=== PATIENT | female | born 1990 | race Caucasian/White ===

== ENCOUNTER 2019-11-27 06:44 | Emergency (ER) | payer SELFPAY ==
[2019-11-27 06:52] VITALS: BP 149/92; PULSE 129; RESP 18; TEMP 37.4; O2SAT 130; BMI 23.0
--- NOTE | 2019-11-27 06:59 | W.ED.GENADLT ---
HPI - General Adult General: Chief complaint: Abdominal Pain Stated complaint: RIGHT FLANK PAIN, N/V, FEVER Time Seen by Provider: 11/27/19 06:52 History of Present Illness: HPI narrative: Patient says she worked last night and felt pretty bad for little bit better this morning but believes she had a UTI couple weeks ago did not take any treatment for it. Patient now had a fever has been nauseated have urinary frequency complains about right flank pain that is radiating to her right abdomen area presently. Said it hurts about a 5 out of 10. Denies any blood in her urine. Onset (ago): day(s) Location: abdomen and right Radiation: flank Severity: moderate Severity scale (1-10): 5 Quality: aching Pain Consistency: constant Relieving factors: none Exacerbating factors: none Associated symptoms: Reports nausea; Deny chest pain, dyspnea, headache(s) or rash Treatments prior to arrival: none Review of Systems Const: Reports: fever(s) and chills; Denies: body aches Eyes: Denies: change in vision or blurry vision ENMT: Denies: throat pain or nasal congestion Card: Denies: chest pain or dyspnea on exertion Resp: Denies: dyspnea, productive cough or non-productive cough GI: Reports: abdominal pain (Right flank pain) and nausea Musc: Denies: extremity pain Skin/Breast: Denies: rash Neuro: Denies: headache(s) Psych: Denies: anxiety or depression Ted/Lymph: Denies: easy bruising Physical Exam Const: COMMON NORMALS: no acute distress, average body habitus and patient oriented x3 HENMT: COMMON NORMALS: normocephalic HEAD & SCALP: normal to inspection and normocephalic FACE & SINUS: normal facial exam Eye: COMMON NORMALS: conjunctivae normal GENERAL EYE: appearance normal, both eyes and all related structures CONJUNCTIVA: Yes conjunctivae normal Neck/C-Spine: COMMON NORMALS: no JVD Chest: COMMONS NORMALS: normal inspection of the chest Resp: COMMON NORMALS: normal respiratory effort and clear to auscultation bilaterally AUSCULTATION: clear to auscultation bilaterally Cardio: COMMON NORMALS: no JVD, regular rate and regular rhythm RATE: regular rate RHYTHM: regular rhythm GI: COMMON NORMALS: Normal to inspection, nondistended, normoactive bowel sounds present Extremity: COMMON NORMALS: normal to inspection and full ROM Neuro: COMMON NORMALS: patient oriented x3 Course Vital Signs: Vital signs: Vital Signs Temperature 99.3 F 11/27/19 06:52 Pulse Rate 129 H 11/27/19 06:52 Respiratory Rate 18 11/27/19 06:52 Blood Pressure 149/92 11/27/19 06:52 Pulse Oximetry 130 H 11/27/19 06:52 MDM - General Adult MDM Narrative: Medical decision making narrative: Patient presented with right flank pain nausea fever and chills and urinary frequency. Diagnosis of pyelonephritis was arrived at because of hematuria and increased white blood cell count. Also seen on CT was a nonenhancing lesion on the liver which patient was informed that she needed an MRI CT and establish with a primary care provider to get this looked at. Patient tolerated antibiotics and IV fluids well feels much better. Lab Data: Labs: Lab Results 11/27/19 11/27/19 11/27/19 Range/Units 07:11 07:11 07:11 WBC 15.7 H (4.0-10.0) 10^3/ uL RBC 4.17 (4.1-5.3) 10^6/u L Hgb 12.1 (11.5-15.3) g/dL Hct 38.2 (37.0-47.0) % MCV 91.6 (81-99) fL MCH 29.0 (28.0-34.0) pg MCHC 31.7 (30.0-36.0) g/dL RDW 13.3 (12.1-15.1) % Plt Count 477 H (130-400) 10^3/c mm MPV 8.6 (7.4-10.4) fL Neut % (Auto) 85.9 % Lymph % (Auto) 7.3 % [place] % (Auto) 5.7 % Eos % (Auto) 0.2 % Baso % (Auto) 0.5 % Neut # (Auto) 13.46 H (1.8-7.7) 10^3/u L Lymph # (Auto) 1.2 (0.8-4.8) 10^3/u L [place] # (Auto) 0.9 (0.2-0.9) 10^3/u L Eos # (Auto) 0.0 (0.0-0.8) 10^3/u L Baso # (Auto) 0.1 (0.0-0.1) 10^3/u L Nucleated RBC % (a uto) 0 % Nucleated RBCs # 0.0 /100WBC Sodium 136 (136-145) mmol/L Potassium 3.4 L (3.5-5.1) mmol/L Chloride 99 (98-107) mmol/L Carbon Dioxide 22 (22-29) mmol/L Anion Gap 18.4 (5-19) BUN 7 (6-20) mg/dL Creatinine 0.7 (0.5-0.9) mg/dL GFR Calculation 100.4 (90-130) mL/min Glucose 120 H (65-115) mg/dL Calculated Osmolal ity 279 L (285-295) mOsm/k g Calcium 9.6 (8.5-10.5) mg/dL Total Bilirubin 0.3 (0.15-1.2) mg/dL AST 26 (0-32) U/L ALT 17 (0-33) U/L Alkaline Phosphata se 87 (35-105) IU/L Total Protein 8.0 (6.6-8.7) g/dL Albumin 4.3 (3.5-5.2) g/dL Globulin 3.7 (1.3-4.6) g/dL Lipase 53 (13-60) U/L HCG, Qual Negative (Negative) Urine Color (Yellow) Urine Appearance (CLEAR) Urine pH (5-7) Ur Specific Gravit y (1.005-1.030) Urine Protein (Negative) Urine Glucose (UA) (Normal) Urine Ketones (Negative) Urine Blood (Negative) Urine Nitrate (Negative) Urine Bilirubin (NEGATIVE) Urine Urobilinogen (Negative) mg/dL Ur Leukocyte Jennifer ase (Negative) Urine RBC (0-2) /hpf Urine WBC (0-5) /hpf Ur Squamous Epith Cells (0-5) Amorphous Sediment Urine Bacteria (NONE) Urine Mucus 11/27/19 Range/Units 07:11 WBC (4.0-10.0) 10^3/ uL RBC (4.1-5.3) 10^6/u L Hgb (11.5-15.3) g/dL Hct (37.0-47.0) % MCV (81-99) fL MCH (28.0-34.0) pg MCHC (30.0-36.0) g/dL RDW (12.1-15.1) % Plt Count (130-400) 10^3/c mm MPV (7.4-10.4) fL Neut % (Auto) % Lymph % (Auto) % [place] % (Auto) % Eos % (Auto) % Baso % (Auto) % Neut # (Auto) (1.8-7.7) 10^3/u L Lymph # (Auto) (0.8-4.8) 10^3/u L [place] # (Auto) (0.2-0.9) 10^3/u L Eos # (Auto) (0.0-0.8) 10^3/u L Baso # (Auto) (0.0-0.1) 10^3/u L Nucleated RBC % (a uto) % Nucleated RBCs # /100WBC Sodium (136-145) mmol/L Potassium (3.5-5.1) mmol/L Chloride (98-107) mmol/L Carbon Dioxide (22-29) mmol/L Anion Gap (5-19) BUN (6-20) mg/dL Creatinine (0.5-0.9) mg/dL GFR Calculation (90-130) mL/min Glucose (65-115) mg/dL Calculated Osmolal ity (285-295) mOsm/k g Calcium (8.5-10.5) mg/dL Total Bilirubin (0.15-1.2) mg/dL AST (0-32) U/L ALT (0-33) U/L Alkaline Phosphata se (35-105) IU/L Total Protein (6.6-8.7) g/dL Albumin (3.5-5.2) g/dL Globulin (1.3-4.6) g/dL Lipase (13-60) U/L HCG, Qual (Negative) Urine Color Yellow (Yellow) Urine Appearance Cloudy (CLEAR) Urine pH 5.0 (5-7) Ur Specific Gravit y 1.020 (1.005-1.030) Urine Protein 1+ H (Negative) Urine Glucose (UA) Norm (Normal) Urine Ketones 1+ H (Negative) Urine Blood 3+ H (Negative) Urine Nitrate Negative (Negative) Urine Bilirubin 1+ H (NEGATIVE) Urine Urobilinogen 1 H (Negative) mg/dL Ur Leukocyte Jennifer ase Trace H (Negative) Urine RBC 50-80 H (0-2) /hpf Urine WBC 25-40 H (0-5) /hpf Ur Squamous Epith Cells 15-25 H (0-5) Amorphous Sediment Not Reportable Urine Bacteria 2+ H (NONE) Urine Mucus 2+ Discharge Plan Discharge Patient Disposition: Home Clinical Impression: Pyelonephritis Condition: Stable Prescriptions: New Keflex 500 mg capsule 500 mg PO TID 7 Days Qty: 21 RF: 0 Discharge Orders: Discharge Order (Routine); Ordered 11/27/19 Ordered By: Félix Braden Discharge Diet: Usual diet Discharge Activity: Increase activity as tolerated Patient Instructions: Acute Pyelonephritis (ED) Activity Restrictions/Additional Instructions: Follow-up with medical provider as directed. Take medications as prescribed. Return to the ER or your medical provider if condition worsens. Please read and understand discharge instructions. If any questions ask please. Make sure you establish with a primary care provider here in the next week repeat urine sample make sure infection is gone and also get scheduled for CT your MRI of your liver to look at that nonenhancing lesion that was seen on CT here in the ER. Coding Level of Care Code ED [employer] for [facility] Exam Comprehensive
--- NOTE | 2019-11-27 07:01 | CTR_ITS ---
PROCEDURE INFORMATION: Exam: CT Abdomen And Pelvis Without Contrast Exam date and time: 11/27/2019 7:24 AM Age: 29 years old Clinical indication: Nausea and vomiting; Abdominal pain; Patient HX: Right flank pain with n/v x 3days TECHNIQUE: Imaging protocol: Computed tomography of the abdomen and pelvis without contrast. Radiation optimization: All CT scans at this facility use at least one of these dose optimization techniques: automated exposure control; mA and/or kV adjustment per patient size (includes targeted exams where dose is matched to clinical indication); or iterative reconstruction. COMPARISON: [facility] OB < 14 weeks 07/27/2017 1:27 PM RADIATION DOSE METRICS: Total DLP (mGy-cm): 492.46 FINDINGS: Liver: Normal. No mass. Gallbladder and bile ducts: Normal. No calcified stones. No ductal dilation. Pancreas: Normal. No ductal dilation. Spleen: Normal. No splenomegaly. Adrenals: Normal. No mass. Kidneys and ureters: Mild right renal central sinus and upper periureteral adipose stranding. Stomach and bowel: There is mildly increased stool noted in the ascending colon. Appendix: The vermiform appendix is normal. Intraperitoneal space: Nonspecific clustered hypodensities in the superior left lobe medial segment, in aggregate measuring 3.6 x 3.5 x 2.7 cm, possibly cystic and/or tubular/ductal. Vasculature: Unremarkable. No abdominal aortic aneurysm. Lymph nodes: No enlarged lymph nodes. Bladder: The urinary bladder is decompressed and difficult to assess. Reproductive: Small benign-appearing right uterine myometrial calcification. Bones/joints: Unremarkable. No acute fracture. Soft tissues: Unremarkable. CT/CT kidney stone [id number] IMPRESSION: 1. Mild right renal central sinus and upper periureteral adipose stranding. No hydronephrosis or obstructing calculus identified. The finding could represent upper urinary tract infection or recently passed ureteral calculus. Clinical correlation is recommended. 2. Nonspecific hepatic lesion. Comparison with prior studies recommended, if available. Otherwise contrast-enhanced imaging or MRI recommended. 3. Mild right abdominal colonic constipation. Radiation Dose CTDIVOL = (mGy): DLP = 492.46 (mGy-cm)
[2019-11-27 07:19] LABS: Basophils # 0.1 10^3/uL (0.0-0.1); Basophils % 0.5 %; Eosinophils % 0.2 %; Hematocrit 38.2 % (37.0-47.0); Hemoglobin 12.1 g/dL (11.5-15.3); Lymphocytes # 1.2 10^3/uL (0.8-4.8); Lymphocytes % 7.3 %; Mean Corpuscular HGB Conc 31.7 g/dL (30.0-36.0); Mean Corpuscular Volume 91.6 fL (81-99); Mean Platelet Volume 8.6 fL (7.4-10.4); Monocytes # 0.9 10^3/uL (0.2-0.9); Monocytes % 5.7 %; Neutrophils # 13.46 10^3/uL (1.8-7.7); Neutrophils % 85.9 %; Nucleated Red Blood Cells % 0 %; Platelet Count 477 10^3/cmm (130-400); Red Blood Count 4.17 10^6/uL (4.1-5.3); Red Cell Distribution Width 13.3 % (12.1-15.1); White Blood Count 15.7 10^3/uL (4.0-10.0)
[2019-11-27] MEDS: ondansetron 2 mg/ML SDV 2 mL 4 MG IVP (07:23)
[2019-11-27] MEDS: ketorolac 30 mg/mL INJ IVP (07:23)
[2019-11-27] MEDS: sodium chloride 0.9% 1,000 ML 999 ML IV (07:23)
[2019-11-27 07:27] LABS: HCG, Serum Qual Negative (Negative)
[2019-11-27 07:31] LABS: Alanine Aminotransferase 17 U/L (0-33); Albumin Level 4.3 g/dL (3.5-5.2); Alkaline Phosphatase 87 IU/L (35-105); Anion Gap 18.4 (5-19); Aspartate Amino Transferase 26 U/L (0-32); Blood Urea Nitrogen 7 mg/dL (6-20); Calcium 9.6 mg/dL (8.5-10.5); Carbon Dioxide 22 mmol/L (22-29); Chloride 99 mmol/L (98-107); Creatinine Clr Calc Pharmacy 104.8675; Globulin 3.7 g/dL (1.3-4.6); Glomerular Filtration Rate 100.4 mL/min (90-130); Glucose 120 mg/dL (65-115); Lipase 53 U/L (13-60); Osmolality Calculated 279 mOsm/kg (285-295); Potassium 3.4 mmol/L (3.5-5.1); Sodium 136 mmol/L (136-145); Total Bilirubin 0.3 mg/dL (0.15-1.2)
[2019-11-27 07:43] LABS: Add Urine Culture? No; Add Urine Microscopic? YES; Bacteria Urine 2+; Bilirubin Urine 1+ (NEGATIVE); Blood Urine 3+ (Negative); Glucose Urine UA Norm (Normal); Ketones Urine 1+ (Negative); Leukocyte Esterase Urine Trace (Negative); Mucus Urine 2+; Nitrate Urine Negative (Negative); Protein Urine 1+ (Negative); RBC Urine 50-80 /hpf (0-2); Squamous Epithelial Cell Urine 15-25 (0-5); Urine Appearance Cloudy (CLEAR); Urine Color Yellow (Yellow); Urobilinogen Urine 1 mg/dL (Negative); WBC Urine 25-40 /hpf (0-5)
[2019-11-27] MEDS: cefTRIAXone 1,000 MG in sodium chloride 0.9% (plus) 50 ML 100 MG IV (07:47)
[2019-11-27 08:44] VITALS: BP 134/84; PULSE 74; RESP 18; O2SAT 98
== END 2019-11-27 08:48 | disposition home or self-care (01) ==
PROVIDERS: Emergency Provider Nurse Practitioner Family
DX: N12 Tubulo-interstitial nephritis, not specified as acute or chronic (principal)
CPT/HCPCS: 12345; 74176; 80053; 81001; 81003; 83690; 84703; 85025; 96360; 96365; 96375; 99282; 99284; J0696; J1885; J2405; J7030

== ENCOUNTER 2021-05-19 08:31 | Emergency (ER) | payer SELFPAY ==
[2021-05-19 08:53] VITALS: BP 156/101; PULSE 92; RESP 18; TEMP 37.2; O2SAT 94; BMI 24.7
--- NOTE | 2021-05-19 09:06 | W.ED.COVID ---
HPI - COVID General: Chief Complaint: COVID symptoms Stated Complaint: Med reaction, COVID postive Time Seen by Provider: 05/19/21 09:00 Triage information: No fever, cough or shortness of breath. No known COVID + exposure last 14 days History of Present Illness: HPI Narrative: COVID-positive patient states she has muscle aches. She says that the Zofran she taken is making her hallucinate at times. Denies other problems needs a note for work. complaint: known COVID positive Prior covid testing: yes, results known Prior testing date: 05/17/21 COVID 19 common symptoms: positive fatigue and body aches; negative non-productive cough, productive cough, dyspnea, headache(s), throat pain, nasal congestion, nausea or vomiting COVID 19 other sytmptoms: negative chest pain Onset (ago): day(s) Severity: mild COVID Results: No Data to Display Review of Systems Const: Reports: body aches and fatigue Eyes: Denies: change in vision or blurry vision ENMT: Denies: throat pain or nasal congestion Card: Denies: chest pain or dyspnea on exertion Resp: Denies: dyspnea, productive cough or non-productive cough GI: Denies: abdominal pain, nausea or vomiting Musc: Denies: extremity pain Skin/Breast: Denies: rash Neuro: Denies: headache(s) Psych: Denies: anxiety or depression Ted/Lymph: Denies: easy bruising Physical Exam Const: COMMON NORMALS: no acute distress, average body habitus and patient oriented x3 HENMT: COMMON NORMALS: normocephalic HEAD & SCALP: normal to inspection and normocephalic FACE & SINUS: normal facial exam Eye: COMMON NORMALS: conjunctivae normal GENERAL EYE: appearance normal, both eyes and all related structures CONJUNCTIVA: Yes conjunctivae normal Neck/C-Spine: COMMON NORMALS: no JVD Chest: COMMONS NORMALS: normal inspection of the chest Resp: COMMON NORMALS: normal respiratory effort Cardio: COMMON NORMALS: no JVD and regular rate RATE: regular rate GI: AUSCULTATION: Yes normoactive bowel sounds Extremity: COMMON NORMALS: normal to inspection and full ROM Neuro: COMMON NORMALS: patient oriented x3 Course Vital Signs: Vital signs: Vital Signs Temperature 99.0 F 05/19/21 08:53 Pulse Rate 92 05/19/21 08:53 Respiratory Rate 18 05/19/21 08:53 Blood Pressure 156/101 05/19/21 08:53 Pulse Oximetry 94 05/19/21 08:53 MDM - COVID COVID Results: No Data to Display Discharge Plan Discharge Patient Disposition: Home Clinical Impression: COVID-19 Condition: Stable Prescriptions: New promethazine 12.5 mg tablet 12.5 mg PO TID PRN (Reason: nausea and vomiting) Qty: 7 RF: 0 Discharge Orders: Discharge ED (Routine); Ordered 05/19/21 Ordered By: Félix Braden Discharge Diet: Advance as tolerated Discharge Activity: Increase activity as tolerated Patient Instructions: COVID-19 (Coronavirus Disease 2019) (ED) Activity Restrictions/Additional Instructions: Follow-up with medical provider as directed. Take medications as prescribed. Return to the ER or your medical provider if condition worsens. Please read and understand discharge instructions. If any questions ask please. 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
[2021-05-19 09:21] VITALS: O2SAT 98
[2021-05-19 09:22] VITALS: BP 151/115; PULSE 86; RESP 18; O2SAT 98
== END 2021-05-19 09:30 | disposition home or self-care (01) ==
PROVIDERS: Emergency Provider Nurse Practitioner Family
DX: U07.1 COVID-19 (principal)
CPT/HCPCS: 99282

== ENCOUNTER 2021-05-22 15:49 | Emergency (ER) | payer SELFPAY ==
[2021-05-22 15:56] VITALS: BP 163/102; PULSE 119; RESP 18; TEMP 37.4; O2SAT 95; BMI 19.5
--- NOTE | 2021-05-22 16:18 | ED_ITS ---
Documented by User: PAT Shetty 05/22/21 16:19 HPI - Weakness General: Chief complaint: Weakness Stated complaint: NOT FEELING WELL Time Seen by Provider: 05/22/21 15:53 History of Present Illness: HPI Narrative: Patient presents via ambulance and says she just did not feel right. Said her blood pressures been running high the last couple days. She cannot tolerate promethazine are the Zofran. States she just feels weak. Denies any fever chills or shortness of breath. Has been COVID quarantine for 3 weeks as per angus BARRETO Complaint: generalized weakness and lack of energy Onset (ago): day(s) Duration: constant Location: generalized Severity: mild Associated symptoms: Reports no associated symptoms; Denies chest pain, chills, easy bruising, fever(s), headache(s), nausea or vomiting Review of Systems Narrative: Patient complains about hypertension and just feeling weak and out of it. Const: Denies: fever(s), chills or body aches Eyes: Denies: change in vision or blurry vision ENMT: Denies: throat pain or nasal congestion Card: Denies: chest pain or dyspnea on exertion Resp: Denies: dyspnea, productive cough or non-productive cough GI: Denies: abdominal pain, nausea or vomiting Musc: Denies: extremity pain Skin/Breast: Denies: rash Neuro: Denies: headache(s) Psych: Denies: anxiety or depression Ted/Lymph: Denies: easy bruising Physical Exam Const: COMMON NORMALS: no acute distress, average body habitus and patient oriented x3 HENMT: COMMON NORMALS: normocephalic HEAD & SCALP: normal to inspection and normocephalic FACE & SINUS: normal facial exam Eye: COMMON NORMALS: conjunctivae normal GENERAL EYE: appearance normal, both eyes and all related structures CONJUNCTIVA: Yes conjunctivae normal Neck/C-Spine: COMMON NORMALS: no JVD Chest: COMMONS NORMALS: normal inspection of the chest Resp: COMMON NORMALS: normal respiratory effort and clear to auscultation bilaterally AUSCULTATION: clear to auscultation bilaterally Cardio: COMMON NORMALS: no JVD, regular rate and regular rhythm RATE: regular rate RHYTHM: regular rhythm GI: COMMON NORMALS: Normal to inspection, nondistended, normoactive bowel sounds present Extremity: COMMON NORMALS: normal to inspection and full ROM Neuro: COMMON NORMALS: patient oriented x3 Course Vital Signs: Vital signs: Vital Signs Temperature 98.2 F 05/22/21 17:49 Pulse Rate 97 05/22/21 17:49 Respiratory Rate 18 05/22/21 17:49 Blood Pressure 143/93 05/22/21 17:49 Pulse Oximetry 95 05/22/21 17:49 MDM - Weakness Lab Data: Labs: Lab Results 05/22/21 05/22/21 05/22/21 16:30 16:30 16:30 WBC 5.8 10^3/uL 10^3/ uL (4.0-10.0) RBC 4.93 10^6/uL 10^6 /uL (4.1-5.3) Hgb 15.1 g/dL g/dL (11.5-15.3) Hct 46.5 % % (37.0-47.0) MCV 94.3 fl fl (81-99) MCH 30.6 pg pg (28.0-34.0) MCHC 32.5 g/dL g/dL (30.0-36.0) RDW 13.0 % % (12.1-15.1) Plt Count 388 10^3/cmm 10^3 /cmm (130-400) MPV 9.3 fL fL (7.4-10.4) Neut % (Auto) 56.6 % % Lymph % (Auto) 34.9 % % Maries % (Auto) 5.2 % % Eos % (Auto) 1.0 % % Baso % (Auto) 2.1 % % Neut # (Auto) 3.29 10^3/uL 10^3 /uL (1.8-7.7) Lymph # (Auto) 2.0 10^3/uL 10^3/ uL (0.8-4.8) Maries # (Auto) 0.3 10^3/uL 10^3/ uL (0.2-0.9) Eos # (Auto) 0.1 10^3/uL 10^3/ uL (0.0-0.8) Baso # (Auto) 0.1 10^3/uL 10^3/ uL (0.0-0.1) Nucleated RBC % (a uto) 0 % % Nucleated RBCs # 0.0 /100WBC /100W BC D-Dimer 0.60 ug/mIFEU H u g/mIFEU (0-0.59) Sodium 144 mmol/L mmol/L (136-145) Potassium 4.1 mmol/L mmol/L (3.5-5.1) Chloride 103 mmol/L mmol/L (98-107) Carbon Dioxide 24 mmol/L mmol/L (22-29) Anion Gap 21.1 H (5-19) BUN 4 mg/dL L mg/dL (6-20) Creatinine 0.5 mg/dL mg/dL (0.5-0.9) GFR Calculation 146.9 mL/min H mL /min (90-130) Glucose 103 mg/dL mg/dL (65-115) Calculated Osmolal ity 295 mOsm/kg mOsm/ kg (285-295) Calcium 8.9 mg/dL mg/dL (8.5-10.5) Total Bilirubin 0.3 mg/dL mg/dL (0.15-1.2) AST 159 U/L H U/L (0-32) ALT 91 U/L H U/L (0-33) Alkaline Phosphata se 407 IU/L H IU/L (35-105) Total Protein 8.5 g/dL g/dL (6.6-8.7) Albumin 5.0 g/dL g/dL (3.5-5.2) Globulin 3.5 g/dL g/dL (1.3-4.6) Urine Color Urine Appearance Urine pH Ur Specific Gravit y Urine Protein Urine Glucose (UA) Urine Ketones Urine Blood Urine Nitrate Urine Bilirubin Prot Sulfosalicyli c Acd Urine Urobilinogen Ur Leukocyte Jennifer ase Urine Opiates Scre en Ur Barbiturates Sc reen Ur Phencyclidine S crn Ur Amphetamines Sc reen U Benzodiazepines Scrn Urine Cocaine Scre en U Marijuana (THC) Screen 05/22/21 05/22/21 16:30 16:30 WBC RBC Hgb Hct MCV MCH MCHC RDW Plt Count MPV Neut % (Auto) Lymph % (Auto) Maries % (Auto) Eos % (Auto) Baso % (Auto) Neut # (Auto) Lymph # (Auto) Maries # (Auto) Eos # (Auto) Baso # (Auto) Nucleated RBC % (a uto) Nucleated RBCs # D-Dimer Sodium Potassium Chloride Carbon Dioxide Anion Gap BUN Creatinine GFR Calculation Glucose Calculated Osmolal ity Calcium Total Bilirubin AST ALT Alkaline Phosphata se Total Protein Albumin Globulin Urine Color Colorless (Yellow) Urine Appearance Clear (CLEAR) Urine pH 8 H (5-7) Ur Specific Gravit y 1.010 (1.005-1.030) Urine Protein Neg (Negative) Urine Glucose (UA) Norm (Normal) Urine Ketones Negative (Negative) Urine Blood Neg (Negative) Urine Nitrate Negative (Negative) Urine Bilirubin Neg (Negative) Prot Sulfosalicyli c Acd Negative (Negative) Urine Urobilinogen Norm mg/dL mg/dL (Negative) Ur Leukocyte Jennifer ase Negative (Negative) Urine Opiates Scre en Negative ng/mL ng /mL (Negative) Ur Barbiturates Sc reen Negative ng/mL ng /mL (Negative) Ur Phencyclidine S crn Negative ng/mL ng /mL (Negative) Ur Amphetamines Sc reen Negative ng/mL ng /mL (Negative) U Benzodiazepines Scrn Negative ng/mL ng /mL (Negative) Urine Cocaine Scre en Negative ng/mL ng /mL (Negative) U Marijuana (THC) Screen Negative ng/mL ng /mL (Negative) Discharge Plan Discharge Patient Disposition: Home Clinical Impression: Persistent fatigue after COVID-19 Condition: Stable Prescriptions: No Action promethazine 12.5 mg tablet 12.5 mg PO TID PRN (Reason: nausea and vomiting) Qty: 7 RF: 0 Discharge Orders: Discharge ED (Routine); Ordered 05/22/21 Ordered By: Greg Rodriguez Discharge Diet: Regular Discharge Activity: Increase activity as tolerated Patient Instructions: COVID-19 (Coronavirus Disease 2019) (ED), COVID-19 and Chronic Health Conditions (ED), Long COVID (ED) Activity Restrictions/Additional Instructions: Follow-up with medical provider as directed. Case management should be contacting you in the next several days set up an appointment with a primary care physician for follow-up. Continue taking previously prescribed medications as directed. Return to the ER or your medical provider if condition worsens. Please read and understand discharge instructions. Thank you for choosing [facility] for your healthcare needs today. Please realize this is an emergency room and that we are providing you with a medical screening exam and this may not be complete and all inclusive of all the testing and or work up that you may need to determine your ailment or severity of your illness. It is very important that you follow up as instructed or that you return to the Emergency Department should you have concerns or if your condition changes or worsens in any way. Sign Out Sign Out Data: Patient Sign Out occurred on 05/22/21 at 17:10. Patient's care was discussed, and care was transferred from to BARTOLO Mathis. Coding Level of Care Code ED Ophthalmic Aide for Chg Fwd Exam Comprehensive Documented by User: BARTOLO Mathis 05/23/21 02:44 HPI - Weakness General: Chief complaint: Weakness Stated complaint: NOT FEELING WELL Time Seen by Provider: 05/22/21 15:53 Course Vital Signs: Vital signs: Vital Signs Temperature 98.2 F 05/22/21 17:49 Pulse Rate 97 05/22/21 17:49 Respiratory Rate 18 05/22/21 17:49 Blood Pressure 143/93 05/22/21 17:49 Pulse Oximetry 95 05/22/21 17:49 MDM - Weakness MDM Narrative: Medical decision making narrative: Patient is a 30-year-old female who comes to the ED with weakness and fatigue since being diagnosed with COVID approximately 3 weeks ago. She has also had some nausea and vomiting and is currently taking promethazine to help with nausea. Denies any chest pain, shortness of breath or cough. Patient's pulse was 119 upon arrival here in the ED and the rest of her vitals are stable. CBC and CMP were unremarkable. UA unremarkable. Drug screen was negative. D-dimer was 0.6. Chest x-ray showed no acute findings. Patient was given 1 L of IV fluids and her symptoms improved. Patient was stable and ready for discharge. Patient's pulse improved to 97 after IV fluids and the rest of her vitals were stable as well. She says she does not have a primary care physician and would like a referral to get established with one. Placed order with case management for patient to be referred to get established with a PCP. Patient diagnosed with persistent fatigue after COVID-19 and discharged home. Return to ED precautions given. Patient understood and agree with plan. Lab Data: Attestation: I reviewed the patient's lab results. Labs: Lab Results 05/22/21 05/22/21 05/22/21 16:30 16:30 16:30 WBC 5.8 10^3/uL 10^3/ uL (4.0-10.0) RBC 4.93 10^6/uL 10^6 /uL (4.1-5.3) Hgb 15.1 g/dL g/dL (11.5-15.3) Hct 46.5 % % (37.0-47.0) MCV 94.3 fl fl (81-99) MCH 30.6 pg pg (28.0-34.0) MCHC 32.5 g/dL g/dL (30.0-36.0) RDW 13.0 % % (12.1-15.1) Plt Count 388 10^3/cmm 10^3 /cmm (130-400) MPV 9.3 fL fL (7.4-10.4) Neut % (Auto) 56.6 % % Lymph % (Auto) 34.9 % % Maries % (Auto) 5.2 % % Eos % (Auto) 1.0 % % Baso % (Auto) 2.1 % % Neut # (Auto) 3.29 10^3/uL 10^3 /uL (1.8-7.7) Lymph # (Auto) 2.0 10^3/uL 10^3/ uL (0.8-4.8) Maries # (Auto) 0.3 10^3/uL 10^3/ uL (0.2-0.9) Eos # (Auto) 0.1 10^3/uL 10^3/ uL (0.0-0.8) Baso # (Auto) 0.1 10^3/uL 10^3/ uL (0.0-0.1) Nucleated RBC % (a uto) 0 % % Nucleated RBCs # 0.0 /100WBC /100W BC D-Dimer 0.60 ug/mIFEU H u g/mIFEU (0-0.59) Sodium 144 mmol/L mmol/L (136-145) Potassium 4.1 mmol/L mmol/L (3.5-5.1) Chloride 103 mmol/L mmol/L (98-107) Carbon Dioxide 24 mmol/L mmol/L (22-29) Anion Gap 21.1 H (5-19) BUN 4 mg/dL L mg/dL (6-20) Creatinine 0.5 mg/dL mg/dL (0.5-0.9) GFR Calculation 146.9 mL/min H mL /min (90-130) Glucose 103 mg/dL mg/dL (65-115) Calculated Osmolal ity 295 mOsm/kg mOsm/ kg (285-295) Calcium 8.9 mg/dL mg/dL (8.5-10.5) Total Bilirubin 0.3 mg/dL mg/dL (0.15-1.2) AST 159 U/L H U/L (0-32) ALT 91 U/L H U/L (0-33) Alkaline Phosphata se 407 IU/L H IU/L (35-105) Total Protein 8.5 g/dL g/dL (6.6-8.7) Albumin 5.0 g/dL g/dL (3.5-5.2) Globulin 3.5 g/dL g/dL (1.3-4.6) Urine Color Urine Appearance Urine pH Ur Specific Gravit y Urine Protein Urine Glucose (UA) Urine Ketones Urine Blood Urine Nitrate Urine Bilirubin Prot Sulfosalicyli c Acd Urine Urobilinogen Ur Leukocyte Jennifer ase Urine Opiates Scre en Ur Barbiturates Sc reen Ur Phencyclidine S crn Ur Amphetamines Sc reen U Benzodiazepines Scrn Urine Cocaine Scre en U Marijuana (THC) Screen 05/22/21 05/22/21 16:30 16:30 WBC RBC Hgb Hct MCV MCH MCHC RDW Plt Count MPV Neut % (Auto) Lymph % (Auto) Maries % (Auto) Eos % (Auto) Baso % (Auto) Neut # (Auto) Lymph # (Auto) Maries # (Auto) Eos # (Auto) Baso # (Auto) Nucleated RBC % (a uto) Nucleated RBCs # D-Dimer Sodium Potassium Chloride Carbon Dioxide Anion Gap BUN Creatinine GFR Calculation Glucose Calculated Osmolal ity Calcium Total Bilirubin AST ALT Alkaline Phosphata se Total Protein Albumin Globulin Urine Color Colorless (Yellow) Urine Appearance Clear (CLEAR) Urine pH 8 H (5-7) Ur Specific Gravit y 1.010 (1.005-1.030) Urine Protein Neg (Negative) Urine Glucose (UA) Norm (Normal) Urine Ketones Negative (Negative) Urine Blood Neg (Negative) Urine Nitrate Negative (Negative) Urine Bilirubin Neg (Negative) Prot Sulfosalicyli c Acd Negative (Negative) Urine Urobilinogen Norm mg/dL mg/dL (Negative) Ur Leukocyte Jennifer ase Negative (Negative) Urine Opiates Scre en Negative ng/mL ng /mL (Negative) Ur Barbiturates Sc reen Negative ng/mL ng /mL (Negative) Ur Phencyclidine S crn Negative ng/mL ng /mL (Negative) Ur Amphetamines Sc reen Negative ng/mL ng /mL (Negative) U Benzodiazepines Scrn Negative ng/mL ng /mL (Negative) Urine Cocaine Scre en Negative ng/mL ng /mL (Negative) U Marijuana (THC) Screen Negative ng/mL ng /mL (Negative) Imaging Data^: CXR: Attestation: I personally reviewed and interpreted this imaging study as follows: Radiologist's impression: [address] [id number] ReportSigned Patient: Milagro Sebastian RUnkwabena #: [id number]: [id number]#:[id number]/Sex: 30 / FADM Date: 05/22/21Loc: [facility]/Bed:Attending Dr: Ordering Provider/Ordering MD: Joanne Braden , [facility] Date of Service: 05/22/21 Procedure(s): XR chest 1V portable [id number] Accession Number(s): [id number] Report Number: [id number] PROCEDURE INFORMATION: Exam: XR Chest Exam date and time: 05/22/2021 4:37 PM Age: 30 years old Clinical indication: Shortness of breath; Patient HX: SOB w/ hypertension; Additional info: HTN TECHNIQUE: Imaging protocol: XR of the chest. Views: 1 view. Total images: 1 COMPARISON: CR XR chest 2V* [id number] 05/19/2020 3:58 PM FINDINGS: Lungs: No visible active interstitial or alveolar airspace disease. Pleural spaces: Unremarkable. No pleural effusion. No pneumothorax. Heart/Mediastinum: Cardiac structures and configuration within normal limits. Bones/joints: Mild scoliotic curvature of the spine. XR/XR chest 1V portable [id number] IMPRESSION: Nonacute. Dictated By:Keo Nunes By:Keo Nunes Date/Time:05/22/211806DD/ 1637 Discharge Plan Discharge Patient Disposition: Home Clinical Impression: Persistent fatigue after COVID-19 Condition: Stable Prescriptions: No Action promethazine 12.5 mg tablet 12.5 mg PO TID PRN (Reason: nausea and vomiting) Qty: 7 RF: 0 Discharge Orders: Discharge ED (Routine); Ordered 05/22/21 Ordered By: Greg Rodriguez Discharge Diet: Regular Discharge Activity: Increase activity as tolerated Patient Instructions: COVID-19 (Coronavirus Disease 2019) (ED), COVID-19 and Chronic Health Conditions (ED), Long COVID (ED) Activity Restrictions/Additional Instructions: Follow-up with medical provider as directed. Case management should be contacting you in the next several days set up an appointment with a primary care physician for follow-up. Continue taking previously prescribed medications as directed. Return to the ER or your medical provider if condition worsens. Please read and understand discharge instructions. Thank you for choosing [facility] for your healthcare needs today. Please realize this is an emergency room and that we are providing you with a medical screening exam and this may not be complete and all inclusive of all the testing and or work up that you may need to determine your ailment or severity of your illness. It is very important that you follow up as instructed or that you return to the Emergency Department should you have concerns or if your condition changes or worsens in any way. Sign Out Sign Out Data: Patient Sign Out occurred on 05/22/21 at 17:10. Patient's care was discussed, and care was transferred from to BARTOLO Mathis. Coding Level of Care Code ED Ophthalmic Aide for Ivy Fwd Exam Comprehensive
--- NOTE | 2021-05-22 16:37 | XRR_ITS ---
PROCEDURE INFORMATION: Exam: XR Chest Exam date and time: 05/22/2021 4:37 PM Age: 30 years old Clinical indication: Shortness of breath; Patient HX: SOB w/ hypertension; Additional info: HTN TECHNIQUE: Imaging protocol: XR of the chest. Views: 1 view. Total images: 1 COMPARISON: CR XR chest 2V* [id number] 05/19/2020 3:58 PM FINDINGS: Lungs: No visible active interstitial or alveolar airspace disease. Pleural spaces: Unremarkable. No pleural effusion. No pneumothorax. Heart/Mediastinum: Cardiac structures and configuration within normal limits. Bones/joints: Mild scoliotic curvature of the spine. XR/XR chest 1V portable [id number] IMPRESSION: Nonacute.
[2021-05-22 16:56] LABS: Basophils # 0.1 10^3/uL (0.0-0.1); Basophils % 2.1 %; Eosinophils # 0.1 10^3/uL (0.0-0.8); Hematocrit 46.5 % (37.0-47.0); Hemoglobin 15.1 g/dL (11.5-15.3); Lymphocytes % 34.9 %; Mean Corpuscular HGB Conc 32.5 g/dL (30.0-36.0); Mean Corpuscular Hemoglobin 30.6 pg (28.0-34.0); Mean Corpuscular Volume 94.3 fl (81-99); Mean Platelet Volume 9.3 fL (7.4-10.4); Monocytes # 0.3 10^3/uL (0.2-0.9); Monocytes % 5.2 %; Neutrophils # 3.29 10^3/uL (1.8-7.7); Neutrophils % 56.6 %; Nucleated Red Blood Cells % 0 %; Platelet Count 388 10^3/cmm (130-400); Red Blood Count 4.93 10^6/uL (4.1-5.3); White Blood Count 5.8 10^3/uL (4.0-10.0)
[2021-05-22] MEDS: sodium chloride 0.9% 1,000 ML 999 ML IV (16:56)
[2021-05-22 17:17] LABS: Alanine Aminotransferase 91 U/L (0-33); Alkaline Phosphatase 407 IU/L (35-105); Anion Gap 21.1 (5-19); Aspartate Amino Transferase 159 U/L (0-32); Blood Urea Nitrogen 4 mg/dL (6-20); Calcium 8.9 mg/dL (8.5-10.5); Carbon Dioxide 24 mmol/L (22-29); Chloride 103 mmol/L (98-107); Globulin 3.5 g/dL (1.3-4.6); Glomerular Filtration Rate 146.9 mL/min (90-130); Glucose 103 mg/dL (65-115); Osmolality Calculated 295 mOsm/kg (285-295); Potassium 4.1 mmol/L (3.5-5.1); Sodium 144 mmol/L (136-145); Total Bilirubin 0.3 mg/dL (0.15-1.2); Total Protein 8.5 g/dL (6.6-8.7)
[2021-05-22 17:19] LABS: Add Urine Microscopic? NO; Charge for UA Resulting for Rev
[2021-05-22 17:23] LABS: Protein Urine Neg (Negative); Urine Appearance Clear (CLEAR); Urine Color Colorless (Yellow); pH Urine 8 (5-7)
[2021-05-22 17:24] LABS: Bilirubin Urine Neg (Negative); Blood Urine Neg (Negative); Glucose Urine UA Norm (Normal); Ketones Urine Negative (Negative); Leukocyte Esterase Urine Negative (Negative); Nitrate Urine Negative (Negative); Sulfosalicylic Acid Urine Negative (Negative); Urobilinogen Urine Norm (Negative)
[2021-05-22 17:30] LABS: Amphetamines Screen Urine Negative (Negative); Barbiturates Screen Urine Negative (Negative); Benzodiazepines Screen Urine Negative (Negative); Cocaine Screen Urine Negative (Negative); Opiate Screen Urine Negative (Negative); PCP Screen Urine Negative (Negative); THC Screen Urine Negative (Negative)
[2021-05-22 17:49] VITALS: BP 143/93; PULSE 97; RESP 18; TEMP 36.8; O2SAT 95
--- NOTE | 2021-05-27 12:36 | DCPLANNER ---
subcontract manager had message to speak with patient about getting established with a primary care physician. subcontract manager spoke with patient, she stated that she would call case advocate back to talk about getting a primary care physician.
== END 2021-05-22 18:40 | disposition home or self-care (01) ==
PROVIDERS: Nurse Practitioner Family; Emergency Provider Physician Assistant
DX: R53.83 Other fatigue (principal); U09.9 Post COVID-19 condition, unspecified
CPT/HCPCS: 71045; 80053; 80306; 81003; 85025; 85378; 96360; 99283; J7030

== ENCOUNTER 2021-09-30 20:49 | Emergency (ER) | payer MEDICAID, SELFPAY ==
[2021-09-30 20:56] VITALS: BP 137/94; PULSE 112; RESP 16; TEMP 37.1; O2SAT 98; BMI 23.6
--- NOTE | 2021-09-30 21:10 | USR_ITS ---
PROCEDURE INFORMATION: Exam: US Abdomen Complete Exam date and time: 09/30/2021 9:25 PM Age: 30 years old Clinical indication: Other: Yellow eyes (jaundiced? ); ; Patient HX: PT reports of approx. 13 weeks. ; Additional info: Jaundice TECHNIQUE: Imaging protocol: Real-time ultrasound of the abdomen with image documentation. COMPARISON: CT kidney stone [id number] 11/27/2019 7:33 AM FINDINGS: Liver: Liver enlarged at 19 cm. Gallbladder: Normal. No gallstones. There is no gallbladder wall thickening. Biliary ducts: Minimal intrahepatic biliary dilation suspected with perhaps mild prominence of the common bile duct at 3.9 mm. Pancreas: Visualized pancreas is unremarkable. Right kidney: Mild right hydronephrosis without obstructing lesion seen. Left kidney: Normal. No mass. No hydronephrosis. Spleen: Normal. No splenomegaly. Aorta: Normal. No aneurysm. Inferior vena cava: Normal. US/US abdomen complete* [id number] IMPRESSION: 1. Negative for cholelithiasis or cholecystitis. 2. Minimal intrahepatic biliary dilation suspected with perhaps mild prominence of the common bile duct at 3.9 mm. 3. Mild right hydronephrosis without obstructing lesion seen. 4. Liver enlarged at 19 cm.
--- NOTE | 2021-09-30 21:22 | ED_ITS ---
HPI - General Adult General: Chief complaint: General Medical Stated complaint: 14 week preg, yellow in eyes, itching Time Seen by Provider: 09/30/21 20:57 Source: patient Mode of arrival: ambulatory Limitations: no limitations History of Present Illness: 30-year-old female who states she is currently 14 weeks states that she has been having pruritus along with kneeling arise in the skin. She states this is happened over the last few days that she has noticed she is quite jaundiced with scleral icterus. She denies any pain anywhere denies any abdominal pain she has no complaints. Patient is a chronic drinker and states that she is still drank some throughout the . Associated symptoms: Deny chest pain, dyspnea, headache(s), nausea or vomiting Review of Systems Const: Denies: fever(s), chills, body aches or change in appetite Eyes: Denies: blurry vision or eye discomfort ENMT: Denies: throat pain or dental pain Card: Denies: chest pain Resp: Denies: dyspnea GI: Denies: abdominal pain, nausea, vomiting or diarrhea : Denies: dysuria Musc: Denies: neck pain or back pain Skin/Breast: Reports: pruritus and jaundice Neuro: Denies: headache(s) Psych: Denies: depression Ted/Lymph: Denies: easy bruising All/Imm: Denies: urticaria PFS ED PFSH: Medical History (Updated 10/01/21 @ 00:51 by Karmen Márquez MD) No pertinent past medical history Social History (Updated 09/30/21 @ 21:24 by Karmen Márquez MD) Alcohol intake: current Female Reproductive History: Date of last menstrual period: 06/25/21 Physical Exam Const: COMMON NORMALS: no acute distress, patient oriented x3 and healthy appearing HENMT: COMMON NORMALS: normocephalic and atraumatic HEAD & SCALP: normocephalic and atraumatic Eye: COMMON NORMALS: Equal, round and reactive pupils present and EOMs intact bilaterally PUPIL: Yes Equal, round and reactive pupils present OTHER: scleral icterus Neck/C-Spine: COMMON NORMALS: full ROM and supple Chest: COMMONS NORMALS: normal inspection of the chest and normal palpation of entire chest wall Resp: COMMON NORMALS: normal respiratory effort, No retractions, No use of ac cessory muscles and clear to auscultation bilaterally AUSCULTATION: clear to auscultation bilaterally Cardio: COMMON NORMALS: regular rate, regular rhythm and No murmurs present (Cardio) RATE: regular rate RHYTHM: regular rhythm GI: COMMON NORMALS: Normal to inspection, nondistended, normoactive bowel sounds present, Soft to palpation, non-tender and no masses PALPATION: Yes Soft to palpation Extremity: COMMON NORMALS: normal to inspection and full ROM Neuro: COMMON NORMALS: patient oriented x3, moves all extremities and no focal motor deficits Psych: COMMON NORMALS: mental status grossly normal, Normal thought process present and cooperative THOUGHT PROCESS: Normal thought process present Skin: COMMON NORMALS: no rashes or lesions noted and no wounds NARRATIVE SKIN EXAM: Jaundiced GENERAL SKIN EXAM: no rashes or lesions noted Course Vital Signs: Vital signs: Vital Signs Temperature 98.8 F 09/30/21 20:56 Pulse Rate 92 10/01/21 00:16 Respiratory Rate 16 10/01/21 00:16 Blood Pressure 131/83 10/01/21 00:16 Pulse Oximetry 99 10/01/21 00:16 [facility] - General Adult Medical Decision Making Patient presents here with elevated bilirubin along with jaundice here. Patient is a heavy drinker and is intoxicated here patient is also 12 weeks . Will transfer due to being needing higher level of care of GI along with maternal- medicine did speak to maternal- medicine at [facility] in [place] and will transfer there. Patient has been stable while here. Lab Data : 09/30/21 22:12 09/30/21 22:54 Radiology Impressions Abdomen Ultrasound 09/30/21 21:10 IMPRESSION: 1. Negative for cholelithiasis or cholecystitis. 2. Minimal intrahepatic biliary dilation suspected with perhaps mild prominence of the common bile duct at 3.9 mm. 3. Mild right hydronephrosis without obstructing lesion seen. 4. Liver enlarged at 19 cm. Laboratory Results WBC 9.8 10^3/uL (4.0-10.0) 09/30/21 22:12 RBC 4.23 10^6/uL (4.1-5.3) 09/30/21 22:12 Hgb 13.1 g/dL (11.5-15.3) 09/30/21 22:12 Hct 37.8 % (37.0-47.0) 09/30/21 22:12 MCV 89.4 fl (81-99) 09/30/21 22:12 MCH 31.0 pg (28.0-34.0) 09/30/21 22:12 MCHC 34.7 g/dL (30.0-36.0) 09/30/21 22:12 RDW 14.9 % (12.1-15.1) 09/30/21 22:12 Plt Count 501 10^3/cmm (130-400) H 09/30/21 22:12 MPV 9.1 fL (7.4-10.4) 09/30/21 22:12 Neut % (Auto) 61.1 % 09/30/21 22:12 Lymph % (Auto) 32.2 % 09/30/21 22:12 [place] % (Auto) 4.2 % 09/30/21 22:12 Eos % (Auto) 0.9 % 09/30/21 22:12 Baso % (Auto) 1.2 % 09/30/21 22:12 Neut # (Auto) 5.98 10^3/uL (1.8-7.7) 09/30/21 22:12 Lymph # (Auto) 3.2 10^3/uL (0.8-4.8) 09/30/21 22:12 [place] # (Auto) 0.4 10^3/uL (0.2-0.9) 09/30/21 22:12 Eos # (Auto) 0.1 10^3/uL (0.0-0.8) 09/30/21 22:12 Baso # (Auto) 0.1 10^3/uL (0.0-0.1) 09/30/21 22:12 Nucleated RBC % (auto) 0 % 09/30/21 22:12 Nucleated RBCs # 0.0 /100WBC 09/30/21 22:12 PT 13.60 SECONDS (12.1-14.9) 09/30/21 22:12 INR 1.01 (0.8-1.2) 09/30/21 22:12 Sodium 135 mmol/L (136-145) L 09/30/21 22:54 Potassium 3.4 mmol/L (3.5-5.1) L 09/30/21 22:54 Chloride 99 mmol/L (98-107) 09/30/21 22:54 Carbon Dioxide 20 mmol/L (22-29) L 09/30/21 22:54 Anion Gap 19.4 (5-19) H 09/30/21 22:54 BUN 6 mg/dL (6-20) 09/30/21 22:54 Creatinine 0.2 mg/dL (0.5-0.9) L 09/30/21 22:54 GFR Calculation 422.9 mL/min (90-130) H 09/30/21 22:54 Glucose 112 mg/dL (65-115) 09/30/21 22:54 Calculated Osmolality 278 mOsm/kg (285-295) L 09/30/21 22:54 Calcium 8.9 mg/dL (8.5-10.5) 09/30/21 22:54 Total Bilirubin 7.3 mg/dL (0.15-1.2) H* 09/30/21 22:54 AST 75 U/L (0-32) H 09/30/21 22:54 ALT 32 U/L (0-33) 09/30/21 22:54 Alkaline Phosphatase 577 IU/L (35-105) H 09/30/21 22:54 Total Protein 7.4 g/dL (6.6-8.7) 09/30/21 22:54 Albumin 3.5 g/dL (3.5-5.2) 09/30/21 22:54 Globulin 3.9 g/dL (1.3-4.6) 09/30/21 22:54 Lipase 46 U/L (13-60) 09/30/21 22:54 Urine Color Yellow (Yellow) 09/30/21 22:12 Urine Appearance Clear (CLEAR) 09/30/21 22:12 Urine pH 6 (5-7) 09/30/21 22:12 Ur Specific [place] 1.005 (1.005-1.030) 09/30/21 22:12 Urine Protein Neg (Negative) 09/30/21 22:12 Urine Glucose (UA) Norm (Normal) 09/30/21 22:12 Urine Ketones Negative (Negative) 09/30/21 22:12 Urine Blood Neg (Negative) 09/30/21 22:12 Urine Nitrate Negative (Negative) 09/30/21 22:12 Urine Bilirubin Neg (Negative) 09/30/21 22:12 Urine Urobilinogen Norm mg/dL (Negative) 09/30/21 22:12 Ur Leukocyte Esterase Negative (Negative) 09/30/21 22:12 Ethyl Alcohol 207 mg/dL (0-10) H 09/30/21 22:54 Hepatitis A IgM Ab Non-reactive (Nonreactive) 09/30/21 22:12 Hep Bs Antigen Non-reactive (Nonreactive) 09/30/21 22:12 Hep Bs Antibody 23.3 (11.5-1000) 09/30/21 22:12 Hep B Core Total Ab Non-reactive (Nonreactive) 09/30/21 22:12 Hepatitis C Antibody Non-reactive (Nonreactive) 09/30/21 22:12 Discharge Plan Discharge Patient Disposition: Xfer Short-Term Hosp Clinical Impression: Elevated bilirubin, , Alcohol intoxication Coding Level of Care Code ED Passenger Attendant for Chg Fwd Exam Comprehensive
[2021-09-30 22:18] LABS: Basophils # 0.1 10^3/uL (0.0-0.1); Basophils % 1.2 %; Eosinophils # 0.1 10^3/uL (0.0-0.8); Eosinophils % 0.9 %; Hematocrit 37.8 % (37.0-47.0); Hemoglobin 13.1 g/dL (11.5-15.3); Lymphocytes # 3.2 10^3/uL (0.8-4.8); Lymphocytes % 32.2 %; Mean Corpuscular HGB Conc 34.7 g/dL (30.0-36.0); Mean Corpuscular Volume 89.4 fl (81-99); Mean Platelet Volume 9.1 fL (7.4-10.4); Monocytes # 0.4 10^3/uL (0.2-0.9); Monocytes % 4.2 %; Neutrophils # 5.98 10^3/uL (1.8-7.7); Neutrophils % 61.1 %; Nucleated Red Blood Cells % 0 %; Platelet Count 501 10^3/cmm (130-400); Red Blood Count 4.23 10^6/uL (4.1-5.3); Red Cell Distribution Width 14.9 % (12.1-15.1); White Blood Count 9.8 10^3/uL (4.0-10.0)
[2021-09-30 22:21] LABS: Add Urine Microscopic? NO; Charge for UA Resulting for Rev
[2021-09-30 22:35] LABS: Bilirubin Urine Neg (Negative); Blood Urine Neg (Negative); Glucose Urine UA Norm (Normal); Ketones Urine Negative (Negative); Leukocyte Esterase Urine Negative (Negative); Nitrate Urine Negative (Negative); Protein Urine Neg (Negative); Specific Gravity, Urine 1.005 (1.005-1.030); Urine Appearance Clear (CLEAR); Urine Color Yellow (Yellow); Urobilinogen Urine Norm (Negative); pH Urine 6 (5-7)
[2021-09-30 23:00] LABS: Hepatitis A Antibody IgM Non-Reactive (Nonreactive); Hepatitis B Core AB, Total Non-Reactive (Nonreactive); Hepatitis B Surface AB 23.3 (11.5-1000); Hepatitis B Surface Antigen Non-Reactive (Nonreactive); Hepatitis C Virus Antibody Non-Reactive (Nonreactive)
[2021-09-30 23:26] LABS: Alanine Aminotransferase 32 U/L (0-33); Albumin Level 3.5 g/dL (3.5-5.2); Alcohol Level 207 mg/dL (0-10); Alkaline Phosphatase 577 IU/L (35-105); Anion Gap 19.4 (5-19); Aspartate Amino Transferase 75 U/L (0-32); Blood Urea Nitrogen 6 mg/dL (6-20); Calcium 8.9 mg/dL (8.5-10.5); Carbon Dioxide 20 mmol/L (22-29); Chloride 99 mmol/L (98-107); Globulin 3.9 g/dL (1.3-4.6); Glomerular Filtration Rate 422.9 mL/min (90-130); Glucose 112 mg/dL (65-115); Lipase 46 U/L (13-60); Osmolality Calculated 278 mOsm/kg (285-295); Potassium 3.4 mmol/L (3.5-5.1); Sodium 135 mmol/L (136-145); Total Protein 7.4 g/dL (6.6-8.7)
[2021-09-30 23:31] LABS: Total Bilirubin 7.3 mg/dL (0.15-1.2)
[2021-10-01 00:03] LABS: INR 1.01 (0.8-1.2)
[2021-10-01 00:16] VITALS: BP 131/83; PULSE 92; RESP 16; O2SAT 99
--- NOTE | 2021-10-01 01:19 | USR_ITS ---
PROCEDURE INFORMATION: Exam: US First Trimester, Transabdominal Exam date and time: 10/01/2021 1:27 AM Age: 30 years old Clinical indication: complicated by abdominal or pelvic pain; Left upper quadrant; First trimester (<14 weeks 0 days); Gestational age or lmp: 13w 4d; ; Additional info: Abd pain, per Dr. Márquez: Verify viable . Patient states about 13 weeks gestation. TECHNIQUE: Imaging protocol: Real-time transabdominal obstetrical ultrasound of the maternal pelvis and a first trimester , less than 14 weeks 0 days, with image documentation. COMPARISON: No relevant prior studies available. FINDINGS: Viable twin intrauterine . Two separate gestational sacs with a relatively thick dividing membrane. The is likely dichorionic/diamniotic. Amniotic fluid appears within normal limits in both gestational sacs. Placenta appears to be forming posteriorly in both gestational sacs. The region of the cervix is not well visualized at this time. Fetus A: Located in the upper uterus. BPD: , 2.2 cm. , 13 weeks, 4 days HC: , 8.2 cm. , 13 weeks, 4 days heart activity documented by the technologist, 157 bpm. Fetus B: Located in the lower uterus. BPD: , 2.2 cm. , 13 weeks, 4 days HC: , 8.3 cm. , 13 weeks, 4 days heart activity documented by the technologist, 157 bpm. Evaluation of anatomy still limited by early gestation. Complete/detailed evaluation of anatomy was not performed/possible at this time. Followup/complete evaluation of anatomy recommended, as clinically appropriate. No definite/significant uterine abnormality. Maternal ovaries/adnexa appear essentially unremarkable. The urinary bladder was not completely evaluated/imaged at this time. PROCEDURE INFORMATION: Exam: US First Trimester, Transabdominal. Additional Gestation. Exam date and time: 10/01/2021 1:27 AM Age: 30 years old Clinical indication: complicated by abdominal or pelvic pain; Left upper quadrant; First trimester (<14 weeks 0 days); Gestational age or lmp: 13w 4d; ; Additional info: Abd pain, per Dr. Márquez: Verify viable . Patient states about 13 weeks gestation. TECHNIQUE: Imaging protocol: Real-time transabdominal obstetrical ultrasound of the maternal pelvis and a first trimester with image documentation. Additional gestation was evaluated. COMPARISON: No relevant prior studies available. FINDINGS: Viable twin intrauterine . Two separate gestational sacs with a relatively thick dividing membrane. The is likely dichorionic/diamniotic. Amniotic fluid appears within normal limits in both gestational sacs. Placenta appears to be forming posteriorly in both gestational sacs. The region of the cervix is not well visualized at this time. Fetus A: Located in the upper uterus. BPD: , 2.2 cm. , 13 weeks, 4 days HC: , 8.2 cm. , 13 weeks, 4 days heart activity documented by the technologist, 157 bpm. Fetus B: Located in the lower uterus. BPD: , 2.2 cm. , 13 weeks, 4 days HC: , 8.3 cm. , 13 weeks, 4 days heart activity documented by the technologist, 157 bpm. Evaluation of anatomy still limited by early gestation. Complete/detailed evaluation of anatomy was not performed/possible at this time. Followup/complete evaluation of anatomy recommended, as clinically appropriate. No definite/significant uterine abnormality. Maternal ovaries/adnexa appear essentially unremarkable. The urinary bladder was not completely evaluated/imaged at this time. US/ OB limited [id number] IMPRESSION: 1. Viable twin intrauterine , see above details. 2. Estimated age for each fetus is 13 weeks, 4 days estimated age. 3. Other details/findings discussed above.
[2021-10-01 01:30] VITALS: BP 135/80; PULSE 90; RESP 16; O2SAT 98
[2021-10-01 03:10] VITALS: BP 135/87; PULSE 90; RESP 16; O2SAT 98
== END 2021-10-01 03:11 | disposition short-term general hospital (02) ==
PROVIDERS: Emergency Provider Emergency Medicine
DX: O99.281 Endocrine, nutritional and metabolic diseases complicating pregnancy, first trimester (principal); E80.7 Disorder of bilirubin metabolism, unspecified; R17 Unspecified jaundice; O99.311 Alcohol use complicating pregnancy, first trimester; F10.129 Alcohol abuse with intoxication, unspecified; Y90.7 Blood alcohol level of 200-239 mg/100 ml; Z3A.12 12 weeks gestation of pregnancy
CPT/HCPCS: 76700; 76815; 80053; 80307; 81003; 83690; 85025; 85610; 86705; 86706; 86709; 86803; 87340; 99285

== ENCOUNTER 2021-10-19 08:23 | Emergency (ER) | payer MEDICAID, SELFPAY ==
[2021-10-19] VITALS (8 sets, daily range): BP systolic 99–122; BP diastolic 61–83; PULSE 102–115; RESP 15–18; TEMP 36.7–37.6; O2SAT 96–100; BMI 23.2
--- NOTE | 2021-10-19 09:05 | ECG_ITS ---
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 Measurements Intervals [place] Rate: 107 P: 75 [place]: 127 QRS: 98 QRSD: 86 T: 3 QT: 313 QTc: 418 Interpretive Statements SINUS TACHYCARDIA POSSIBLE LEFT ATRIAL ENLARGEMENT [-0.1mV P-WAVE IN V1/V2] BORDERLINE RIGHT AXIS DEVIATION [QRS AXIS > 90] MINIMAL ST DEPRESSION [0.025+ mV ST DEPRESSION] ABNORMAL RHYTHM ECG INTERPRETATION BASED ON A DEFAULT AGE OF 40 YEARS No previous ECG available for comparison Electronically Signed On 10-19-2021 22:27:28 CDT by Dex Medina M.D. [email or web address]
[2021-10-19 09:34] LABS: Basophils # 0.1 10^3/uL (0.0-0.1); Basophils % 0.3 %; Eosinophils % 0.1 %; Hematocrit 26.8 % (37.0-47.0); Hemoglobin 9.2 g/dL (11.5-15.3); Lymphocytes % 8.5 %; Mean Corpuscular HGB Conc 34.3 g/dL (30.0-36.0); Mean Corpuscular Hemoglobin 31.9 pg (28.0-34.0); Mean Corpuscular Volume 93.1 fl (81-99); Mean Platelet Volume 9.7 fL (7.4-10.4); Monocytes # 1.8 10^3/uL (0.2-0.9); Monocytes % 7.7 %; Neutrophils # 19.42 10^3/uL (1.8-7.7); Neutrophils % 82.3 %; Nucleated Red Blood Cells % 0 %; Platelet Count 538 10^3/cmm (130-400); Red Blood Count 2.88 10^6/uL (4.1-5.3); Red Cell Distribution Width 14.1 % (12.1-15.1); White Blood Count 23.6 10^3/uL (4.0-10.0)
[2021-10-19 09:37] LABS: HCG, Serum Qual Positive (Negative)
[2021-10-19 09:46] LABS: Troponin(5th) Baseline 6 ng/L (0-10)
[2021-10-19 09:47] LABS: Alanine Aminotransferase 29 U/L (0-33); Albumin Level 3.1 g/dL (3.5-5.2); Alkaline Phosphatase 394 IU/L (35-105); Anion Gap 17.4 (5-19); Aspartate Amino Transferase 44 U/L (0-32); Blood Urea Nitrogen 6 mg/dL (6-20); Calcium 9.1 mg/dL (8.5-10.5); Carbon Dioxide 20 mmol/L (22-29); Chloride 94 mmol/L (98-107); Globulin 3.3 g/dL (1.3-4.6); Glomerular Filtration Rate 264.9 mL/min (90-130); Glucose 92 mg/dL (65-115); Osmolality Calculated 263 mOsm/kg (285-295); Potassium 3.4 mmol/L (3.5-5.1); Sodium 128 mmol/L (136-145); Total Protein 6.4 g/dL (6.6-8.7)
--- NOTE | 2021-10-19 09:53 | XR_ITS ---
WS: [id number] Exam: XR chest 1V portable [id number] Date/Time of Exam: 10/19/2021 10:00 AM Reason For Exam: chest pain Comparison 05/22/2021. Findings: The lungs are clear and fully expanded. Costophrenic angles are sharp. No infiltrates. Bronchovascula r relief appears normal. Cardiac silhouette is unremarkable. Bony elements are intact. XR/XR chest 1V portable [id number] IMPRESSION: Unremarkable chest radiograph.
--- NOTE | 2021-10-19 11:05 | ECG_ITS ---
[facility] Test Date: 2021-10-19 Pat Name: Milagro Sebastian Department: Room: Gender: Female Nps: : 1990 Requested By: Barrington Lutz Order Number: [id number] Lidya MD: Dex Medina M.D. Measurements Intervals [place] Rate: 105 P: 72 [place]: 127 QRS: 101 QRSD: 84 T: 39 QT: 321 QTc: 425 Interpretive Statements SINUS TACHYCARDIA POSSIBLE LEFT ATRIAL ENLARGEMENT [-0.1mV P-WAVE IN V1/V2] RIGHT AXIS DEVIATION [QRS AXIS > 100] MINIMAL ST DEPRESSION [0.025+ mV ST DEPRESSION] Compared to ECG 10/19/2021 09:09:33 No significant changes Electronically Signed On 10-19-2021 22:36:49 CDT by Dex Medina M.D. [email or web address]
--- NOTE | 2021-10-19 11:56 | US_ITS ---
WS: [id number] RIGHT UPPER QUADRANT ULTRASOUND HISTORY: ruq pain, eval cbd COMPARISON: 09/30/2021, noncontrast CT 11/27/2019 Liver: 21.0 cm in length. Liver is mildly enlarged. Focal abnormality within the liver extends centra lly towards the diaphragmatic surface. Mixed echogenicity lesion with hyperechoic and hypoechoic stru ctures. This area was also seen on a recent ultrasound and probably also noted on the CT from 11/27/19 20. Abnormality measures 6.2 x 6.0 x 5.2 cm. Portal Vein: Normal hepatopetal flow with monophasic waveform. Gallbladder: Gallbladder is contracted completely. No stones are identified. No edema. CBD: 0.4 cm Pancreas: Normal size and echogenicity. Right kidney: 12.1 cm in length. Normal size and echogenicity. No hydronephrosis or mass. Aorta and IVC: Unremarkable abdominal aorta and IVC. No ascites. US/US gall bladder [id number] IMPRESSION: 1. Completely contracted gallbladder. No stones identified. 2. No bile duct dilatation. 3. Focal mixed echogenicity mass extending from the [place] hepatis to the diaph ragmatic surface of the liver. This area was also noted on a recent ultrasound of 09/30/2021 and probably also on a CT from 11/27/2019. Differentials to consider are focal biliary dilatation, prior hepatic insult or biliary cystadenoma. Con machine repairer interval short-term follow-up by ultrasound to document stability if the patient is . Follow-up AFP level and nonurgent MRCP in second trimester may also be helpful.
--- NOTE | 2021-10-19 12:08 | W.ED.GENADLT ---
HPI - General Adult General: Chief complaint: Chest Pain Stated complaint: chest pain Time Seen by Provider: 10/19/21 08:53 History of Present Illness: Patient is a 30-year-old female at 16weeks presenting to the emergency room for evaluation of fever, RUQ abd omainl and jaundice. Patient tells me that on 09/30/2021, patient was diagnosed with elevated T bili at 12-week . Patient was then transferred to [facility] for MFM and GI. Patient had an abnormal MRCP, diagnosed with intrahepatic dilation and was eventually discharged from [facility]. Since then, patient then was admitted to [facility] 11/04/2021 at which point she undewent ERCP and had a plastic biliary stent placed and a biliary sphincterotomy performed. Since then patient has been doing well up until 3 days ago at which point she began developing RUQ pain with subjective fever and worsening jaundice. Patient reports nausea and vomiting x 2. Patient denies any diarrhea melena/hematochezia. Patient has no complaints today. Onset: 3 days ago Duration:3 days Location:home Severity:severe Associated symptoms: Reports nausea and vomiting; Deny chest pain, dyspnea, rash or palpitations Review of Systems Const: Reports: fever(s), chills and fatigue Eyes: Reports: other (+jaundice); Denies: change in vision ENMT: Denies: mouth pain Card: Denies: chest pain or palpitations Resp: Denies: dyspnea or non-productive cough GI: Reports: abdominal pain (+RUQ abd pain), nausea and vomiting; Denies: diarrhea : Denies: dysuria Musc: Denies: extremity pain Skin/Breast: Denies: rash or new lesions Neuro: Denies: weakness in extremities Psych: Reports: other (Normal mood) Ted/Lymph: Denies: easy bruising PFSH ED PFSH: Medical History Abnormal magnetic resonance cholangiopancreatography (MRCP) Intrahepatic bile duct dilation IUP (intrauterine ), incidental Social History Smoking and tobacco status: never smoked Alcohol intake: current Substance/Drug Use: never Physical Exam Const: COMMON NORMALS: alert HENMT: COMMON NORMALS: atraumatic HEAD & SCALP: atraumatic MOUTH: moist mucous membranes not abnormal Eye: COMMON NORMALS: EOMs intact bilaterally and conjunctivae normal CONJUNCTIVA: Yes conjunctivae normal OTHER: +scleral icterus Neck/C-Spine: COMMON NORMALS: full ROM and supple Resp: COMMON NORMALS: normal respiratory effort and clear to auscultation bilaterally AUSCULTATION: clear to auscultation bilaterally Cardio: RATE: tachycardic GI: COMMON NORMALS: Soft to palpation PALPATION: Yes Soft to palpation OTHER: +RUQ abd tenderness to palpation, no cho's sign, no guarding no rebound tenderness, no CVA tenderness bilaterally, no other focal abdominal tenderness. Extremity: COMMON NORMALS: full ROM Neuro: SENSORIUM/ORIENTATION: Yes alert MOTOR EXAM: No Abnormal motor strength present and Other motor observations present (no focal motor deficits) Psych: COMMON NORMALS: speech normal SPEECH: Yes normal speech MOOD & AFFECT: Yes euthymic mood Skin: NARRATIVE SKIN EXAM: +diffuse jaundice Course Vital Signs: Vital signs: Vital Signs Temperature 99.4 F 10/19/21 10:49 Pulse Rate 114 H 10/19/21 19:00 Respiratory Rate 15 10/19/21 17:00 Blood Pressure 116/83 10/19/21 19:00 Pulse Oximetry 97 10/19/21 19:00 [facility] - General Adult Medical Decision Making 30-year-old female with history of intrahepatic dilatation at 16 weeks presented to the emergency room for evaluation for right upper quadrant abdominal pain, subjective fever and nausea vomiting x3 days. Physical exam, patient has mild right upper quadrant tenderness palpation. No Cho sign. Patient's appears to be jaundiced throughout. Mildly tachycardiac on arrival Right upper quadrant ultrasound showed contracted gallbladder without any CBD dilation. Patient is noted to have white count 23.6 which is up from baseline 10.6 on discharge from [facility]. Given the fact the patient has a plastic biliary stent that was deployed, this is concerning for possible sepsis and stent infection. Not suspect acute cholangitis given no elevation of CBD. PT/PT appears to be mildly elevated. Lactate of 1.3. AST of 44. T bili of 7 similar to prior ER evaluation on 09/30/2021. UA is negative for any UTI. X-ray chest clear. Do not suspect any other source of infection at this time. Patient continues to mildly tachycardiac. Continues to be normotensive. Patient will need to be transferred for GI and repeat ERCP. received 30 cc/kg of IVF, Zosyn and vancomycin. Patient did not have any -related symptoms currently. Case was discussed with Dr. Mark from [facility] at [facility] who agreed with the transfer to [facility] for further GI evaluation and management Disposition: Transfer to outside hospital Lab Data : 10/19/21 09:17 10/19/21 09:17 Radiology Impressions Chest X-Ray 10/19/21 09:53 IMPRESSION: Unremarkable chest radiograph. Gallbladder Ultrasound 10/19/21 11:56 IMPRESSION: 1. Completely contracted gallbladder. No stones identified. 2. No bile duct dilatation. 3. Focal mixed echogenicity mass extending from the [place] hepatis to the diaphragmatic surface of the liver. This area was also noted on a recent ultrasound of 09/30/2021 and probably also on a CT from 11/27/2019. Differentials to consider are focal biliary dilatation, prior hepatic insult or biliary cystadenoma. Consider interval short-term follow-up by ultrasound to document stability if the patient is . Follow-up AFP level and nonurgent MRCP in second trimester may also be helpful. Laboratory Results WBC 23.6 10^3/uL (4.0-10.0) H 10/19/21 09:17 RBC 2.88 10^6/uL (4.1-5.3) L 10/19/21 09:17 Hgb 9.2 g/dL (11.5-15.3) L 10/19/21 09:17 Hct 26.8 % (37.0-47.0) L 10/19/21 09:17 MCV 93.1 fl (81-99) 10/19/21 09:17 MCH 31.9 pg (28.0-34.0) 10/19/21 09:17 MCHC 34.3 g/dL (30.0-36.0) 10/19/21 09:17 RDW 14.1 % (12.1-15.1) 10/19/21 09:17 Plt Count 538 10^3/cmm (130-400) H 10/19/21 09:17 MPV 9.7 fL (7.4-10.4) 10/19/21 09:17 Neut % (Auto) 82.3 % 10/19/21 09:17 Lymph % (Auto) 8.5 % 10/19/21 09:17 [place] % (Auto) 7.7 % 10/19/21 09:17 Eos % (Auto) 0.1 % 10/19/21 09:17 Baso % (Auto) 0.3 % 10/19/21 09:17 Neut # (Auto) 19.42 10^3/uL (1.8-7.7) H 10/19/21 09:17 Lymph # (Auto) 2.0 10^3/uL (0.8-4.8) 10/19/21 09:17 [place] # (Auto) 1.8 10^3/uL (0.2-0.9) H 10/19/21 09:17 Eos # (Auto) 0.0 10^3/uL (0.0-0.8) 10/19/21 09:17 Baso # (Auto) 0.1 10^3/uL (0.0-0.1) 10/19/21 09:17 Nucleated RBC % (auto) 0 % 10/19/21 09:17 Nucleated RBCs # 0.0 /100WBC 10/19/21 09:17 Sodium 128 mmol/L (136-145) L 10/19/21 09:17 Potassium 3.4 mmol/L (3.5-5.1) L 10/19/21 09:17 Chloride 94 mmol/L (98-107) L 10/19/21 09:17 Carbon Dioxide 20 mmol/L (22-29) L 10/19/21 09:17 Anion Gap 17.4 (5-19) 10/19/21 09:17 BUN 6 mg/dL (6-20) 10/19/21 09:17 Creatinine 0.3 mg/dL (0.5-0.9) L 10/19/21 09:17 GFR Calculation 264.9 mL/min (90-130) H 10/19/21 09:17 Glucose 92 mg/dL (65-115) 10/19/21 09:17 Calculated Osmolality 263 mOsm/kg (285-295) L 10/19/21 09:17 Lactate 1.3 mmol/L (0.5-2.2) 10/19/21 12:38 Calcium 9.1 mg/dL (8.5-10.5) 10/19/21 09:17 Total Bilirubin 7.0 mg/dL (0.15-1.2) H 10/19/21 09:17 AST 44 U/L (0-32) H 10/19/21 09:17 ALT 29 U/L (0-33) 10/19/21 09:17 Alkaline Phosphatase 394 IU/L (35-105) H 10/19/21 09:17 Troponin T Baseline 6 ng/L (0-10) 10/19/21 09:17 Troponin T 120 Minute 6.00 ng/L (0-10) 10/19/21 11:15 Delta Troponin T 0 ABS# (0-10) 10/19/21 11:15 Troponin T Hi Sens 6Hr 6.00 ng/L (0-10) 10/19/21 15:20 Troponin T Hi Sens 6Hr Delta 0 ng/L (0-12) 10/19/21 15:20 Total Protein 6.4 g/dL (6.6-8.7) L 10/19/21 09:17 Albumin 3.1 g/dL (3.5-5.2) L 10/19/21 09:17 Globulin 3.3 g/dL (1.3-4.6) 10/19/21 09:17 Lipase 34 U/L (13-60) 10/19/21 15:20 HCG, Qual Positive (Negative) H 10/19/21 09:17 Urine Color Jewell (Yellow) 10/19/21 13:11 Urine Appearance Sl hazy (CLEAR) 10/19/21 13:11 Urine pH 6 (5-7) 10/19/21 13:11 Ur Specific [place] 1.010 (1.005-1.030) 10/19/21 13:11 Urine Protein Trace (Negative) 10/19/21 13:11 Urine Glucose (UA) Norm (Normal) 10/19/21 13:11 Urine Ketones 2+ (Negative) H 10/19/21 13:11 Urine Blood Neg (Negative) 10/19/21 13:11 Urine Nitrate Negative (Negative) 10/19/21 13:11 Urine Bilirubin 2+ (Negative) H 10/19/21 13:11 Urine Urobilinogen 4+ mg/dL (Negative) H 10/19/21 13:11 Ur Leukocyte Esterase Negative (Negative) 10/19/21 13:11 Urine RBC 0-4 /hpf (0-2) H 10/19/21 13:11 Urine WBC 0-4 /hpf (0-5) H 10/19/21 13:11 Ur Squamous Epith Cells 25-40 /hpf (0-5) H 10/19/21 13:11 Amorphous Sediment Not Reportable 10/19/21 13:11 Urine Bacteria 2+ /hpf (NONE) H 10/19/21 13:11 Nasal Influ A H1 2009 PCR Not detected (NOT DETECT) 10/19/21 13:28 RSV Nasal Swab Cancelled 10/19/21 13:28 RSV Nasal Swab Int Cntl Cancelled 10/19/21 13:28 Adenovirus (PCR) Cancelled 10/19/21 13:28 Adenovirus (PCR) Not detected (NOT DETECT) 10/19/21 13:28 C. pneumoniae DNA (PCR) Not detected (NOT DETECT) 10/19/21 13:28 Coronavirus 229E (PCR) Not detected (NOT DETECT) 10/19/21 13:28 Human Metapneumovir PCR Cancelled 10/19/21 13:28 Human Metapneumovir PCR Not detected (NOT DETECT) 10/19/21 13:28 Influenza A (RT-PCR) Cancelled 10/19/21 13:28 Influenza A (H1) PCR Cancelled 10/19/21 13:28 Influenza A (H1) PCR Not detected (NOT DETECT) 10/19/21 13:28 Influenza A (H3) PCR Cancelled 10/19/21 13:28 Influenza A (H3) PCR Not detected (NOT DETECT) 10/19/21 13:28 Influenza Type A (PCR) Not detected (NOT DETECT) 10/19/21 13:28 Influenza B (RT-PCR) Cancelled 10/19/21 13:28 Influenza Type B (PCR) Not detected (NOT DETECT) 10/19/21 13:28 M. pneumoniae (PCR) Not detected (NOT DETECT) 10/19/21 13:28 Parainfluenzae Type 1 Cancelled 10/19/21 13:28 Parainfluenza 1 (PCR) Not detected (NOT DETECT) 10/19/21 13:28 Parainfluenzae Type 2 Cancelled 10/19/21 13:28 Parainfluenza 2 (PCR) Not detected (NOT DETECT) 10/19/21 13:28 Parainfluenzae Type 3 Cancelled 10/19/21 13:28 Parainfluenza 3 (PCR) Not detected (NOT DETECT) 10/19/21 13:28 Parainfluenza 4 (PCR) Not detected (NOT DETECT) 10/19/21 13:28 RSV Ab Comment Cancelled 10/19/21 13:28 RSV Type A (PCR) Not detected (NOT DETECT) 10/19/21 13:28 RSV Type B (PCR) Not detected (NOT DETECT) 10/19/21 13:28 Rhinovirus (PCR) Cancelled 10/19/21 13:28 Entero/Rhino (PCR) Not detected (NOT DETECT) 10/19/21 13:28 SARS-CoV-2 (PCR) Not detected (NOT DETECT) 10/19/21 13:28 Imaging Data Other Imaging: Radiologist's impression: [place] [address] Ultrasound Report Signed with Lukas Patient: Milagro Sebastian Unit #: [id number] : 1990 Age/Sex: 30 / F ADM Date: 10/19/21 Loc: ER Room/Bed: Attending Dr: Ordering Provider/Ordering MD: Eulalia De La Rosa MD Date of Service: 10/19/21 Procedure(s): US gall bladder 46201 Accession Number(s): [id number] Report Number: [id number] ADDENDUM WS: [email or web address] Addendum. Biliary hamartoma also within the differential. This is a benign malformation of the intrahepatic bile ducts. Addendum Dictated By: ?Dayanara Jones DO Addendum Signed By: ?Dayanara Jones DO Signed Date/Time: 10/19/21 1303 Addendum Cosigned By: ? WS: [email or web address] RIGHT UPPER QUADRANT ULTRASOUND HISTORY: ruq pain, eval cbd COMPARISON: 09/30/2021, noncontrast CT 11/27/2019 Liver: 21.0 cm in length. Liver is mildly enlarged. Focal abnormality within the liver extends centrally towards the diaphragmatic surface. Mixed echogenicity lesion with hyperechoic and hypoechoic structures. This area was also seen on a recent ultrasound and probably also noted on the CT from 11/27/2019. Abnormality measures 6.2 x 6.0 x 5.2 cm. Portal Vein: Normal hepatopetal flow with monophasic waveform. Gallbladder: Gallbladder is contracted completely. No stones are identified. No edema. CBD: 0.4 cm Pancreas: Normal size and echogenicity. Right kidney: 12.1 cm in length. Normal size and echogenicity. No hydronephrosis or mass. Aorta and IVC: Unremarkable abdominal aorta and IVC. No ascites. US/US gall bladder [id number] IMPRESSION: ? 1.? Completely contracted gallbladder. No stones identified. 2.? No bile duct dilatation. 3.? Focal mixed echogenicity mass extending from the [place] hepatis to the diaphragmatic surface of the liver. This area was also noted on a recent ultrasound of 09/30/2021 and probably also on a CT from 11/27/2019. Differentials to consider are focal biliary dilatation, prior hepatic insult or biliary cystadenoma. Consider interval short-term follow-up by ultrasound to document stability if the patient is . Follow-up AFP level and nonurgent MRCP in second trimester may also be helpful. ? Dictated By: Dayanara Jones DO Signed By: Dayanara Jones DO Signed Date/Time: 10/19/21 1257 DD/ [address] [address] XRay Report Signed Patient: Milagro Sebastian Unit #: [id number] : 1990 Age/Sex: 30 / F ADM Date: 10/19/21 Loc: ER Room/Bed: Attending Dr: Ordering Provider/Ordering MD: Barrington Schmitt DO Date of Service: 10/19/21 Procedure(s): XR chest 1V portable [id number] Accession Number(s): [id number] Report Number: [id number] WS: [email or web address] Exam: XR chest 1V portable [id number] Date/Time of Exam: 10/19/2021 10:00 AM Reason For Exam: chest pain Comparison 05/22/2021. Findings: The lungs are clear and fully expanded. Costophrenic angles are sharp. No infiltrates. Bronchovascular relief appears normal. Cardiac silhouette is unremarkable. Bony elements are intact. ? XR/XR chest 1V portable [id number] IMPRESSION: Unremarkable chest radiograph. ? ? Dictated By: Adam Young DO Signed By: Adam Young DO Signed Date/Time: 10/19/21 1010 DD/ 1009 Discharge Plan Discharge Patient Disposition: Transfer to ED Clinical Impression: Leukocytosis, Abdominal pain, Fever, Elevated bilirubin Condition: Stable Prescriptions: No Action ursodiol 300 mg capsule 300 mg PO BID 0RF M- Plus 27 mg iron- 1 mg tablet 1 tab PO DAILY 0RF Patient Instructions: Abdominal Pain (ED) Coding Level of Care Code ED Manager [facility] Fwd Exam Comprehensive
[2021-10-19 12:13] LABS: Troponin 5 2HR Delta 0 ABS# (0-10)
[2021-10-19] MEDS: piperacillin-tazobactam 4.5 GM in sodium chloride 0.9% (plus) 50 ML IV (12:46)
[2021-10-19] MEDS: sodium chloride 0.9% 1,000 ML 999 ML IV ×2 (12:46→14:13)
[2021-10-19 13:11] LABS: Lactate (Lactic Acid level) 1.3 mmol/L (0.5-2.2)
[2021-10-19] MEDS: vancomycin 1,000 MG in sodium chloride 0.9% 250 ML 250 MG IV (13:20)
[2021-10-19 13:28] LABS: Urine Color Amber (Yellow)
[2021-10-19 13:29] LABS: Add Urine Microscopic? YES; Bilirubin Urine 2+ (Negative); Blood Urine Neg (Negative); Glucose Urine UA Norm (Normal); Ketones Urine 2+ (Negative); Leukocyte Esterase Urine Negative (Negative); Nitrate Urine Negative (Negative); Protein Urine Trace (Negative); Urine Appearance SL Hazy (CLEAR); Urobilinogen Urine 4+ mg/dL (Negative); pH Urine 6 (5-7)
[2021-10-19 13:30] LABS: Add Urine Culture? Yes; Bacteria Urine 2+ /hpf; RBC Urine 0-4 /hpf (0-2); Squamous Epithelial Cell Urine 25-40 /hpf (0-5); WBC Urine 0-4 /hpf (0-5)
--- NOTE | 2021-10-19 15:05 | ECG_ITS ---
[facility] Test Date: 2021-10-19 Pat Name: Milagro Sebastian Department: Room: Gender: Female Rn Appeals: : 1990 Requested By: Barrington Lutz Order Number: [id number] Lidya MD: Dex Medina M.D. Measurements Intervals [place] Rate: 111 P: 75 UT: 119 QRS: 101 QRSD: 84 T: 29 QT: 316 QTc: 430 Interpretive Statements SINUS TACHYCARDIA WITH SHORT UT INTERVAL POSSIBLE LEFT ATRIAL ENLARGEMENT [-0.1mV P-WAVE IN V1/V2] RIGHT AXIS DEVIATION [QRS AXIS > 100] MODERATE ST DEPRESSION [0.05+ mV ST DEPRESSION] Compared to ECG 10/19/2021 12:28:49 Short UT interval now present ST (T wave) deviation still present Electronically Signed On 10-19-2021 22:37:15 CDT by Dex Medina M.D. [id number]
[2021-10-19 15:19] LABS: Adenovirus Not Detected (NOT DETECT); Chlamydia Pneumoniae Not Detected (NOT DETECT); Coronavirus 229E,HKU1,NL63,OC4 Not Detected (NOT DETECT); Human Metapneumovirus Not Detected (NOT DETECT); Human Rhinovirus/Enterovirus Not Detected (NOT DETECT); Influenza A Not Detected (NOT DETECT); Influenza A H1 Not Detected (NOT DETECT); Influenza A H1-2009 Not Detected (NOT DETECT); Influenza A H3 Not Detected (NOT DETECT); Influenza B Not Detected (NOT DETECT); Mycoplasma Pneumoniae Not Detected (NOT DETECT); Parainfluenza Virus Type 1 Not Detected (NOT DETECT); Parainfluenza Virus Type 2 Not Detected (NOT DETECT); Parainfluenza Virus Type 3 Not Detected (NOT DETECT); Parainfluenza Virus Type 4 Not Detected (NOT DETECT); Respiratory Syncytial Virus A Not Detected (NOT DETECT); Respiratory Syncytial Virus B Not Detected (NOT DETECT); SARS-COV-2 Not Detected (NOT DETECT)
[2021-10-19 15:53] LABS: Troponin 5 6HR Delta 0 ng/L (0-12)
[2021-10-19 18:21] LABS: Lipase 34 U/L (13-60)
[2021-10-19 19:33] LABS: Results from Genmark
== END 2021-10-19 22:20 ==
PROVIDERS: Family Medicine; Physician Assistant; Emergency Provider Emergency Medicine
DX: D72.829 Elevated white blood cell count, unspecified (principal); R10.9 Unspecified abdominal pain; R50.9 Fever, unspecified; R17 Unspecified jaundice; Z20.822 Contact with and (suspected) exposure to COVID-19
CPT/HCPCS: 36415; 71045; 76705; 80053; 81001; 83605; 83690; 84484; 84703; 85025; 87040; 87086; 87486; 87581; 87631; 87633; 87635; 93005; 96365; 96367; 99285; J2543; J3370; J7030; J7050

== ENCOUNTER 2022-03-21 04:53 | Inpatient (IN) | payer MEDICAID, SELFPAY ==
[2022-03-21] VITALS (86 sets, daily range): BP systolic 80–149; BP diastolic 56–94; PULSE 71–113; RESP 15–16; TEMP 35.4–36.8; O2SAT 96–100; BMI 28.3
[2022-03-21] MEDS: lactated ringers 1,000 ML 999 ML IV ×3 (05:37→17:40)
[2022-03-21 05:51] LABS: Basophils # 0.1 10^3/uL (0.0-0.1); Basophils % 1.1 %; Eosinophils # 0.2 10^3/uL (0.0-0.8); Eosinophils % 1.9 %; Hematocrit 40.1 % (37.0-47.0); Hemoglobin 13.1 g/dL (11.5-15.3); Lymphocytes # 2.7 10^3/uL (0.8-4.8); Lymphocytes % 28.3 %; Mean Corpuscular HGB Conc 32.7 g/dL (30.0-36.0); Mean Corpuscular Hemoglobin 30.7 pg (28.0-34.0); Mean Corpuscular Volume 93.9 fl (81-99); Mean Platelet Volume 11.1 fL (7.4-10.4); Monocytes # 0.8 10^3/uL (0.2-0.9); Monocytes % 8.4 %; Neutrophils # 5.64 10^3/uL (1.8-7.7); Neutrophils % 59.9 %; Nucleated Red Blood Cells % 0 %; Platelet Count 257 10^3/cmm (130-400); Red Blood Count 4.27 10^6/uL (4.1-5.3); Red Cell Distribution Width 14.6 % (12.1-15.1); White Blood Count 9.4 10^3/uL (4.0-10.0)
[2022-03-21 06:12] LABS: Amphetamines Screen Urine Negative (Negative); Barbiturates Screen Urine Negative (Negative); Benzodiazepines Screen Urine Negative (Negative); Cocaine Screen Urine Negative (Negative); Opiate Screen Urine Negative (Negative); PCP Screen Urine Negative (Negative); THC Screen Urine Negative (Negative)
--- NOTE | 2022-03-21 06:32 | PM.OBGYHP ---
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 Early , late first trimester and early second trimester, was complicated by alcoholism, and hyperbilirubinemia. She was evaluated in [place], she quit drinking alcohol, and she has had an unremarkable since that time. Her twins have demonstrated concordant growth. Her labs have been unremarkable. Her blood type is AB+. Her antibody screen was negative. She was noted to be THC positive in her initial drug screen. Her glucose screen was negative. She was GBS negative. She was rubella immune. The remainder of her infectious disease profile was within normal limits. Present Details : 3 Para: 2 Labs Rubella: Immune RPR: Negative GBS: Negative Review of Systems General: Reports: 10 or more systems reviewed and unremarkable except in HPI and below Const: Reports: fatigue; Denies: fever(s) Eyes: Denies: change in vision Card: Denies: chest pain Musc: Reports: back pain Ted/Lymph: Denies: easy bruising Medications/Allergies Home Medications Medication Instructions Recorded Confirmed Last Taken Type vitamin with calcium 1 tab PO DAILY 10/19/21 03/21/22 03/20/22 History no.72-iron 27 mg-folic acid 1 mg tablet (M-Ara Plus) ursodiol 300 mg capsule 300 mg PO BID 10/19/21 03/21/22 03/20/22 History Allergies Allergy/AdvReac Type Severity Reaction Status Date / Time No Known Allergies Allergy Verified 03/21/22 05:41 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 PFSH: Medical History Abnormal magnetic resonance cholangiopancreatography (MRCP) Intrahepatic bile duct dilation IUP (intrauterine ), incidental Social History Smoking and tobacco status: never smoked Alcohol intake: current Vitals/I&O/Wt Last Vital Signs Temp 97.5 F L 03/21/22 06:11 Pulse 89 03/21/22 06:11 BP 135/89 03/21/22 06:11 Weight last 48 hrs Weight 160 lb Weight 160 lb Physical Exam Const: COMMON NORMALS: patient oriented x3 and alert HENMT: COMMON NORMALS: moist oral mucous membranes HEAD & SCALP: normal to inspection Chest: COMMONS NORMALS: normal inspection of the chest Resp: COMMON NORMALS: clear to auscultation bilaterally AUSCULTATION: clear to auscultation bilaterally Cardio: COMMON NORMALS: regular rate and regular rhythm RATE: regular rate RHYTHM: regular rhythm GI: INSPECTION: Yes normal to inspection and Yes other (Gravid) Extremity: COMMON NORMALS: normal to inspection GENERAL: Yes edema (Trace) Neuro: COMMON NORMALS: patient oriented x3, moves all extremities and no sensory deficits noted SENSORIUM/ORIENTATION: Yes alert Psych: COMMON NORMALS: mental status grossly normal Skin: COMMON NORMALS: no rashes or lesions noted GENERAL SKIN EXAM: no rashes or lesions noted Data 03/21/22 05:11 A&P Assessment and plan (1) Twin dichorionic diamniotic placenta: I anticipate a routine . The patient also desires tubal ligation. We discussed the risks of the and the tubal ligation. We discussed the risks of bleeding, infection, and damage to intra-abdominal organs. With regards to the tubal, we discussed the 1 in 200 risk of becoming again as well as the increased risk of an ectopic . She had no further questions and wishes to proceed. (2) 38 weeks gestation of : (3) malpresentation: (4) History of alcoholism: Attestations Medical Necessity Statement*: I anticipate routine and post care. 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
[2022-03-21] MEDS: citric acid-sodium citrate 30 mL UDC PO (06:55)
[2022-03-21] MEDS: metoclopramide 5 mg/mL SDV 2 mL 10 MG IVP (06:55)
[2022-03-21] MEDS: famotidine 20 mg/2 mL INJ IVP (06:55)
[2022-03-21] MEDS: ceFAZolin 2,000 MG in sodium chloride 0.9% (plus) 50 ML 100 MG IV (06:56)
--- NOTE | 2022-03-21 06:58 | P.ANESASSM_ITS ---
Pre-Anesthetic Assessment Height/Weight: Height 1.6 m Weight 72.575 kg Temp Pulse BP O2 Del Method 97.5 F L 89 135/89 03/21/22 06:11 03/21/22 06:11 03/21/22 06:11 03/21/22 06:00 Preop Diagnosis: Primary for twins Operation Date: 03/21/22 07:00 Proposed Procedures p Section With Tubal 29065,O30.009(Bilateral) - Nick Phillip MD Familial anesthetic complications: none Was Beta Pia taken within 24 hours: N/A Was Clonidine taken within 24 hours: N/A Last intake: Intake Last Liquid Date 03/20/22 Last Liquid Time 21:00 Last Solid Date 03/20/22 Last Solid Time 20:00 Social No alcohol and No tobacco Exam alert, oriented x 3, clear to auscultation bilaterally and regular rate & rhythm Airway Submandibular: within normal limits Cervical ROM: within normal limits Mallampati: Class II Dentition: full Pulmonary None reported CV/HEM None reported None reported Hepatic None reported GI None reported Metabolic None reported Musc/skel None reported Neuropsych None reported Anesthetic Plan ASA status: 2 Anesthesia: Eval. for regional block Risk of > 500 ml blood loss (7ml/kg in children): No Medications/Allergies Home Medications Medication Instructions Recorded Confirmed Last Taken Type vitamin with calcium 1 tab PO DAILY 10/19/21 03/21/22 03/20/22 History no.72-iron 27 mg-folic acid 1 mg tablet (M- Plus) ursodiol 300 mg capsule 300 mg PO BID 10/19/21 03/21/22 03/20/22 History Allergies Allergy/AdvReac Type Severity Reaction Status Date / Time No Known Allergies Allergy Verified 03/21/22 05:41 [facility] Anesthesia Medical History Abnormal magnetic resonance cholangiopancreatography (MRCP) Intrahepatic bile duct dilation IUP (intrauterine ), incidental Social History Smoking and tobacco status: never smoked Alcohol intake: current Female Reproductive History : 3 Data Anesthesia 03/21/22 05:11 Short CBC 03/21/22 Range/Units 05:11 WBC 9.4 (4.0-10.0) 10^3/uL Hgb 13.1 (11.5-15.3) g/dL Hct 40.1 (37.0-47.0) % MCV 93.9 (81-99) fl Plt Count 257 (130-400) 10^3/cmm Neut % (Auto) 59.9 % Neut # (Auto) 5.64 (1.8-7.7) 10^3/uL Cardiac Studies: No Data to Display
[2022-03-21] MEDS: acetaminophen 1,000 MG/100 ML PIGGYBACK 400 MG IV (07:51)
--- NOTE | 2022-03-21 08:19 | P.PCN_ITS ---
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
--- NOTE | 2022-03-21 08:19 | PM.PACU ---
PACU note Narrative: VSS, Good respiratory effort, report to [employer] Exam: awake
--- NOTE | 2022-03-21 08:41 | PM.OP ---
Operative Report Date of procedure: March 21, 2022 Pre-op diagnosis: 1. 31-year-old female at 38 weeks estimated gestational age with twin gestation with malpresentation 2. Desires sterilization Post-op diagnosis: Same Procedure done: Lower transverse section Specimens removed/disposition: 1. Twin A 2555 g Apgars 9 and 9 2. Twin B -2500 g Apgars 9 and 9 3. Placenta with a three-vessel cord delivered intact 4. Bilateral fallopian tube segments with the right segment being tagged Pathology: 1. Placenta of both twin A and twin B 2. Bilateral fallopian tube segments with the right segment being tagged Surgeon: Nick Phillip Estimated blood loss (mL): 600 Brief History: Refer to history and physical Procedure: The patient was brought back to the operating room where she was prepped and draped in usual sterile fashion. Anesthesia was found to be adequate. A lower transverse skin incision was then made with a #10 blade. I then dissected down to the underlying subcutaneous tissue until arriving at the prerectal fascia. The fascia was then nicked with the scalpel bilaterally. The fascial incisions were then carried laterally with Palacios scissors. Attention was then turned to the superior aspect of the incision which was grasped with kochers and tented up away from the underlying rectus abdominis muscles. The muscles were then dissected away from the fascia manually, and later with Palacios scissors. Attention was then turned to the inferior aspect of the incision, and the fascia was dissected away from the underlying muscle in similar fashion. The rectus abdominis muscles were then spread manually. The peritoneum was entered manually. Excellent visualization of the uterus was noted. A lower transverse uterine incision was then made with a #10 blade. Upon arriving at the intrauterine cavity, the uterine incision was then extended manually. The infant was noted to be in breech position. The baby was delivered without difficulty. There was no meconium. There was no nuchal cord. The cord was cut and clamped. The mouth and nose were suctioned. The baby was then handed to Dr. Hawk and the waiting nurse. The amniotic sac for baby B was then ruptured. The infant was noted to be in vertex/transverse position. Despite multiple efforts to deliver the , I was unsuccessful elected to use a vacuum to assist in delivery. A hard Kiwi fry was placed on the baby's scalp. The baby was then delivered with 1 pull without difficulty. The cord was then cut and clamped, the mouth and nose were suctioned, and the baby was handed to Dr. Spencer and the waiting nurse. Both placentas were removed intact at the same time. The uterus was externalized. The intrauterine cavity was cleansed of any remaining debris. The uterine incision was reapproximated in 2 layers. The first layer was performed with 0 Vicryl in a running locked stitch. The second layer was an imbricating stitch also using 0 Vicryl. Attention was then turned to the right fallopian tube which is ligated cut and cauterized in a modified Kael fashion with 0 chromic. Attention was then turned to the left fallopian tube which was also ligated cut and cauterized in similar fashion. The uterus was then replaced into the abdomen. Perineum was then irrigated with warm saline. The uterine incision was reexamined and found to be hemostatic. The rectus abdominis muscles were then reapproximated using 0 Vicryl in a running stitch. The fascia was then reapproximated using 0 Vicryl in running stitch. Subcutaneous tissue was then reapproximated using 0 Vicryl in a running stitch. The skin was reapproximated using khadijah. A sterile dressing was placed. All counts were correct x2. Both the mother and baby were in stable condition.
[2022-03-21] MEDS: ondansetron 2 mg/ML SDV 2 mL 4 MG IVP ×2 (10:08→14:51)
[2022-03-21] MEDS: dextrose 5%-lactated ringers 1,000 ML 125 ML IV (14:10)
[2022-03-21] MEDS: ketorolac 30 mg/mL INJ IVP ×2 (14:11→20:39)
--- NOTE | 2022-03-21 15:28 | ANE.PACU2 ---
Inpatient post-anesthesia follow up: Airway intact: Yes Vital signs: Temperature 97.8 F Pulse Rate 88 Respiratory Rate 16 Blood Pressure 125/77 Pulse Oximetry 99 Oxygen Delivery Me thod Room Air Oxygen Flow Rate Fraction of Inspir ed Oxygen Hydration adequate: Yes Nausea and vomiting: No Pain level: 2 Mental status: Baseline
[2022-03-21] MEDS: docusate sodium 100 mg Capsule PO (17:39)
[2022-03-21 20:54] LABS: Hematocrit 35.2 % (37.0-47.0); Hemoglobin 11.2 g/dL (11.5-15.3); Mean Corpuscular HGB Conc 31.8 g/dL (30.0-36.0); Mean Corpuscular Hemoglobin 30.5 pg (28.0-34.0); Mean Corpuscular Volume 95.9 fl (81-99); Mean Platelet Volume 10.9 fL (7.4-10.4); Platelet Count 220 10^3/cmm (130-400); Red Blood Count 3.67 10^6/uL (4.1-5.3); Red Cell Distribution Width 14.5 % (12.1-15.1); White Blood Count 11.5 10^3/uL (4.0-10.0)
[2022-03-22 02:24] VITALS: BP 136/70; PULSE 92; TEMP 35.8
[2022-03-22] MEDS: ketorolac 30 mg/mL INJ IVP (03:28)
[2022-03-22] MEDS: acetaminophen 325 mg Tablet 650 MG PO (07:26)
--- NOTE | 2022-03-22 08:17 | P.PN_ITS ---
SCIENTIST ENGINEER Subjective Subjective: Interval history: The patient is doing well. Her bleeding has been within normal limits. Her pain is been well controlled. Her vitals have been appropriate. Her urine output has been appropriate. She is both breast-feeding and bottlefeeding. Labor: Amniotic Membrane Status: Intact Monitor Mode: External Contraction Pattern: Rare Vitals/I&O/Wt Last Vital Signs Temp 96.4 F L 03/22/22 02:24 Pulse 92 03/22/22 02:24 Resp 16 03/21/22 17:44 BP 136/70 03/22/22 02:24 Pulse Ox 99 03/21/22 13:46 O2 Del Method 03/21/22 08:45 03/21/22 03/22/22 03/22/22 22:59 06:59 14:59 Intake Total 1150 / 2250 Output Total 880 / 2580 Balance 270 / -330 Weight last 48 hrs Weight 160 lb Weight 160 lb Physical Exam Narrative: She is in no acute distress Lungs are clear auscultation bilaterally Her heart has a regular rate and rhythm Her fundus is below the umbilicus and firm Her dressing is clean, dry and intact Her extremities have trace edema Urinary Catheter Management: Mcqueen: Cath Placed During This Visit: yes, but has since been removed by the nurse Reason for Continuing Indwelling Catheter: Decision to DC Catheter Urinary Catheter Date of Insertion: 03/21/22 Urinary Catheter Time of Insertion: 07:20 Date Urinary Catheter Removed: 03/21/22 Time Urinary Catheter Discontinued: 22:20 Data 03/21/22 20:46 A&P Assessment and plan (1) 38 weeks gestation of : (2) Status post : Continue routine post care. Attestations Medical Necessity Statement*: I anticipate routine post care. Coding Level of Care Code Acute Career Services Representative for Chg Fwd Diagnoses 38 weeks gestation of Z3A.38 Status post Z98.891
[2022-03-22 09:34] VITALS: BP 124/77; PULSE 85
[2022-03-22] MEDS: docusate sodium 100 mg Capsule PO ×2 (10:46→18:48)
[2022-03-22] MEDS: ibuprofen 800 mg tablet PO ×3 (10:46→22:17)
[2022-03-22] MEDS: prenatal vitamin Capsule 1 CAP PO (10:46)
[2022-03-22 16:09] VITALS: BP 139/75; PULSE 86; TEMP 36.2
[2022-03-22 17:00] VITALS: RESP 16
[2022-03-22] MEDS: HYDROcodone-acetaminophen 5-325 mg Tablet PO (18:48)
[2022-03-22 22:09] VITALS: BP 144/81; PULSE 84
[2022-03-23 04:16] VITALS: BP 118/65; PULSE 77
[2022-03-23] MEDS: HYDROcodone-acetaminophen 5-325 mg Tablet PO ×2 (04:19→09:20)
[2022-03-23] MEDS: ibuprofen 800 mg tablet PO (09:20)
[2022-03-23] MEDS: docusate sodium 100 mg Capsule PO (09:20)
[2022-03-23] MEDS: prenatal vitamin Capsule 1 CAP PO (09:20)
[2022-03-23 09:23] VITALS: BP 144/92; PULSE 100; TEMP 35.9
[2022-03-23 09:39] VITALS: RESP 16
[2022-03-23 12:40] VITALS: BP 133/86; PULSE 100
[2022-03-23 13:15] VITALS: BP 133/86; PULSE 100; RESP 16; TEMP 37; O2SAT 98
--- NOTE | 2022-03-30 07:03 | P.DS_ITS ---
Discharge Providers SEWER AND DRAIN TECHNICIAN Date of Admission: 03/21/22 04:53 Date of Discharge: 03/23/22 Attending Provider at Admission: Nick Phillip MD Attending Provider at Discharge: Nick Phillip MD Diagnoses at Discharge Discharge Diagnosis (1) 38 weeks gestation of : Status: Resolved (2) Status post : Status: Acute (3) Twin delivered: Status: Acute Hospital Course Hospital Course The patient presented to the hospital for a scheduled section due to having twins with malpresentation. Twin A was transverse and twin B was breech. The was unremarkable. Her course was also unremarkable. She was passing flatus within 18 hours. Her pain was well controlled. Her bleeding was within normal limits. She was ambulating with minimal difficulty. She tolerated her diet well. There were no concerns. Physical Exam Narrative: She is in no acute distress Lungs are clear auscultation bilaterally Her heart has a regular rate and rhythm Her fundus is below the umbilicus and firm Her dressing is clean, dry and intact Her extremities have trace edema Urinary Catheter Management: Mcqueen: Cath Placed During This Visit: yes, but has since been removed by the nurse Reason for Continuing Indwelling Catheter: Decision to DC Catheter Urinary Catheter Date of Insertion: 03/21/22 Urinary Catheter Time of Insertion: 07:20 Date Urinary Catheter Removed: 03/21/22 Time Urinary Catheter Discontinued: 22:20 Discharge Data Studies Completed and Pending Completed Studies During Hospitalization Category Date Time Status Pathology: Surgical [PTH] Stat Pth 03/21/22 10:16 Completed Laboratory Results WBC 11.5 10^3/uL (4.0-10.0) H 03/21/22 20:46 RBC 3.67 10^6/uL (4.1-5.3) L 03/21/22 20:46 Hgb 11.2 g/dL (11.5-15.3) L 03/21/22 20:46 Hct 35.2 % (37.0-47.0) L 03/21/22 20:46 MCV 95.9 fl (81-99) 03/21/22 20:46 MCH 30.5 pg (28.0-34.0) 03/21/22 20:46 MCHC 31.8 g/dL (30.0-36.0) 03/21/22 20:46 RDW 14.5 % (12.1-15.1) 03/21/22 20:46 Plt Count 220 10^3/cmm (130-400) 03/21/22 20:46 MPV 10.9 fL (7.4-10.4) H 03/21/22 20:46 Neut % (Auto) 59.9 % 03/21/22 05:11 Lymph % (Auto) 28.3 % 03/21/22 05:11 Calvert % (Auto) 8.4 % 03/21/22 05:11 Eos % (Auto) 1.9 % 03/21/22 05:11 Baso % (Auto) 1.1 % 03/21/22 05:11 Neut # (Auto) 5.64 10^3/uL (1.8-7.7) 03/21/22 05:11 Lymph # (Auto) 2.7 10^3/uL (0.8-4.8) 03/21/22 05:11 Calvert # (Auto) 0.8 10^3/uL (0.2-0.9) 03/21/22 05:11 Eos # (Auto) 0.2 10^3/uL (0.0-0.8) 03/21/22 05:11 Baso # (Auto) 0.1 10^3/uL (0.0-0.1) 03/21/22 05:11 Nucleated RBC % (auto) 0 % 03/21/22 05:11 Nucleated RBCs # 0.0 /100WBC 03/21/22 05:11 Urine Opiates Screen Negative ng/mL (Negative) 03/21/22 05:15 Ur Barbiturates Screen Negative ng/mL (Negative) 03/21/22 05:15 Ur Phencyclidine Scrn Negative ng/mL (Negative) 03/21/22 05:15 Ur Amphetamines Screen Negative ng/mL (Negative) 03/21/22 05:15 U Benzodiazepines Scrn Negative ng/mL (Negative) 03/21/22 05:15 Urine Cocaine Screen Negative ng/mL (Negative) 03/21/22 05:15 U Marijuana (THC) Screen Negative ng/mL (Negative) 03/21/22 05:15 Vitals Last Vital Signs Temp 98.6 F 03/23/22 13:15 Pulse 100 03/23/22 13:15 Resp 16 03/23/22 13:15 BP 133/86 03/23/22 13:15 Pulse Ox 98 03/23/22 13:15 O2 Del Method 03/21/22 08:45 Discharge Plan Discharge Patient Disposition: Home Condition: Stable Prescriptions: New ibuprofen 800 mg Tablet 800 mg PO TID Qty: 45 0RF hydrocodone-acetaminophen 5-325 mg Tablet 1 tab PO Q6H PRN (Reason: Moderate To Severe Pain) Qty: 28 0RF docusate sodium 100 mg Capsule 100 mg PO BID Qty: 20 0RF Continued M-Ara Plus 27 mg iron- 1 mg tablet 1 tab PO DAILY Discontinued ursodiol 300 mg capsule 300 mg PO BID Discharge Orders: Discharge Order (Routine); Ordered 03/23/22 Ordered By: Nick Phillip Referrals: Nick Phillip MD [Physician] - 03/29/22 3:30 pm (* Your follow up appointment with Dr. phillip is 03/29/2022 at 3:30pm * You and your babies will all go in togather to your appointment with Dr. Phillip.) Discharge Diet: Usual diet Discharge Activity: Limit activity as instructed Patient Instructions: Depression (DC), Bleeding (DC), Preeclampsia and Eclampsia After Delivery (GEN), OB - Marjan/Swetha, OB Discharge Report, OB Anesthesia Instructions, OB Food/Drug Interaction Guide, Opioid Safety, OB Home Care, OB Proud Parent Packet Discharge Attestations SEWER AND DRAIN TECHNICIAN Time Spent in Discharge Care*: less than 30 min Coding Level of Care Code Acute Colorer Hides And Skins for Chg Fwd Diagnoses 38 weeks gestation of Z3A.38 Status post Z98.891 Twin delivered O30.009
== END 2022-03-23 13:09 | disposition home or self-care (01) | DRG 784 ==
PROVIDERS: Admitting Provider Family Medicine; Visit Provider Family Medicine
PROC: 10D00Z1 Extraction of Products of Conception, Low, Open Approach (ICD-10-PCS; CPT 59514; principal; 2022-03-21 07:00)
DX: O32.1XX1 Maternal care for breech presentation, fetus 1 (principal); O99.324 Drug use complicating childbirth; O99.314 Alcohol use complicating childbirth; F10.90 Alcohol use, unspecified, uncomplicated; F12.90 Cannabis use, unspecified, uncomplicated; O30.043 Twin pregnancy, dichorionic/diamniotic, third trimester; Z3A.38 38 weeks gestation of pregnancy; Z37.2 Twins, both liveborn; Z30.2 Encounter for sterilization
CPT/HCPCS: 12345; 36415; 51702; 59025; 59409; 80306; 85025; 85027; 88302; 88307; 96374; 96376; 98960; J0131; J0690; J1885; J2274; J2370; J2405; J2590; J2765; J3010; J3490; J7120; J7121

== ENCOUNTER 2022-05-08 01:52 | Emergency (ER) | payer MEDICAID, SELFPAY ==
[2022-05-08 01:57] VITALS: BP 138/105; PULSE 134; RESP 16; TEMP 36.7; O2SAT 97; BMI 23.9
--- NOTE | 2022-05-08 02:27 | ED.C_ITS ---
Documented by User: AMANDA Bonilla 05/08/22 02:58 HPI - Psych General: Chief Complaint: Psychiatric Symptoms Stated Complaint: MHE Time Seen by Provider: 05/08/22 01:57 History of Present Illness: Romulo is a 31-year-old female who presents to the emergency department with reports of insomnia. Patient states she has new twins at home and has not been sleeping. She does have a partner who is currently taking care of the children. Patient has been drinking alcohol tonight but is alert and oriented to her situation and where she is at. I did speak with her significant other, Aime Aparicio for further insight. He states she is sleeping very little at this time. He sent her to the emergency department so she can get some sleep. According to him she does have adequate support. Denies intent to hurt herself or others. Does have OB follow-up on 05/12/2022 Review of Systems General: Reports: 10 or more systems reviewed and unremarkable except in HPI and below Const: Denies: fever(s), chills, change in appetite, change in weight, fatigue or malaise Eyes: Denies: change in vision, eye discomfort, eye discharge or eye redness ENMT: Denies: throat pain, enlarged tonsils, odynophagia, hoarseness, ear or mastoid pain, ear discharge, change in hearing, tinnitus, nasal discharge, nasal congestion, post nasal drip or sinus pain Card: Denies: chest pain, palpitations, irregular heart rhythm, edema, dyspnea on exertion, orthopnea or leg pain with exertion Resp: Denies: dyspnea, productive cough, non-productive cough, wheezing, stridor or chest congestion GI: Denies: abdominal pain, nausea, vomiting, dysphagia, diarrhea, constipation, bloating, GI cramping or hematochezia : Denies: flank pain, difficulty voiding, dysuria, urinary frequency, urinary urgency, urinary hesitancy, oliguria or hematuria Musc: Denies: neck pain, back pain, extremity pain, joint pain, joint swelling, joint redness, joint warmth or muscle weakness Skin/Breast: Denies: rash, pruritus, erythema, photosensitivity or new lesions Neuro: Denies: headache(s), numbness in extremities, weakness in extremities, sensory changes, lack of coordination, difficulty walking, frequent falls, dizziness, confusion, Slurred speech present, difficulty communicating thoughts, seizure-like activity or involuntary movements Endo: Denies: polyuria, polydipsia or tired all the time Ted/Lymph: Denies: easy bruising or easy bleeding PFSH ED PFSH: Medical History Abnormal magnetic resonance cholangiopancreatography (MRCP) Intrahepatic bile duct dilation IUP (intrauterine ), incidental Social History Smoking and tobacco status: never smoked Alcohol intake: current Physical Exam Const: COMMON NORMALS: no acute distress, average body habitus, patient oriented x3, no limitations, healthy appearing, alert and well nourished GENERAL APPEARANCE: cooperative, comfortable and well developed; not in distress and not anxious ORIENTATION/CONSCIOUSNESS: Yes awake, Yes oriented to person, Yes oriented to place and Yes oriented to time HENMT: COMMON NORMALS: hearing grossly normal bilaterally and external ears normal FACE & SINUS: normal facial exam and face symmetric GENERAL EAR: hearing not grossly impaired EXTERNAL EAR: Yes external ears normal and Yes no periauricular adenopathy MOUTH: Normal oral and palatal mucosa present, lip normal, tongue normal and Normal salivary glands and ducts present Eye: COMMON NORMALS: EOMs intact bilaterally and no scleral icterus GENERAL EYE: appearance normal, both eyes and all related structures Neck/C-Spine: COMMON NORMALS: full ROM, supple, no meningeal signs and no JVD GENERAL: Yes normal visual inspection CERVICAL SPINE: Yes cervical ROM normal Lymph: LYMPHATIC: no lymphadenopathy noted Chest: COMMONS NORMALS: normal inspection of the chest Breast/axilla inspection: Yes no chest deformity, asymmetry, normal contours, no nodules, masses, tenderness Resp: COMMON NORMALS: normal respiratory effort, No retractions and No use of accessory muscles EFFORT & INSPECTION: Yes able to speak in complete sentences, Yes symmetric chest movement, No abnormal respiratory pattern, No tachypneic and No respiratory distress Cardio: COMMON NORMALS: no JVD, regular rate, regular rhythm and Peripheral pulses 2+ throughout RATE: regular rate RHYTHM: regular rhythm PERIPHERAL PULSES: Peripheral pulses 2+ throughout GI: COMMON NORMALS: Normal to inspection, nondistended, normoactive bowel sounds present, Soft to palpation and non-tender INSPECTION: Yes normal to inspection PALPATION: Yes Soft to palpation Extremity: GENERAL: Yes normal exam except as noted Neuro: COMMON NORMALS: patient oriented x3 SENSORIUM/ORIENTATION: Yes alert, Yes oriented to person, Yes oriented to place and Yes oriented to time MENINGEAL SIGNS: Yes no meningeal signs Psych: COMMON NORMALS: mental status grossly normal, Normal thought process present, cooperative, normal affect and activity/motor behavior normal THOUGHT PROCESS: Normal thought process present Skin: COMMON NORMALS: no wounds, no jaundice, no petechiae and no mottling Course Vital Signs: Vital signs: Vital Signs Temperature 98.1 F 05/08/22 01:57 Pulse Rate 134 H 05/08/22 01:57 Respiratory Rate 16 05/08/22 01:57 Blood Pressure 138/105 05/08/22 01:57 Pulse Oximetry 97 05/08/22 01:57 Oxygen Delivery Me thod 05/08/22 01:57 MDM - Psych Medical Decision Making Patient was evaluated in the emergency department for mental health check. Patient is was approximately 6 to 8 weeks. Patient has a 3-year-old and twins. Patient and her significant other, Aime Aparicio, reports that since delivery she has not been sleeping very well. Patient decided to drink alcohol tonight in hopes that she would be able to sleep. Eyes illicit substance use. Differential diagnosis includes insomnia, depression. In talking with her significant other it does not appear that she has been experiencing depressive episodes but has not been sleeping and this has made her more anxious and frustrated. Here in the emergency department provided her with a dose of Vistaril. She denies intent to harm herself or others and really wants to go home. Patient will go home with a prescription for Vistaril but will need to follow-up with primary care and SCREEN TENDER HELPER as planned Mr. Aparicio is agreeable to this plan as is the patient. Patient's to return to the emergency department for new concerning or worsening symptom Discharge Plan Discharge Patient Disposition: Home Clinical Impression: Acute anxiety, Insomnia Condition: Stable Prescriptions: New Vistaril 25 mg capsule 25 mg PO BID PRN (Reason: Anxiousness) Qty: 10 0RF No Action M-Ara Plus 27 mg iron- 1 mg tablet 1 tab PO DAILY ibuprofen 800 mg Tablet 800 mg PO TID Qty: 45 0RF hydrocodone-acetaminophen 5-325 mg Tablet 1 tab PO Q6H PRN (Reason: Moderate To Severe Pain) Qty: 28 0RF docusate sodium 100 mg Capsule 100 mg PO BID Qty: 20 0RF Discharge Orders: Discharge ED (Routine); Ordered 05/08/22 Ordered By: Shruti Devlin Discharge Diet: Advance as tolerated Discharge Activity: Resume usual activity Activity Restrictions/Additional Instructions: You need to stop drinking alcohol. This will actually affect your ability to sleep Follow-up with your DIRECTOR OF DEVELOPMENT on 05/12/2022 as planned Take the Vistaril for anxiety or sleeplessness as needed. Do not mix with alcohol Return to the emergency department for new concerning or worsening symptoms Coding Level of Care Code ED Extension Service Agent for Chg Fwd Exam Comprehensive Documented by User: Barrington Schmitt DO 05/08/22 07:11 HPI - Psych General: Chief Complaint: Psychiatric Symptoms Stated Complaint: MHE Time Seen by Provider: 05/08/22 01:57 [facility] ED PFSH: Medical History Abnormal magnetic resonance cholangiopancreatography (MRCP) Intrahepatic bile duct dilation IUP (intrauterine ), incidental Social History Smoking and tobacco status: never smoked Alcohol intake: current Course Vital Signs: Vital signs: Vital Signs Temperature 98.1 F 05/08/22 01:57 Pulse Rate 134 H 05/08/22 01:57 Respiratory Rate 16 05/08/22 01:57 Blood Pressure 138/105 05/08/22 01:57 Pulse Oximetry 97 05/08/22 01:57 Oxygen Delivery Me thod 05/08/22 01:57 MDM - Psych Medical Decision Making Patient was evaluated in the emergency department for mental health check. Patient is was approximately 6 to 8 weeks. Patient has a 3-year-old and twins. Patient and her significant other, Aime Aparicio, reports that since delivery she has not been sleeping very well. Patient decided to drink alcohol tonight in hopes that she would be able to sleep. Eyes illicit substance use. Differential diagnosis includes insomnia, depression. In talking with her significant other it does not appear that she has been experiencing depressive episodes but has not been sleeping and this has made her more anxious and frustrated. Here in the emergency department provided her with a dose of Vistaril. She denies intent to harm herself or others and really wants to go home. Patient will go home with a prescription for Vistaril but will need to follow-up with primary care and SCREEN TENDER HELPER as planned Mr. Aparicio is agreeable to this plan as is the patient. Patient's to return to the emergency department for new concerning or worsening symptom Chart reviewed and patient discussed with midlevel. Agree with assessment and plan. Discharge Plan Discharge Patient Disposition: Home Clinical Impression: Acute anxiety, Insomnia Condition: Stable Prescriptions: New Vistaril 25 mg capsule 25 mg PO BID PRN (Reason: Anxiousness) Qty: 10 0RF No Action M- Plus 27 mg iron- 1 mg tablet 1 tab PO DAILY ibuprofen 800 mg Tablet 800 mg PO TID Qty: 45 0RF hydrocodone-acetaminophen 5-325 mg Tablet 1 tab PO Q6H PRN (Reason: Moderate To Severe Pain) Qty: 28 0RF docusate sodium 100 mg Capsule 100 mg PO BID Qty: 20 0RF Discharge Orders: Discharge ED (Routine); Ordered 05/08/22 Ordered By: Shruti Devlin Discharge Diet: Advance as tolerated Discharge Activity: Resume usual activity Activity Restrictions/Additional Instructions: You need to stop drinking alcohol. This will actually affect your ability to sleep Follow-up with your DIRECTOR OF DEVELOPMENT on 05/12/2022 as planned Take the Vistaril for anxiety or sleeplessness as needed. Do not mix with alcohol Return to the emergency department for new concerning or worsening symptoms Coding Level of Care Code ED Extension Service Agent for Ivy Fwmannie Exam Comprehensive
[2022-05-08] MEDS: hyDROXYzine 25 mg Capsule PO (02:53)
== END 2022-05-08 02:53 | disposition home or self-care (01) ==
PROVIDERS: Emergency Provider Nurse Practitioner
DX: G47.00 Insomnia, unspecified (principal); F41.9 Anxiety disorder, unspecified
CPT/HCPCS: 99283

== ENCOUNTER 2022-05-18 12:45 | Emergency (ER) | payer MEDICAID, SELFPAY ==
--- NOTE | 2022-05-18 12:53 | ED.C_ITS ---
HPI - Psych General: Chief Complaint: Psychiatric Symptoms Stated Complaint: MHE Time Seen by Provider: 05/18/22 12:53 Limitations: altered mental status History of Present Illness: Ms Sebastian is a 31-year-old lady approximately 2 months presenting to the emergency department due to altered mental status. She is accompanied by a friend to notes that for the past few hours she has not seemed like herself and has been more confused with possible hallucinations. Apparently she had a prior episode of similar however this seems more constant today. Patient herself thinks it may be due to escitalopram which she is started taking. History is otherwise limited by mental status change. Associated symptoms: Deny delusions Review of Systems General: Reports: ROS unobtainable due to mental status PFSH ED PFSH: Medical History Abnormal magnetic resonance cholangiopancreatography (MRCP) Intrahepatic bile duct dilation IUP (intrauterine ), incidental Social History Smoking and tobacco status: never smoked Alcohol intake: current Physical Exam Const: COMMON NORMALS: alert GENERAL APPEARANCE: cooperative and well developed HENMT: COMMON NORMALS: normocephalic and atraumatic HEAD & SCALP: normocephalic and atraumatic Eye: COMMON NORMALS: conjunctivae normal CONJUNCTIVA: Yes conjunctivae normal SCLERA: sclerae normal Neck/C-Spine: COMMON NORMALS: supple GENERAL: Yes trachea midline Resp: COMMON NORMALS: normal respiratory effort EFFORT & INSPECTION: Yes able to speak in complete sentences Cardio: COMMON NORMALS: regular rate and regular rhythm RATE: regular rate RHYTHM: regular rhythm GI: COMMON NORMALS: Soft to palpation PALPATION: Yes Soft to palpation and No Tenderness to palpation present (GI) PERCUSSION: normal to percussion Extremity: GENERAL: Yes normal exam except as noted and No edema Neuro: COMMON NORMALS: moves all extremities SENSORIUM/ORIENTATION: Yes jennifer rt and Yes Orientation impaired OTHER: Laughs inappropriately at times Psych: COMMON NORMALS: mental status grossly normal and Normal thought process present THOUGHT PROCESS: Normal thought process present THOUGHT CONTENT: No Suicidality present, No Homicidality present, No delusions and No Hallucination(s) present Course Vital Signs: Vital signs: Vital Signs Temperature 98.2 F 05/18/22 12:56 Pulse Rate 103 H 05/18/22 12:56 Respiratory Rate 16 05/18/22 12:56 Blood Pressure 153/99 05/18/22 12:56 Pulse Oximetry 100 05/18/22 12:56 Oxygen Delivery Me thod 05/18/22 12:56 MDM - Psych Medical Decision Making 31-year-old lady presenting with mental status with reported history of intermittent visual hallucinations. The patient herself is mildly altered without focal deficits. She denies suicidal or homicidal ideation. EKG notable for sinus rhythm, normal intervals, no STEMI. Previous abnormalities on hematologic panel-soft and with the exception of mild thrombocytosis hematologic panel is unremarkable. Perhaps mild evidence of dehydration on metabolic panel for this is improved from prior. There is a transaminitis and elevated alk phos though normal bilirubin. Patient does have a history of significantly worse liver function. hCG is negative. Hematuria discussed with patient. Toxic ingestions only positive for significantly elevated ethyl alcohol level. UDS otherwise negative. CT head is negative for acute intracranial pathology. I had an extensive conversation with the patient regarding the severity of her alcohol abuse. Family did express concern over visual loose Nations outside the context of alcohol abuse however the patient currently does not exhibit evidence of psychosis. The patient's is at bedside and does not abuse alcohol reportedly. He is present when she is home and cares for child and child otherwise has day care outside the house when parents are at work. I explained that regardless of how the patient feels she is unsafe to care for a small child when she uses/abuses alcohol. I recommended inpatient management given severity of alcohol use and possible symptoms outside of alcohol use however the patient adamantly declined this. The patient's feels comfortable watching her at home and I discussed the risk given how elevated the patient's alcohol level is. The patient on reassessment has unremarkable mental status, she has no evidence of psychosis or hallucinations, she continues to deny homicidal or suicidal ideation. She is able to tolerate p.o. intake and ambulates with a steady gait. The patient expressed an adamant desire to leave. Given extensive discussions and physical exam as well as laboratory studies I do not feel that I can hold the patient against her will. The patient left AGAINST MEDICAL ADVICE. She understands that she may return to the emergency department for any reason at any time. Medical Records I reviewed the patient's medical records. Lab Data I reviewed the patient's lab results. 05/18/22 13:05 05/18/22 13:[address] 05/18/22 13:00 IMPRESSION: No acute intracranial abnormality. Laboratory Results WBC 6.1 10^3/uL (4.0-10.0) 05/18/22 13:05 RBC 4.13 10^6/uL (4.1-5.3) 05/18/22 13:05 Hgb 12.8 g/dL (11.5-15.3) 05/18/22 13:05 Hct 39.4 % (37.0-47.0) 05/18/22 13:05 MCV 95.4 fl (81-99) 05/18/22 13:05 MCH 31.0 pg (28.0-34.0) 05/18/22 13:05 MCHC 32.5 g/dL (30.0-36.0) 05/18/22 13:05 RDW 16.6 % (12.1-15.1) H 05/18/22 13:05 Plt Count 435 10^3/cmm (130-400) H 05/18/22 13:05 MPV 8.8 fL (7.4-10.4) 05/18/22 13:05 Neut % (Auto) 40.3 % 05/18/22 13:05 Lymph % (Auto) 51.1 % 05/18/22 13:05 [place] % (Auto) 4.9 % 05/18/22 13:05 Eos % (Auto) 1.0 % 05/18/22 13:05 Baso % (Auto) 2.0 % 05/18/22 13:05 Neut # (Auto) 2.48 10^3/uL (1.8-7.7) 05/18/22 13:05 Lymph # (Auto) 3.1 10^3/uL (0.8-4.8) 05/18/22 13:05 [place] # (Auto) 0.3 10^3/uL (0.2-0.9) 05/18/22 13:05 Eos # (Auto) 0.1 10^3/uL (0.0-0.8) 05/18/22 13:05 Baso # (Auto) 0.1 10^3/uL (0.0-0.1) 05/18/22 13:05 Nucleated RBC % (auto) 0 % 05/18/22 13:05 Nucleated RBCs # 0.0 /100WBC 05/18/22 13:05 Sodium 145 mmol/L (136-145) 05/18/22 13:05 Potassium 3.8 mmol/L (3.5-5.1) 05/18/22 13:05 Chloride 104 mmol/L (98-107) 05/18/22 13:05 Carbon Dioxide 24 mmol/L (22-29) 05/18/22 13:05 Anion Gap 20.8 (5-19) H 05/18/22 13:05 BUN 4 mg/dL (6-20) L 05/18/22 13:05 Creatinine 0.6 mg/dL (0.5-0.9) 05/18/22 13:05 GFR Calculation 118.2 mL/min (90-130) 05/18/22 13:05 Glucose 64 mg/dL (65-115) L 05/18/22 13:05 Calculated Osmolality 295 mOsm/kg (285-295) 05/18/22 13:05 Calcium 9.5 mg/dL (8.5-10.5) 05/18/22 13:05 Total Bilirubin 0.7 mg/dL (0.15-1.2) 05/18/22 13:05 AST 124 U/L (0-32) H 05/18/22 13:05 ALT 69 U/L (0-33) H 05/18/22 13:05 Alkaline Phosphatase 1172 U/L (35-105) H* 05/18/22 13:05 Total Protein 9.1 g/dL (6.6-8.7) H 05/18/22 13:05 Albumin 5.3 g/dL (3.5-5.2) H 05/18/22 13:05 Globulin 3.8 g/dL (1.3-4.6) 05/18/22 13:05 TSH 0.96 uIU/mL (0.27-4.20) 05/18/22 13:05 HCG, Qual Negative (Negative) 05/18/22 13:45 Urine Color Yellow (Yellow) 05/18/22 13:45 Urine Appearance Clear (CLEAR) 05/18/22 13:45 Urine pH 5 (5-7) 05/18/22 13:45 Ur Specific [place] 1.015 (1.005-1.030) 05/18/22 13:45 Urine Protein Neg (Negative) 05/18/22 13:45 Urine Glucose (UA) Norm (Normal) 05/18/22 13:45 Urine Ketones Negative (Negative) 05/18/22 13:45 Urine Blood 3+ (Negative) H 05/18/22 13:45 Urine Nitrate Negative (Negative) 05/18/22 13:45 Urine Bilirubin Neg (Negative) 05/18/22 13:45 Urine Urobilinogen Neg mg/dL (Negative) 05/18/22 13:45 Ur Leukocyte Esterase Negative (Negative) 05/18/22 13:45 Urine RBC Rare /hpf (0-2) 05/18/22 13:45 Urine WBC None /hpf (0-5) 05/18/22 13:45 Ur Squamous Epith Cells 0-4 /hpf (0-5) H 05/18/22 13:45 Amorphous Sediment Not Reportable 05/18/22 13:45 Urine Bacteria None /hpf (NONE) 05/18/22 13:45 Salicylates < 0.3 mg/dL (3-10) L 05/18/22 13:05 Urine Opiates Screen Negative ng/mL (Negative) 05/18/22 13:45 Acetaminophen < 5.0 ug/mL (10-30) L 05/18/22 13:05 Ur Barbiturates Screen Negative ng/mL (Negative) 05/18/22 13:45 Ur Phencyclidine Scrn Negative ng/mL (Negative) 05/18/22 13:45 Ur Amphetamines Screen Negative ng/mL (Negative) 05/18/22 13:45 U Benzodiazepines Scrn Negative ng/mL (Negative) 05/18/22 13:45 Urine Cocaine Screen Negative ng/mL (Negative) 05/18/22 13:45 U Marijuana (THC) Screen Negative ng/mL (Negative) 05/18/22 13:45 Ethyl Alcohol 361 mg/dL (0-10) H* 05/18/22 13:05 Discharge Plan Discharge Patient Disposition: Left Against Medical Advice Clinical Impression: Alcohol abuse Condition: Stable Prescriptions: No Action hydroxyzine pamoate 25 mg capsule 25 mg PO DAILY PRN (Reason: Anxiety) escitalopram oxalate 10 mg tablet 10 mg PO DAILY Referrals: Nick Phillip MD [Primary Care Provider] - Coding Level of Care Code ED Facilities Clerk for [facility]
[2022-05-18 12:56] VITALS: BP 153/99; PULSE 103; RESP 16; TEMP 36.8; O2SAT 100; BMI 24.7
--- NOTE | 2022-05-18 13:00 | CTR_ITS ---
PROCEDURE INFORMATION: Exam: CT Head Without Contrast Exam date and time: 05/18/2022 1:57 PM Age: 31 years old Clinical indication: Altered mental status/memory loss; Additional info: AMS, recent TECHNIQUE: Imaging protocol: Computed tomography of the head without contrast. Radiation optimization: All CT scans at this facility use at least one of these dose optimization techniques: automated exposure control; mA and/or kV adjustment per patient size (includes targeted exams where dose is matched to clinical indication); or iterative reconstruction. COMPARISON: No relevant prior studies available. RADIATION DOSE METRICS: Total DLP (mGy-cm): 993.59 FINDINGS: Brain: Normal. No hemorrhage. Unremarkable white matter. No mass effect. Cerebral ventricles: No ventriculomegaly. Paranasal sinuses: Visualized sinuses are unremarkable. No fluid levels. Mastoid air cells: Visualized mastoid air cells are well aerated. Bones/joints: Unremarkable. No acute fracture. Soft tissues: Unremarkable. CT/CT head wo con* [id number] IMPRESSION: No acute intracranial abnormality.
[2022-05-18] MEDS: sodium chloride 0.9% 1,000 ML 999 ML IV (13:08)
[2022-05-18 13:31] LABS: Basophils # 0.1 10^3/uL (0.0-0.1); Eosinophils # 0.1 10^3/uL (0.0-0.8); Hematocrit 39.4 % (37.0-47.0); Hemoglobin 12.8 g/dL (11.5-15.3); Lymphocytes # 3.1 10^3/uL (0.8-4.8); Lymphocytes % 51.1 %; Mean Corpuscular HGB Conc 32.5 g/dL (30.0-36.0); Mean Corpuscular Volume 95.4 fl (81-99); Mean Platelet Volume 8.8 fL (7.4-10.4); Monocytes # 0.3 10^3/uL (0.2-0.9); Monocytes % 4.9 %; Neutrophils # 2.48 10^3/uL (1.8-7.7); Neutrophils % 40.3 %; Nucleated Red Blood Cells % 0 %; Platelet Count 435 10^3/cmm (130-400); Red Blood Count 4.13 10^6/uL (4.1-5.3); Red Cell Distribution Width 16.6 % (12.1-15.1); White Blood Count 6.1 10^3/uL (4.0-10.0)
--- NOTE | 2022-05-18 13:34 | ECG_ITS ---
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 [email or web address]
[2022-05-18 14:03] LABS: HCG Qualitative Urine. Negative (Negative)
[2022-05-18 14:06] LABS: Add Urine Microscopic? YES; Bilirubin Urine Neg (Negative); Blood Urine 3+ (Negative); Glucose Urine UA Norm (Normal); Ketones Urine Negative (Negative); Leukocyte Esterase Urine Negative (Negative); Nitrate Urine Negative (Negative); Protein Urine Neg (Negative); Specific Gravity, Urine 1.015 (1.005-1.030); Urine Appearance Clear (CLEAR); Urine Color Yellow (Yellow); Urobilinogen Urine Neg (Negative); pH Urine 5 (5-7)
[2022-05-18 14:11] LABS: Amphetamines Screen Urine Negative (Negative); Barbiturates Screen Urine Negative (Negative); Benzodiazepines Screen Urine Negative (Negative); Cocaine Screen Urine Negative (Negative); Opiate Screen Urine Negative (Negative); PCP Screen Urine Negative (Negative); THC Screen Urine Negative (Negative)
[2022-05-18 14:12] LABS: Add Urine Culture? No; RBC Urine RARE /hpf (0-2); Squamous Epithelial Cell Urine 0-4 /hpf (0-5)
[2022-05-18 14:24] LABS: Alanine Aminotransferase 69 U/L (0-33); Albumin Level 5.3 g/dL (3.5-5.2); Anion Gap 20.8 (5-19); Aspartate Amino Transferase 124 U/L (0-32); Blood Urea Nitrogen 4 mg/dL (6-20); Calcium 9.5 mg/dL (8.5-10.5); Carbon Dioxide 24 mmol/L (22-29); Chloride 104 mmol/L (98-107); Globulin 3.8 g/dL (1.3-4.6); Glomerular Filtration Rate 118.2 mL/min (90-130); Glucose 64 mg/dL (65-115); Osmolality Calculated 295 mOsm/kg (285-295); Potassium 3.8 mmol/L (3.5-5.1); Sodium 145 mmol/L (136-145); Thyroid Stimulating Hormone 0.96 uIU/mL (0.27-4.20); Total Bilirubin 0.7 mg/dL (0.15-1.2); Total Protein 9.1 g/dL (6.6-8.7)
[2022-05-18 14:38] LABS: Acetaminophen < 5.0 ug/mL (10-30); Alcohol Level 361 mg/dL (0-10); Alkaline Phosphatase 1172 U/L (35-105); Salicylate < 0.3 mg/dL (3-10)
--- NOTE | 2022-05-18 16:01 | PC.NURSE ---
This nurse was unable to get CPS on the phone who was on hold for over an hour (Dr. Jeter wanted them called). Instead, this nurse called [place] police department to have a wellness check done at the home. Police stated that they would respond.
== END 2022-05-18 15:24 | disposition left against medical advice (07) ==
PROVIDERS: Emergency Provider Emergency Medicine; PCP Family Medicine
DX: F10.10 Alcohol abuse, uncomplicated (principal); Y90.8 Blood alcohol level of 240 mg/100 ml or more; Z53.21 Procedure and treatment not carried out due to patient leaving prior to being seen by health care provider
CPT/HCPCS: 70450; 80053; 80306; 80307; 81001; 81025; 84443; 85025; 93005; 96360; 99285; J7030

== ENCOUNTER 2022-06-12 19:52 | Inpatient (IN) | payer MEDICAID, SELFPAY ==
[2022-06-12 19:53] VITALS: BP 158/109; PULSE 123; RESP 20; O2SAT 96; BMI 25.4
--- NOTE | 2022-06-12 20:05 | W.ED.PSYCHS ---
HPI - Psych General: Chief Complaint: Psychiatric Symptoms Stated Complaint: SI Time Seen by Provider: 06/12/22 19:55 Source: patient, EMS and police Mode of arrival: EMS History of Present Illness: 31-year-old intoxicated female with a history of depression. She evidently uses alcohol daily. She presents with increasing depression, and making suicidal statements. She told law enforcement prior to arrival that she was going to cut herself with something sharp. She told my nurse, that she was going to stab her self multiple times. On arrival, she is agitated and somewhat belligerent, wanting to leave. She was placed under 96-hour hold, affidavits were written by law enforcement and nursing, and she is medicated. She is now resting comfortably. Prior to being medicated, she denied recent illness, fever, cough, diarrhea, or vomiting. MD complaint: suicidal ideation and feels depressed Onset (ago): unknown Duration: constant History of same: No Relieving factors: none Exacerbating factors: alcohol Context: recent alcohol abuse Associated psychiatric symptoms: depression and suicidal ideation Associated symptoms: Reports depression and suicidal ideation; Deny auditory hallucinations, visual hallucinations or homicidal ideation Treatments prior to arrival: none If self harm: admits thoughts of self harm and has plan Review of Systems Const: Denies: fever(s) ENMT: Denies: throat pain Card: Denies: chest pain or palpitations Resp: Denies: dyspnea, productive cough or non-productive cough GI: Denies: abdominal pain, nausea or vomiting : Denies: difficulty voiding Neuro: Denies: headache(s) Psych: Reports: depression and suicidal ideation; Denies: visual hallucinations, auditory hallucinations or homicidal ideation Physical Exam Const: GENERAL APPEARANCE: disheveled; not cooperative, not ill appearing and not frail appearing HENMT: COMMON NORMALS: normocephalic, atraumatic and Normal external nose present HEAD & SCALP: normocephalic and atraumatic FACE & SINUS: normal facial exam and face symmetric NOSE: Normal external nose present Eye: COMMON NORMALS: Equal, round and reactive pupils present and EOMs intact bilaterally PUPIL: Yes Equal, round and reactive pupils present Neck/C-Spine: GENERAL: Yes trachea midline Chest: CHEST: Yes Symmetrical chest wall rise Resp: COMMON NORMALS: normal respiratory effort, No use of accessory muscles and clear to auscultation bilaterally AUSCULTATION: clear to auscultation bilaterally Cardio: COMMON NORMALS: regular rate and regular rhythm RATE: regular rate RHYTHM: regular rhythm GI: COMMON NORMALS: Normal to inspection, nondistended, normoactive bowel sounds present Extremity: COMMON NORMALS: no pedal edema Neuro: FRANTZ COMA SCALE: document GCS findings Frantz coma scale eye opening: Spontaneous [place] coma scale verbal response: Orientated [place] coma scale motor response: Obey commands Frantz coma scale total score: 15 CRANIAL NERVES: Yes CN normal except as noted SPEECH: abnormal speech Details: slurred MOTOR EXAM: Normal motor muscle tone present throughout Psych: ATTITUDE: Yes uncooperative and Yes agitated ACTIVITY/MOTOR BEHAVIOR: Yes psychomotor slowing SPEECH: Yes slurred MOOD & AFFECT: Yes depressed mood and Yes tearful THOUGHT PROCESS: Circumstantial thought process present Skin: COMMON NORMALS: no wounds Face to Face: Restrn/Seclusion Events leading up to initiation: Verbalizing threat to self or others Evaluation of patient's immediate situation: Signs of psychological distress Patient reaction since intervention applied: De-escalation/no displays of violent/destructive behavior Recent labs reviewed: Yes Review of medications: Yes Patient's current medical/behavioral condition: No new concerns since last ROS Need for restraint or seclusion is: Continued Attending notified: Attending completed assessment Course Vital Signs: Vital signs: Vital Signs Pulse Rate 122 H 06/13/22 02:37 Respiratory Rate 16 06/13/22 02:37 Blood Pressure 119/66 06/13/22 02:37 Pulse Oximetry 95 06/13/22 02:37 Oxygen Delivery Me thod 06/13/22 00:33 [facility] - Psych Medical Decision Making As above, this patient was medicated shortly after arrival. She was placed under 96-hour hold. This patient has been resting comfortably. Her labs were not remarkable, save an elevated alcohol level in the 350s. Despite this, she is significantly depressed, with a history of depression which has a high risk of suicide completion. She has made definitive suicidal statements to both law enforcement and my nursing staff. Her vitals have remained normal. Urine drug screen is negative. Spoke with psychiatry. Agrees to admit to the neuropsychiatric unit for further evaluation. She was held down here in the ER until alcohol level came to more appropriate level, which is now 156. Lab Data 06/12/22 21:09 06/12/22 21:09 Laboratory Results WBC 5.2 10^3/uL (4.0-10.0) 06/12/22 21: RBC 4.13 10^6/uL (4.1-5.3) 06/12/22 21:09 Hgb 12.9 g/dL (11.5-15.3) 06/12/22 21:09 Hct 40.8 % (37.0-47.0) 06/12/22 21: MCV 98.8 fl (81-99) 06/12/22 21:09 MCH 31.2 pg (28.0-34.0) 06/12/22 21: MCHC 31.6 g/dL (30.0-36.0) 06/12/22 21: RDW 13.8 % (12.1-15.1) 06/12/22 21: Plt Count 324 10^3/cmm (130-400) 06/12/22 21: MPV 9.0 fL (7.4-10.4) 06/12/22 21:09 Neut % (Auto) 51.5 % 06/12/22 21:09 Lymph % (Auto) 35.3 % 06/12/22 21:09 [place] % (Auto) 10.0 % 06/12/22 21:09 Eos % (Auto) 1.5 % 06/12/22 21:09 Baso % (Auto) 1.5 % 06/12/22 21:09 Neut # (Auto) 2.67 10^3/uL (1.8-7.7) 06/12/22 21:09 Lymph # (Auto) 1.8 10^3/uL (0.8-4.8) 06/12/22 21:09 [place] # (Auto) 0.5 10^3/uL (0.2-0.9) 06/12/22 21:09 Eos # (Auto) 0.1 10^3/uL (0.0-0.8) 06/12/22 21:09 Baso # (Auto) 0.1 10^3/uL (0.0-0.1) 06/12/22 21:09 Nucleated RBC % (auto) 0 % 06/12/22 21:09 Nucleated RBCs # 0.0 /100WBC 06/12/22 21:09 Sodium 140 mmol/L (136-145) 06/12/22 21:09 Potassium 3.3 mmol/L (3.5-5.1) L 06/12/22 21:09 Chloride 104 mmol/L (98-107) 06/12/22 21:09 Carbon Dioxide 21 mmol/L (22-29) L 06/12/22 21:09 Anion Gap 18.3 (5-19) 06/12/22 21:09 BUN 5 mg/dL (6-20) L 06/12/22 21:09 Creatinine 0.4 mg/dL (0.5-0.9) L 06/12/22 21:09 GFR Calculation 188.7 mL/min (90-130) H 06/12/22 21:09 Glucose 92 mg/dL (65-115) 06/12/22 21: Calculated Osmolality 287 mOsm/kg (285-295) 06/12/22 21:09 Calcium 8.9 mg/dL (8.5-10.5) 06/12/22 21:09 Total Bilirubin 0.2 mg/dL (0.15-1.2) 06/12/22 21:09 AST 176 U/L (0-32) H 06/12/22 21:09 ALT 96 U/L (0-33) H 06/12/22 21:09 Alkaline Phosphatase 483 U/L (35-105) H 06/12/22 21:09 Total Protein 7.5 g/dL (6.6-8.7) 06/12/22 21: Albumin 4.5 g/dL (3.5-5.2) 06/12/22 21: Globulin 3.0 g/dL (1.3-4.6) 06/12/22 21:09 HCG, Qual Negative (Negative) 06/12/22: Urine Color Colorless (Yellow) 06/12/22: Urine Appearance Clear (CLEAR) 06/12/22: Urine pH 6 (5-7) 06/12/22: Ur Specific [place] 1.005 (1.005-1.030) 06/12/22:34 Urine Protein Neg (Negative) 06/12/22: Urine Glucose (UA) Norm (Normal) 02/12/23 20:34 Urine Ketones Negative (Negative) 06/12/22 20:34 Urine Blood Neg (Negative) 06/12/22 20:34 Urine Nitrate Negative (Negative) 06/12/22 20:34 Urine Bilirubin Neg (Negative) 06/12/22 20:34 Urine Urobilinogen Neg mg/dL (Negative) 06/12/22 20:34 Ur Leukocyte Esterase Negative (Negative) 06/12/22 20:34 Salicylates < 0.3 mg/dL (3-10) L 06/12/22 21:09 Urine Opiates Screen Negative ng/mL (Negative) 06/12/22 20:34 Acetaminophen < 5.0 ug/mL (10-30) L 06/12/22 21:09 Ur Barbiturates Screen Negative ng/mL (Negative) 06/12/22 20:34 Ur Phencyclidine Scrn Negative ng/mL (Negative) 06/12/22 20:34 Ur Amphetamines Screen Negative ng/mL (Negative) 06/12/22 20:34 U Benzodiazepines Scrn Negative ng/mL (Negative) 06/12/22 20:34 Urine Cocaine Screen Negative ng/mL (Negative) 06/12/22 20:34 U Marijuana (THC) Screen Negative ng/mL (Negative) 06/12/22 20:34 Ethyl Alcohol 156 mg/dL (0-10) H 06/13/22 02:35 Discharge Plan Discharge Patient Disposition: Admitted As Inpatient Admit Provider: Quan Alicea Clinical Impression: Suicidal ideation, Alcohol intoxication, Depression, Condition: Stable Coding Level of Care Code ED Pharmaceutical Compounding Supervisor for [facility]
[2022-06-12] MEDS: LORazepam 2 mg/mL INJ 1 mL IM (20:10)
[2022-06-12] MEDS: ziprasidone 20 mg/mL SDV IM (20:10)
--- NOTE | 2022-06-12 20:37 | PC.NURSE ---
PATIENT PLACED IN PSYCH ROOM WITH 1:1 SITTER PRESENT. PATIENT LEFT IN CLOTHING AT THIS TIME DUE TO INABILITY TO SETTLE DOWN IN ORDER TO CHANGE. PATIENT CHECKED FOR ANY HARMFUL ITEMS. NONE PRESENT.
[2022-06-12 20:40] LABS: Add Urine Microscopic? NO; Charge for UA Resulting for Rev
[2022-06-12 20:45] LABS: Bilirubin Urine Neg (Negative); Blood Urine Neg (Negative); Glucose Urine UA Norm (Normal); Ketones Urine Negative (Negative); Leukocyte Esterase Urine Negative (Negative); Nitrate Urine Negative (Negative); Protein Urine Neg (Negative); Specific Gravity, Urine 1.005 (1.005-1.030); Urine Appearance Clear (CLEAR); Urine Color Colorless (Yellow); Urobilinogen Urine Neg (Negative); pH Urine 6 (5-7)
[2022-06-12 20:53] LABS: Amphetamines Screen Urine Negative (Negative); Barbiturates Screen Urine Negative (Negative); Benzodiazepines Screen Urine Negative (Negative); Cocaine Screen Urine Negative (Negative); Opiate Screen Urine Negative (Negative); PCP Screen Urine Negative (Negative); THC Screen Urine Negative (Negative)
[2022-06-12 21:01] LABS: HCG Qualitative Urine. Negative (Negative)
--- NOTE | 2022-06-12 21:14 | PC.NURSE ---
Pt placed in green scrubs without complication. Blood drawn. Unable to collect urine at this time.
[2022-06-12 21:16] VITALS: PULSE 100; RESP 14; O2SAT 97
[2022-06-12 21:23] LABS: Basophils # 0.1 10^3/uL (0.0-0.1); Basophils % 1.5 %; Eosinophils # 0.1 10^3/uL (0.0-0.8); Eosinophils % 1.5 %; Hematocrit 40.8 % (37.0-47.0); Hemoglobin 12.9 g/dL (11.5-15.3); Lymphocytes # 1.8 10^3/uL (0.8-4.8); Lymphocytes % 35.3 %; Mean Corpuscular HGB Conc 31.6 g/dL (30.0-36.0); Mean Corpuscular Hemoglobin 31.2 pg (28.0-34.0); Mean Corpuscular Volume 98.8 fl (81-99); Monocytes # 0.5 10^3/uL (0.2-0.9); Neutrophils # 2.67 10^3/uL (1.8-7.7); Neutrophils % 51.5 %; Nucleated Red Blood Cells % 0 %; Platelet Count 324 10^3/cmm (130-400); Red Blood Count 4.13 10^6/uL (4.1-5.3); Red Cell Distribution Width 13.8 % (12.1-15.1); White Blood Count 5.2 10^3/uL (4.0-10.0)
[2022-06-12 21:43] LABS: Alanine Aminotransferase 96 U/L (0-33); Albumin Level 4.5 g/dL (3.5-5.2); Alkaline Phosphatase 483 U/L (35-105); Anion Gap 18.3 (5-19); Aspartate Amino Transferase 176 U/L (0-32); Blood Urea Nitrogen 5 mg/dL (6-20); Calcium 8.9 mg/dL (8.5-10.5); Carbon Dioxide 21 mmol/L (22-29); Chloride 104 mmol/L (98-107); Glomerular Filtration Rate 188.7 mL/min (90-130); Glucose 92 mg/dL (65-115); Osmolality Calculated 287 mOsm/kg (285-295); Potassium 3.3 mmol/L (3.5-5.1); Sodium 140 mmol/L (136-145); Total Bilirubin 0.2 mg/dL (0.15-1.2); Total Protein 7.5 g/dL (6.6-8.7)
[2022-06-12 21:45] LABS: Acetaminophen < 5.0 ug/mL (10-30); Salicylate < 0.3 mg/dL (3-10)
[2022-06-12 21:46] LABS: Alcohol Level 358 mg/dL (0-10)
--- NOTE | 2022-06-12 22:56 | PC.NURSE ---
Copy of 96 Hour Involuntary Commitment Rights served to pt at [phone] by this nurse and security.
[2022-06-12 23:05] VITALS: PULSE 99; RESP 12; O2SAT 94
--- NOTE | 2022-06-12 23:06 | PC.NURSE ---
Pt resting quietly. NO needs at this time.
[2022-06-13 00:33] VITALS: PULSE 103; RESP 14; O2SAT 94
--- NOTE | 2022-06-13 00:35 | PC.NURSE ---
Pt is resting quietly. No needs at this time.
[2022-06-13 02:37] VITALS: BP 119/66; PULSE 122; RESP 16; O2SAT 95
[2022-06-13 02:59] LABS: Alcohol Level 156 mg/dL (0-10)
[2022-06-13 03:34] VITALS: BP 120/87; PULSE 112; RESP 18; TEMP 37; O2SAT 97
[2022-06-13] MEDS: hyDROXYzine 25 mg Capsule 50 MG PO (04:16)
[2022-06-13] MEDS: fluoxetine 10 mg Capsule PO (08:35)
[2022-06-13 14:00] VITALS: BP 127/83; PULSE 79; RESP 17; O2SAT 98
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
[2022-06-13 19:51] VITALS: BP 136/86; PULSE 79; RESP 18; TEMP 37.2; O2SAT 99
[2022-06-14] MEDS: acetaminophen 325 mg Tablet 650 MG PO (00:58)
[2022-06-14 06:00] VITALS: BP 149/97; PULSE 75; RESP 18; TEMP 36.6; O2SAT 98
[2022-06-14] MEDS: fluoxetine 20 mg Capsule PO (08:12)
[2022-06-14 14:00] VITALS: BP 141/92; PULSE 69; RESP 20; TEMP 36.8; O2SAT 98
--- NOTE | 2022-06-14 15:41 | W.PM.NPUPNS ---
Subjective NPU Subjective: Patient is a 31-year-old white female with a history of alcohol abuse reporting anxiety and depression that had been worsening for the past 3 months. She was admitted with complaints of suicidal ideation but reports that she has not having any thoughts currently. She reports that she is motivated to reduce her alcohol consumption and endorses significant genetic loading for alcohol dependence from both sides of her family. Patient was compliant and attended groups on the milieu. She had reported that her anxiety had been a greater problem than her depression. She had reported that she had been more tired recently and reported some difficulties with sleep at times. She reported no side effects from the increase in Prozac but states that she had been on Prozac at 10 mg for the first month without any improvement in her mood or anxiety. Mental Status Exam MSE Comments: Patient is a casually dressed white female with fair hygiene who appeared her stated age who appeared in mild to moderate distress with some evidence of psychomotor retardation. Her speech was normal in regards to rate rhythm and prosody. Her thought process was linear logical and goal-directed. Her thought content showed no evidence of active homicidal or suicidal ideation. Her mood was described as okay. Her affect appeared restricted in range and mood incongruent. She did not appear to be responding to internal stimuli. There was no evidence of any delusional thinking. She was alert and oriented to person place time and situation. Her attention span appeared adequate. Her impulse control was poor. Her insight is poor. Her judgment is poor. Vitals/I&O/Wt Last Vital Signs Temp 97.8 F 06/14/22 06:00 Pulse 75 06/14/22 06:00 Resp 18 06/14/22 06:00 BP 149/97 06/14/22 06:00 Pulse Ox 98 06/14/22 06:00 O2 Del Method 06/13/22 03:34 Weight last 48 hrs Weight 61.235 kg Data NPU 06/12/22 21:09 06/12/22 21:09 A&P Assessment and plan (1) Depression, : (2) Alcohol intoxication: (3) Anxiety disorder, unspecified: Plan Patient is a 31-year-old white female with a history of binge drinking admitted while intoxicated reporting suicidal ideation who is currently reported anxiety and depression 3 months . Patient would likely benefit from a brief psychiatric hospitalization with medication adjustments. #1. Therapeutic observation 15-minute checks while on the unit. #2. Engage patient in individual milieu and group therapy #3. Encourage sober living treatment at the highest level of care to which the patient is willing to commit. Referral for dual diagnosis outpatient treatment. #4. Continue current medications with likely increase in Prozac to 30 mg to target anxiety and depression. Involuntary Hold Information 96 Hour Hold: 96 Hour Involuntary Admission: Yes 96 Hour Hold Ending Date: 06/17/22 96 Hour Hold Ending Time: 00:01 Attestations NPU Medical Necessity Statement*: Inpatient hospitalization is medically necessary and the clinically appropriate intervention at this time. We will monitor medications and make changes as indicated. Patient will be in hospital for over 2 midnights. Her likely length of stay is 3 to 5 days. Coding Level of Care Code Acute Code for [facility] Fwd Diagnoses Depression, F53.0 Alcohol intoxication F10.929 Anxiety disorder, unspecified F41.9
[2022-06-14 20:04] VITALS: BP 126/86; PULSE 82; RESP 16; TEMP 36.9; O2SAT 99
[2022-06-15 06:00] VITALS: BP 127/85; PULSE 97; RESP 16; TEMP 36.8; O2SAT 99
[2022-06-15] MEDS: acetaminophen 325 mg Tablet 650 MG PO (06:22)
[2022-06-15] MEDS: fluoxetine 10 mg Capsule 30 MG PO (08:32)
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
[2022-06-15 13:06] VITALS: BP 127/85; PULSE 97; RESP 16; TEMP 36.8; O2SAT 99
== END 2022-06-15 13:10 | disposition home or self-care (01) | DRG 776 ==
LOC: ER 22:39 → NP 06-13 03:52
PROVIDERS: Admitting Provider Psychiatry & Neurology Psychiatry; Emergency Provider Emergency Medicine; Visit Provider Psychiatry & Neurology Psychiatry
DX: O99.345 Other mental disorders complicating the puerperium (principal); R45.851 Suicidal ideations; F53.0 Postpartum depression; F10.129 Alcohol abuse with intoxication, unspecified; Y90.8 Blood alcohol level of 240 mg/100 ml or more; F41.9 Anxiety disorder, unspecified; Z81.1 Family history of alcohol abuse and dependence; Z62.810 Personal history of physical and sexual abuse in childhood; Z62.811 Personal history of psychological abuse in childhood
CPT/HCPCS: 36415; 80053; 80306; 80307; 81003; 81025; 85025; 96372; 97150; 97165; 99238; 99285; J2060; J3486

== ENCOUNTER 2022-09-25 21:57 | Emergency (ER) | payer MEDICAID, SELFPAY ==
[2022-09-25 22:00] VITALS: BP 144/99; PULSE 109; RESP 14; TEMP 37; O2SAT 96
--- NOTE | 2022-09-25 22:04 | ED_ITS ---
HPI - General Adult General: Stated complaint: overwhelmed Time Seen by Provider: 09/25/22 21:59 Source: patient, EMS and police Mode of arrival: EMS Limitations: no limitations History of Present Illness: [id number] female states she was arguing with her boyfriend kemal to 96 her for no reason so she went ahead and called the new order clerk. She states that she felt like she needed to get out of that situation and had them just bring her here. She denies being suicidal or homicidal if spoke to police and EMS they have not had any who homicidal or suicidal statements towards them either they states the boyfriend did see anything at the scene either. She has no other complaints at this time. Associated symptoms: Deny chest pain, dyspnea, headache(s) or rash Review of Systems Const: Denies: fever(s) ENMT: Denies: throat pain Card: Denies: chest pain Resp: Denies: dyspnea GI: Denies: abdominal pain Musc: Denies: neck pain or back pain Skin/Breast: Denies: rash Neuro: Denies: headache(s) Psych: Denies: depression, tactile hallucinations, suicidal ideation or homicidal ideation [facility] ED PFSH: Medical History Abnormal magnetic resonance cholangiopancreatography (MRCP) Intrahepatic bile duct dilation IUP (intrauterine ), incidental Social History Smoking and tobacco status: never smoked Alcohol intake: current Substance/Drug Use: never Physical Exam Const: COMMON NORMALS: no acute distress and patient oriented x3 HENMT: COMMON NORMALS: normocephalic HEAD & SCALP: normocephalic Eye: COMMON NORMALS: conjunctivae normal CONJUNCTIVA: Yes conjunctivae normal Neck/C-Spine: COMMON NORMALS: full ROM Chest: COMMONS NORMALS: normal inspection of the chest Resp: COMMON NORMALS: normal respiratory effort Cardio: COMMON NORMALS: regular rate and regular rhythm RATE: regular rate RHYTHM: regular rhythm GI: INSPECTION: Yes normal to inspection Extremity: COMMON NORMALS: normal to inspection Neuro: COMMON NORMALS: patient oriented x3 Psych: COMMON NORMALS: mental status grossly normal THOUGHT CONTENT: No Suicidality present Skin: COMMON NORMALS: no rashes or lesions noted GENERAL SKIN EXAM: no rashes or lesions noted MDM - General Adult Medical Decision Making Patient presents here after getting a fight with her boyfriend she states she mainly swelling in a situation she is adamant she is not suicidal or homicidal I did speak to police and EMS she never made any statements to them states she is fighting with her boyfriend and want to get out of there is her house she owns a house he is left now she states she feels safe to go home I talked to my psychiatrist he agrees that there is nothing to keep her against her will and she is stable for discharge at this time. Discharge Plan Discharge Patient Disposition: Home Clinical Impression: Feeling stressed out Condition: Stable Prescriptions: No Action fluoxetine 10 mg Capsule 30 mg PO DAILY 30 Days Qty: 90 1RF hydroxyzine pamoate 25 mg capsule 25 mg PO DAILY PRN (Reason: Anxiety) escitalopram oxalate 10 mg tablet 10 mg PO DAILY Discharge Orders: Discharge ED (Routine); Ordered 09/25/22 Ordered By: Karmen Márquez Discharge Diet: Advance as tolerated Discharge Activity: Resume usual activity Patient Instructions: Stress (ED) Coding Level of Care Code ED Nsh Teacher for Ivy Bryna
[2022-09-25 22:20] VITALS: RESP 16; O2SAT 99
--- NOTE | 2022-09-30 13:05 | DCPLANNER ---
survey research manager called patient due to no primary care physician - patient states that she sees Dr. Phillip.
== END 2022-09-25 22:10 | disposition home or self-care (01) ==
LOC: ER 22:11
PROVIDERS: Emergency Provider Emergency Medicine; PCP Family Medicine
DX: F43.9 Reaction to severe stress, unspecified (principal)
CPT/HCPCS: 99283

== ENCOUNTER 2023-06-07 19:42 | Inpatient (IN) | payer MEDICAID, SELFPAY ==
--- NOTE | 2023-06-07 19:48 | ED_ITS ---
HPI - Alcohol 2 General: Chief Complaint: Psychiatric Symptoms Stated Complaint: MHE Time Seen by Provider: 06/07/23 19:43 Source: patient and police Limitations: no limitations History of Present Illness: 32-year-old female was brought in by [facility] for alcohol intoxication along with suicidal ideations. 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 She is quite intoxicated here. Associated symptoms: Reports depression and suicidal ideation; Deny abdominal pain, nausea or vomiting Review of Systems 2 Const: Denies: fever(s), chills, body aches or change in appetite ENMT: Denies: throat pain or dental pain Card: Denies: chest pain Resp: Denies: dyspnea GI: Denies: abdominal pain, nausea, vomiting or diarrhea Musc: Denies: neck pain or back pain Skin/Breast: Denies: rash Neuro: Denies: headache(s) Psych: Reports: depression and suicidal ideation PFSH ED 2 PFSH: Medical History IUP (intrauterine ), incidental Intrahepatic bile duct dilation Abnormal magnetic resonance cholangiopancreatography (MRCP) Social History Smoking and tobacco/nicotine status: never used tobacco/nicotine Alcohol intake: current Substance/Drug Use: never Physical Exam 2 Const: COMMON NORMALS: no acute distress and patient oriented x3 OTHER: intoxicated HENMT: COMMON NORMALS: normocephalic and atraumatic HEAD & SCALP: n ormocephalic and atraumatic Eye: COMMON NORMALS: Equal, round and reactive pupils present and EOMs intact bilaterally PUPIL: Yes Equal, round and reactive pupils present Neck/C-Spine: COMMON NORMALS: full ROM and supple Chest: COMMONS NORMALS: normal inspection of the chest and normal palpation of entire chest wall Resp: COMMON NORMALS: normal respiratory effort, No retractions, No use of accessory muscles and clear to auscultation bilaterally AUSCULTATION: clear to auscultation bilaterally Cardio: COMMON NORMALS: regular rate, regular rhythm and No murmurs present (Cardio) RATE: regular rate RHYTHM: regular rhythm GI: COMMON NORMALS: Normal to inspection, nondistended, normoactive bowel sounds present, Soft to palpation, non-tender and no masses PALPATION: Yes Soft to palpation Extremity: COMMON NORMALS: normal to inspection and full ROM Neuro: COMMON NORMALS: patient oriented x3, moves all extremities and no focal motor deficits Psych: COMMON NORMALS: mental status grossly normal, Normal thought process present and cooperative THOUGHT PROCESS: Normal thought process present Skin: COMMON NORMALS: no rashes or lesions noted and no wounds GENERAL SKIN EXAM: no rashes or lesions noted Course 2 Vital Signs: Vital signs: Vital Signs Temperature 97.8 F 06/07/23 19:49 Pulse Rate 114 H 06/07/23 21:22 Respiratory Rate 19 H 06/07/23 21:22 Blood Pressure 172/106 06/07/23 21:22 Pulse Oximetry 93 06/07/23 21:22 Oxygen Delivery Me thod Room Air 06/07/23 19:49 MDM - Alcohol Medical Decision Making Patient presents here with alcohol intoxication along with suicidal ideation she had told police she is going to shoot herself in the head patient is medically cleared I spoke to psychiatrist will admit [facility] the [facility]. Medical Records I reviewed the patient's medical records. Lab Data I reviewed the patient's lab results. 06/07/23 20:02 06/07/23 20:02 Laboratory Results WBC 8.04 10^3/uL (3.29-11.43) 06/07/23 20:02 RBC 4.91 10^6/uL (3.85-5.65) 06/07/23 20:02 Hgb 14.90 g/dL (11.27-16.99) 06/07/23 20:02 Hct 46.3 % (36-47) 06/07/23 20:02 MCV 94.3 fl (85-98) 06/07/23 20:02 MCH 30.3 pg (27-33) 06/07/23 20:02 MCHC 32.2 g/dL (30-55) 06/07/23 20:02 RDW 12.5 % (12.1-15.1) 06/07/23 20:02 Plt Count 417 10^3/cmm (157-399) H 06/07/23 20:02 MPV 9.1 fL (7.4-10.4) 06/07/23 20:02 Neut % (Auto) 55.1 % 06/07/23 20:02 Lymph % (Auto) 36.8 % 06/07/23 20:02 Canyon % (Auto) 4.9 % 06/07/23 20:02 Eos % (Auto) 1.7 % 06/07/23 20:02 Baso % (Auto) 1.4 % 06/07/23 20:02 Neut # (Auto) 4.43 10^3/uL (1.8-7.7) 06/07/23 20:02 Lymph # (Auto) 3.0 10^3/uL (0.8-4.8) 06/07/23 20:02 Canyon # (Auto) 0.4 10^3/uL (0.2-0.9) 06/07/23 20:02 Eos # (Auto) 0.1 10^3/uL (0.0-0.8) 06/07/23 20:02 Baso # (Auto) 0.1 10^3/uL (0.0-0.1) 06/07/23 20:02 Nucleated RBC % (auto) 0 % 06/07/23 20:02 Nucleated RBCs # 0.0 /100WBC 06/07/23 20:02 Sodium 144 mmol/L (136-145) 06/07/23 20:02 Potassium 3.7 mmol/L (3.5-5.1) 06/07/23 20:02 Chloride 107 mmol/L (98-107) 06/07/23 20:02 Carbon Dioxide 21 mmol/L (22-29) L 06/07/23 20:02 Anion Gap 19.7 (5-19) H 06/07/23 20:02 BUN 8 mg/dL (6-20) 06/07/23 20:02 Creatinine 0.6 mg/dL (0.5-0.9) 06/07/23 20:02 GFR Calculation 117.4 mL/min (90-130) 06/07/23 20:02 Glucose 132 mg/dL (65-115) H 06/07/23 20:02 Calculated Osmolality 298 mOsm/kg (285-295) H 06/07/23 20:02 Calcium 8.8 mg/dL (8.5-10.5) 06/07/23 20:02 Total Bilirubin 0.2 mg/dL (0.15-1.2) 06/07/23 20:02 AST 87 U/L (0-32) H 06/07/23 20:02 ALT 45 U/L (0-33) H 06/07/23 20:02 Alkaline Phosphatase 221 U/L (35-105) H 06/07/23 20:02 Total Protein 9.0 g/dL (6.6-8.7) H 06/07/23 20:02 Albumin 4.7 g/dL (3.5-5.2) 06/07/23 20:02 Globulin 4.3 g/dL (1.3-4.6) 06/07/23 20:02 Salicylates 0.9 mg/dL (3-10) L 06/07/23 20:02 Acetaminophen < 5.0 ug/mL (10-30) L 06/07/23 20:02 Ethyl Alcohol 370 mg/dL (0-10) H* 06/07/23 20:02 No radiology studies performed this visit Discharge Plan Discharge Patient Disposition: Admitted As Inpatient Admit Provider: Quan Alicea Clinical Impression: Suicidal ideation, Alcohol intoxication Condition: Stable Coding Level of Care Code ED Telecommunications Engineer for Ivy Bryan
[2023-06-07 19:49] VITALS: BP 163/121; PULSE 126; RESP 21; TEMP 36.6; O2SAT 92; BMI 22.8
[2023-06-07] MEDS: ziprasidone hcl 20 mg Capsule PO (20:22)
[2023-06-07 20:44] LABS: Basophils # 0.1 10^3/uL (0.0-0.1); Basophils % 1.4 %; Eosinophils # 0.1 10^3/uL (0.0-0.8); Eosinophils % 1.7 %; Hematocrit 46.3 % (36-47); Lymphocytes % 36.8 %; Mean Corpuscular HGB Conc 32.2 g/dL (30-55); Mean Corpuscular Hemoglobin 30.3 pg (27-33); Mean Corpuscular Volume 94.3 fl (85-98); Mean Platelet Volume 9.1 fL (7.4-10.4); Monocytes # 0.4 10^3/uL (0.2-0.9); Monocytes % 4.9 %; Neutrophils # 4.43 10^3/uL (1.8-7.7); Neutrophils % 55.1 %; Nucleated Red Blood Cells % 0 %; Platelet Count 417 10^3/cmm (157-399); Red Blood Count 4.91 10^6/uL (3.85-5.65); Red Cell Distribution Width 12.5 % (12.1-15.1); White Blood Count 8.04 10^3/uL (3.29-11.43)
--- NOTE | 2023-06-07 20:48 | PC.NURSE ---
96 Hour Involuntary Hold Patient Rights have been read to patient and a copy of the same has been given to her. Mechanical Drawing Teacher David Alicea was present at bedside at the time of presentation to patient.
--- NOTE | 2023-06-07 20:52 | PC.NURSE ---
pt personal belongings removed, placed outside room 9. 1:1 sitter at bedside. pt informed of psychiatric evaluation protocol
--- NOTE | 2023-06-07 20:53 | PC.NURSE ---
pt refusing to stay in room, states she does not want to be here. this nurse verbally de-escalated and re-educated pt on 96 hour paperwork, pt returned to room and had no further concerns at this time.
[2023-06-07 20:55] LABS: Acetaminophen < 5.0 ug/mL (10-30); Alanine Aminotransferase 45 U/L (0-33); Albumin Level 4.7 g/dL (3.5-5.2); Alkaline Phosphatase 221 U/L (35-105); Anion Gap 19.7 (5-19); Aspartate Amino Transferase 87 U/L (0-32); Blood Urea Nitrogen 8 mg/dL (6-20); Calcium 8.8 mg/dL (8.5-10.5); Carbon Dioxide 21 mmol/L (22-29); Chloride 107 mmol/L (98-107); Globulin 4.3 g/dL (1.3-4.6); Glomerular Filtration Rate 117.4 mL/min (90-130); Glucose 132 mg/dL (65-115); Osmolality Calculated 298 mOsm/kg (285-295); Potassium 3.7 mmol/L (3.5-5.1); Salicylate 0.9 mg/dL (3-10); Sodium 144 mmol/L (136-145); Total Bilirubin 0.2 mg/dL (0.15-1.2)
[2023-06-07] MEDS: LORazepam 2 mg/mL INJ 10 mL MDV 1 MG IM (20:56)
[2023-06-07 20:57] LABS: Alcohol Level 370 mg/dL (0-10)
[2023-06-07 21:22] VITALS: BP 172/106; PULSE 114; RESP 19; O2SAT 93
[2023-06-07] MEDS: metoprolol tartrate 25 mg Tablet PO (21:34)
--- NOTE | 2023-06-07 21:34 | PC.NURSE ---
report called to Maile in NPU at 2114, per Maile to wait on message from Dr. Alicea regarding pts JEFFREY level.
--- NOTE | 2023-06-07 21:44 | PC.NURSE ---
per Dr. Márquez and Dr. lAicea, pt can be transported to NPU at 2300 06/07/2023, without repeat blood alcohol level.
[2023-06-07 23:09] VITALS: BP 132/82; PULSE 91; RESP 16; TEMP 36.5; O2SAT 96
[2023-06-08 06:00] VITALS: BP 112/64; PULSE 87; RESP 16; TEMP 36.9; O2SAT 98
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
[2023-06-08] MEDS: multivitamin therapeutic Tablet 1 TAB PO (10:54)
[2023-06-08] MEDS: folic acid 1 mg Tablet PO (10:54)
[2023-06-08] MEDS: thiamine 100 mg Tablet PO (10:55)
[2023-06-08] MEDS: hyDROXYzine 25 mg Capsule 50 MG PO ×2 (11:27→20:11)
[2023-06-08] MEDS: LORazepam 2 mg Tablet PO (13:05)
[2023-06-08 14:00] VITALS: BP 126/86; PULSE 110; RESP 20; TEMP 37; O2SAT 98
[2023-06-08] MEDS: acetaminophen 325 mg Tablet 650 MG PO (15:15)
[2023-06-08] MEDS: fluoxetine 20 mg Capsule PO (17:29)
[2023-06-08] MEDS: trazodone 50 mg Tablet PO (20:11)
[2023-06-08 21:40] VITALS: BP 115/74; PULSE 83; RESP 16; TEMP 36.9; O2SAT 99
[2023-06-09 06:00] VITALS: BP 125/63; PULSE 87; RESP 16; TEMP 36.8; O2SAT 99
[2023-06-09] MEDS: thiamine 100 mg Tablet PO (08:30)
[2023-06-09] MEDS: fluoxetine 20 mg Capsule PO (08:30)
[2023-06-09] MEDS: folic acid 1 mg Tablet PO (08:30)
[2023-06-09] MEDS: multivitamin therapeutic Tablet 1 TAB PO (08:30)
[2023-06-09 14:00] VITALS: BP 153/104; PULSE 91; RESP 20; TEMP 36.9; O2SAT 99
[2023-06-09] MEDS: hyDROXYzine 25 mg Capsule 50 MG PO ×2 (14:28→20:00)
[2023-06-09] MEDS: acetaminophen 325 mg Tablet 650 MG PO (17:00)
[2023-06-09] MEDS: benzocaine 20% 7 gm 1 APPLIC MUCOUS MEM (17:15)
--- NOTE | 2023-06-09 19:13 | P.NPUPN_ITS ---
Subjective NPU 2 Subjective: Today patient presented reporting desire to discharge as soon as possible. He seemed ambivalent about her addiction. He reported feeling better with the medication. And denied side effects. Mental Status Exam 2 MSE Comments: This is a overweight white [place] born female in hospital scrubs with limited grooming and eye contact. No abnormal movements except for mild psychomotor retardation. Cooperative with exam in mild distress. Speech was slightly decreased rate and volume with a subtle hint of [place] accent. Mood described as better, affect congruent. Thought process organized. Thought content: Patient denied active suicidal or homicidal ideation, there were no delusions reported noted, she denied any auditory or visual hallucinations. Attention and concentration were intact and memory appeared mostly reliable but none were formally tested. She is alert and oriented x 3. Insight and judgment are fair impulse control is limited versus impaired. Vitals/I&O/Wt Last Vital Signs Temp 98.6 F 06/09/23 21:14 Pulse 102 H 06/09/23 21:14 Resp 18 06/09/23 21:14 BP 140/97 06/09/23 21:14 Pulse Ox 98 06/09/23 21:14 O2 Del Method Room Air 06/09/23 14:00 Data NPU 06/07/23 20:02 06/07/23 20:02 A&P Assessment and plan (1) Alcohol intoxication: (2) Major depressive disorder, recurrent severe without psychotic features: (3) BEHT (generalized anxiety disorder): (4) Suicidal ideation: (5) Alcohol withdrawal: (6) Alcohol use disorder, moderate, dependence: Plan Patient is a 32-year-old white female with a history of binge drinking admitted while intoxication reporting suicidal ideation who is currently reported anxiety and depression. She stopped taking her medication after running out reporting openness to restarting medication. 1. Therapeutic observation 15-minute checks while on the unit. 2. Engage patient in individual milieu and group therapy 3. Encourage sober living treatment at the highest level of care to which the patient is willing to commit. Referral for dual diagnosis outpatient treatment. 4. Restarted Prozac 20 mg to target anxiety and depression shortly with a plan to increase to 40 mg. Involuntary Hold Information 2 96 Hour Hold: 96 Hour Involuntary Admission: Yes 96 Hour Hold Ending Date: 06/17/22 96 Hour Hold Ending Time: 00:01 Attestations NPU 2 Medical Necessity Statement*: Inpatient hospitalization is medically necessary and the clinically appropriate intervention at this time. We will monitor medication to make changes as indicated. Likely length of stay 2-4 days. Coding Level of Care Code Acute Code for Chg Fwd Diagnoses Alcohol intoxication F10.929 Major depressive disorder, recurrent severe without psychotic features F33.2 BETH (generalized anxiety disorder) F41.1 Suicidal ideation R45.851 Alcohol withdrawal F10.939 Alcohol use disorder, moderate, dependence F10.20
[2023-06-09] MEDS: trazodone 50 mg Tablet PO (20:00)
[2023-06-09 21:14] VITALS: BP 140/97; PULSE 102; RESP 18; TEMP 37; O2SAT 98
[2023-06-10 06:00] VITALS: BP 130/82; PULSE 83; RESP 16; TEMP 37; O2SAT 97
--- NOTE | 2023-06-10 06:35 | P.NPUPN_ITS ---
Subjective NPU 2 Subjective: Patient presented today reporting that she is doing okay. Her fungus continues to be on discharge. We discussed concerns about her situation and the fact that [facility] has tried to contact her here. She reports that they did go to the house and spoke with her and that she is under the impression that they are fine with her being home. We discussed the need to verify that situation as well as need to get her appropriate follow-up. We discussed that Dr. Villegas will be here tomorrow and the likelihood of discharge in the next 48 hours. Mental Status Exam 2 MSE Comments: This is a overweight white [place] born female in hospital scrubs with limited grooming and eye contact. No abnormal movements except for mild psychomotor retardation. Cooperative with exam in mild distress. Speech was slightly decreased rate and volume with a subtle hint of [place] accent. Mood described as better, affect congruent. Thought process organized. Thought content: Patient denied active suicidal or homicidal ideation, there were no delusions reported noted, she denied any auditory or visual hallucinations. Attention and concentration were intact and memory appeared mostly reliable but none were formally tested. She is alert and oriented x 3. Insight is fair. Judgment is poor. Impulse control is limited versus impaired. Vitals/I&O/Wt Last Vital Signs Temp 98.6 F 06/10/23 06:00 Pulse 83 06/10/23 06:00 Resp 16 06/10/23 06:00 BP 130/82 06/10/23 06:00 Pulse Ox 97 06/10/23 06:00 O2 Del Method Room Air 06/09/23 14:00 Data NPU 06/07/23 20:02 06/07/23 20:02 A&P Assessment and plan (1) Alcohol intoxication: (2) Major depressive disorder, recurrent severe without psychotic features: (3) BETH (generalized anxiety disorder): (4) Suicidal ideation: (5) Alcohol withdrawal: (6) Alcohol use disorder, moderate, dependence: Plan Patient is a 32-year-old white female with a history of binge drinking admitted while intoxication reporting suicidal ideation who is currently reported anxiety and depression. She stopped taking her medication after running out reporting openness to restarting medication. 1. Therapeutic observation 15-minute checks while on the unit. 2. Engage patient in individual milieu and group therapy 3. Encourage sober living treatment at the highest level of care to which the patient is willing to commit. Referral for dual diagnosis outpatient treatment. 4. Restarted Prozac 20 mg to target anxiety and depression shortly with a plan to increase to 40 mg. 5. Patient desiring to discharge to home but several questions remain. 1 surrounding [facility] and what they are wanting to do and if they had any concerns about her being home. They attempted to call and speak to her yesterday. Additionally she needs appropriate follow-up. Involuntary Hold Information 2 96 Hour Hold: 96 Hour Involuntary Admission: Yes 96 Hour Hold Ending Date: 06/17/22 96 Hour Hold Ending Time: 00:01 Attestations NPU 2 Medical Necessity Statement*: Inpatient hospitalization is medically necessary and the clinically appropriate intervention at this time. We will monitor medication to make changes as indicated. Likely length of stay 1-3 days. Coding Level of Care Code Acute Code for g Fwd Diagnoses Alcohol intoxication F10.929 Major depressive disorder, recurrent severe without psychotic features F33.2 BETH (generalized anxiety disorder) F41.1 Suicidal ideation R45.851 Alcohol withdrawal F10.939 Alcohol use disorder, moderate, dependence F10.20
[2023-06-10] MEDS: fluoxetine 20 mg Capsule PO (07:46)
[2023-06-10] MEDS: thiamine 100 mg Tablet PO (07:47)
[2023-06-10] MEDS: multivitamin therapeutic Tablet 1 TAB PO (07:47)
[2023-06-10] MEDS: folic acid 1 mg Tablet PO (07:47)
[2023-06-10] MEDS: hyDROXYzine 25 mg Capsule 50 MG PO ×2 (09:28→19:11)
[2023-06-10] MEDS: OLANZapine 5 mg ODT PO (13:06)
[2023-06-10 14:00] VITALS: RESP 18
[2023-06-10 19:40] VITALS: BP 137/94; PULSE 76; RESP 18; TEMP 36.8; O2SAT 99
[2023-06-10] MEDS: trazodone 50 mg Tablet PO (20:14)
[2023-06-11 06:00] VITALS: BP 118/59; PULSE 78; RESP 16; TEMP 36.9; O2SAT 98
[2023-06-11] MEDS: fluoxetine 20 mg Capsule PO (09:05)
[2023-06-11] MEDS: folic acid 1 mg Tablet PO (09:06)
[2023-06-11] MEDS: multivitamin therapeutic Tablet 1 TAB PO (09:06)
[2023-06-11] MEDS: thiamine 100 mg Tablet PO (09:06)
[2023-06-11] MEDS: hyDROXYzine 25 mg Capsule 50 MG PO ×2 (11:22→19:58)
[2023-06-11 14:00] VITALS: BP 134/90; PULSE 100; RESP 14; TEMP 36.9; O2SAT 100
[2023-06-11] MEDS: OLANZapine 5 mg ODT PO (14:32)
--- NOTE | 2023-06-11 15:34 | P.NPUPN_ITS ---
Subjective NPU 2 Subjective: 32-year-old female admitted with suicida l ideation in the context of considerable alcohol use with a history of major depressive disorder and generalized anxiety disorder. Patient had reported that she was feeling better. She had reported that there was some concern about department of family services being called at the home due to her having young children in the home. She had reported that she had quit taking her Prozac in the past. She had reported that she had a significant family history of alcohol use. She reports that she had never been on medications to target cravings for alcohol but was agreeable to consideration of the use of naltrexone to help with alcohol cravings. She had reported no suicidal thoughts at this time. She had expressed desire to go home. Mental Status Exam 2 MSE Comments: This is a overweight white [place] born female in hospital scrubs with limited grooming and eye contact. No abnormal movements except for mild psychomotor retardation. She was cooperative with exam in mild distress. Speech was slightly decreased in rate and normal in volume with a subtle hint of [place] accent. Mood described as better. Affect remains somewhat restricted. Thought process was linear and organized. Thought content: Patient denied active suicidal or homicidal ideation, there were no delusions reported noted. She denied any auditory or visual hallucinations. She did not appear to be responding to internal stimuli. Attention and concentration were intact and memory appeared mostly reliable but none were formally tested. She is alert and oriented x 3. Insight is fair. Judgment is poor. Impulse control is limited. Vitals/I&O/Wt Last Vital Signs Temp 98.4 F 06/11/23 14:00 Pulse 100 06/11/23 14:00 Resp 14 06/11/23 14:00 BP 134/90 06/11/23 14:00 Pulse Ox 100 06/11/23 14:00 O2 Del Method Room Air 06/11/23 06:00 Weight last 48 hrs Weight 73.21 kg Data NPU 06/07/23 20:02 06/07/23 20:02 A&P Assessment and plan (1) Alcohol intoxication: (2) Major depressive disorder, recurrent severe without psychotic features: (3) BETH (generalized anxiety disorder): (4) Suicidal ideation: (5) Alcohol withdrawal: (6) Alcohol use disorder, moderate, dependence: Plan Patient is a 32-year-old white female with a history of binge drinking admitted while intoxication reporting suicidal ideation who is currently reported anxiety and depression. She stopped taking her medication after running out reporting openness to restarting medication. 1. Therapeutic observation 15-minute checks while on the unit. 2. Engage patient in individual milieu and group therapy 3. Encourage sober living treatment at the highest level of care to which the patient is willing to commit. Referral for dual diagnosis outpatient treatment. 4. Increase Prozac to 30 mg to target anxiety and depression shortly with a plan to increase to 40 mg. Initiate Naltrexone 50mg daily with plan if tolerated to give Vivitrol IM for alcohol dependence. 5. Patient desiring to discharge to home but several questions remain. 1 surrounding DFS and what they are wanting to do and if they had any concerns about her being home. They attempted to call and speak to her yesterday. Additionally she needs appropriate follow-up. Involuntary Hold Information 2 96 Hour Hold: 96 Hour Involuntary Admission: Yes 96 Hour Hold Ending Date: 06/17/22 96 Hour Hold Ending Time: 00:01 Attestations NPU 2 Medical Necessity Statement*: Inpatient hospitalization is medically necessary and the clinically appropriate intervention at this time. We will monitor medication to make changes as indicated. Likely length of stay 1-2 days. Coding Level of Care Code Acute Code for g Fwd Diagnoses Alcohol intoxication F10.929 Major depressive disorder, recurrent severe without psychotic features F33.2 BETH (generalized anxiety disorder) F41.1 Suicidal ideation R45.851 Alcohol withdrawal F10.939 Alcohol use disorder, moderate, dependence F10.20
[2023-06-11] MEDS: naltrexone hcl 50 mg Tablet PO (15:43)
[2023-06-11] MEDS: trazodone 50 mg Tablet PO (19:58)
[2023-06-11 20:01] VITALS: BP 127/63; PULSE 100; RESP 16; TEMP 36.7; O2SAT 98
[2023-06-12 05:55] VITALS: BP 133/81; PULSE 91; RESP 16; TEMP 36.7; O2SAT 97
[2023-06-12] MEDS: fluoxetine 10 mg Capsule 30 MG PO (08:10)
[2023-06-12] MEDS: naltrexone hcl 50 mg Tablet PO (08:11)
[2023-06-12] MEDS: multivitamin therapeutic Tablet 1 TAB PO (08:11)
[2023-06-12] MEDS: thiamine 100 mg Tablet PO (08:11)
[2023-06-12] MEDS: folic acid 1 mg Tablet PO (08:11)
[2023-06-12] MEDS: benzocaine 20% 7 gm 1 APPLIC MUCOUS MEM (09:26)
[2023-06-12] MEDS: hyDROXYzine 25 mg Capsule 50 MG PO ×2 (10:42→16:10)
[2023-06-12] MEDS: OLANZapine 5 mg ODT PO (12:25)
[2023-06-12] MEDS: NON-FORMULARY MEDICATION IM (13:48)
[2023-06-12 14:00] VITALS: BP 127/91; PULSE 100; RESP 18; TEMP 36.6; O2SAT 99
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
[2023-06-12 16:53] VITALS: BP 127/91; PULSE 100; RESP 18; TEMP 36.6; O2SAT 99
== END 2023-06-12 17:08 | disposition home or self-care (01) | DRG 885 ==
LOC: ER 20:42 → NP 20:51
PROVIDERS: Admitting Provider Psychiatry & Neurology Psychiatry; Emergency Provider Emergency Medicine; PCP Family Medicine; Visit Provider Psychiatry & Neurology Psychiatry
DX: F33.2 Major depressive disorder, recurrent severe without psychotic features (principal); R45.851 Suicidal ideations; F41.1 Generalized anxiety disorder; F10.229 Alcohol dependence with intoxication, unspecified; Y90.8 Blood alcohol level of 240 mg/100 ml or more; Z81.1 Family history of alcohol abuse and dependence
CPT/HCPCS: 80053; 80307; 85025; 96372; 97150; 97165; 99285; J2060

== ENCOUNTER 2023-08-07 15:10 | Observation (INO) | payer MEDICAID, SELFPAY ==
[2023-08-07] VITALS (11 sets, daily range): BP systolic 110–188; BP diastolic 63–145; PULSE 80–126; RESP 16–17; TEMP 36.7–37; O2SAT 95–98; BMI 24.7
--- NOTE | 2023-08-07 15:14 | XR_ITS ---
WS: [id number] PORTABLE CHEST HISTORY: dyspnea/cough COMPARISON: 10/19/2021 Lungs are clear and well expanded. No pleural effusion or pneumothorax. Cardiac size: Normal. Mediastinum/Aorta: Normal mediastinum. No osseous abnormality seen. IMPRESSION: Unremarkable portable chest.
--- NOTE | 2023-08-07 15:24 | W.ED.NAVMDI ---
HPI - Nausea/Vomiting/Diarrhea General: Chief complaint: Nausea/Vomiting/Diarrhea Stated complaint: hypertension/nausea Time Seen by Provider: 08/07/23 15:12 Source: patient Mode of arrival: EMS History of Present Illness: 32-year-old female presents emergency room complaining of nausea and vomiting with elevated blood pressure. She has not had any respiratory difficulty denies chest pain has had a lot of abdominal pain and cramping. She denies hematochezia melena hematemesis cough cramps admits to heavy use of alcohol on a daily basis. MD elicited complaint: nausea, vomiting and abdominal pain Onset (ago): day(s) Associated nausea: Yes Associated abdominal pain: Yes Location of pain: Epigastric Quality: aching Exacerbating factors: none Relieving factors: none Associated symtoms: Reports nausea; Denies altered mental status, anxiety, bloating, change in vision, chest pain, cough, diaphoresis, decreased urine output, dizziness, dysuria, epistaxis, fatigue, fecal incontinence, fevers/chills, headache(s), anorexia, malaise, myalgias, numbness, palpitations, rash, short of breath, syncope, tenesmus, tinnitus or weakness Review of Systems Const: Denies: fever(s), chills, fatigue, malaise or diaphoresis Eyes: Denies: change in vision ENMT: Denies: tinnitus or epistaxis Card: Denies: chest pain, palpitations or syncope Resp: Denies: dyspnea GI: Reports: nausea; Denies: abdominal pain, bloating or fecal incontinence : Denies: dysuria, urinary frequency or urinary urgency Musc: Denies: neck pain or back pain Skin/Breast: Denies: rash Neuro: Denies: headache(s) or dizziness Psych: Denies: anxiety PFSH ED PFSH: Medical History Psychiatric care Alcohol use disorder, severe, dependence IUP (intrauterine ), incidental Intrahepatic bile duct dilation Abnormal magnetic resonance cholangiopancreatography (MRCP) Social History Smoking and tobacco/nicotine status: never used tobacco/nicotine Alcohol intake: current Substance/Drug Use: never Physical Exam Const: COMMON NORMALS: no acute distress EXAM LIMITATIONS: no altered mental status GENERAL APPEARANCE: cooperative and comfortable ORIENTATION/CONSCIOUSNESS: Yes awake, Yes oriented to person, Yes oriented to place and Yes oriented to time HENMT: COMMON NORMALS: normocephalic, atraumatic and hearing grossly normal bilaterally HEAD & SCALP: normocephalic and atraumatic Resp: COMMON NORMALS: normal respiratory effort, No retractions, No use of accessory muscles and clear to auscultation bilaterally AUSCULTATION: clear to auscultation bilaterally Cardio: COMMON NORMALS: regular rate, regular rhythm and No murmurs present (Cardio) RATE: regular rate RHYTHM: regular rhythm GI: COMMON NORMALS: Soft to palpation and No hepatosplenomegaly present AUSCULTATION: Yes normoactive bowel sounds PALPATION: Yes Soft to palpation, No Tenderness to palpation present (GI), No Guarding due to palpation present (GI) and Yes No hepatosplenomegaly present Extremity: COMMON NORMALS: normal to inspection, capillary refill normal, no clubbing, cyanosis or edema, no calf tenderness and no pedal edema Neuro: SENSORIUM/ORIENTATION: Yes oriented to person, Yes oriented to place and Yes oriented to time Skin: COMMON NORMALS: no rashes or lesions noted GENERAL SKIN EXAM: no rashes or lesions noted Course Vital Signs: Vital signs: Vital Signs Temperature 98.6 F 08/07/23 15:13 Pulse Rate 117 H 08/07/23 16:18 Blood Pressure 138/117 08/07/23 16:18 Pulse Oximetry 98 08/07/23 16:18 Oxygen Delivery Me thod Room Air 08/07/23 16:18 MDM - Nausea/Vomiting/Diarrhea Medical Decision Making Patient has alcoholic gastritis hypokalemia and is somewhat tachycardic even with her blood alcohol at 388. 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 She will need to be admitted for rehydration and treatment of alcoholic gastritis management of potential alcohol withdrawal. She is awake and alert and a good historian with a blood alcohol of 388 concerning is a drop she will likely develop some withdrawal symptoms. She states she has not seized in the past discussed with hospitalist they concur will admit. 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 Patient was made aware of this as well. Medical Records I reviewed the patient's medical records. Lab Data I reviewed the patient's lab results. 08/07/23 14:35 08/07/23 14:35 Laboratory Results WBC 7.96 10^3/uL (3.29-11.43) 08/07/23 14:35 RBC 4.95 10^6/uL (3.85-5.65) 08/07/23 14:35 Hgb 15.20 g/dL (11.27-16.99) 08/07/23 14:35 Hct 45.1 % (36-47) 08/07/23 14:35 MCV 91.1 fl (85-98) 08/07/23 14:35 MCH 30.7 pg (27-33) 08/07/23 14:35 MCHC 33.7 g/dL (30-55) 08/07/23 14:35 RDW 13.4 % (12.1-15.1) 08/07/23 14:35 Plt Count 407 10^3/cmm (157-399) H 08/07/23 14:35 MPV 8.6 fL (7.4-10.4) 08/07/23 14:35 Neut % (Auto) 46.9 % 08/07/23 14:35 Lymph % (Auto) 45.5 % 08/07/23 14:35 [place] % (Auto) 5.3 % 08/07/23 14:35 Eos % (Auto) 0.3 % 08/07/23 14:35 Baso % (Auto) 1.9 % 08/07/23 14:35 Neut # (Auto) 3.74 10^3/uL (1.8-7.7) 08/07/23 14:35 Lymph # (Auto) 3.6 10^3/uL (0.8-4.8) 08/07/23 14:35 [place] # (Auto) 0.4 10^3/uL (0.2-0.9) 08/07/23 14:35 Eos # (Auto) 0.0 10^3/uL (0.0-0.8) 08/07/23 14:35 Baso # (Auto) 0.2 10^3/uL (0.0-0.1) H 08/07/23 14:35 Nucleated RBC % (auto) 0 % 08/07/23 14:35 Nucleated RBCs # 0.0 /100WBC 08/07/23 14:35 PT 12.40 SECONDS (12.1-14.9) 08/07/23 14:35 INR 0.90 (0.8-1.2) 08/07/23 14:35 Sodium 139 mmol/L (136-145) 08/07/23 14:35 Potassium 2.6 mmol/L (3.5-5.1) L* 08/07/23 14:35 Chloride 97 mmol/L (98-107) L 08/07/23 14:35 Carbon Dioxide 25 mmol/L (22-29) 08/07/23 14:35 Anion Gap 19.6 (5-19) H 08/07/23 14:35 BUN 6 mg/dL (6-20) 08/07/23 14:35 Creatinine 0.6 mg/dL (0.5-0.9) 08/07/23 14:35 GFR Calculation 117.4 mL/min (90-130) 08/07/23 14:35 Glucose 174 mg/dL (65-115) H 08/07/23 14:35 Calculated Osmolality 290 mOsm/kg (285-295) 08/07/23 14:35 Calcium 9.6 mg/dL (8.5-10.5) 08/07/23 14:35 Total Bilirubin 0.3 mg/dL (0.15-1.2) 08/07/23 14:35 AST 77 U/L (0-32) H 08/07/23 14:35 ALT 35 U/L (0-33) H 08/07/23 14:35 Alkaline Phosphatase 208 U/L (35-105) H 08/07/23 14:35 Ammonia 26 umol/L (11-51) 08/07/23 15:47 Total Protein 9.3 g/dL (6.6-8.7) H 08/07/23 14:35 Albumin 4.9 g/dL (3.5-5.2) 08/07/23 14:35 Globulin 4.4 g/dL (1.3-4.6) 08/07/23 14:35 Lipase 53 U/L (13-60) 08/07/23 14:35 Ethyl Alcohol 388 mg/dL (0-10) H* 08/07/23 14:35 All radiology interpretation(s) finalized by discharge Discharge Plan Discharge Patient Disposition: Admitted As Inpatient Clinical Impression: Alcohol use disorder, severe, dependence, Alcoholic gastritis, Hypokalemia Condition: Stable Coding Level of Care Code ED [employer] Control Officer for Ivy Bryan
[2023-08-07 15:27] LABS: Basophils # 0.2 10^3/uL (0.0-0.1); Basophils % 1.9 %; Eosinophils % 0.3 %; Hematocrit 45.1 % (36-47); Lymphocytes # 3.6 10^3/uL (0.8-4.8); Lymphocytes % 45.5 %; Mean Corpuscular HGB Conc 33.7 g/dL (30-55); Mean Corpuscular Hemoglobin 30.7 pg (27-33); Mean Corpuscular Volume 91.1 fl (85-98); Mean Platelet Volume 8.6 fL (7.4-10.4); Monocytes # 0.4 10^3/uL (0.2-0.9); Monocytes % 5.3 %; Neutrophils # 3.74 10^3/uL (1.8-7.7); Neutrophils % 46.9 %; Nucleated Red Blood Cells % 0 %; Platelet Count 407 10^3/cmm (157-399); Red Blood Count 4.95 10^6/uL (3.85-5.65); Red Cell Distribution Width 13.4 % (12.1-15.1); White Blood Count 7.96 10^3/uL (3.29-11.43)
--- NOTE | 2023-08-07 15:27 | ECG_ITS ---
[facility] Test Date: 2023-08-07 Pat Name: Milagro Sebastian Department: Room: Gender: Female Traveler Changer: : 1990 Requested By: Barrington Lutz Order Number: [id number] Lidya MD: Parth Howard M.D. Measurements Intervals [place] Rate: 114 P: 74 NE: 116 QRS: 101 QRSD: 103 T: -1 QT: 331 QTc: 457 Interpretive Statements SINUS TACHYCARDIA WITH SHORT NE INTERVAL POSSIBLE LEFT ATRIAL ENLARGEMENT [-0.1mV P-WAVE IN V1/V2] RIGHT AXIS DEVIATION [QRS AXIS > 100] MODERATE ST DEPRESSION [0.05+ mV ST DEPRESSION] ABNORMAL QRS-T ANGLE [QRS-T AXIS DIFFERENCE > 60] Compared to ECG 05/18/2022 13:34:22 Short NE interval now present ST (T wave) deviation now present Sinus rhythm no longer present Electronically Signed On 08-07-2023 15:37:15 CDT by Parth Howard M.D. [id number]
[2023-08-07 15:46] LABS: Alanine Aminotransferase 35 U/L (0-33); Albumin Level 4.9 g/dL (3.5-5.2); Alkaline Phosphatase 208 U/L (35-105); Anion Gap 19.6 (5-19); Aspartate Amino Transferase 77 U/L (0-32); Blood Urea Nitrogen 6 mg/dL (6-20); Calcium 9.6 mg/dL (8.5-10.5); Carbon Dioxide 25 mmol/L (22-29); Chloride 97 mmol/L (98-107); Creatinine Clr Calc Pharmacy 123.0244; Globulin 4.4 g/dL (1.3-4.6); Glomerular Filtration Rate 117.4 mL/min (90-130); Glucose 174 mg/dL (65-115); Osmolality Calculated 290 mOsm/kg (285-295); Sodium 139 mmol/L (136-145); Total Bilirubin 0.3 mg/dL (0.15-1.2); Total Protein 9.3 g/dL (6.6-8.7)
[2023-08-07 16:01] LABS: Lipase 53 U/L (13-60)
[2023-08-07 16:04] LABS: Potassium 2.6 mmol/L (3.5-5.1)
[2023-08-07 16:05] LABS: Alcohol Level 388 mg/dL (0-10)
[2023-08-07 16:10] LABS: Ammonia 26 umol/L (11-51)
[2023-08-07] MEDS: ondansetron 2 mg/ML SDV 2 mL 4 MG IVP (16:16)
[2023-08-07] MEDS: LORazepam 2 mg/mL INJ 10 mL MDV IV (16:17)
[2023-08-07] MEDS: sodium chloride 0.9% 1,000 ML 999 ML IV (16:18)
[2023-08-07] MEDS: potassium chloride oral liq 20 mEq/15 mL UDC 40 MEQ PO (17:16)
[2023-08-07] MEDS: pantoprazole 40 mg SDV 80 MG IVP (17:17)
[2023-08-07] MEDS: potassium chloride ER 20 mEq Tablet 40 MEQ PO (17:17)
--- NOTE | 2023-08-07 17:58 | USR_ITS ---
PROCEDURE INFORMATION: Exam: US Abdomen Complete Exam date and time: 08/07/2023 6:08 PM Age: 32 years old Clinical indication: Nausea and vomiting; ; Patient HX: N+v today; Additional info: US liver and gallbadder TECHNIQUE: Imaging protocol: Real-time ultrasound of the abdomen with image documentation. Complete exam. COMPARISON: US abdomen complete* [id number] 09/30/2021 9:25 PM FINDINGS: Liver: Mildly echogenic, suggesting fatty infiltration. Gallbladder: No gallstones. No gallbladder wall thickening or pericholecystic fluid. Negative sonographic Cho's sign, as per the safety compliance specialist. Biliary ducts: Normal. No stones. No dilation. Pancreas: Unremarkable as visualized. Right kidney: No mass. No definite stones. No hydronephrosis. Left kidney: No mass. No definite stones. No hydronephrosis. Spleen: Unremarkable. Aorta: Unremarkable as visualized. No aneurysm. Inferior vena cava: Unremarkable as visualized. US/US abdomen complete* [id number] IMPRESSION: Fatty liver.
--- NOTE | 2023-08-07 18:02 | P.HP_ITS ---
Providers/Chief Complaint 2 Primary Care Provider: Nick Phillip MD Chief Complaint: hypertension/nausea History of Present Illness Milagro Sebastian is a 32 year old female with a past medical history of alcoholism, alcoholic hepatitis, major depressive disorder, G4, P4, status post tubal ligation, who presents to [facility] due to nausea, vomiting, denies any hemoptysis no bloody or black stools, her last drink of alcohol was this morning, she had 4 drinks of alcohol this morning, denies a prior history of alcohol withdrawal, denies any hallucinations, does have some mild tremors, does have intractable nausea, vomiting, does have tachycardia, does have hypertension, does have chest palpitations, does have hypertension Review of Systems 2 Card: Reports: palpitations Resp: Denies: dyspnea GI: Reports: nausea and vomiting; Denies: abdominal pain, hematemesis, diarrhea, hematochezia or melena : Denies: flank pain Neuro: Denies: headache(s) Medications/Allergies Home Medications Medication Instructions Recorded Confirmed Last Taken Type naltrexone microspheres 380 mg 380 mg IM ONCE Alcohol dependence 06/12/23 08/07/23 Unknown Rx intramuscular suspension,extended 28 days #1 ea release (Vivitrol) fluoxetine 40 mg capsule 40 mg PO DAILY 08/07/23 08/07/23 Unknown History Allergies Allergy/AdvReac Type Severity Reaction Status Date / Time No Known Allergies Allergy Verified 08/07/23 15:19 PFSH Acute 2 PFSH: Medical History (Updated 08/07/23 @ 18:09 by Kamran Gore MD) Psychiatric care Alcohol use disorder, severe, dependence IUP (intrauterine ), incidental Intrahepatic bile duct dilation Abnormal magnetic resonance cholangiopancreatography (MRCP) Surgical History (Updated 08/07/23 @ 18:08 by Kamran Gore MD) History of tubal ligation Social History Smoking and tobacco/nicotine status: never used tobacco/nicotine Alcohol intake: current Substance/Drug Use: never Vitals/I&O/Wt Last Vital Signs Temp 98.6 F 08/07/23 15:13 Pulse 117 H 08/07/23 16:18 BP 138/117 08/07/23 16:18 Pulse Ox 98 08/07/23 16:18 O2 Del Method Room Air 08/07/23 16:18 Weight last 48 hrs Weight 63.503 kg Physical Exam 2 Const: COMMON NORMALS: no acute distress and patient oriented x3 HENMT: COMMON NORMALS: normocephalic HEAD & SCALP: normocephalic Eye: COMMON NORMALS: Equal, round and reactive pupils present Neck/C-Spine: COMMON NORMALS: no JVD Resp: COMMON NORMALS: normal respiratory effort, No retractions, No use of accessory muscles and clear to auscultation bilaterally AUSCULTATION: clear to auscultation bilaterally Cardio: COMMON NORMALS: regular rhythm, S1 normal heart sound present and S2 normal heart sound present RATE: tachycardic RHYTHM: regular rhythm H EART SOUNDS: S1 normal heart sound present and S2 normal heart sound present GI: COMMON NORMALS: Normal to inspection, nondistended, normoactive bowel sounds present, Soft to palpation and non-tender Extremity: COMMON NORMALS: no calf tenderness and no pedal edema Neuro: COMMON NORMALS: patient oriented x3, CN's II-XII intact bilaterally and moves all extremities Psych: COMMON NORMALS: mental status grossly normal Data 08/07/23 14:35 08/07/23 14:35 A&P Assessment and plan (1) Hypokalemia: (2) Intractable nausea and vomiting: (3) Alcohol withdrawal: (4) Dehydration: (5) Transaminitis: Plan Alcohol withdrawal ? Currently with mild tremors on examination tachycardia, hypertension, ? Plan consider scheduled Librium 25 mg p.o. every 6 hours ? CIWA protocol ? Banana bag ? Thiamine, folic acid Transaminitis ? Liver ultrasound Intractable nausea vomiting ? IV fluids, clear liquid diet, Zofran Hypokalemia status post p.o. replacement in the emergency room Attestations 2 Medical Necessity Statement*: Patient requires hospitalization, inpatient, greater than 2 midnights, for alcohol withdrawal, intractable nausea vomiting, hypokalemia, dehydration, Diagnoses Hypokalemia E87.6 Intractable nausea and vomiting R11.2 Alcohol withdrawal F10.939 Dehydration E86.0 Transaminitis R74.01
[2023-08-07 18:19] LABS: Amphetamines Screen Urine Negative (Negative); Barbiturates Screen Urine Negative (Negative); Benzodiazepines Screen Urine Negative (Negative); Cocaine Screen Urine Negative (Negative); Opiate Screen Urine Negative (Negative); PCP Screen Urine Negative (Negative); THC Screen Urine Negative (Negative)
[2023-08-07 18:21] LABS: Add Urine Microscopic? YES; Bacteria Urine TRACE /hpf; Bilirubin Urine Neg (Negative); Blood Urine Neg (Negative); Glucose Urine UA Norm (Normal); Ketones Urine Negative (Negative); Leukocyte Esterase Urine Negative (Negative); Nitrate Urine Negative (Negative); Protein Urine Neg (Negative); Specific Gravity, Urine 1.005 (1.005-1.030); Urine Appearance SL Hazy (CLEAR); Urine Color Yellow (Yellow); Urobilinogen Urine Norm (Negative); WBC Urine 0-4 /hpf (0-5); pH Urine 7 (5-7)
[2023-08-07 18:22] LABS: Add Urine Culture? No; Amorphous Sediment Urine 1+ /hpf
[2023-08-07 18:32] LABS: Lactic Sepsis W/Reflex 2.9 mmol/L (0.5-2.2)
[2023-08-07 18:33] LABS: Procalcitonin 0.04 ng/mL (0-0.5)
--- NOTE | 2023-08-07 18:42 | ECG_ITS ---
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 Measurements Intervals [place] Rate: 101 P: 78 VA: 133 QRS: 111 QRSD: 89 T: 62 QT: 344 QTc: 448 Interpretive Statements SINUS TACHYCARDIA LEFT POSTERIOR FASCICULAR BLOCK [QRS AXIS > 109, INFERIOR Q] Compared to ECG 08/07/2023 15:27:58 Left posterior fascicular block now present Short VA interval no longer present Right-axis deviation no longer present ST (T wave) deviation no longer present Electronically Signed On 08-07-2023 21:00:44 CDT by Parth Howard M.D. [id number]
[2023-08-07 18:43] LABS: Magnesium 2.1 mg/dL (1.7-2.3)
[2023-08-07 18:54] LABS: Gamma Glutamyl Transferase 319 U/L (5-36); NT Pro B Type Natriuretic Pept < 36 pg/mL (0-125)
[2023-08-07 19:02] LABS: Troponin(5th) Baseline < 6 ng/L (0-10)
[2023-08-07 19:55] LABS: Reflex Lactate Order REFLEX LACTIC ORDERD
[2023-08-07 20:36] LABS: Estmated Average Glucose 108; Hemoglobin A1C 5.4 % (4.0-6.0)
[2023-08-07] MEDS: pantoprazole 40 mg SDV IVP (20:52)
[2023-08-07] MEDS: chlordiazePOXIDE 25 mg Capsule PO (20:54)
[2023-08-07] MEDS: enoxaparin 40 mg/0.4 mL Syringe SUBCUT (20:56)
[2023-08-07] MEDS: folic acid 1 MG, multivitamin inj 10 ML, thiamine 100 MG in sodium chloride 0.9% 1,000 ML 252.800000000000011 MG IV (20:57)
[2023-08-07 20:59] LABS: Chol HDL Ratio 2.17 mg/dL (0.0-4.40); Cholesterol 271 mg/dL (0-200); HDL Cholesterol 125 mg/dL (60-100); LDL Cholesterol Calculated 124 mg/dL (50-129); LDL HDL Ratio 0.99 RATIO (0.00-3.22); Thyroid Stimulating Hormone 0.45 uIU/mL (0.27-4.20); Triglycerides 112 mg/dL (0-150)
[2023-08-07 21:10] LABS: Troponin 5 6HR 6.04 ng/L (0-10); Troponin 5 6HR Delta 0.04001 ng/L (0-12)
[2023-08-07 21:11] LABS: Lactic Acid level (Lactate) 1.8 mmol/L (0.5-2.2)
[2023-08-07] MEDS: potassium chloride premix 100 ML 25 MEQ IV (23:16)
[2023-08-07] MEDS: lidocaine 1% INJ 10 mL (per mL) 5 ML IV (23:49)
[2023-08-08] MEDS: sodium chloride 0.9% 1,000 ML 100 ML IV (00:58)
[2023-08-08] MEDS: chlordiazePOXIDE 25 mg Capsule PO ×2 (02:25→08:55)
[2023-08-08 03:45] VITALS: BP 116/70; PULSE 82; RESP 17; TEMP 36.7; O2SAT 94
[2023-08-08 05:20] LABS: Basophils # 0.1 10^3/uL (0.0-0.1); Eosinophils # 0.1 10^3/uL (0.0-0.8); Eosinophils % 1.1 %; Hematocrit 35.8 % (36-47); Lymphocytes # 2.2 10^3/uL (0.8-4.8); Lymphocytes % 47.9 %; Mean Corpuscular HGB Conc 31.8 g/dL (30-55); Mean Corpuscular Hemoglobin 30.4 pg (27-33); Mean Corpuscular Volume 95.5 fl (85-98); Mean Platelet Volume 8.7 fL (7.4-10.4); Monocytes # 0.4 10^3/uL (0.2-0.9); Monocytes % 9.3 %; Neutrophils % 39.7 %; Nucleated Red Blood Cells % 0 %; Platelet Count 253 10^3/cmm (157-399); Red Blood Count 3.75 10^6/uL (3.85-5.65); Red Cell Distribution Width 13.8 % (12.1-15.1); White Blood Count 4.53 10^3/uL (3.29-11.43)
[2023-08-08 05:41] LABS: Alanine Aminotransferase 23 U/L (0-33); Albumin Level 3.5 g/dL (3.5-5.2); Alkaline Phosphatase 147 U/L (35-105); Anion Gap 13.6 (5-19); Aspartate Amino Transferase 56 U/L (0-32); Blood Urea Nitrogen 7 mg/dL (6-20); Calcium 8.4 mg/dL (8.5-10.5); Carbon Dioxide 22 mmol/L (22-29); Chloride 107 mmol/L (98-107); Creatinine Clr Calc Pharmacy 130.6818; Globulin 2.9 g/dL (1.3-4.6); Glomerular Filtration Rate 117.4 mL/min (90-130); Glucose 82 mg/dL (65-115); Magnesium 1.6 mg/dL (1.7-2.3); Osmolality Calculated 285 mOsm/kg (285-295); Potassium 3.6 mmol/L (3.5-5.1); Sodium 139 mmol/L (136-145); Total Bilirubin 0.4 mg/dL (0.15-1.2); Total Protein 6.4 g/dL (6.6-8.7)
[2023-08-08 06:00] VITALS: PULSE 77
[2023-08-08 07:17] VITALS: BP 140/79; PULSE 92; RESP 17; TEMP 36.8; O2SAT 94
[2023-08-08 08:00] VITALS: BP 140/79; PULSE 92; RESP 17; TEMP 36.8
--- NOTE | 2023-08-08 08:34 | PM.DCS ---
Discharge Providers Date of Admission: 08/07/23 17:44 Date of Discharge: August 08, 2023 Attending Provider at Admission: Kamran Gore MD Attending Provider at Discharge: Kamran Gore MD Primary Care Provider: Nick Phillip MD Diagnoses at Discharge Discharge Diagnosis (1) Hypokalemia: Status: Acute (2) Intractable nausea and vomiting: Status: Acute (3) Alcohol withdrawal: Status: Resolved (4) Dehydration: Status: Acute (5) Transaminitis: Status: Acute Reason for Visit Reason for Visit: hypertension/nausea Hospital Course Hospital Course Milagro Sebastian is a 32 year old female with a past medical history of alcoholism, alcoholic hepatitis, major depressive disorder, G4, P4, status post tubal ligation, who presents to [facility] due to nausea, vomiting, denies any hemoptysis no bloody or black stools, her last drink of alcohol was this morning, she had 4 drinks of alcohol this morning, denies a prior history of alcohol withdrawal, denies any hallucinations, does have some mild tremors, does have intractable nausea, vomiting, does have tachycardia, does have hypertension, does have chest palpitations, does have hypertension Patient was admitted to [facility] for intractable nausea, vomiting, concerns for alcohol withdrawal, dehydration, hypokalemia. Overall patient's clinical condition improved nausea and vomiting resolved, tolerating clear liquid diet. In terms of her alcohol withdrawal, she was managed on a Librium taper she did well, on the morning of 08/08/2023, patient had minimal withdrawal symptoms, no auditory/visual/tactile hallucinations, will be discharged on Librium taper, instructed to use Librium as prescribed, do not mix with any other medications, do not drive or operate machinery or drink while taking medication, follow-up with primary care provider as outpatient. For elevated blood pressure likely secondary alcohol withdrawal, discharged on Librium taper as above, please follow-up with primary care provider as outpatient For alcoholic transaminitis, advised to abstain from alcohol consumption, morbidity and mortality discussed in detail about alcoholic liver cirrhosis, complications of alcoholism, she voiced understanding, all questions answered, referral sent to [facility] [place] Physical Exam Const: COMMON NORMALS: no acute distress and patient oriented x3 Resp: COMMON NORMALS: normal respiratory effort, No retractions, No use of accessory muscles and clear to auscultation bilaterally AUSCULTATION: clear to auscultation bilaterally Cardio: COMMON NORMALS: regular rate, regular rhythm, S1 normal heart sound present and S2 normal heart sound present RATE: regular rate RHYTHM: regular rhythm HEART SOUNDS: S1 normal heart sound present and S2 normal heart sound present GI: COMMON NORMALS: Normal to inspection, nondistended, normoactive bowel sounds present and non-tender Extremity: COMMON NORMALS: no pedal edema Neuro: COMMON NORMALS: patient oriented x3 Psych: COMMON NORMALS: mental status grossly normal Discharge Data Studies Completed and Pending Completed Studies During Hospitalization Category Date Time Status XR chest 1V portable [id number] Stat Exams 08/07/23 15:14 Completed US abdomen complete* [id number] Stat Ultrasound 08/07/23 17:58 Completed Radiology Impressions Abdomen Ultrasound 08/07/23 17:58 IMPRESSION: Fatty liver. Laboratory Results WBC 4.53 10^3/uL (3.29-11.43) 08/08/23 05:00 RBC 3.75 10^6/uL (3.85-5.65) L 08/08/23 05:00 Hgb 11.40 g/dL (11.27-16.99) 08/08/23 05:00 Hct 35.8 % (36-47) L 08/08/23 05:00 MCV 95.5 fl (85-98) 08/08/23 05:00 MCH 30.4 pg (27-33) 08/08/23 05:00 MCHC 31.8 g/dL (30-55) D 08/08/23 05:00 RDW 13.8 % (12.1-15.1) 08/08/23 05:00 Plt Count 253 10^3/cmm (157-399) D 08/08/23 05:00 MPV 8.7 fL (7.4-10.4) 08/08/23 05:00 Neut % (Auto) 39.7 % 08/08/23 05:00 Lymph % (Auto) 47.9 % 08/08/23 05:00 [place] % (Auto) 9.3 % 08/08/23 05:00 Eos % (Auto) 1.1 % 08/08/23 05:00 Baso % (Auto) 2.0 % 08/08/23 05:00 Neut # (Auto) 1.80 10^3/uL (1.8-7.7) 08/08/23 05:00 Lymph # (Auto) 2.2 10^3/uL (0.8-4.8) 08/08/23 05:00 [place] # (Auto) 0.4 10^3/uL (0.2-0.9) 08/08/23 05:00 Eos # (Auto) 0.1 10^3/uL (0.0-0.8) 08/08/23 05:00 Baso # (Auto) 0.1 10^3/uL (0.0-0.1) 08/08/23 05:00 Nucleated RBC % (auto) 0 % 08/08/23 05:00 Nucleated RBCs # 0.0 /100WBC 08/08/23 05:00 PT 12.40 SECONDS (12.1-14.9) 08/07/23 14:35 INR 0.90 (0.8-1.2) 08/07/23 14:35 Sodium 139 mmol/L (136-145) 08/08/23 05:00 Potassium 3.6 mmol/L (3.5-5.1) 08/08/23 05:00 Chloride 107 mmol/L (98-107) 08/08/23 05:00 Carbon Dioxide 22 mmol/L (22-29) 08/08/23 05:00 Anion Gap 13.6 (5-19) 08/08/23 05:00 BUN 7 mg/dL (6-20) 08/08/23 05:00 Creatinine 0.6 mg/dL (0.5-0.9) 08/08/23 05:00 GFR Calculation 117.4 mL/min (90-130) 08/08/23 05:00 Glucose 82 mg/dL (65-115) 08/08/23 05:00 Estimat Average Glucose 108 08/07/23 14:35 Hemoglobin A1c 5.4 % (4.0-6.0) 08/07/23 14:35 Calculated Osmolality 285 mOsm/kg (285-295) 08/08/23 05:00 Lactic Acid 2.9 mmol/L (0.5-2.2) H 08/07/23 14:35 Lactic Acid (Sepsis) 1.8 mmol/L (0.5-2.2) 08/07/23 20:35 Calcium 8.4 mg/dL (8.5-10.5) L 08/08/23 05:00 Phosphorus 3.0 mg/dL (2.5-4.5) 08/08/23 05:00 Magnesium 1.6 mg/dL (1.7-2.3) L 08/08/23 05:00 Total Bilirubin 0.4 mg/dL (0.15-1.2) 08/08/23 05:00 GGT 319 U/L (5-36) H 08/07/23 14:35 AST 56 U/L (0-32) H 08/08/23 05:00 ALT 23 U/L (0-33) 08/08/23 05:00 Alkaline Phosphatase 147 U/L (35-105) H 08/08/23 05:00 Ammonia 26 umol/L (11-51) 08/07/23 15:47 Troponin T Baseline < 6 ng/L (0-10) 08/07/23 14:35 Troponin T Hi Sens 6Hr 6.04 ng/L (0-10) 08/07/23 20:35 Troponin T Hi Sens 6Hr Delta 0.58848 ng/L (0-12) 08/07/23 20:35 C-Reactive Protein 3.0 mg/L (0.0-4.9) 08/07/23 14:35 NT-Pro-B Natriuret Pep < 36 pg/mL (0-125) 08/07/23 14:35 Total Protein 6.4 g/dL (6.6-8.7) L D 08/08/23 05:00 Albumin 3.5 g/dL (3.5-5.2) 08/08/23 05:00 Globulin 2.9 g/dL (1.3-4.6) 08/08/23 05:00 Triglycerides 112 mg/dL (0-150) 08/07/23 14:35 Cholesterol 271 mg/dL (0-200) H 08/07/23 14:35 LDL Cholesterol, Calc 124 mg/dL (50-129) 08/07/23 14:35 HDL Cholesterol 125 mg/dL (60-100) H 08/07/23 14:35 LDL/HDL Ratio 0.99 RATIO (0.00-3.22) 08/07/23 14:35 Cholesterol/HDL Ratio 2.17 mg/dL (0.0-4.40) 08/07/23 14:35 Lipase 53 U/L (13-60) 08/07/23 14:35 Procalcitonin 0.04 ng/mL (0-0.5) 08/07/23 14:35 TSH 0.45 uIU/mL (0.27-4.20) 08/07/23 14:35 Ser , Semi-Qnt 1.00 mIU/mL 08/07/23 14:35 Urine Color Yellow (Yellow) 08/07/23 17:35 Urine Appearance Sl hazy (CLEAR) A 08/07/23 17:35 Urine pH 7 (5-7) 08/07/23 17:35 Ur Specific [place] 1.005 (1.005-1.030) 08/07/23 17:35 Urine Protein Neg (Negative) 08/07/23 17:35 Urine Glucose (UA) Norm (Normal) 08/07/23 17:35 Urine Ketones Negative (Negative) 08/07/23 17:35 Urine Blood Neg (Negative) 08/07/23 17:35 Urine Nitrate Negative (Negative) 08/07/23 17:35 Urine Bilirubin Neg (Negative) 08/07/23 17:35 Urine Urobilinogen Norm mg/dL (Negative) 08/07/23 17:35 Ur Leukocyte Esterase Negative (Negative) 08/07/23 17:35 Urine RBC None /hpf (0-2) 08/07/23 17:35 Urine WBC 0-4 /hpf (0-5) H 08/07/23 17:35 Ur Squamous Epith Cells 5-10 /hpf (0-5) H 08/07/23 17:35 Amorphous Sediment 1+ /hpf 08/07/23 17:35 Urine Bacteria Trace /hpf (NONE) 08/07/23 17:35 Urine Opiates Screen Negative ng/mL (Negative) 08/07/23 17:35 Ur Barbiturates Screen Negative ng/mL (Negative) 08/07/23 17:35 Ur Phencyclidine Scrn Negative ng/mL (Negative) 08/07/23 17:35 Ur Amphetamines Screen Negative ng/mL (Negative) 08/07/23 17:35 U Benzodiazepines Scrn Negative ng/mL (Negative) 08/07/23 17:35 Urine Cocaine Screen Negative ng/mL (Negative) 08/07/23 17:35 U Marijuana (THC) Screen Negative ng/mL (Negative) 08/07/23 17:35 Ethyl Alcohol 388 mg/dL (0-10) H* 08/07/23 14:35 Vitals Last Vital Signs Temp 98.3 F 08/08/23 07:17 Pulse 92 08/08/23 07:17 Resp 17 08/08/23 07:17 BP 140/79 08/08/23 07:17 Pulse Ox 94 08/08/23 07:17 O2 Del Method Room Air 08/08/23 07:17 Discharge Plan Discharge Patient Disposition: Home Condition: Stable Prescriptions: New chlordiazepoxide HCl 25 mg capsule See Rx Instructions .ROUTE .COMPLEX Qty: 18 0RF Rx Instructions: 1 tab every 8 hours for 3 days, 1 tab every 12 hours for 3 days, 1 tab daily for 3 days multivitamin with folic acid [Thera] 400 mcg Tablet 1 tab PO DAILY 30 Days Qty: 30 0RF thiamine mononitrate (vit B1) [Vitamin B-1 (mononitrate)] 100 mg Tablet 100 mg PO DAILY 30 Days Qty: 30 0RF Continued fluoxetine 40 mg capsule 40 mg PO DAILY Discontinued Vivitrol 380 mg suspension,extended rel recon 380 mg IM ONCE 28 Days Qty: 1 1RF Discharge Orders: Discharge Order (Routine); Ordered 08/08/23 Ordered By: Kamran Gore Referrals: [facility] [place] [facility] [Provider Group] - 1-3 days Nick Phillip MD [Primary Care Provider] - 1-3 days Discharge Diet: GI Soft Discharge Activity: Resume usual activity Patient Instructions: Cirrhosis of the Liver (ED), Alcohol Intoxication (DC), Abuse of Alcohol (DC), Alcohol Withdrawal (DC), Alcohol Dependence (DC), Alcoholic Hepatitis (DC), Opioid Safety, Pain Management Activity Restrictions/Additional Instructions: - Please stop drinking alcohol ? Please use Librium taper as prescribed, ? Please do not use Librium with any other medications, this is a sedating medication not drive or operate heavy machinery or drink while taking these medications Discharge Attestations Time Spent in Discharge Care*: greater than 30 min Quality Metrics Clinical Quality Measures [ No reported AMI, CVA or VTE this stay] Coding Level of Care Code 88080 Total time (in minutes) for Discharge: 45 Diagnoses Hypokalemia E87.6 Intractable nausea and vomiting R11.2 Alcohol withdrawal F10.939 Dehydration E86.0 Transaminitis R74.01
[2023-08-08] MEDS: folic acid 1 mg Tablet PO (08:55)
[2023-08-08] MEDS: multivitamin therapeutic Tablet 1 TAB PO (08:55)
[2023-08-08] MEDS: fluoxetine 20 mg Capsule 40 MG PO (08:55)
[2023-08-08] MEDS: thiamine 100 mg Tablet PO (08:55)
[2023-08-08] MEDS: pantoprazole 40 mg SDV IVP (08:56)
[2023-08-08] MEDS: magnesium lactate 84 mg Tablet PO (08:58)
--- NOTE | 2023-08-08 09:08 | PC.CHAP ---
Pastoral Care Encounter/Spiritual Assessment Type of Contact [] Declined senior receptionist visit [] Patient/Family/Request visit [] Outpatient visit [] Follow-up visit [] Physician referral [] Code/Alert [x] Routine visit [] Staff referral [] Actively dying [] Patient sleeping [] Family support [] [] Out of room [] Palliative care [] [] Receiving care in room [] Pre-surgical visit [] Trauma [] Long length of stay [] ICU visit [] Other: Relational/Emotional Strength [x] Patient feels connected with others/family/visitors/staff [] Distress [] Loneliness/isolation [] Abandonment Spirituality of Patient [x] Person of [place] [] Attends Zoroastrian of their [place] [x] Believes in Prayer [] Reads Bible or Yarsanism materials [] There are Spiritual issues to be addressed Floor Renovator Interventions [x] Prayer [x] Active listening [] Non-anxious presence [x] Spiritual/emotional support [] Crisis/trauma care [] Spiritual counseling [] Bereavement support [] Provided bereavement packet [] Provided Bible/devotional materials [] Provided toy/stuffed animal, coloring book to patient or family member [] Provided Communion [] Anointing/[place] [] Salvation [x] Completed spiritual assessment [] Other: Impact on Illness or Injury [] Angry [] Fearful [] Anxious [] Often cries [] Exhaustion [] Unable to work [] Unable to attend protestant [] Unable to walk/stand [] Unable to read [] Unable to drive [] Unable to eat/drink [] Unable to sleep [] Unable to be with family [] Patient intubated [] Other: Summary Time spent with patient 5 min
[2023-08-08 09:43] VITALS: BP 140/79; PULSE 92; RESP 17; TEMP 36.8; O2SAT 94
== END 2023-08-08 09:44 | disposition home or self-care (01) ==
LOC: ER 18:02 → MEDSURG 18:39
PROVIDERS: Admitting Provider Family Medicine; Emergency Provider Family Medicine; PCP Family Medicine; Visit Provider Family Medicine
DX: E87.6 Hypokalemia (principal); R11.2 Nausea with vomiting, unspecified; F10.939 Alcohol use, unspecified with withdrawal, unspecified; E86.0 Dehydration; R74.01 Elevation of levels of liver transaminase levels; K70.10 Alcoholic hepatitis without ascites; F32.A Depression, unspecified
CPT/HCPCS: 36415; 71045; 76700; 80053; 80061; 80306; 80307; 81001; 82140; 82977; 83036; 83605; 83690; 83735; 83880; 84100; 84145; 84443; 84484; 84702; 85025; 85610; 86140; 93005; 96361; 96365; 96366; 96372; 96375; 96376; 99285; C9113; G0378; J1650; J2060; J2405; J3411; J3480; J3490; J7030

== ENCOUNTER 2023-08-24 13:56 | Emergency (ER) | payer MEDICAID, SELFPAY ==
[2023-08-24 14:25] VITALS: BP 147/98; PULSE 119; RESP 17; TEMP 36.7; O2SAT 97; BMI 24.7
[2023-08-24 15:10] LABS: Basophils # 0.1 10^3/uL (0.0-0.1); Basophils % 2.2 %; Eosinophils % 0.6 %; Lymphocytes # 2.5 10^3/uL (0.8-4.8); Lymphocytes % 49.8 %; Mean Corpuscular HGB Conc 33.1 g/dL (30-55); Mean Corpuscular Hemoglobin 30.6 pg (27-33); Mean Corpuscular Volume 92.3 fl (85-98); Monocytes # 0.3 10^3/uL (0.2-0.9); Monocytes % 6.1 %; Neutrophils # 2.03 10^3/uL (1.8-7.7); Neutrophils % 41.3 %; Nucleated Red Blood Cells % 0 %; Platelet Count 339 10^3/cmm (157-399); White Blood Count 4.92 10^3/uL (3.29-11.43)
[2023-08-24 15:28] LABS: HCG, Serum Qual Negative (Negative)
[2023-08-24 16:07] LABS: Alanine Aminotransferase 145 U/L (0-33); Albumin Level 4.4 g/dL (3.5-5.2); Alkaline Phosphatase 472 U/L (35-105); Anion Gap 20.9 (5-19); Aspartate Amino Transferase 330 U/L (0-32); Blood Urea Nitrogen 2 mg/dL (6-20); Calcium 9.6 mg/dL (8.5-10.5); Carbon Dioxide 25 mmol/L (22-29); Chloride 100 mmol/L (98-107); Creatinine Clr Calc Pharmacy 147.6292; Glomerular Filtration Rate 144.9 mL/min (90-130); Glucose 94 mg/dL (65-115); Osmolality Calculated 292 mOsm/kg (285-295); Sodium 143 mmol/L (136-145); Thyroid Stimulating Hormone 0.54 uIU/mL (0.27-4.20); Total Bilirubin 0.4 mg/dL (0.15-1.2); Total Protein 9.4 g/dL (6.6-8.7)
[2023-08-24 16:08] LABS: Acetaminophen < 5.0 ug/mL (10-30); Salicylate < 0.3 mg/dL (3-10)
[2023-08-24 16:12] LABS: Alcohol Level 351 mg/dL (0-10); Potassium 2.9 mmol/L (3.5-5.1)
--- NOTE | 2023-08-24 16:54 | PC.NURSE ---
PT LABS CAME BACK ABNORMAL. PT LEFT WITHOUT BEING SEEN. PT CALLED TO NOTIFY OF RESULTS. NO ANSWER.
== END 2023-08-24 17:09 | disposition left against medical advice (07) ==
LOC: ER 14:01
PROVIDERS: Nurse Practitioner Family; Emergency Provider Family Medicine; PCP Family Medicine
DX: Z53.21 Procedure and treatment not carried out due to patient leaving prior to being seen by health care provider (principal)
CPT/HCPCS: 36415; 80053; 80307; 84443; 84703; 85025

== ENCOUNTER 2023-08-25 17:53 | Emergency (ER) | payer MEDICAID, SELFPAY ==
[2023-08-25 17:55] VITALS: BP 144/105; PULSE 92; RESP 14; TEMP 36.9; O2SAT 98
--- NOTE | 2023-08-25 18:22 | CTR_ITS ---
PROCEDURE INFORMATION: Exam: CT Abdomen And Pelvis With Contrast Exam date and time: 08/25/2023 6:38 PM Age: 32 years old Clinical indication: Nausea and vomiting; Abdominal pain; Generalized; Prior surgery; Surgery date: 6+ months; Surgery type: Tubal; Patient HX: Abd pain with n/v TECHNIQUE: Imaging protocol: Computed tomography of the abdomen and pelvis with contrast. Radiation optimization: All CT scans at this facility use at least one of these dose optimization techniques: automated exposure control; mA and/or kV adjustment per patient size (includes targeted exams where dose is matched to clinical indication); or iterative reconstruction. Contrast material: OMNI 350; Contrast volume: 100 ml; Contrast route: INTRAVENOUS (IV); COMPARISON: CT kidney stone [id number] 11/27/2019 7:33 AM RADIATION DOSE METRICS: Total DLP (mGy-cm): 405.05 FINDINGS: Liver: Clustered cystic structures in the superior portion of segment 8, the largest measuring up 12 mm with slight peripheral hyperemia. Possibly slightly larger when compared to 11/27/2019 though similar in distribution and location. The liver is otherwise normal. Gallbladder and bile ducts: The gallbladder is normal. There is no ductal dilatation. Pancreas: The pancreas is normal. Spleen: The spleen is normal. Adrenal glands: The adrenal glands are normal. Kidneys and ureters: There is normal enhancement of the kidneys. No renal calcifications are identified. There is no hydronephrosis. Stomach and bowel: There is no large or small bowel obstruction. There is no evidence of bowel wall thickening. Appendix: A normal appendix is identified. Intraperitoneal space: No inflammatory changes are identified. There is no free fluid or fluid collection seen. There is no pneumoperitoneum. Vasculature: The aorta is normal in course and caliber. No significant atherosclerotic calcifications are present. Prominent left periuterine veins and prominent left gonadal vein measuring up to 8 mm, likely physiologic. Lymph nodes: There are no enlarged retroperitoneal or mesenteric lymph nodes. Urinary bladder: The bladder is unremarkable. Reproductive: The uterus is present. Bones/joints: No acute osseous abnormalities are seen. Soft tissues: The soft tissues are within normal limits. CT/CT abdomen pelvis w con* [id number] IMPRESSION: 1. No acute intra-abdominal or pelvic process. 2. Clustered cystic structures in the superior portion of segment 8, similar in distribution, possibly slightly increased in size compared to 2019. 3. Prominent left periuterine veins and prominent left gonadal vein measuring up to 8 mm, likely physiologic. This finding has also been reported in pelvic congestion syndrome.
[2023-08-25] MEDS: iohexol 350 mg/mL 500 mL Btl (per mL) IV (18:38)
[2023-08-25 18:49] LABS: Basophils # 0.1 10^3/uL (0.0-0.1); Basophils % 2.7 %; Hematocrit 46.5 % (36-47); Lymphocytes # 1.8 10^3/uL (0.8-4.8); Mean Corpuscular HGB Conc 33.8 g/dL (30-55); Mean Corpuscular Hemoglobin 30.7 pg (27-33); Monocytes # 0.3 10^3/uL (0.2-0.9); Neutrophils # 1.87 10^3/uL (1.8-7.7); Neutrophils % 45.1 %; Nucleated Red Blood Cells % 0 %; Platelet Count 378 10^3/cmm (157-399); Red Blood Count 5.11 10^6/uL (3.85-5.65); Red Cell Distribution Width 13.7 % (12.1-15.1); White Blood Count 4.14 10^3/uL (3.29-11.43)
[2023-08-25] MEDS: folic acid 1 MG, multivitamin inj 10 ML, thiamine 100 MG in sodium chloride 0.9% 1,000 ML 252.800000000000011 MG IV (18:55)
[2023-08-25 19:16] LABS: Alanine Aminotransferase 125 U/L (0-33); Albumin Level 4.5 g/dL (3.5-5.2); Alkaline Phosphatase 484 U/L (35-105); Anion Gap 19.8 (5-19); Aspartate Amino Transferase 306 U/L (0-32); Blood Urea Nitrogen 2 mg/dL (6-20); Calcium 9.1 mg/dL (8.5-10.5); Carbon Dioxide 26 mmol/L (22-29); Chloride 98 mmol/L (98-107); Creatinine Clr Calc Pharmacy 123.0244; Globulin 4.6 g/dL (1.3-4.6); Glomerular Filtration Rate 117.4 mL/min (90-130); Glucose 120 mg/dL (65-115); Osmolality Calculated 289 mOsm/kg (285-295); Sodium 141 mmol/L (136-145); Total Bilirubin 0.3 mg/dL (0.15-1.2); Total Protein 9.1 g/dL (6.6-8.7)
[2023-08-25 19:21] LABS: Alcohol Level 338 mg/dL (0-10); Potassium 2.8 mmol/L (3.5-5.1)
[2023-08-25 19:30] LABS: Add Urine Microscopic? YES; Bilirubin Urine Neg (Negative); Blood Urine Neg (Negative); Glucose Urine UA Norm (Normal); Ketones Urine 1+ (Negative); Leukocyte Esterase Urine 1+ (Negative); Nitrate Urine Negative (Negative); Protein Urine Trace (Negative); RBC Urine 0-4 /hpf (0-2); Specific Gravity, Urine 1.005 (1.005-1.030); Sulfosalicylic Acid Urine Negative (Negative); Urine Appearance Clear (CLEAR); Urine Color Colorless (Yellow); Urobilinogen Urine Neg (Negative); pH Urine 8 (5-7)
[2023-08-25 19:31] LABS: Amorphous Sediment Urine TRACE /hpf; Coarse Granular Casts Urine 0-4 /lpf
[2023-08-25 19:32] LABS: HCG Qualitative Urine. Negative (Negative)
[2023-08-25 19:35] LABS: Bacteria Urine TRACE /hpf
--- NOTE | 2023-08-25 20:06 | PC.NURSE ---
Pt. has walked up to the nurses station 3 different times wanting to walk around because she is bored and wanting to know when she is going home. Pt. has been redirected back to the room to wait for her IV bag to finish and to keep her from falling or injuring herself.
--- NOTE | 2023-08-25 20:14 | ED_ITS ---
HPI - Nausea/Vomiting/Diarrhea 2 General: Chief complaint: Nausea/Vomiting/Diarrhea Stated complaint: nausea/ vomiting Time Seen by Provider: 08/25/23 18:06 History of Present Illness: 32-year-old female presents emergency de partment via EMS personnel with complaints of recurrent nausea and vomiting. The patient states she is drink a significant amount of alcohol yesterday and today. She states she also has 4 small infants at home and currently the fathers of her children are watching them. Patient states that she was at the hospital yesterday but left without being seen. Patient states that she is not homicidal or suicidal but states that she has been so tired that she has intermittent hallucinations when she drinks and takes her psychiatric medications. She states she is stopped taking her psychiatric medications because when she does it causes her to hallucinate. She denies shortness of breath dizziness chest pain or lightheaded feeling. She states she drinks whiskey daily. Associated nausea: Yes Associated symtoms: Reports nausea Review of Systems 2 General: Reports: 10 or more systems reviewed and unremarkable except in HPI and below GI: Reports: nausea and vomiting Psych: Reports: other (Alcohol abuse); Denies: suicidal ideation or homicidal ideation [facility] ED 2 PFSH: Medical History (Updated 08/25/23 @ 20:17 by Umer Lara MD) Chronic post-traumatic stress disorder BETH (generalized anxiety disorder) Major depressive disorder, recurrent severe without psychotic features Psychiatric care Alcohol use disorder, severe, dependence IUP (intrauterine ), incidental Intrahepatic bile duct dilation Abnormal magnetic resonance cholangiopancreatography (MRCP) Surgical History (Updated 08/07/23 @ 18:08 by Kamran oGre MD) History of tubal ligation Social History Smoking and tobacco/nicotine status: never used tobacco/nicotine Alcohol intake: current Substance/Drug Use: never Physical Exam 2 Narrative: EXAM NARRATIVE: General: Alert, no acute distress. Skin: Warm, dry, Intact. Head: Normocephalic, atraumatic. Neck: Supple, trachea midline. Eye: Extraocular movements are intact. PERRLA Ears, nose, mouth and throat: mucosa moist. Cardiovascular: Regular, Normal peripheral perfusion. Respiratory: Lungs are clear to auscultation, respirations are non-labored, breath sounds are equal, Symmetrical chest wall expansion. Gastrointestinal: Soft, Nontender, Non distended, Normal bowel sounds. Musculoskeletal: Normal ROM, no deformity. Neurological: Alert and oriented, No focal neurological deficit observed. Psychiatric: Cooperative, appropriate mood & affect. Intoxicated. Course 2 Vital Signs: Vital signs: Vital Signs Temperature 98.4 F 08/25/23 17:55 Pulse Rate 103 H 08/25/23 21:33 Respiratory Rate 16 08/25/23 21:33 Blood Pressure 135/88 08/25/23 21:33 Pulse Oximetry 98 08/25/23 21:33 Oxygen Delivery Me thod Room Air 08/25/23 17:55 MDM - Nausea/Vomiting/Diarrhea Medical Decision Making Physical exam completed and documented I have provided the patient IV fluid rehydration as well as a CBC and a CMP and her potassium is 2.8 today her alcohol level was 338 today and it was 316 yesterday. She has had no additional nausea or vomiting while here in the emergency department. She also received a banana bag I did offer her inpatient admission for her alcohol abuse and concern for elevated blood pressure and the patient has denied admission at present. She states she does not want to be seen by behavioral health because they just give her medications that make her more sedate and she states she is unable to care for her children at that time. She states that when she drinks she is able to still function. Medical Records I reviewed the patient's medical records. Lab Data I reviewed the patient's lab results. 08/25/23 18:36 08/25/23 18:36 Radiology Impressions Abdomen/Pelvis CT 08/25/23 18:22 IMPRESSION: 1. No acute intra-abdominal or pelvic process. 2. Clustered cystic structures in the superior portion of segment 8, similar in distribution, possibly slightly increased in size compared to 2020. 3. Prominent left periuterine veins and prominent left gonadal vein measuring up to 8 mm, likely physiologic. This finding has also been reported in pelvic congestion syndrome. Laboratory Results WBC 4.14 10^3/uL (3.29-11.43) 08/25/23 18:36 RBC 5.11 10^6/uL (3.85-5.65) 08/25/23 18:36 Hgb 15.70 g/dL (11.27-16.99) 08/25/23 18:36 Hct 46.5 % (36-47) 08/25/23 18:36 MCV 91.0 fl (85-98) 08/25/23 18:36 MCH 30.7 pg (27-33) 08/25/23 18:36 MCHC 33.8 g/dL (30-55) 08/25/23 18:36 RDW 13.7 % (12.1-15.1) 08/25/23 18:36 Plt Count 378 10^3/cmm (157-399) 08/25/23 18:36 MPV 9.0 fL (7.4-10.4) 08/25/23 18:36 Neut % (Auto) 45.1 % 08/25/23 18:36 Lymph % (Auto) 44.0 % 08/25/23 18:36 [place] % (Auto) 7.0 % 08/25/23 18:36 Eos % (Auto) 1.0 % 08/25/23 18:36 Baso % (Auto) 2.7 % 08/25/23 18:36 Neut # (Auto) 1.87 10^3/uL (1.8-7.7) 08/25/23 18:36 Lymph # (Auto) 1.8 10^3/uL (0.8-4.8) 08/25/23 18:36 [place] # (Auto) 0.3 10^3/uL (0.2-0.9) 08/25/23 18:36 Eos # (Auto) 0.0 10^3/uL (0.0-0.8) 08/25/23 18:36 Baso # (Auto) 0.1 10^3/uL (0.0-0.1) 08/25/23 18:36 Nucleated RBC % (auto) 0 % 08/25/23 18:36 Nucleated RBCs # 0.0 /100WBC 08/25/23 18:36 Sodium 141 mmol/L (136-145) 08/25/23 18:36 Potassium 2.8 mmol/L (3.5-5.1) L* 08/25/23 18:36 Chloride 98 mmol/L (98-107) 08/25/23 18:36 Carbon Dioxide 26 mmol/L (22-29) 08/25/23 18:36 Anion Gap 19.8 (5-19) H 08/25/23 18:36 BUN 2 mg/dL (6-20) L 08/25/23 18:36 Creatinine 0.6 mg/dL (0.5-0.9) 08/25/23 18:36 GFR Calculation 117.4 mL/min (90-130) 08/25/23 18:36 Glucose 120 mg/dL (65-115) H 08/25/23 18:36 Calculated Osmolality 289 mOsm/kg (285-295) 08/25/23 18:36 Calcium 9.1 mg/dL (8.5-10.5) 08/25/23 18:36 Total Bilirubin 0.3 mg/dL (0.15-1.2) 08/25/23 18:36 AST 306 U/L (0-32) H 08/25/23 18:36 ALT 125 U/L (0-33) H 08/25/23 18:36 Alkaline Phosphatase 484 U/L (35-105) H 08/25/23 18:36 Total Protein 9.1 g/dL (6.6-8.7) H 08/25/23 18:36 Albumin 4.5 g/dL (3.5-5.2) 08/25/23 18:36 Globulin 4.6 g/dL (1.3-4.6) 08/25/23 18:36 HCG, Qual Negative (Negative) 08/25/23 19:00 Urine Color Colorless (Yellow) 08/25/23 19:00 Urine Appearance Clear (CLEAR) 08/25/23 19:00 Urine pH 8 (5-7) H 08/25/23 19:00 Ur Specific [place] 1.005 (1.005-1.030) 08/25/23 19:00 Urine Protein Trace (Negative) 08/25/23 19:00 Urine Glucose (UA) Norm (Normal) 08/25/23 19:00 Urine Ketones 1+ (Negative) H 08/25/23 19:00 Urine Blood Neg (Negative) 08/25/23 19:00 Urine Nitrate Negative (Negative) 08/25/23 19:00 Urine Bilirubin Neg (Negative) 08/25/23 19:00 Prot Sulfosalicylic Acd Negative (Negative) 08/25/23 19:00 Urine Urobilinogen Neg mg/dL (Negative) 08/25/23 19:00 Ur Leukocyte Esterase 1+ (Negative) H 08/25/23 19:00 Urine RBC 0-4 /hpf (0-2) H 08/25/23 19:00 Urine WBC 5-10 /hpf (0-5) H 08/25/23 19:00 Ur Squamous Epith Cells 5-10 /hpf (0-5) H 08/25/23 19:00 Amorphous Sediment Trace /hpf 08/25/23 19:00 Urine Bacteria Trace /hpf (NONE) 08/25/23 19:00 Coarse Granular Casts 0-4 /lpf H 08/25/23 19:00 Ethyl Alcohol 338 mg/dL (0-10) H* 08/25/23 18:36 All radiology interpretation(s) finalized by discharge Discharge Plan Discharge Patient Disposition: Home Clinical Impression: Acute hypokalemia, Alcohol abuse Condition: Stable Prescriptions: No Action fluoxetine 40 mg capsule 40 mg PO .morning Qty: 30 3RF Rx Instructions: Take one capsule every morning Vitamin B-1 (mononitrate) 100 mg Tablet 100 mg PO DAILY 30 Days Qty: 30 0RF Thera 400 mcg Tablet 1 tab PO DAILY 30 Days Qty: 30 0RF chlordiazepoxide HCl 25 mg capsule See Rx Instructions .ROUTE .COMPLEX Qty: 18 0RF Rx Instructions: 1 tab every 8 hours for 3 days, 1 tab every 12 hours for 3 days, 1 tab daily for 3 days Discharge Orders: Discharge ED (Routine); Ordered 08/25/23 Ordered By: Umer Lara Referrals: Nick Phillip MD [Primary Care Provider] - Discharge Diet: Usual diet Discharge Activity: Resume usual activity Patient Instructions: Opioid Safety, Pain Management Activity Restrictions/Additional Instructions: Activity Restrictions/Additional Instructions: Thank you for choosing [facility] for your healthcare needs today. Please realize that you were seen in the Emergency Department and that we are providing you with an emergency medical screening exam and this may not be a complete and all inclusive of all the testing and or medical work-up that you may need to determine your ailment or severity of your illness. It is very important that you follow-up as instructed with your Primary care provider or Specialist for additional evaluation and to discuss your medical treatment plan. Coding Level of Care Code ED Waiter/Waitress Tourist Class for Ivy Bryan
[2023-08-25] MEDS: potassium chloride ER 20 mEq Tablet 80 MEQ PO (20:24)
[2023-08-25] MEDS: folic acid 1 mg Tablet PO (20:25)
[2023-08-25] MEDS: lactated ringers 1,000 ML 999 ML IV (20:25)
[2023-08-25 21:33] VITALS: BP 135/88; PULSE 103; RESP 16; O2SAT 98
== END 2023-08-25 21:34 | disposition home or self-care (01) ==
PROVIDERS: Emergency Provider Internal Medicine; PCP Family Medicine
DX: E87.6 Hypokalemia (principal); F10.10 Alcohol abuse, uncomplicated; Y90.8 Blood alcohol level of 240 mg/100 ml or more
CPT/HCPCS: 74177; 80053; 80307; 81001; 81025; 85025; 96365; 96366; 99285; J3411; J3490; J7030; J7120; Q9967

== ENCOUNTER 2023-08-27 19:17 | Emergency (ER) | payer MEDICAID, SELFPAY ==
[2023-08-27 19:20] VITALS: BP 134/93; PULSE 82; RESP 16; TEMP 36.7; O2SAT 97; BMI 26.5
--- NOTE | 2023-08-27 19:20 | W.ED.ALCOHOL ---
HPI - Alcohol General: Chief Complaint: General Medical Stated Complaint: ETOH, HTN Time Seen by Provider: 08/27/23 19:19 History of Present Illness: 32-year-old female presents emergency department via EMS personnel with statements that she is intoxicated and has elevated blood pressure. The patient states that she has 4 children and that she drinks to escape the stresses of the children. She states that she is not a harm to herself or others. She denies nausea vomiting shortness of breath or chest pain. She states that she drinks every day and is functional. She has been to the emergency department 3 times within the last 7 days but states that she does not want to be placed in the neuropsychiatric unit. Today she is stating that she does not want to have any laboratory evaluation completed. She states that she is not having hallucinations-auditory or visual. She denies suicidal or homicidal ideation. Associated symptoms: Deny suicidal ideation Review of Systems General: Reports: 10 or more systems reviewed and unremarkable except in HPI and below Psych: Reports: other (Alcohol intoxication); Denies: difficulty concentrating, visual hallucinations, auditory hallucinations, tactile hallucinations, suicidal ideation or homicidal ideation [facility] ED PFSH: Medical History Chronic post-traumatic stress disorder BETH (generalized anxiety disorder) Major depressive disorder, recurrent severe without psychotic features Psychiatric care Alcohol use disorder, severe, dependence IUP (intrauterine ), incidental Intrahepatic bile duct dilation Abnormal magnetic resonance cholangiopancreatography (MRCP) Surgical History (Updated 08/07/23 @ 18:08 by Kamran Gore MD) History of tubal ligation Social History Smoking and tobacco/nicotine status: current every day tobacco/nicotine user Alcohol intake: current Substance/Drug Use: never Physical Exam Narrative: EXAM NARRATIVE: General: Alert, no acute distress. Skin: Warm, dry, Intact. Head: Normocephalic, atraumatic. Neck: Supple, trachea midline. Eye: Extraocular movements are intact. PERRLA Ears, nose, mouth and throat: mucosa moist. Cardiovascular: Regular, Normal peripheral perfusion. Respiratory: Lungs are clear to auscultation, respirations are non-labored, breath sounds are equal, Symmetrical chest wall expansion. Gastrointestinal: Soft, Nontender, Non distended, Normal bowel sounds. Musculoskeletal: Normal ROM, no deformity. Neurological: Alert and oriented, No focal neurological deficit observed. Psychiatric: Cooperative, appropriate mood & affect. Course Vital Signs: Vital signs: Vital Signs Temperature 98.0 F 08/27/23 19:20 Pulse Rate 82 08/27/23 19:20 Respiratory Rate 16 08/27/23 19:20 Blood Pressure 134/93 08/27/23 19:20 Pulse Oximetry 97 08/27/23 19:20 Oxygen Delivery Me thod Room Air 08/27/23 19:20 MDM - Alcohol Medical Decision Making Physical exam completed and documented. I did discuss with the patient the importance of getting help and offered her placement in the hospital for alcohol withdrawal and also to the neuropsychiatric unit for additional evaluation and treatment and the patient has refused. She states that she wants to be discharged and I did speak with the hospital toilet and laundry soap supervisor Grace and given that the patient is not a harm to herself or others she will be discharged. She was discharged in the care of her significant other who provided her a ride home. Differential diagnosis, depression, alcohol abuse, Medical Records I reviewed the patient's medical records. No radiology studies performed this visit Discharge Plan Discharge Patient Disposition: Home Clinical Impression: Alcohol abuse Condition: Stable Prescriptions: No Action No Known Home Medications Discharge Orders: Discharge ED (Routine); Ordered 08/27/23 Ordered By: Umer Lara Referrals: Nick Phillip MD [Primary Care Provider] - Discharge Diet: Usual diet Discharge Activity: Resume usual activity Patient Instructions: Opioid Safety, Pain Management Activity Restrictions/Additional Instructions: Activity Restrictions/Additional Instructions: Thank you for choosing [facility] for your healthcare needs today. Please realize that you were seen in the Emergency Department and that we are providing you with an emergency medical screening exam and this may not be a complete and all inclusive of all the testing and or medical work-up that you may need to determine your ailment or severity of your illness. It is very important that you follow-up as instructed with your Primary care provider or Specialist for additional evaluation and to discuss your medical treatment plan. You may return to the Emergency Department should you have concerns or if your condition changes or worsens in any way. Coding Level of Care Code ED Paint Roller Winder for Ivy Bryan
== END 2023-08-27 20:28 | disposition home or self-care (01) ==
PROVIDERS: Emergency Provider Internal Medicine; PCP Family Medicine
DX: F10.10 Alcohol abuse, uncomplicated (principal); Z72.0 Tobacco use
CPT/HCPCS: 99283

== ENCOUNTER 2023-09-10 00:22 | Emergency (ER) | payer MEDICAID, SELFPAY ==
[2023-09-10 00:24] VITALS: BP 160/98; PULSE 79; RESP 15; TEMP 37.2; O2SAT 98; BMI 24.7
[2023-09-10] MEDS: amlodipine 10 mg Tablet PO (01:25)
--- NOTE | 2023-09-10 01:30 | ECG_ITS ---
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 Measurements Intervals [place] Rate: 87 P: 74 NM: 112 QRS: 102 QRSD: 90 T: 86 QT: 430 QTc: 519 Interpretive Statements SINUS RHYTHM WITH SINUS ARRHYTHMIA WITH SHORT NM INTERVAL RIGHT AXIS DEVIATION [QRS AXIS > 100] ST DEVIATION AND MODERATE T-WAVE ABNORMALITY, CONSIDER ANTEROLATERAL ISCHEMIA [-0.1+ mV T-WAVE IN V3-V6] Compared to ECG 08/07/2023 18:42:59 Short NM interval now present Right-axis deviation now present T-wave abnormality now present Possible ischemia now present Sinus tachycardia no longer present Left posterior fascicular block no longer present Electronically Signed On 09-10-2023 22:19:15 CDT by Dex Medina M.D. [email or web address]
[2023-09-10 01:35] VITALS: BP 156/109; PULSE 82; RESP 21; O2SAT 96
[2023-09-10 01:43] LABS: Basophils # 0.1 10^3/uL (0.0-0.1); Eosinophils % 0.4 %; Hematocrit 45.3 % (36-47); Lymphocytes # 0.9 10^3/uL (0.8-4.8); Lymphocytes % 17.5 %; Mean Corpuscular HGB Conc 33.8 g/dL (30-55); Mean Corpuscular Volume 91.7 fl (85-98); Mean Platelet Volume 9.3 fL (7.4-10.4); Monocytes # 0.6 10^3/uL (0.2-0.9); Monocytes % 11.8 %; Neutrophils # 3.35 10^3/uL (1.8-7.7); Neutrophils % 69.1 %; Nucleated Red Blood Cells % 0 %; Platelet Count 257 10^3/cmm (157-399); Red Blood Count 4.94 10^6/uL (3.85-5.65); White Blood Count 4.85 10^3/uL (3.29-11.43)
[2023-09-10 01:55] LABS: Bilirubin Urine 1+ (Negative); Blood Urine Neg (Negative); Glucose Urine UA Norm (Normal); Ketones Urine 3+ (Negative); Nitrate Urine Negative (Negative); Protein Urine 2+ (Negative); Urine Appearance Hazy (CLEAR); Urine Color Dark Yellow (Yellow); pH Urine 9 (5-7)
[2023-09-10 01:56] LABS: Add Urine Microscopic? YES; Bacteria Urine 1+ /hpf; Hyaline Casts Urine 0-4 /lpf; Leukocyte Esterase Urine 1+ (Negative); Mucus Urine 3+ /hpf; RBC Urine 0-4 /hpf (0-2); Squamous Epithelial Cell Urine 15-25 /hpf (0-5); Urobilinogen Urine 1 mg/dL (Negative)
[2023-09-10 01:57] LABS: Coarse Granular Casts Urine 0-4 /lpf
[2023-09-10 02:00] VITALS: BP 145/107; PULSE 70; RESP 19; O2SAT 100
[2023-09-10 02:00] LABS: Alanine Aminotransferase 139 U/L (0-33); Alkaline Phosphatase 349 U/L (35-105); Aspartate Amino Transferase 420 U/L (0-32); Blood Urea Nitrogen 9 mg/dL (6-20); Calcium 9.4 mg/dL (8.5-10.5); Carbon Dioxide 28 mmol/L (22-29); Chloride 95 mmol/L (98-107); Creatinine Clr Calc Pharmacy 147.6292; Globulin 4.5 g/dL (1.3-4.6); Glomerular Filtration Rate 144.9 mL/min (90-130); Glucose 99 mg/dL (65-115); Osmolality Calculated 285 mOsm/kg (285-295); Sodium 138 mmol/L (136-145); Total Bilirubin 1.8 mg/dL (0.15-1.2); Total Protein 8.5 g/dL (6.6-8.7)
[2023-09-10 02:01] LABS: Anion Gap 17.8 (5-19); Potassium 2.8 mmol/L (3.5-5.1)
[2023-09-10] MEDS: sodium chloride 0.9% 1,000 ML 999 ML IV (02:06)
[2023-09-10] MEDS: ondansetron 2 mg/ML SDV 2 mL 4 MG IVP (02:08)
[2023-09-10] MEDS: metoprolol tartrate 1 mg/1 mL SDV 5 mL 5 MG IVP (02:10)
[2023-09-10] MEDS: cefTRIAXone 1,000 MG in sodium chloride 0.9% (plus) 50 ML 100 MG IV (02:13)
[2023-09-10] MEDS: LORazepam 2 mg/mL INJ 10 mL MDV 1 MG IVP (02:30)
--- NOTE | 2023-09-10 02:31 | PC.NURSE ---
Pt. started hyperventilating in the room while I was administering ativan. She was explaining that her muscles in her hands were cramping and the visitor in the room states HE ISN'T LISTENING TO YOU!!!! and gets up to run out of the room and yell at the nurse and I explained that I was helping her and listening to her and that him being hateful and rude would not make things any better.
[2023-09-10] MEDS: potassium chloride oral liq 20 mEq/15 mL UDC 40 MEQ PO (02:49)
--- NOTE | 2023-09-10 03:11 | ED_ITS ---
HPI - General Adult 2 General: Chief complaint: General Medical Stated complaint: HYPERTENISON Time Seen by Provider: 09/10/23 00:44 History of Present Illness: 32-year-old female complaining of chest pressure, trouble breathing, numbness to hands and feet as well as her face with some carpopedal spasm. She threw up a couple of times at home. She also had significant hypertension at home which was concerning to her. Associated symptoms: Deny confusion, dyspnea, nausea, rash or vomiting Review of Systems 2 Const: Denies: fever(s), chills or body aches Resp: Denies: dyspnea or wheezing GI: Denies: abdominal pain, nausea, vomiting, diarrhea or hematochezia : Denies: difficulty voiding Skin/Breast: Denies: rash Neuro: Denies: weakness in extremities, dizziness or confusion PFSH ED 2 PFSH: Medical History Chronic post-traumatic stress disorder BETH (generalized anxiety disorder) Major depressive disorder, recurrent severe without psychotic features Psychiatric care Alcohol use disorder, severe, dependence IUP (intrauterine ), incidental Intrahepatic bile duct dilation Abnormal magnetic resonance cholangiopancreatography (MRCP) Surgical History (Updated 08/07/23 @ 18:08 by Kamran Gore MD) History of tubal ligation Social History Smoking and tobacco/nicotine status: current every day tobacco/nicotine user Alcohol intake: current Substance/Drug Use: never Physical Exam 2 Const: COMMON NORMALS: no acute distress GENERAL APPEARANCE: cooperative; not ill appearing and not frail appearing HENMT: COMMON NORMALS: normocephalic, atraumatic and Normal external nose present HEAD & SCALP: normocephalic and atraumatic FACE & SINUS: normal facial exam and face symmetric NOSE: Normal external nose present Eye: COMMON NORMALS: Equal, round and reactive pupils present and EOMs intact bilaterally PUPIL: Yes Equal, round and reactive pupils present Neck/C-Spine: GENERAL: Yes trachea midline Chest: CHEST: Yes Symmetrical chest wall rise Resp: COMMON NORMALS: normal respiratory effort, No retractions, No use of accessory muscles and clear to auscultation bilaterally AUSCULTATION: clear to auscultation bilaterally Cardio: COMMON NORMALS: regular rate and regular rhythm RATE: regular rate RHYTHM: regular rhythm GI: COMMON NORMALS: Normal to inspection, nondistended, normoactive bowel sounds present Extremity: COMMON NORMALS: no pedal edema Neuro: CRISTIAN COMA SCALE: document GCS findings Cristian coma scale eye opening: Spontaneous Cristian coma scale verbal response: Orientated Cristian coma scale motor response: Obey commands Chunky coma scale total score: 15 S ENSORY EXAM: Yes extremities (intact) Psych: COMMON NORMALS: speech normal SPEECH: Yes normal speech Skin: COMMON NORMALS: no rashes or lesions noted GENERAL SKIN EXAM: no rashes or lesions noted Course 2 Vital Signs: Vital signs: Vital Signs Temperature 98.9 F 09/10/23 00:24 Pulse Rate 69 09/10/23 03:46 Respiratory Rate 13 09/10/23 03:46 Blood Pressure 126/83 09/10/23 03:46 Pulse Oximetry 98 09/10/23 03:46 Oxygen Delivery Me thod Room Air 09/10/23 02:[address] [facility] - General Adult Medical Decision Making 32-year-old female with multiple complaints. Part of her problem is hyperventilation syndrome. She also has a potassium of 2.8. This is repleted orally with liquid. She has held it down. Other laboratory is essentially benign, although she does have a urinary tract infection. She was given IV antibiotics for this, which essentially should complete her treatment. Lab Data 09/10/23 01:34 09/10/23 01:34 Laboratory Results WBC 4.85 10^3/uL (3.29-11.43) 09/10/23 01:34 RBC 4.94 10^6/uL (3.85-5.65) 09/10/23 01:34 Hgb 15.30 g/dL (11.27-16.99) 09/10/23 01:34 Hct 45.3 % (36-47) 09/10/23:34 MCV 91.7 fl (85-98) 09/10/23:34 MCH 31.0 pg (27-33) 09/10/23:34 MCHC 33.8 g/dL (30-55) 09/10/23 01:34 RDW 14.0 % (12.1-15.1) 09/10/23 01:34 Plt Count 257 10^3/cmm (157-399) 09/10/23 01:34 MPV 9.3 fL (7.4-10.4) 09/10/23 01:34 Neut % (Auto) 69.1 % 09/10/23 01:34 Lymph % (Auto) 17.5 % 09/10/23 01:34 [place] % (Auto) 11.8 % 09/10/23 01:34 Eos % (Auto) 0.4 % 09/10/23 01:34 Baso % (Auto) 1.0 % 09/10/23 01:34 Neut # (Auto) 3.35 10^3/uL (1.8-7.7) 09/10/23 01:34 Lymph # (Auto) 0.9 10^3/uL (0.8-4.8) 09/10/23 01:34 [place] # (Auto) 0.6 10^3/uL (0.2-0.9) 09/10/23 01:34 Eos # (Auto) 0.0 10^3/uL (0.0-0.8) 09/10/23 01:34 Baso # (Auto) 0.1 10^3/uL (0.0-0.1) 09/10/23 01:34 Nucleated RBC % (auto) 0 % 09/10/23 01:34 Nucleated RBCs # 0.0 /100WBC 09/10/23 01:34 Sodium 138 mmol/L (136-145) 09/10/23 01:34 Potassium 2.8 mmol/L (3.5-5.1) L* 09/10/23 01:34 Chloride 95 mmol/L (98-107) L 09/10/23 01:34 Carbon Dioxide 28 mmol/L (22-29) 09/10/23 01:34 Anion Gap 17.8 (5-19) 09/10/23 01:34 BUN 9 mg/dL (6-20) 09/10/23 01:34 Creatinine 0.5 mg/dL (0.5-0.9) 09/10/23 01:34 GFR Calculation 144.9 mL/min (90-130) H 09/10/23 01:34 Glucose 99 mg/dL (65-115) 09/10/23 01:34 Calculated Osmolality 285 mOsm/kg (285-295) 09/10/23 01:34 Calcium 9.4 mg/dL (8.5-10.5) 09/10/23 01:34 Total Bilirubin 1.8 mg/dL (0.15-1.2) H 09/10/23 01:34 AST 420 U/L (0-32) H 09/10/23 01:34 ALT 139 U/L (0-33) H 09/10/23 01:34 Alkaline Phosphatase 349 U/L (35-105) H 09/10/23 01:34 Total Protein 8.5 g/dL (6.6-8.7) 09/10/23 01:34 Albumin 4.0 g/dL (3.5-5.2) 09/10/23 01:34 Globulin 4.5 g/dL (1.3-4.6) 09/10/23 01:34 Urine Color Dark yellow (Yellow) 09/10/23 01:36 Urine Appearance Hazy (CLEAR) A 09/10/23 01:36 Urine pH 9 (5-7) H 09/10/23 01:36 Ur Specific [place] 1.010 (1.005-1.030) 09/10/23 01:36 Urine Protein 2+ (Negative) H 09/10/23 01:36 Urine Glucose (UA) Norm (Normal) 09/10/23 01:36 Urine Ketones 3+ (Negative) H 09/10/23 01:36 Urine Blood Neg (Negative) 09/10/23 01:36 Urine Nitrate Negative (Negative) 09/10/23 01:36 Urine Bilirubin 1+ (Negative) H 09/10/23 01:36 Urine Urobilinogen 1 mg/dL (Negative) H 09/10/23 01:36 Ur Leukocyte Esterase 1+ (Negative) H 09/10/23 01:36 Urine RBC 0-4 /hpf (0-2) H 09/10/23 01:36 Urine WBC 5-10 /hpf (0-5) H 09/10/23 01:36 Ur Squamous Epith Cells 15-25 /hpf (0-5) H 09/10/23 01:36 Amorphous Sediment Not Reportable 09/10/23 01:36 Urine Bacteria 1+ /hpf (NONE) H 09/10/23 01:36 Hyaline Casts 0-4 /lpf H 09/10/23 01:36 Coarse Granular Casts 0-4 /lpf H 09/10/23 01:36 Urine Mucus 3+ /hpf 09/10/23 01:36 All radiology interpretation(s) finalized by discharge Discharge Plan Discharge Patient Disposition: Home Clinical Impression: Acute hypokalemia, Hypertension, Urinary tract infection Condition: Stable Prescriptions: New amlodipine 10 mg tablet 10 mg PO DAILY Qty: 30 0RF Discharge Orders: Discharge ED (Routine); Ordered 09/10/23 Ordered By: Elliot Rodriguez Referrals: Nick Phillip MD [Primary Care Provider] - 4-7 days Patient Instructions: Hypokalemia (ED), Hypertension (ED), Opioid Safety, Pain Management Activity Restrictions/Additional Instructions: Urinary tract infection was treated with antibiotics in the ER. Monitor your blood pressure at least twice daily. Write numbers down for your doctor and follow-up this coming week. If blood pressures are remaining greater than 140/90, take the medication you were prescribed. Your potassium will need to be checked later in the week. You will need to be treated accordingly. Return for worsening vomiting, worsening pain, or any other concerning problems. Coding Level of Care Code ED Ammunition Storage Superintendent for Ivy Bryan
[2023-09-10 03:28] VITALS: BP 146/73; PULSE 70; RESP 26; O2SAT 97
[2023-09-10 03:46] VITALS: BP 126/83; PULSE 69; RESP 13; O2SAT 98
== END 2023-09-10 03:44 | disposition home or self-care (01) ==
PROVIDERS: Emergency Provider Emergency Medicine; PCP Family Medicine
DX: E87.6 Hypokalemia (principal); I10 Essential (primary) hypertension; N39.0 Urinary tract infection, site not specified; Z72.0 Tobacco use
CPT/HCPCS: 80053; 81001; 85025; 93005; 96361; 96365; 96375; 99284; J0696; J2060; J2405; J3490; J7030

== ENCOUNTER 2023-10-14 16:45 | Emergency (ER) | payer MEDICAID, SELFPAY ==
[2023-10-14 16:50] VITALS: BP 137/88; PULSE 120; RESP 17; TEMP 36.9; O2SAT 97; BMI 26.5
--- NOTE | 2023-10-14 17:01 | XRR_ITS ---
PROCEDURE INFORMATION: Exam: XR Chest Exam date and time: 10/14/2023 5:40 PM Age: 32 years old Clinical indication: Shortness of breath; Patient HX: SOB with tachycardia; Additional info: Dyspnea TECHNIQUE: Imaging protocol: Radiologic exam of the chest. Views: 1 view. COMPARISON: CR XR chest 1V portable [id number] 08/07/2023 3:31 PM FINDINGS: Lungs: Lungs are clear bilaterally. Pleural spaces: No pleural effusion. No pneumothorax. Heart/Mediastinum: The cardiac silhouette and mediastinal contours are unremarkable. Bones/joints: Unremarkable for age. XR/XR chest 1V portable [id number] IMPRESSION: No acute cardiopulmonary process.
--- NOTE | 2023-10-14 17:29 | ED_ITS ---
Documented by User: Barrington Schmitt DO 10/16/23 08:19 HPI - SOB/Dyspnea 2 General: Chief Complaint: Shortness of Breath/Dyspnea Stated Complaint: SOB Time Seen by Provider: 10/14/23 17:29 Source: patient Mode of arrival: ambulatory History of Present Illness: HPI Narrative: 32-year-old female presents emergency ro om complaining of shortness of breath along with mild chest and epigastric discomfort. She denies chest pain denies productive cough denies fever. She is tachycardic. She denies any hemoptysis no hematemesis or coffee-ground emesis. No melena. Patient on arrival here strong smelling of alcohol she is tachycardic her oxygen sats are normal she is not particularly tachypneic. She denies abdominal pain. MD elicited complaint: shortness of breath Onset (ago): day(s) Exacerbating factors: exertion Relieving factors: rest Associated symptoms: Reports chest pain (Discomfort) and nausea; Deny abdominal pain, chest congestion, cough, diaphoresis, dizziness, extremity pain, fever(s), hemoptysis, lightheadedness, myalgias, orthopnea, palpitations, paresthesias, polydipsia, polyuria, rash, sense of impending doom, syncope or vomiting Treatment prior to arrival: none Review of Systems 2 Const: Denies: fever(s), chills or diaphoresis Card: Reports: chest pain (Discomfort); Denies: palpitations, lightheadedness, syncope or orthopnea Resp: Denies: dyspnea, hemoptysis or chest congestion GI: Reports: nausea; Denies: abdominal pain or vomiting : Denies: dysuria, urinary frequency or urinary urgency Musc: Denies: neck pain, back pain or extremity pain Skin/Breast: Denies: rash Neuro: Denies: dizziness Endo: Denies: polyuria or polydipsia PFSH ED 2 PFSH: Medical History Chronic post-traumatic stress disorder BETH (generalized anxiety disorder) Major depressive disorder, recurrent severe without psychotic features Psychiatric care Alcohol use disorder, severe, dependence IUP (intrauterine ), incidental Intrahepatic bile duct dilation Abnormal magnetic resonance cholangiopancreatography (MRCP) Surgical History History of tubal ligation Social History Smoking and tobacco/nicotine status: current every day tobacco/nicotine user Alcohol intake: current Substance/Drug Use: never Physical Exam 2 Const: COMMON NORMALS: no acute distress GENERAL APPEARANCE: cooperative and comfortable ORIENTATION/CONSCIOUSNESS: Yes awake, Yes oriented to person, Yes oriented to place and Yes oriented to time HENMT: COMMON NORMALS: normocephalic, atraumatic and hearing grossly normal bilaterally HEAD & SCALP: normocephalic and atraumatic Resp: COMMON NORMALS: normal respiratory effort, No retractions, No use of accessory muscles and clear to auscultation bilaterally AUSCULTATION: clear to auscultation bilaterally Cardio: COMMON NORMALS: regular rate, regular rhythm and No murmurs present (Cardio) RATE: regular rate RHYTHM: regular rhythm GI: COMMON NORMALS: Soft to palpation and No hepatosplenomegaly present A USCULTATION: Yes normoactive bowel sounds PALPATION: Yes Soft to palpation, No Tenderness to palpation present (GI), No Guarding due to palpation present (GI) and Yes No hepatosplenomegaly present Extremity: COMMON NORMALS: normal to inspection, capillary refill normal, no clubbing, cyanosis or edema, no calf tenderness and no pedal edema Neuro: SENSORIUM/ORIENTATION: Yes oriented to person, Yes oriented to place and Yes oriented to time Skin: COMMON NORMALS: no rashes or lesions noted GENERAL SKIN EXAM: no rashes or lesions noted Course 2 Vital Signs: Vital signs: Vital Signs Temperature 98.5 F 10/14/23 16:50 Pulse Rate 108 H 10/14/23 19:35 Respiratory Rate 26 H 10/14/23 19:35 Blood Pressure 133/79 10/14/23 18:52 Pulse Oximetry 99 10/14/23 19:35 Oxygen Delivery Me thod Room Air 10/14/23 16:50 MDM - SOB/Dyspnea Medical Decision Making Care signed out to Dr. Rodriguez at change of shift. See final notes for diagnosis and disposition. 32-year-old female checked out at shift change. This young lady complains of vague chest discomfort, and ongoing shortness of breath. She is mildly but persistently tachycardic on the monitor. CBC is normal. Her potassium was 2.8. Her alcohol is elevated at 322. CTA of the chest shows some motion artifact, however, there is nonocclusive embolus within the right lower lobe posterior segmental branch and additional segmental and subsegmental emboli in both lower lobes. There is no infarct. She was counseled extensively about her diagnosis, as well as her family member. Risks and potential benefits of starting Eliquis/anticoagulants were listed. She will be treated with anticoagulants, and follow-up with her primary care physician. She knows to return for worsening symptoms despite treatment. Lab Data 10/14/23 17:43 10/14/23 17:43 Labs/Radiology: Radiology Impressions Chest X-Ray 10/14/23 17:01 IMPRESSION: No acute cardiopulmonary process. Chest CTA 10/14/23 17:49 IMPRESSION: 1. Evaluation of the lower lobe pulmonary arteries is limited due to respiratory motion artifact. There is a nonocclusive embolus within the posterior segmental branch of the right lower lobe pulmonary artery however. There also appears to be additional segmental and subsegmental pulmonary emboli in both lower lobes. 2. No evidence for aortic aneurysm or aortic dissection. 3. Mild fatty infiltration of the visualized liver. 4. Clustered cystic foci in the visualized liver are stable compared with 08/25/2023. 5. Incidental/nonacute findings are listed in the report. ADDENDUM: 10/14/23 1898 THIS REPORT CONTAINS FINDINGS THAT MAY BE CRITICAL TO PATIENT CARE. The findings were verbally communicated via telephone conference with Dr. Rodriguez at 6:42 PM CDT on 10/14/2023. The findings were acknowledged and understood. Laboratory Results WBC 5.33 10^3/uL (3.29-11.43) 10/14/23 17:43 RBC 4.26 10^6/uL (3.85-5.65) 10/14/23 17:43 Hgb 13.40 g/dL (11.27-16.99) 10/14/23 17:43 Hct 39.7 % (36-47) 10/14/23 17:43 MCV 93.2 fl (85-98) 10/14/23 17:43 MCH 31.5 pg (27-33) 10/14/23 17: MCHC 33.8 g/dL (30-55) 10/14/23 17:43 RDW 13.0 % (12.1-15.1) 10/14/23 17:43 Plt Count 342 10^3/cmm (157-399) 10/14/23 17:43 MPV 8.6 fL (7.4-10.4) 10/14/23 17:43 Neut % (Auto) 37.2 % 10/14/23 17:43 Lymph % (Auto) 50.5 % 10/14/23 17:43 [place] % (Auto) 9.8 % 10/14/23 17:43 Eos % (Auto) 0.2 % 10/14/23 17:43 Baso % (Auto) 2.1 % 10/14/23 17:43 Neut # (Auto) 1.99 10^3/uL (1.8-7.7) 10/14/23 17:43 Lymph # (Auto) 2.7 10^3/uL (0.8-4.8) 10/14/23 17:43 [place] # (Auto) 0.5 10^3/uL (0.2-0.9) 10/14/23 17:43 Eos # (Auto) 0.0 10^3/uL (0.0-0.8) 10/14/23 17:43 Baso # (Auto) 0.1 10^3/uL (0.0-0.1) 10/14/23 17:43 Nucleated RBC % (auto) 0 % 10/14/23 17:43 Nucleated RBCs # 0.0 /100WBC 10/14/23 17:43 Sodium 141 mmol/L (136-145) 10/14/23 17:43 Potassium 2.8 mmol/L (3.5-5.1) L* 10/14/23 17:43 Chloride 103 mmol/L (98-107) 10/14/23 17:43 Carbon Dioxide 23 mmol/L (22-29) 10/14/23 17:43 Anion Gap 17.8 (5-19) 10/14/23 17:43 BUN 4 mg/dL (6-20) L 10/14/23 17:43 Creatinine 0.6 mg/dL (0.5-0.9) 10/14/23 17:43 GFR Calculation 117.4 mL/min (90-130) 10/14/23 17:43 Glucose 128 mg/dL (65-115) H 10/14/23 17:43 Calculated Osmolality 291 mOsm/kg (285-295) 10/14/23 17:43 Calcium 9.2 mg/dL (8.5-10.5) 10/14/23 17:43 Total Bilirubin 0.3 mg/dL (0.15-1.2) 10/14/23 17:43 AST 123 U/L (0-32) H 10/14/23 17:43 ALT 52 U/L (0-33) H 10/14/23 17:43 Alkaline Phosphatase 198 U/L (35-105) H 10/14/23 17:43 Ammonia 41 umol/L (11-51) 10/14/23 17:43 Troponin T Baseline 7 ng/L (0-10) 10/14/23 17:43 NT-Pro-B Natriuret Pep 88 pg/mL (0-125) 10/14/23 17:43 Total Protein 8.5 g/dL (6.6-8.7) 10/14/23 17:43 Albumin 4.7 g/dL (3.5-5.2) 10/14/23 17:43 Globulin 3.8 g/dL (1.3-4.6) 10/14/23 17:43 Lipase 40 U/L (13-60) 10/14/23 17:43 HCG, Qual Negative (Negative) 10/14/23 17:43 Urine Color Yellow (Yellow) 10/14/23 17:48 Urine Appearance Clear (CLEAR) 10/14/23 17:48 Urine pH 8 (5-7) H 10/14/23 17:48 Ur Specific [place] 1.010 (1.005-1.030) 10/14/23 17:48 Urine Protein Trace (Negative) 10/14/23 17:48 Urine Glucose (UA) Norm (Normal) 10/14/23 17:48 Urine Ketones 1+ (Negative) H 10/14/23 17:48 Urine Blood Neg (Negative) 10/14/23 17:48 Urine Nitrate Negative (Negative) 10/14/23 17:48 Urine Bilirubin Neg (Negative) 10/14/23 17:48 Prot Sulfosalicylic Acd Negative (Negative) 10/14/23 17:48 Urine Urobilinogen 1 mg/dL (Negative) H 10/14/23 17:48 Ur Leukocyte Esterase Trace (Negative) H 10/14/23 17:48 Urine RBC None /hpf (0-2) 10/14/23 17:48 Urine WBC Rare /hpf (0-5) 10/14/23 17:48 Ur Squamous Epith Cells Rare /hpf (0-5) 10/14/23 17:48 Amorphous Sediment Not Reportable 10/14/23 17:48 Urine Bacteria Trace /hpf (NONE) 10/14/23 17:48 Urine Mucus Trace /hpf 10/14/23 17:48 Ethyl Alcohol 322 mg/dL (0-10) H* 10/14/23 17:43 Discharge Plan Discharge Patient Disposition: Home Clinical Impression: Pulmonary embolism, Acute hypokalemia, Alcohol intoxication Condition: Stable Prescriptions: New Eliquis 5 mg tablet See Rx Instructions .ROUTE .COMPLEX Qty: 74 0RF Rx Instructions: 2 p.o. twice daily x 7 days, then decrease to 5 p.o. twice daily No Action clonidine HCl 0.1 mg tablet 0.1 mg PO BID PRN (Reason: alcohol withdrawal/anxiety) Qty: 60 3RF Rx Instructions: Take one tablet twice per day as needed for anxiety, alcohol withdrawal trazodone 50 mg tablet 50 mg PO BEDTIME PRN (Reason: insomnia) Qty: 30 3RF Rx Instructions: Take one tablet at bedtime as needed for sleep amlodipine 10 mg tablet 10 mg PO DAILY Qty: 30 0RF Discharge Orders: Discharge ED (Routine); Ordered 10/14/23 Ordered By: Elliot Rodriguez Referrals: Nick Phillip MD [Primary Care Provider] - 1-3 days Patient Instructions: Pulmonary Embolism (ED), Hypokalemia (ED), Opioid Safety, Pain Management Activity Restrictions/Additional Instructions: Take the medication prescribed as directed. You will require 2 pills twice daily for the first week, then decrease to 1 pill twice daily. Watch for signs of bleeding including coffee-ground vomit, dark or black stools, etc. Return for worsening pain despite treatment, worsening shortness of breath, any other concerning symptoms. Follow-up with your doctor next week. You should have your potassium checked next week at your doctor's office as well to ensure it is staying up. Coding Level of Care Code ED Legal Officer for [facility] [employer] Documented by User: Elliot Rodriguez DO 10/14/23 20:43 HPI - SOB/Dyspnea 2 General: Chief Complaint: Shortness of Breath/Dyspnea Stated Complaint: SOB Time Seen by Provider: 10/14/23 17:29 [facility] ED 2 PFSH: Medical History Chronic post-traumatic stress disorder BETH (generalized anxiety disorder) Major depressive disorder, recurrent severe without psychotic features Psychiatric care Alcohol use disorder, severe, dependence IUP (intrauterine ), incidental Intrahepatic bile duct dilation Abnormal magnetic resonance cholangiopancreatography (MRCP) Surgical History History of tubal ligation Social History Smoking and tobacco/nicotine status: current every day tobacco/nicotine user Alcohol intake: current Substance/Drug Use: never Course 2 Vital Signs: Vital signs: Vital Signs Temperature 98.5 F 10/14/23 16:50 Pulse Rate 108 H 10/14/23 19:35 Respiratory Rate 26 H 10/14/23 19:35 Blood Pressure 133/79 10/14/23 18:52 Pulse Oximetry 99 10/14/23 19:35 Oxygen Delivery Me thod Room Air 10/14/23 16:50 MDM - SOB/Dyspnea Medical Decision Making 32-year-old female checked out at shift change. This young lady complains of vague chest discomfort, and ongoing shortness of breath. She is mildly but persistently tachycardic on the monitor. CBC is normal. Her potassium was 2.8. Her alcohol is elevated at 322. CTA of the chest shows some motion artifact, however, there is nonocclusive embolus within the right lower lobe posterior segmental branch and additional segmental and subsegmental emboli in both lower lobes. There is no infarct. She was counseled extensively about her diagnosis, as well as her family member. Risks and potential benefits of starting Eliquis/anticoagulants were listed. She will be treated with anticoagulants, and follow-up with her primary care physician. She knows to return for worsening symptoms despite treatment. Lab Data 10/14/23 17:43 10/14/23 17:43 Labs/Radiology: Radiology Impressions Chest X-Ray 10/14/23 17:01 IMPRESSION: No acute cardiopulmonary process. Chest CTA 10/14/23 17:49 IMPRESSION: 1. Evaluation of the lower lobe pulmonary arteries is limited due to respiratory motion artifact. There is a nonocclusive embolus within the posterior segmental branch of the right lower lobe pulmonary artery however. There also appears to be additional segmental and subsegmental pulmonary emboli in both lower lobes. 2. No evidence for aortic aneurysm or aortic dissection. 3. Mild fatty infiltration of the visualized liver. 4. Clustered cystic foci in the visualized liver are stable compared with 08/25/2023. 5. Incidental/nonacute findings are listed in the report. ADDENDUM: 10/14/23 1844 THIS REPORT CONTAINS FINDINGS THAT MAY BE CRITICAL TO PATIENT CARE. The findings were verbally communicated via telephone conference with Dr. Rodriguez at 6:42 PM CDT on 10/14/2023. The findings were acknowledged and understood. Laboratory Results WBC 5.33 10^3/uL (3.29-11.43) 10/14/23 17:43 RBC 4.26 10^6/uL (3.85-5.65) 10/14/23 17:43 Hgb 13.40 g/dL (11.27-16.99) 10/14/23 17:43 Hct 39.7 % (36-47) 10/14/23 17:43 MCV 93.2 fl (85-98) 10/14/23 17:43 MCH 31.5 pg (27-33) 10/14/23 17:43 MCHC 33.8 g/dL (30-55) 10/14/23 17:43 RDW 13.0 % (12.1-15.1) 10/14/23 17:43 Plt Count 342 10^3/cmm (157-399) 10/14/23 17:43 MPV 8.6 fL (7.4-10.4) 10/14/23 17:43 Neut % (Auto) 37.2 % 10/14/23 17:43 Lymph % (Auto) 50.5 % 10/14/23 17:43 [place] % (Auto) 9.8 % 10/14/23 17:43 Eos % (Auto) 0.2 % 10/14/23 17:43 Baso % (Auto) 2.1 % 10/14/23 17:43 Neut # (Auto) 1.99 10^3/uL (1.8-7.7) 10/14/23 17:43 Lymph # (Auto) 2.7 10^3/uL (0.8-4.8) 10/14/23 17:43 [place] # (Auto) 0.5 10^3/uL (0.2-0.9) 10/14/23 17:43 Eos # (Auto) 0.0 10^3/uL (0.0-0.8) 10/14/23 17:43 Baso # (Auto) 0.1 10^3/uL (0.0-0.1) 10/14/23 17:43 Nucleated RBC % (auto) 0 % 10/14/23 17:43 Nucleated RBCs # 0.0 /100WBC 10/14/23 17:43 Sodium 141 mmol/L (136-145) 10/14/23 17:43 Potassium 2.8 mmol/L (3.5-5.1) L* 10/14/23 17:43 Chloride 103 mmol/L (98-107) 10/14/23 17:43 Carbon Dioxide 23 mmol/L (22-29) 10/14/23 17:43 Anion Gap 17.8 (5-19) 10/14/23 17:43 BUN 4 mg/dL (6-20) L 10/14/23 17:43 Creatinine 0.6 mg/dL (0.5-0.9) 10/14/23 17:43 GFR Calculation 117.4 mL/min (90-130) 10/14/23 17:43 Glucose 128 mg/dL (65-115) H 10/14/23 17:43 Calculated Osmolality 291 mOsm/kg (285-295) 10/14/23 17:43 Calcium 9.2 mg/dL (8.5-10.5) 10/14/23 17:43 Total Bilirubin 0.3 mg/dL (0.15-1.2) 10/14/23 17:43 AST 123 U/L (0-32) H 10/14/23 17:43 ALT 52 U/L (0-33) H 10/14/23 17:43 Alkaline Phosphatase 198 U/L (35-105) H 10/14/23 17:43 Ammonia 41 umol/L (11-51) 10/14/23 17:43 Troponin T Baseline 7 ng/L (0-10) 10/14/23 17:43 NT-Pro-B Natriuret Pep 88 pg/mL (0-125) 10/14/23 17:43 Total Protein 8.5 g/dL (6.6-8.7) 10/14/23 17:43 Albumin 4.7 g/dL (3.5-5.2) 10/14/23 17:43 Globulin 3.8 g/dL (1.3-4.6) 10/14/23 17:43 Lipase 40 U/L (13-60) 10/14/23 17:43 HCG, Qual Negative (Negative) 10/14/23 17:43 Urine Color Yellow (Yellow) 10/14/23 17:48 Urine Appearance Clear (CLEAR) 10/14/23 17:48 Urine pH 8 (5-7) H 10/14/23 17:48 Ur Specific [place] 1.010 (1.005-1.030) 10/14/23 17:48 Urine Protein Trace (Negative) 10/14/23 17:48 Urine Glucose (UA) Norm (Normal) 10/14/23 17:48 Urine Ketones 1+ (Negative) H 10/14/23 17:48 Urine Blood Neg (Negative) 10/14/23 17:48 Urine Nitrate Negative (Negative) 10/14/23 17:48 Urine Bilirubin Neg (Negative) 10/14/23 17:48 Prot Sulfosalicylic Acd Negative (Negative) 10/14/23 17:48 Urine Urobilinogen 1 mg/dL (Negative) H 10/14/23 17:48 Ur Leukocyte Esterase Trace (Negative) H 10/14/23 17:48 Urine RBC None /hpf (0-2) 10/14/23 17:48 Urine WBC Rare /hpf (0-5) 10/14/23 17:48 Ur Squamous Epith Cells Rare /hpf (0-5) 10/14/23 17:48 Amorphous Sediment Not Reportable 10/14/23 17:48 Urine Bacteria Trace /hpf (NONE) 10/14/23 17:48 Urine Mucus Trace /hpf 10/14/23 17:48 Ethyl Alcohol 322 mg/dL (0-10) H* 10/14/23 17:43 All radiology interpretation(s) finalized by discharge Discharge Plan Discharge Patient Disposition: Home Clinical Impression: Pulmonary embolism, Acute hypokalemia, Alcohol intoxication Condition: Stable Prescriptions: New Eliquis 5 mg tablet See Rx Instructions .ROUTE .COMPLEX Qty: 74 0RF Rx Instructions: 2 p.o. twice daily x 7 days, then decrease to 5 p.o. twice daily No Action clonidine HCl 0.1 mg tablet 0.1 mg PO BID PRN (Reason: alcohol withdrawal/anxiety) Qty: 60 3RF Rx Instructions: Take one tablet twice per day as needed for anxiety, alcohol withdrawal trazodone 50 mg tablet 50 mg PO BEDTIME PRN (Reason: insomnia) Qty: 30 3RF Rx Instructions: Take one tablet at bedtime as needed for sleep amlodipine 10 mg tablet 10 mg PO DAILY Qty: 30 0RF Discharge Orders: Discharge ED (Routine); Ordered 10/14/23 Ordered By: Elliot Rodriguez Referrals: Nick Phillip MD [Primary Care Provider] - 1-3 days Patient Instructions: Pulmonary Embolism (ED), Hypokalemia (ED), Opioid Safety, Pain Management Activity Restrictions/Additional Instructions: Take the medication prescribed as directed. You will require 2 pills twice daily for the first week, then decrease to 1 pill twice daily. Watch for signs of bleeding including coffee-ground vomit, dark or black stools, etc. Return for worsening pain despite treatment, worsening shortness of breath, any other concerning symptoms. Follow-up with your doctor next week. You should have your potassium checked next week at your doctor's office as well to ensure it is staying up. Coding Level of Care Code ED Legal Officer for [facility] Bryan
--- NOTE | 2023-10-14 17:49 | CTR_ITS ---
PROCEDURE INFORMATION: Exam: CTA Chest With Contrast Exam date and time: 10/14/2023 6:05 PM Age: 32 years old Clinical indication: Shortness of breath; Patient HX: SOB with tachycardia; Additional info: Shortness of breath tachycardia TECHNIQUE: Imaging protocol: Computed tomographic angiography of the chest with contrast. Exam focused on the arteries. 3D rendering (Not supervised by radiologist): MIP and/or 3D reconstructed images were created by the technologist. Radiation optimization: All CT scans at this facility use at least one of these dose optimization techniques: automated exposure control; mA and/or kV adjustment per patient size (includes targeted exams where dose is matched to clinical indication); or iterative reconstruction. Contrast material: OMNI 350; Contrast volume: 65 ml; Contrast route: INTRAVENOUS (IV); COMPARISON: CR XR chest 1V portable [id number] 08/07/2023 3:31 PM RADIATION DOSE METRICS: Total DLP (mGy-cm): 277.21 FINDINGS: Pulmonary arteries: Evaluation of the lower lobe pulmonary arteries is limited due to respiratory motion artifact. There is a nonocclusive embolus within the posterior segmental branch of the right lower lobe pulmonary artery however. There also appears to be additional segmental and subsegmental pulmonary emboli in both lower lobes. Aorta: No evidence for aortic aneurysm or aortic dissection. Trachea: Tracheobronchial structures are patent. Lungs: Lungs are clear bilaterally. No pulmonary parenchymal nodules or masses. Pleural spaces: No pneumothorax. No pleural effusion. Heart: No cardiomegaly. No pericardial effusion. Heart RV/LV ratio: The RV/LV ratio is 0.83. Esophagus: The esophagus is unremarkable. Mediastinal space: No mediastinal hematoma. No pneumomediastinum. Lymph nodes: No lymphadenopathy. Liver: Diffuse, mildly decreased attenuation in the visualized liver. Findings are consistent with mild fatty infiltration. Simple cyst in the right lobe of the liver measuring 1.4 cm. Clustered cystic foci in the visualized liver are stable compared with 08/25/2023. Gallbladder and bile ducts: No dilatation of the visualized bile ducts. Pancreas: The visualized pancreas is unremarkable. No pancreatic ductal dilatation. Spleen: The spleen is unremarkable. Adrenal glands: The visualized right adrenal gland is unremarkable. The left adrenal gland is unremarkable. Kidneys and ureters: The visualized left kidney is unremarkable. Bones/joints: Mild degenerative changes in the visualized spine. Soft tissues: No acute abnormality in the extrathoracic soft tissues. CT/CT angio chest PE protcl [id number] IMPRESSION: 1. Evaluation of the lower lobe pulmonary arteries is limited due to respiratory motion artifact. There is a nonocclusive embolus within the posterior segmental branch of the right lower lobe pulmonary artery however. There also appears to be additional segmental and subsegmental pulmonary emboli in both lower lobes. 2. No evidence for aortic aneurysm or aortic dissection. 3. Mild fatty infiltration of the visualized liver. 4. Clustered cystic foci in the visualized liver are stable compared with 08/25/2023. 5. Incidental/nonacute findings are listed in the report.
[2023-10-14 17:52] LABS: Basophils # 0.1 10^3/uL (0.0-0.1); Basophils % 2.1 %; Eosinophils % 0.2 %; Hematocrit 39.7 % (36-47); Lymphocytes # 2.7 10^3/uL (0.8-4.8); Lymphocytes % 50.5 %; Mean Corpuscular HGB Conc 33.8 g/dL (30-55); Mean Corpuscular Hemoglobin 31.5 pg (27-33); Mean Corpuscular Volume 93.2 fl (85-98); Mean Platelet Volume 8.6 fL (7.4-10.4); Monocytes # 0.5 10^3/uL (0.2-0.9); Monocytes % 9.8 %; Neutrophils # 1.99 10^3/uL (1.8-7.7); Neutrophils % 37.2 %; Nucleated Red Blood Cells % 0 %; Platelet Count 342 10^3/cmm (157-399); Red Blood Count 4.26 10^6/uL (3.85-5.65); White Blood Count 5.33 10^3/uL (3.29-11.43)
--- NOTE | 2023-10-14 17:52 | ECG_ITS ---
[facility] Test Date: 2023-10-14 Pat Name: Milagro Sebastian Department: Room: Gender: Female Hand Grinder: : 1990 Requested By: Brandon Cash Order Number: [id number] Lidya MD: Parth Howard M.D. Measurements Intervals [place] Rate: 104 P: 67 DE: 141 QRS: 113 QRSD: 111 T: 46 QT: 361 QTc: 477 Interpretive Statements SINUS TACHYCARDIA POSSIBLE LEFT ATRIAL ENLARGEMENT [-0.1mV P-WAVE IN V1/V2] LEFT POSTERIOR FASCICULAR BLOCK [QRS AXIS > 109, INFERIOR Q] Compared to ECG 09/10/2023 01:30:19 Left posterior fascicular block now present Sinus rhythm no longer present Sinus arrhythmia no longer present Short DE interval no longer present Right-axis deviation no longer present T-wave abnormality no longer present Possible ischemia no longer present Electronically Signed On 10-14-2023 21:31:48 CDT by Parth Howard M.D. [id number]
[2023-10-14 18:07] LABS: Protein Urine Trace (Negative); Urine Appearance Clear (CLEAR); Urine Color Yellow (Yellow); pH Urine 8 (5-7)
[2023-10-14 18:08] LABS: Add Urine Culture? No; Add Urine Microscopic? YES; Bacteria Urine TRACE /hpf; Bilirubin Urine Neg (Negative); Blood Urine Neg (Negative); Glucose Urine UA Norm (Normal); Ketones Urine 1+ (Negative); Leukocyte Esterase Urine Trace (Negative); Mucus Urine TRACE /hpf; Nitrate Urine Negative (Negative); Squamous Epithelial Cell Urine RARE /hpf (0-5); Sulfosalicylic Acid Urine Negative (Negative); Urobilinogen Urine 1 mg/dL (Negative); WBC Urine RARE /hpf (0-5)
[2023-10-14] MEDS: iohexol 350 mg/mL 500 mL Btl (per mL) IV (18:09)
[2023-10-14 18:12] LABS: HCG, Serum Qual Negative (Negative)
[2023-10-14 18:16] LABS: Ammonia 41 umol/L (11-51)
[2023-10-14 18:22] VITALS: PULSE 103; RESP 19
[2023-10-14 18:25] LABS: Alanine Aminotransferase 52 U/L (0-33); Albumin Level 4.7 g/dL (3.5-5.2); Alkaline Phosphatase 198 U/L (35-105); Anion Gap 17.8 (5-19); Aspartate Amino Transferase 123 U/L (0-32); Blood Urea Nitrogen 4 mg/dL (6-20); Calcium 9.2 mg/dL (8.5-10.5); Carbon Dioxide 23 mmol/L (22-29); Chloride 103 mmol/L (98-107); Creatinine Clr Calc Pharmacy 126.8726; Globulin 3.8 g/dL (1.3-4.6); Glomerular Filtration Rate 117.4 mL/min (90-130); Glucose 128 mg/dL (65-115); Lipase 40 U/L (13-60); NT Pro B Type Natriuretic Pept 88 pg/mL (0-125); Osmolality Calculated 291 mOsm/kg (285-295); Sodium 141 mmol/L (136-145); Total Bilirubin 0.3 mg/dL (0.15-1.2); Total Protein 8.5 g/dL (6.6-8.7)
[2023-10-14 18:28] LABS: Alcohol Level 322 mg/dL (0-10); Potassium 2.8 mmol/L (3.5-5.1)
[2023-10-14] MEDS: potassium chloride oral liq 20 mEq/15 mL UDC 40 MEQ PO (18:34)
[2023-10-14 18:51] LABS: Troponin(5th) Baseline 7 ng/L (0-10)
[2023-10-14 18:52] VITALS: BP 133/79; PULSE 120; RESP 17; O2SAT 95
[2023-10-14 19:00] VITALS: PULSE 109; RESP 20
[2023-10-14] MEDS: apixaban 5 mg Tablet 10 MG PO (19:29)
[2023-10-14 19:35] VITALS: PULSE 108; RESP 26; O2SAT 99
--- NOTE | 2023-10-14 19:49 | ECG_ITS ---
[facility] Test Date: 2023-10-14 Pat Name: Milagro Sebastian Department: Room: Gender: Female Microbiological Analyst: : 1990 Requested By: Barrington Lutz Order Number: [id number] Lidya MD: Parth Howard M.D. Measurements Intervals [place] Rate: 112 P: -11 MD: 143 QRS: -52 QRSD: 99 T: 10 QT: 342 QTc: 467 Interpretive Statements SINUS TACHYCARDIA LEFT ANTERIOR FASCICULAR BLOCK [QRS AXIS <= -45, QR IN I, RS IN II] MINIMAL VOLTAGE CRITERIA FOR LVH, CONSIDER NORMAL VARIANT [MEETS CRITERIA IN ONE OF: R(aVL), S(V1), R(V5), R(V5/V6)+S(V1)] Compared to ECG 10/14/2023 17:52:35 Left anterior fascicular block now present Left posterior fascicular block no longer present Electronically Signed On 10-14-2023 21:35:00 CDT by Parth Howard M.D. [id number]
== END 2023-10-14 19:27 | disposition home or self-care (01) ==
PROVIDERS: Family Medicine; Nurse Practitioner Family; Emergency Provider Emergency Medicine; PCP Family Medicine
DX: I26.99 Other pulmonary embolism without acute cor pulmonale (principal); E87.6 Hypokalemia; F10.129 Alcohol abuse with intoxication, unspecified; Y90.8 Blood alcohol level of 240 mg/100 ml or more; Z72.0 Tobacco use
CPT/HCPCS: 71045; 71275; 80053; 80307; 81001; 82140; 83690; 83880; 84484; 84703; 85025; 93005; 99285; Q9967

== ENCOUNTER 2023-10-30 09:11 | Emergency (ER) | payer MEDICAID, SELFPAY ==
[2023-10-30] VITALS (7 sets, daily range): BP systolic 132–138; BP diastolic 78–98; PULSE 105–136; RESP 15–22; TEMP 37.1; O2SAT 96–98; BMI 26.5
--- NOTE | 2023-10-30 09:30 | XR_ITS ---
WS: [id number] XR chest 1V portable [id number] REASON FOR EXAM: sob FINDINGS: The chest is unchanged compared to 10/14/2023. The heart and the mediastinum are within normal limits. Calcified granulomatous disease is present in both hemithoraces. No acute or subacute pulmonary parenchymal abnormality. No lung nodule, lung mass, or adenopathy. The bony thorax is intact without significant focal abnormality. XR/XR chest 1V portable [id number] IMPRESSION: Stable chest with no acute abnormality.
--- NOTE | 2023-10-30 09:30 | ECG_ITS ---
[facility] Test Date: 2023-10-30 Pat Name: Milagro Sebastian Department: Room: Gender: Female Educational Technology Specialist: : 1990 Requested By: Zulma Rivera Order Number: [id number] Lidya MD: Dex Medina M.D. Measurements Intervals [place] Rate: 132 P: 84 AR: 134 QRS: 108 QRSD: 85 T: 3 QT: 332 QTc: 493 Interpretive Statements SINUS TACHYCARDIA RIGHT AXIS DEVIATION [QRS AXIS > 100] NONSPECIFIC ST & T-WAVE ABNORMALITY Compared to ECG 10/14/2023 19:18:26 Right-axis deviation now present T-wave abnormality now present Left anterior fascicular block no longer present Electronically Signed On 10-31-2023 22:05:45 CDT by Dex Medina M.D. [id number]
--- NOTE | 2023-10-30 09:34 | ED_ITS ---
HPI - Arrhythmia/Palpitations 2 General: Chief Complaint: Arrhythmia/Palpitations Stated Complaint: SOB, vomitting, chest pain Time Seen by Provider: 10/30/23 09:13 Source: patient Mode of arrival: ambulatory Limitations: no limitations History of Present Illness: Patient is a 33-year-old female presents to ED today with complaint of shortness of breath, chest pressure, tremors, abdominal pain and vomiting. Patient states she has had similar episodes previously and states she was here in the ED on 10/13 for this. She states prior to this visit symptoms had been present approximately 2 months or so. On her last visit she was diagnosed with pulmonary emboli and started on Eliquis. She reportedly has been taking this. She does states she is continuing to drink alcohol stating her last drink was yesterday and states she had a few shots . States she drinks nightly to help her sleep. She is not having any hematemesis. Has not noticed any black/tarry stools. MD complaint: rapid heart beat and heart racing Onset (ago): hour(s) Duration: constant Severity: moderate Context: occurred during rest Arrhythmia history: on anti-coagulants Associated symptoms: Reports nausea, short of breath and vomiting; Deny pre-syncope or syncope Review of Systems 2 Const: Denies: fever(s), chills, body aches, fatigue or malaise Eyes: Denies: change in vision or blurry vision Card: Reports: chest pain and palpitations; Denies: irregular heart rhythm, edema, swelling of feet/ankles, lightheadedness, syncope, pre-syncope, dyspnea on exertion, orthopnea, leg pain with exertion or acrocyanosis Resp: Reports: dyspnea; Denies: productive cough, non-productive cough, wheezing, pain on inspiration or hemoptysis GI: Reports: abdominal pain, nausea and vomiting; Denies: hematemesis, hematochezia or melena : Denies: flank pain, difficulty voiding, dysuria, urinary frequency, urinary urgency or urinary hesitancy Musc: Denies: neck pain, back pain, extremity pain, extremity swelling or joint pain Skin/Breast: Denies: rash Neuro: Denies: headache(s), numbness in extremities, weakness in extremities, sensory changes or dizziness PFSH ED 2 PFSH: Medical History Chronic post-traumatic stress disorder BETH (generalized anxiety disorder) Major depressive disorder, recurrent severe without psychotic features Psychiatric care Alcohol use disorder, severe, dependence IUP (intrauterine ), incidental Intrahepatic bile duct dilation Abnormal magnetic resonance cholangiopancreatography (MRCP) Surgical History History of tubal ligation Social History Smoking and tobacco/nicotine status: current every day tobacco/nicotine user Alcohol intake: current Substance/Drug Use: never Female Reproductive History: Date of last menstrual period: 10/24/23 Physical Exam 2 Const: COMMON NORMALS: average body habitus, patient oriented x3, no limitations, alert and well nourished GENERAL APPEARANCE: cooperative and odor of alcohol detected ORIENTATION/CONSCIOUSNESS: Yes awake, Yes oriented to person, Yes oriented to place and Yes oriented to time OTHER: Tremulous HENMT: COMMON NORMALS: normocephalic and atraumatic HEAD & SCALP: normal to inspection, normocephalic and atraumatic Eye: GENERAL EYE: appearance normal, both eyes and all related structures and normal light reflex DIRECT OPHTHALMOSCOPY: Yes normal light reflex Chest: COMMONS NORMALS: normal inspection of the chest and normal palpation of entire chest wall Resp: COMMON NORMALS: normal respiratory effort and clear to auscultation bilaterally AUSCULTATION: clear to auscultation bilaterally Cardio: COMMON NORMALS: regular rhythm RATE: tachycardic RHYTHM: regular rhythm GI: COMMON NORMALS: Normal to inspection, nondistended, normoactive bowel sounds present, Soft to palpation, No hepatosplenomegaly present and no masses INSPECTION: Yes normal to inspection AUSCULTATION: Yes normoactive bowel sounds PALPATION: Yes Soft to palpation, Yes Tenderness to palpation present (GI) (mild generalized abdominal tenderness), No Guarding due to palpation present (GI), No Rigid due to palpation and Yes No hepatosplenomegaly present : COMMON NORMALS: Yes no CVA tenderness BLADDER/KIDNEY EXAM: Yes no CVA tenderness Back/Pelvis: COMMON NORMALS: no CVA tenderness and thoracic and lumbar spine normal to inspection Extremity: COMMON NORMALS: normal to inspection GENERAL: Yes normal exam except as noted Neuro: CRISTIAN COMA SCALE: document GCS findings Cristian coma scale eye opening: Spontaneous [place] coma scale verbal response: Orientated [place] coma scale motor response: Obey commands Cristian coma scale total score: 15 COMMON NORMALS: patient oriented x3, moves all extremities, no focal motor deficits and no sensory deficits noted SENSORIUM/ORIENTATION: Yes alert, Yes oriented to person, Yes oriented to place and Yes oriented to time Skin: COMMON NORMALS: no rashes or lesions noted GENERAL SKIN EXAM: no rashes or lesions noted Course 2 Vital Signs: Vital signs: Vital Signs Temperature 98.7 F 10/30/23 09:17 Pulse Rate 124 H 10/30/23 09:55 Respiratory Rate 20 H 10/30/23 09:55 Blood Pressure 138/98 10/30/23 09:55 Pulse Oximetry 96 10/30/23 09:55 MDM - Arrhythmia/Palpitations Medical Decision Making Patient here for complaints of chest pain, abdominal pain, vomiting. She does arrive tachycardic and very tremulous. This improved with IV Ativan. Re- examination her heart rate was low 100s. She was diagnosed with nonocclusive embolus in the posterior segmental branch right lower lobe with additional segmental and subsegmental in both lower lobes on her last visit. She has reportedly been taking her Eliquis. EKG does not show any evidence of heart strain. She states her shortness of breath is actually better today than what it has been. Patient was also given IV fluids and antiemetics as well as a GI cocktail and she states all of her abdominal pain and chest pain have resolved following this. She has been able to drink here without any vomiting. I suspect she has some degree of an alcoholic gastritis. She needs to watch symptoms closely as she is going to be at risk for bleeding given her Eliquis. She was given strict return precautions. I would like her to follow-up with primary care later this week. She will be placed on Protonix and Carafate. Recommend discontinuation of alcohol. May be some degree of alcohol withdrawal given her symptoms today. She was given PO potassium for her mild hypokalemia today. Lab Data 10/30/23 09:55 10/30/23 10:48 Radiology Impressions Chest X-Ray 10/30/23 09:30 IMPRESSION: Stable chest with no acute abnormality. Laboratory Results WBC 11.50 10^3/uL (3.29-11.43) H 10/30/23 09:55 RBC 4.49 10^6/uL (3.85-5.65) 10/30/23 09:55 Hgb 14.20 g/dL (11.27-16.99) 10/30/23 09:55 Hct 41.8 % (36-47) 10/30/23 09:55 MCV 93.1 fl (85-98) 10/30/23 09:55 MCH 31.6 pg (27-33) 10/30/23 09:55 MCHC 34.0 g/dL (30-55) 10/30/23 09:55 RDW 13.5 % (12.1-15.1) 10/30/23 09:55 Plt Count 303 10^3/cmm (157-399) 10/30/23 09:55 MPV 9.2 fL (7.4-10.4) 10/30/23 09:55 Neut % (Auto) 86.6 % 10/30/23 09:55 Lymph % (Auto) 8.6 % 10/30/23 09:55 Lynn % (Auto) 3.7 % 10/30/23 09:55 Eos % (Auto) 0.0 % 10/30/23 09:55 Baso % (Auto) 0.9 % 10/30/23 09:55 Neut # (Auto) 9.97 10^3/uL (1.8-7.7) H 10/30/23 09:55 Lymph # (Auto) 1.0 10^3/uL (0.8-4.8) 10/30/23 09:55 Lynn # (Auto) 0.4 10^3/uL (0.2-0.9) 10/30/23 09:55 Eos # (Auto) 0.0 10^3/uL (0.0-0.8) 10/30/23 09:55 Baso # (Auto) 0.1 10^3/uL (0.0-0.1) 10/30/23 09:55 Nucleated RBC % (auto) 0 % 10/30/23 09:55 Nucleated RBCs # 0.0 /100WBC 10/30/23 09:55 Sodium 136 mmol/L (136-145) 10/30/23 10:48 Potassium 3.1 mmol/L (3.5-5.1) L 07/01/24 10:48 Chloride 92 mmol/L (98-107) L 10/30/23 10:48 Carbon Dioxide 27 mmol/L (22-29) 10/30/23 10:48 Anion Gap 20.1 (5-19) H 10/30/23 10:48 BUN 9 mg/dL (6-20) 10/30/23 10:48 Creatinine 0.7 mg/dL (0.5-0.9) 10/30/23 10:48 GFR Calculation 97.6 mL/min (90-130) 10/30/23 10:48 Glucose 119 mg/dL (65-115) H 10/30/23 10:48 Calculated Osmolality 282 mOsm/kg (285-295) L 10/30/23 10:48 Calcium 9.8 mg/dL (8.5-10.5) 10/30/23 10:48 Total Bilirubin 0.8 mg/dL (0.15-1.2) 10/30/23 10:48 AST 133 U/L (0-32) H 10/30/23 10:48 ALT 45 U/L (0-33) H 10/30/23 10:48 Alkaline Phosphatase 233 U/L (35-105) H 10/30/23 10:48 Total Protein 8.7 g/dL (6.6-8.7) 10/30/23 10:48 Albumin 4.7 g/dL (3.5-5.2) 10/30/23 10:48 Globulin 4.0 g/dL (1.3-4.6) 10/30/23 10:48 Lipase 55 U/L (13-60) 10/30/23 10:48 Ethyl Alcohol < 10 mg/dL (0-10) 10/30/23 10:48 All radiology interpretation(s) finalized by discharge Discharge Plan Discharge Patient Disposition: Home Clinical Impression: Sinus tachycardia, Transaminitis, Hypokalemia Gastritis Qualifiers: Gastritis type: alcoholic Chronicity: acute Gastritis bleeding: without bleeding Qualified Code(s): K29.20 - Alcoholic gastritis without bleeding Condition: Stable Prescriptions: New Carafate 1 gram tablet 1 g PO TID 14 Days Qty: 42 0RF Protonix 40 mg tablet,delayed release (DR/EC) 40 mg PO DAILY 28 Days Qty: 28 0RF ondansetron 4 mg tablet,disintegrating 4 mg PO Q8H PRN (Reason: nausea and vomiting) Qty: 14 0RF No Action clonidine HCl 0.1 mg tablet 0.1 mg PO BID PRN (Reason: alcohol withdrawal/anxiety) Qty: 60 3RF trazodone 150 mg tablet 150 mg PO BEDTIME PRN (Reason: sleep) Qty: 30 3RF acamprosate 333 mg tablet,delayed release (DR/EC) 666 mg PO TIDWMEAL Qty: 180 3RF amlodipine 10 mg tablet 10 mg PO DAILY Qty: 30 0RF Eliquis 5 mg tablet 5 mg PO BID Discharge Orders: Discharge ED (Routine); Ordered 10/30/23 Ordered By: Zulma Rivera Referrals: Nick Phillip MD [Primary Care Provider] - Patient Instructions: Opioid Safety, Pain Management Activity Restrictions/Additional Instructions: As we discussed you need to start working on actively decreasing your alcohol intake. You need to watch her stools closely for any black/tarry or dark appearance or any blood in your vomit which may indicate active bleeding. You need to return to the emergency department for worsening abdominal pain, difficulty breathing, severe chest pain, or shortness of breath. Please follow- up with your primary care within the next week or so for ER follow-up. Coding Level of Care Code ED Rn Palliative for Ivy Bryan
[2023-10-30] MEDS: lidocaine 2% viscous 15 ML, aluminum-mag hydrox-simethicon 30 ML, sucralfate oral liq 1 GM PO (09:39)
[2023-10-30] MEDS: sodium chloride 0.9% 1,000 ML 999 ML IV (09:59)
[2023-10-30] MEDS: LORazepam 2 mg/mL INJ 10 mL MDV 1 MG IVP ×2 (10:02→10:41)
[2023-10-30] MEDS: ondansetron 2 mg/ML SDV 2 mL 4 MG IVP (10:02)
[2023-10-30 10:06] LABS: Basophils # 0.1 10^3/uL (0.0-0.1); Basophils % 0.9 %; Hematocrit 41.8 % (36-47); Lymphocytes % 8.6 %; Mean Corpuscular Hemoglobin 31.6 pg (27-33); Mean Corpuscular Volume 93.1 fl (85-98); Mean Platelet Volume 9.2 fL (7.4-10.4); Monocytes # 0.4 10^3/uL (0.2-0.9); Monocytes % 3.7 %; Neutrophils # 9.97 10^3/uL (1.8-7.7); Neutrophils % 86.6 %; Nucleated Red Blood Cells % 0 %; Platelet Count 303 10^3/cmm (157-399); Red Blood Count 4.49 10^6/uL (3.85-5.65); Red Cell Distribution Width 13.5 % (12.1-15.1)
[2023-10-30 11:20] LABS: Alanine Aminotransferase 45 U/L (0-33); Albumin Level 4.7 g/dL (3.5-5.2); Alkaline Phosphatase 233 U/L (35-105); Anion Gap 20.1 (5-19); Aspartate Amino Transferase 133 U/L (0-32); Blood Urea Nitrogen 9 mg/dL (6-20); Calcium 9.8 mg/dL (8.5-10.5); Carbon Dioxide 27 mmol/L (22-29); Chloride 92 mmol/L (98-107); Creatinine Clr Calc Pharmacy 107.8262; Glomerular Filtration Rate 97.6 mL/min (90-130); Glucose 119 mg/dL (65-115); Lipase 55 U/L (13-60); Osmolality Calculated 282 mOsm/kg (285-295); Potassium 3.1 mmol/L (3.5-5.1); Sodium 136 mmol/L (136-145); Total Bilirubin 0.8 mg/dL (0.15-1.2); Total Protein 8.7 g/dL (6.6-8.7)
[2023-10-30 11:21] LABS: Alcohol Level < 10 mg/dL (0-10)
[2023-10-30] MEDS: potassium chloride ER 20 mEq Tablet 40 MEQ PO (11:46)
== END 2023-10-30 12:25 | disposition home or self-care (01) ==
PROVIDERS: Emergency Provider Physician Assistant; PCP Family Medicine
DX: R00.0 Tachycardia, unspecified (principal); R74.01 Elevation of levels of liver transaminase levels; E87.6 Hypokalemia; K29.20 Alcoholic gastritis without bleeding; Z79.01 Long term (current) use of anticoagulants; Z72.0 Tobacco use
CPT/HCPCS: 36415; 71045; 80053; 80307; 83690; 85025; 93005; 96374; 96375; 96376; 99285; J2060; J2405; J7030

== ENCOUNTER 2023-12-04 12:00 | Inpatient (IN) | payer MEDICAID, SELFPAY ==
[2023-12-04 12:02] VITALS: BP 151/102; PULSE 127; RESP 20; TEMP 37.4; O2SAT 93; BMI 26.5
--- NOTE | 2023-12-04 12:05 | W.ED.PSYCHS ---
HPI - Psych General: Chief Complaint: Psychiatric Symptoms Stated Complaint: si Time Seen by Provider: 12/04/23 12:01 Source: patient and EMS Mode of arrival: EMS Limitations: no limitations History of Present Illness: 33-year-old female is here with EMS for suicidal ideation she told her friend this morning she no longer wants to live wants to take a blow to the head she does tell me the same. She has been drinking she has a history alcoholism she denies any worse improving factors. Associated symptoms: Reports depression and suicidal ideation Review of Systems Const: Denies: fever(s), chills, body aches or change in appetite ENMT: Denies: throat pain or dental pain Card: Denies: chest pain Resp: Denies: dyspnea GI: Denies: abdominal pain, nausea, vomiting or diarrhea Musc: Denies: neck pain or back pain Skin/Breast: Denies: rash Neuro: Denies: headache(s) Psych: Reports: depression and suicidal ideation [facility] ED PFSH: Medical History Chronic post-traumatic stress disorder BETH (generalized anxiety disorder) Major depressive disorder, recurrent severe without psychotic features Psychiatric care Alcohol use disorder, severe, dependence IUP (intrauterine ), incidental Intrahepatic bile duct dilation Abnormal magnetic resonance cholangiopancreatography (MRCP) Surgical History History of tubal ligation Social History Smoking and tobacco/nicotine status: current every day tobacco/nicotine user Alcohol intake: current Substance/Drug Use: never Physical Exam Const: COMMON NORMALS: no acute distress, patient oriented x3 and healthy appearing HENMT: COMMON NORMALS: normocephalic and atraumatic HEAD & SCALP: normocephalic and atraumatic Neck/C-Spine: COMMON NORMALS: full ROM and supple Chest: COMMONS NORMALS: normal inspection of the chest Resp: COMMON NORMALS: normal respiratory effort Extremity: COMMON NORMALS: normal to inspection and full ROM Neuro: COMMON NORMALS: patient oriented x3, moves all extremities and no focal motor deficits Psych: COMMON NORMALS: mental status grossly normal, Normal thought process present and cooperative THOUGHT PROCESS: Normal thought process present THOUGHT CONTENT: Yes Suicidality present Skin: COMMON NORMALS: no rashes or lesions noted and no wounds GENERAL SKIN EXAM: no rashes or lesions noted Course Vital Signs: Vital signs: Vital Signs Temperature 99.3 F 12/04/23 12:07 Pulse Rate 90 12/04/23 17:42 Respiratory Rate 20 H 12/04/23 12:07 Blood Pressure 151/102 12/04/23 12:07 Pulse Oximetry 91 12/04/23 17:42 Oxygen Delivery Me thod Room Air 12/04/23 14:07 MDM - Psych Medical Decision Making Patient presents here with suicidal ideations patient is medically cleared she is intoxicated but was observed here and she is clinically sober at this time I did speak to the psychiatrist and will admit. Medical Records I reviewed the patient's medical records. Lab Data I reviewed the patient's lab results. 12/04/23 12:36 12/04/23 12:36 Laboratory Results WBC 8.07 10^3/uL (3.29-11.43) 12/04/23 12:36 RBC 4.67 10^6/uL (3.85-5.65) 12/04/23 12:36 Hgb 15.30 g/dL (11.27-16.99) 12/04/23 12:36 Hct 49.0 % (36-47) H 12/04/23 12:36 MCV 104.9 fl (85-98) H 12/04/23 12:36 MCH 32.8 pg (27-33) 12/04/23 12:36 MCHC 31.2 g/dL (30-55) 12/04/23 12:36 RDW 13.9 % (12.1-15.1) 12/04/23 12:36 Plt Count 347 10^3/cmm (157-399) 12/04/23 12:36 MPV 8.9 fL (7.4-10.4) 12/04/23 12:36 Neut % (Auto) 39.3 % 12/04/23 12:36 Lymph % (Auto) 49.6 % 12/04/23 12:36 [place] % (Auto) 7.7 % 12/04/23 12:36 Eos % (Auto) 0.9 % 12/04/23 12:36 Baso % (Auto) 2.4 % 12/04/23 12:36 Neut # (Auto) 3.18 10^3/uL (1.8-7.7) 12/04/23 12:36 Lymph # (Auto) 4.0 10^3/uL (0.8-4.8) 12/04/23 12:36 [place] # (Auto) 0.6 10^3/uL (0.2-0.9) 12/04/23 12:36 Eos # (Auto) 0.1 10^3/uL (0.0-0.8) 12/04/23 12:36 Baso # (Auto) 0.2 10^3/uL (0.0-0.1) H 12/04/23 12:36 Nucleated RBC % (auto) 0 % 12/04/23 12:36 Nucleated RBCs # 0.0 /100WBC 12/04/23 12:36 Sodium 135 mmol/L (136-145) L 12/04/23 12:36 Potassium 3.2 mmol/L (3.5-5.1) L 12/04/23 12:36 Chloride 95 mmol/L (98-107) L 12/04/23 12:36 Carbon Dioxide 19 mmol/L (22-29) L 12/04/23 12:36 Anion Gap 24.2 (5-19) H 12/04/23 12:36 BUN 4 mg/dL (6-20) L 12/04/23 12:36 Creatinine 0.7 mg/dL (0.5-0.9) 12/04/23 12:36 GFR Calculation 97.6 mL/min (90-130) 12/04/23 12:36 Glucose 137 mg/dL (65-115) H 12/04/23 12:36 Calculated Osmolality 279 mOsm/kg (285-295) L 12/04/23 12:36 Calcium 9.4 mg/dL (8.5-10.5) 12/04/23 12:36 Total Bilirubin 0.5 mg/dL (0.15-1.2) 12/04/23 12:36 AST 261 U/L (0-32) H 12/04/23 12:36 ALT 99 U/L (0-33) H 12/04/23 12:36 Alkaline Phosphatase 230 U/L (35-105) H 12/04/23 12:36 Total Protein 8.7 g/dL (6.6-8.7) 12/04/23 12:36 Albumin 4.7 g/dL (3.5-5.2) 12/04/23 12:36 Globulin 4.0 g/dL (1.3-4.6) 12/04/23 12:36 HCG, Qual Negative (Negative) 12/04/23 12:36 Salicylates < 0.3 mg/dL (3-10) L 12/04/23 12:36 Urine Opiates Screen Negative ng/mL (Negative) 12/04/23 13:04 Acetaminophen < 5.0 ug/mL (10-30) L 12/04/23 12:36 Ur Barbiturates Screen Negative ng/mL (Negative) 12/04/23 13:04 Ur Phencyclidine Scrn Negative ng/mL (Negative) 12/04/23 13:04 Ur Amphetamines Screen Negative ng/mL (Negative) 12/04/23 13:04 U Benzodiazepines Scrn Negative ng/mL (Negative) 12/04/23 13:04 Urine Cocaine Screen Negative ng/mL (Negative) 12/04/23 13:04 U Marijuana (THC) Screen Negative ng/mL (Negative) 12/04/23 13:04 Ethyl Alcohol 412 mg/dL (0-10) H* 12/04/23 12:36 No radiology studies performed this visit Discharge Plan Discharge Patient Disposition: Admitted As Inpatient Admit Provider: Zechariah Villegas Clinical Impression: Suicidal ideation, Alcohol use disorder, severe, dependence Condition: Stable Coding Level of Care Code ED Cardiac Monitor Technician for Ivy Bryan
[2023-12-04 12:07] VITALS: BP 151/102; PULSE 127; RESP 20; TEMP 37.4; O2SAT 93
--- NOTE | 2023-12-04 12:26 | PC.PHAR ---
PT CURRENTLY UNCOOPERATIVE-MED REC COMPLETED FROM CURRENT MED LIST WITH LAST FILL DATES AND PREVIOUS VERIFIED MED LIST.
[2023-12-04] MEDS: LORazepam 2 mg/mL INJ 1 mL 1 MG IM (12:38)
[2023-12-04 12:49] LABS: Basophils # 0.2 10^3/uL (0.0-0.1); Basophils % 2.4 %; Eosinophils # 0.1 10^3/uL (0.0-0.8); Eosinophils % 0.9 %; Lymphocytes % 49.6 %; Mean Corpuscular HGB Conc 31.2 g/dL (30-55); Mean Corpuscular Hemoglobin 32.8 pg (27-33); Mean Corpuscular Volume 104.9 fl (85-98); Mean Platelet Volume 8.9 fL (7.4-10.4); Monocytes # 0.6 10^3/uL (0.2-0.9); Monocytes % 7.7 %; Neutrophils # 3.18 10^3/uL (1.8-7.7); Neutrophils % 39.3 %; Nucleated Red Blood Cells % 0 %; Platelet Count 347 10^3/cmm (157-399); Red Blood Count 4.67 10^6/uL (3.85-5.65); Red Cell Distribution Width 13.9 % (12.1-15.1); White Blood Count 8.07 10^3/uL (3.29-11.43)
[2023-12-04] MEDS: haloperidol inj 5 mg/mL INJ 1 mL IM (12:49)
[2023-12-04 13:05] LABS: HCG, Serum Qual Negative (Negative)
[2023-12-04 13:08] LABS: Alanine Aminotransferase 99 U/L (0-33); Albumin Level 4.7 g/dL (3.5-5.2); Alkaline Phosphatase 230 U/L (35-105); Blood Urea Nitrogen 4 mg/dL (6-20); Calcium 9.4 mg/dL (8.5-10.5); Carbon Dioxide 19 mmol/L (22-29); Chloride 95 mmol/L (98-107); Creatinine Clr Calc Pharmacy 107.8262; Glomerular Filtration Rate 97.6 mL/min (90-130); Glucose 137 mg/dL (65-115); Osmolality Calculated 279 mOsm/kg (285-295); Sodium 135 mmol/L (136-145); Total Bilirubin 0.5 mg/dL (0.15-1.2); Total Protein 8.7 g/dL (6.6-8.7)
[2023-12-04 13:14] LABS: Acetaminophen < 5.0 ug/mL (10-30); Alcohol Level 412 mg/dL (0-10); Anion Gap 24.2 (5-19); Potassium 3.2 mmol/L (3.5-5.1); Salicylate < 0.3 mg/dL (3-10)
[2023-12-04 13:15] LABS: Aspartate Amino Transferase 261 U/L (0-32)
[2023-12-04 13:22] LABS: Amphetamines Screen Urine Negative (Negative); Barbiturates Screen Urine Negative (Negative); Benzodiazepines Screen Urine Negative (Negative); Cocaine Screen Urine Negative (Negative); Opiate Screen Urine Negative (Negative); PCP Screen Urine Negative (Negative); THC Screen Urine Negative (Negative)
--- NOTE | 2023-12-04 14:06 | PC.NURSE ---
THIS NURSE ASSUMED CARE @ 1400.
[2023-12-04 14:07] VITALS: PULSE 90; O2SAT 91
--- NOTE | 2023-12-04 17:36 | PC.NURSE ---
96 hr right reviewed with patient @1220 with assistance of [facility] financial services officer Kam. Patient presented extremely agitated, but verbalized understandment of 96 hr hold process. Copy was left @bedside with patient. Sandwhich and soda were provided to patient. No other verbalized concerns at this time, except for want to go home.
[2023-12-04 17:42] VITALS: PULSE 90; O2SAT 91
[2023-12-04 18:00] LABS: Alcohol Level 339 mg/dL (0-10)
[2023-12-04] MEDS: amlodipine 10 mg Tablet PO (18:33)
[2023-12-04] MEDS: apixaban 5 mg Tablet PO (18:33)
--- NOTE | 2023-12-04 18:34 | PC.NURSE ---
Patient refused to take off bra that contains wire. Patient told staff to go suffocate . This nurse contacted security, who helped encourage patient to either give bra or take out the wire. Patient eventually agreed to remove bra. Patient upset, stating you are all just fucking idiots anyway.
--- NOTE | 2023-12-04 18:41 | PC.NURSE ---
Patient brought from ED to NPU with security and staff. Patient given a tray of dinner. Patient was calm during assessment. Patient initially refused to remove her underwire bra. She told staff to go suffocate. After security was called, patient eventually agreed to remove bra. Patient irritable.
[2023-12-04] MEDS: LORazepam 2 mg Tablet PO (19:40)
[2023-12-04] MEDS: ondansetron 4 MG Tablet PO (19:40)
[2023-12-04] MEDS: ACAMPROSATE 333 MG 666 EACH PO (19:42)
[2023-12-04 20:00] VITALS: BP 98/70; PULSE 85; RESP 18; TEMP 36.7; O2SAT 96
[2023-12-04] MEDS: trazodone 150 mg Tablet PO (20:38)
[2023-12-05] VITALS: BP 103/67; PULSE 86; RESP 16; TEMP 37.2; O2SAT 95
[2023-12-05 04:00] VITALS: BP 114/72; PULSE 80; RESP 16; TEMP 37; O2SAT 96
[2023-12-05 08:00] VITALS: BP 121/75; PULSE 109; RESP 18; TEMP 37.2; O2SAT 96
[2023-12-05] MEDS: multivitamin therapeutic Tablet 1 TAB PO (08:02)
[2023-12-05] MEDS: apixaban 5 mg Tablet PO ×2 (08:02→18:09)
[2023-12-05] MEDS: folic acid 1 mg Tablet PO (08:02)
[2023-12-05] MEDS: thiamine 100 mg Tablet PO (08:02)
[2023-12-05] MEDS: ACAMPROSATE 333 MG 666 EACH PO ×3 (08:02→18:09)
[2023-12-05] MEDS: amlodipine 10 mg Tablet PO (08:02)
[2023-12-05] MEDS: acetaminophen 325 mg Tablet 650 MG PO (09:41)
[2023-12-05 11:53] VITALS: BP 115/75; PULSE 106; RESP 16; TEMP 36.8; O2SAT 97
[2023-12-05] MEDS: OLANZapine 5 mg ODT PO (13:49)
--- NOTE | 2023-12-05 13:51 | PC.NURSE ---
Patient at window requesting medication for anxiety that she rates 6/10. Patient tremulous and tearful. Patient given zyprexa 5mg ODT. Questions answered.
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
[2023-12-05 15:57] VITALS: BP 115/76; PULSE 113; RESP 18; TEMP 37.2; O2SAT 97
[2023-12-05 20:00] VITALS: BP 123/77; PULSE 99; RESP 15; TEMP 37.1; O2SAT 95
[2023-12-05] MEDS: trazodone 150 mg Tablet PO (20:08)
[2023-12-06] VITALS: BP 118/82; PULSE 100; RESP 14; TEMP 36.8; O2SAT 96
[2023-12-06 04:00] VITALS: BP 121/82; PULSE 105; RESP 14; TEMP 36.8; O2SAT 96
[2023-12-06] MEDS: acetaminophen 325 mg Tablet 650 MG PO ×2 (05:48→21:33)
[2023-12-06 08:00] VITALS: BP 130/93; PULSE 123; RESP 18; TEMP 36.7; O2SAT 96
[2023-12-06] MEDS: thiamine 100 mg Tablet PO (08:18)
[2023-12-06] MEDS: ACAMPROSATE 333 MG 666 EACH PO ×3 (08:18→17:06)
[2023-12-06] MEDS: multivitamin therapeutic Tablet 1 TAB PO (08:18)
[2023-12-06] MEDS: apixaban 5 mg Tablet PO ×2 (08:18→17:06)
[2023-12-06] MEDS: amlodipine 10 mg Tablet PO (08:18)
[2023-12-06] MEDS: folic acid 1 mg Tablet PO (08:19)
[2023-12-06] MEDS: hyDROXYzine 25 mg Capsule 50 MG PO (09:00)
[2023-12-06] MEDS: OLANZapine 5 mg ODT PO (10:40)
[2023-12-06 12:00] VITALS: BP 131/84; PULSE 103; RESP 18; TEMP 37.1; O2SAT 98
[2023-12-06 16:00] VITALS: BP 134/87; PULSE 125; RESP 18; TEMP 36.9; O2SAT 96
--- NOTE | 2023-12-06 17:39 | P.NPUPN_ITS ---
Subjective NPU 2 Subjective: The patient had already requested that she be able to return home. She has a noted history of significant withdrawal symptoms associated with alcohol dependence. She had apparently not had a referral for [facility] and continued to be requesting return home despite her continued dangerous use of alcohol with significant physical consequences noted from it including related pulmonary embolism, gastritis, and transaminitis. She continued to be be minimally engaged in treatment of her alcoholism. She had reported having continued problems with anxiety. She had reported a lack of social supports. She had endorsed depressed mood still at this time. 33-year-old female admitted with suicidal ideation in the context of considerable alcohol use with a history of major depressive disorder and generalized anxiety disorder. Mental Status Exam 2 MSE Comments: This is a overweight white [place] born female in hospital scrubs with limited grooming and eye contact with a rachelle complexion. No abnormal movements except for mild psychomotor retardation. She was cooperative with exam in mild distress. Speech was slightly decreased rate and volume with a subtle hint of [place] accent. Mood described as allright. Her affect was anxious and mood incongruent. Thought process was linear and organized. Thought content: Patient denied active suicidal or homicidal ideation, there were no delusions reported noted, she denied any auditory or visual hallucinations. Attention and concentration were intact and memory appeared mostly reliable but none were formally tested. She is alert and oriented x 3. Insight is impaired and judgment is poor. Her impulse control is poor. Vitals/I&O/Wt Last Vital Signs Temp 98.5 F 12/06/23 16:00 Pulse 125 H 12/06/23 16:00 Resp 18 12/06/23 16:00 BP 134/87 12/06/23 16:00 Pulse Ox 96 12/06/23 16:00 O2 Del Method Room Air 12/06/23 16:00 Data NPU 12/04/23 12:36 12/04/23 12:36 A&P Assessment and plan (1) Major depressive disorder, recurrent severe without psychotic features: (2) Alcohol withdrawal: (3) Severe alcohol dependence: (4) Alcohol intoxication: (5) BETH (generalized anxiety disorder): (6) Suicidal ideation: (7) Alcohol use disorder, moderate, dependence: Plan Patient is a 33-year-old white female with a history of binge drinking admitted while intoxication reporting suicidal ideation with continued problems with mood and anxiety. Continued persistent use of alcohol despite worsening consequences physically and mentally. 1. Therapeutic observation 15-minute checks while on the unit. 2. Engage patient in individual milieu and group therapy 3. Encourage sober living treatment at the highest level of care to which the patient is willing to commit. Referral for dual diagnosis outpatient treatment. 4. Restart Prozac to target depression. 5. Attempt to gather collateral information. 6. [facility] protocol-hx of severe withdrawal symptoms noted Involuntary Hold Information 2 96 Hour Hold: 96 Hour Involuntary Admission: Yes Attestations NPU 2 Medical Necessity Statement*: Inpatient hospitalization is medically necessary and the clinically appropriate intervention at this time. We will monitor medication to make changes as indicated. The patient's likely length of stay 3 to 5 days. Coding Level of Care Code Acute Code for [facility] Fwd Diagnoses Major depressive disorder, recurrent severe without psychotic features F33.2 Alcohol withdrawal F10.939 Severe alcohol dependence F10.20 Alcohol intoxication F10.929 BETH (generalized anxiety disorder) F41.1 Suicidal ideation R45.851 Alcohol use disorder, moderate, dependence F10.20
[2023-12-06] MEDS: fluoxetine 20 mg Capsule PO (18:27)
[2023-12-06 20:00] VITALS: BP 134/91; PULSE 98; RESP 16; TEMP 37.1; O2SAT 99
[2023-12-06] MEDS: trazodone 150 mg Tablet PO (20:16)
[2023-12-06] MEDS: LORazepam 2 mg Tablet PO (22:25)
[2023-12-07] VITALS (9 sets, daily range): BP systolic 117–132; BP diastolic 64–91; PULSE 89–100; RESP 15–17; TEMP 36.5–37.2; O2SAT 95–99
[2023-12-07] MEDS: OLANZapine 5 mg ODT PO (00:28)
[2023-12-07] MEDS: cloNIDine 0.1 mg Tablet PO ×2 (04:11→21:29)
[2023-12-07] MEDS: LORazepam 2 mg Tablet PO (04:13)
[2023-12-07] MEDS: thiamine 100 mg Tablet PO (08:38)
[2023-12-07] MEDS: fluoxetine 20 mg Capsule PO (08:38)
[2023-12-07] MEDS: multivitamin therapeutic Tablet 1 TAB PO (08:38)
[2023-12-07] MEDS: amlodipine 10 mg Tablet PO (08:38)
[2023-12-07] MEDS: ACAMPROSATE 333 MG 666 EACH PO ×3 (08:38→17:23)
[2023-12-07] MEDS: apixaban 5 mg Tablet PO ×2 (08:38→17:22)
[2023-12-07] MEDS: folic acid 1 mg Tablet PO (08:38)
--- NOTE | 2023-12-07 14:00 | P.NPUPN_ITS ---
Subjective NPU 2 Subjective: Patient is a 33-year-old female with alcohol dependence and depression admitted involuntarily for suicidal ideation. She continues to have alcohol-related withdrawal symptoms requiring up to 4 mg of Ativan over the past 24 hours. She had continued to state that she wished to go home. She had minimized having any legal consequences currently but there appeared to be evidence otherwise with the patient having been in violation of her probation with a scheduled hearing on Monday regarding her probation violation. She had stated that she was stable and safe when her boyfriend and father of her 2 children Aime was in the home. She had continued to not clearly provide inability or a plan to remain safe or to stop the use of alcohol. She had quested that she be allowed to leave despite showing evidence of alcohol withdrawal symptoms. Mental Status Exam 2 MSE Comments: This is a overweight white [place] born female in hospital scrubs with limited grooming and eye contact with a rachelle complexion appearing tremulous. No abnormal movements except for mild psychomotor retardation. She was cooperative with exam in mild distress. Speech was slightly decreased rate and volume with a subtle hint of [place] accent. Mood described as good. Her affect was anxious and mood incongruent. Thought process was linear and organized but superficial. Thought content: Patient denied active suicidal or homicidal ideation, there were no delusions reported noted, she denied any auditory or visual hallucinations. Attention and concentration were intact and memory appeared mostly reliable but none were formally tested. She is alert and oriented x 3. Insight is impaired and judgment is poor. Her impulse control is poor. Vitals/I&O/Wt Last Vital Signs Temp 97.9 F 12/07/23 12:00 Pulse 89 12/07/23 12:00 Resp 17 12/07/23 12:00 BP 132/91 12/07/23 12:00 Pulse Ox 97 12/07/23 12:00 O2 Del Method Room Air 12/07/23 04:00 Data NPU 12/04/23 12:36 12/04/23 12:36 A&P Assessment and plan (1) Major depressive disorder, recurrent severe without psychotic features: (2) Alcohol withdrawal: (3) Severe alcohol dependence: (4) Alcohol intoxication: (5) BETH (generalized anxiety disorder): (6) Suicidal ideation: (7) Alcohol use disorder, moderate, dependence: Plan Patient is a 33-year-old white female with a history of binge drinking admitted while intoxication reporting suicidal ideation with continued problems with mood and anxiety. Continued persistent use of alcohol despite worsening consequences physically and mentally. 1. Therapeutic observation 15-minute checks while on the unit. 2. Engage patient in individual milieu and group therapy 3. Encourage sober living treatment at the highest level of care to which the patient is willing to commit. Referral for dual diagnosis outpatient treatment. 4. Continue Prozac 20mg daily. 5. Filed 21 day hold-patient will require inpatient alcohol treatment. 6. [facility] protocol-hx of severe withdrawal symptoms noted Involuntary Hold Information 2 96 Hour Hold: 96 Hour Involuntary Admission: Yes Attestations NPU 2 Medical Necessity Statement*: Inpatient hospitalization is medically necessary and the clinically appropriate intervention at this time. We will monitor medication to make changes as indicated. The patient's likely length of stay 7-10 days. Coding Level of Care Code Acute Code for [facility] Fwd Diagnoses Major depressive disorder, recurrent severe without psychotic features F33.2 Alcohol withdrawal F10.939 Severe alcohol dependence F10.20 Alcohol intoxication F10.929 BETH (generalized anxiety disorder) F41.1 Suicidal ideation R45.851 Alcohol use disorder, moderate, dependence F10.20
[2023-12-07] MEDS: trazodone 150 mg Tablet PO ×2 (20:17→21:29)
[2023-12-07] MEDS: hyDROXYzine 25 mg Capsule 50 MG PO (20:17)
[2023-12-07] MEDS: ondansetron 4 MG Tablet PO (21:29)
[2023-12-08] VITALS (7 sets, daily range): BP systolic 107–136; BP diastolic 65–90; PULSE 16–116; RESP 16–18; TEMP 36.9–37.1; O2SAT 98–100
[2023-12-08] MEDS: hyDROXYzine 25 mg Capsule 50 MG PO (06:32)
[2023-12-08] MEDS: thiamine 100 mg Tablet PO (08:37)
[2023-12-08] MEDS: apixaban 5 mg Tablet PO ×2 (08:37→17:14)
[2023-12-08] MEDS: amlodipine 10 mg Tablet PO (08:37)
[2023-12-08] MEDS: ACAMPROSATE 333 MG 666 EACH PO ×3 (08:37→17:14)
[2023-12-08] MEDS: folic acid 1 mg Tablet PO (08:37)
[2023-12-08] MEDS: multivitamin therapeutic Tablet 1 TAB PO (08:37)
[2023-12-08] MEDS: fluoxetine 20 mg Capsule PO (08:37)
--- NOTE | 2023-12-08 12:30 | P.NPUPN_ITS ---
Subjective NPU 2 Subjective: Patient presented today reporting that she is doing okay. She endorsed feeling like she is getting better pretty quickly. We discussed not being in a [place] and trying to make sure that everything is working well prior to discharging her at this time. Also discussed appropriately addressing the alcohol addiction which has been fairly overlooked in previous interactions. She denied current side effects of medication and we continue to talk about sober living treatments. Mental Status Exam 2 MSE Comments: This is a overweight white [place] born female in hospital scrubs with limited grooming and eye contact with a rachelle complexion appearing less tremulous. No abnormal movements except for mild psychomotor retardation. She was cooperative with exam in mild distress. Speech was slightly decreased rate and volume with a subtle hint of [place]ian accent. Mood described as better. Her affect was anxious and mood incongruent. Thought process was linear and organized. Thought content: Patient denied active suicidal or homicidal ideation, there were no delusions reported noted, she denied any auditory or visual hallucinations. Attention and concentration were intact and memory appeared mostly reliable but none were formally tested. She is alert and oriented x 3. Insight is impaired and judgment is poor. Her impulse control is poor. Vitals/I&O/Wt Last Vital Signs Temp 98.4 F 12/08/23 12:00 Pulse 91 12/08/23 12:00 Resp 16 12/08/23 12:00 BP 132/86 12/08/23 12:00 Pulse Ox 100 12/08/23 12:00 O2 Del Method Room Air 12/08/23 04:00 Data NPU 12/04/23 12:36 12/04/23 12:36 A&P Assessment and plan (1) Major depressive disorder, recurrent severe without psychotic features: (2) Alcohol withdrawal: (3) Severe alcohol dependence: (4) Alcohol intoxication: (5) BETH (generalized anxiety disorder): (6) Suicidal ideation: (7) Alcohol use disorder, moderate, dependence: Plan Patient is a 33-year-old white female with a history of binge drinking admitted while intoxication reporting suicidal ideation with continued problems with mood and anxiety. Continued persistent use of alcohol despite worsening consequences physically and mentally. 1. Therapeutic observation 15-minute checks while on the unit. 2. Engage patient in individual milieu and group therapy 3. Encourage sober living treatment at the highest level of care to which the patient is willing to commit. Referral for dual diagnosis outpatient treatment. 4. Continue Prozac 20mg daily. 5. Filed 21 day hold-patient will require inpatient alcohol treatment. 6. [facility] protocol-hx of severe withdrawal symptoms noted Involuntary Hold Information 2 96 Hour Hold: 96 Hour Involuntary Admission: Yes Attestations NPU 2 Medical Necessity Statement*: Inpatient hospitalization is medically necessary and the clinically appropriate intervention at this time. We will monitor medication to make changes as indicated. The patient's likely length of stay 6-9 days. Coding Level of Care Code Acute Code for g Fwd Diagnoses Major depressive disorder, recurrent severe without psychotic features F33.2 Alcohol withdrawal F10.939 Severe alcohol dependence F10.20 Alcohol intoxication F10.929 BETH (generalized anxiety disorder) F41.1 Suicidal ideation R45.851 Alcohol use disorder, moderate, dependence F10.20
[2023-12-08] MEDS: ondansetron 4 MG Tablet PO (13:02)
[2023-12-08] MEDS: blistex lip oint 7 gm Tube 1 APPLIC TOPICAL (13:02)
[2023-12-08] MEDS: cloNIDine 0.1 mg Tablet PO (13:16)
[2023-12-08] MEDS: acetaminophen 325 mg Tablet 650 MG PO (15:02)
[2023-12-08] MEDS: LORazepam 2 mg Tablet PO (17:49)
[2023-12-09 04:00] VITALS: BP 107/70; PULSE 95; RESP 16; TEMP 36.8; O2SAT 98
[2023-12-09 08:00] VITALS: BP 117/78; PULSE 86; RESP 17; TEMP 37.2; O2SAT 99
[2023-12-09] MEDS: folic acid 1 mg Tablet PO (08:21)
[2023-12-09] MEDS: ACAMPROSATE 333 MG 666 EACH PO ×3 (08:21→17:36)
[2023-12-09] MEDS: amlodipine 10 mg Tablet PO (08:21)
[2023-12-09] MEDS: fluoxetine 20 mg Capsule PO (08:21)
[2023-12-09] MEDS: multivitamin therapeutic Tablet 1 TAB PO (08:22)
[2023-12-09] MEDS: apixaban 5 mg Tablet PO ×2 (08:22→17:36)
[2023-12-09] MEDS: thiamine 100 mg Tablet PO (08:22)
[2023-12-09 11:14] VITALS: BP 113/81
[2023-12-09] MEDS: cloNIDine 0.1 mg Tablet PO (11:14)
[2023-12-09 11:52] VITALS: BP 113/81; PULSE 80; RESP 17; TEMP 36.9; O2SAT 100
--- NOTE | 2023-12-09 12:08 | P.NPUPN_ITS ---
Subjective NPU 2 Subjective: Patient presents today reporting that she is doing okay. She is very focused on hopes of discharge sooner rather than later. We discussed her circumstance at home and her not having her children, not working and returning to her drinking behavior. We discussed the benefit of inpatient sober living treatment and sober living treatment in general. We discussed considering a 21-day hold and that her hearing would be on Monday. She denied any problems with her medications but seems to be moving more towards ambivalence about treatment again. Mental Status Exam 2 MSE Comments: This is a overweight white [place] born female in hospital scrubs with limited grooming and eye contact with a rachelle complexion appearing less tremulous. No abnormal movements except for mild psychomotor retardation. She was cooperative with exam in mild distress. Speech was slightly decreased rate and volume with a subtle hint of [place] accent. Mood described as better. Her affect was anxious and mood incongruent. Thought process was linear and organized. Thought content: Patient denied active suicidal or homicidal ideation, there were no delusions reported noted, she denied any auditory or visual hallucinations. Attention and concentration were intact and memory appeared mostly reliable but none were formally tested. She is alert and oriented x 3. Insight is impaired and judgment is poor. Her impulse control is poor. Vitals/I&O/Wt Last Vital Signs Temp 98.4 F 12/09/23 11:52 Pulse 80 12/09/23 11:52 Resp 17 12/09/23 11:52 BP 113/81 12/09/23 11:52 Pulse Ox 100 12/09/23 11:52 O2 Del Method Room Air 12/09/23 04:00 Data NPU 12/04/23 12:36 12/04/23 12:36 A&P Assessment and plan (1) Major depressive disorder, recurrent severe without psychotic features: (2) Alcohol withdrawal: (3) Severe alcohol dependence: (4) Alcohol intoxication: (5) BETH (generalized anxiety disorder): (6) Suicidal ideation: (7) Alcohol use disorder, moderate, dependence: Plan Patient is a 33-year-old white female with a history of binge drinking admitted while intoxication reporting suicidal ideation with continued problems with mood and anxiety. Continued persistent use of alcohol despite worsening consequences physically and mentally. 1. Therapeutic observation 15-minute checks while on the unit. 2. Engage patient in individual milieu and group therapy 3. Encourage sober living treatment at the highest level of care to which the patient is willing to commit. Referral for dual diagnosis outpatient treatment. 4. Continue Prozac 20mg daily. 5. Filed 21 day hold-patient will require inpatient alcohol treatment. 6. [facility] protocol-hx of severe withdrawal symptoms noted Involuntary Hold Information 2 96 Hour Hold: 96 Hour Involuntary Admission: Yes Attestations NPU 2 Medical Necessity Statement*: Inpatient hospitalization is medically necessary and the clinically appropriate intervention at this time. We will monitor medication to make changes as indicated. The patient's likely length of stay 5-8 days. Coding Level of Care Code Acute Code for g Fwd Diagnoses Major depressive disorder, recurrent severe without psychotic features F33.2 Alcohol withdrawal F10.939 Severe alcohol dependence F10.20 Alcohol intoxication F10.929 BETH (generalized anxiety disorder) F41.1 Suicidal ideation R45.851 Alcohol use disorder, moderate, dependence F10.20
[2023-12-09 16:00] VITALS: BP 115/78; PULSE 75; RESP 18; TEMP 36.7; O2SAT 99
[2023-12-09] MEDS: benzocaine 20% 7 gm 1 APPLIC MUCOUS MEM (17:58)
[2023-12-09] MEDS: acetaminophen 325 mg Tablet 650 MG PO (17:58)
[2023-12-09 20:00] VITALS: BP 122/69; PULSE 78; RESP 16; TEMP 36.6; O2SAT 96
[2023-12-09] MEDS: trazodone 150 mg Tablet PO (20:09)
[2023-12-10] VITALS (7 sets, daily range): BP systolic 107–129; BP diastolic 70–79; PULSE 66–89; RESP 16–18; TEMP 36.4–36.8; O2SAT 97–100
[2023-12-10] MEDS: OLANZapine 5 mg ODT PO (02:05)
[2023-12-10] MEDS: haloperidol 5 mg Tablet PO (03:51)
[2023-12-10] MEDS: ACAMPROSATE 333 MG 666 EACH PO ×3 (08:00→17:15)
[2023-12-10] MEDS: folic acid 1 mg Tablet PO (08:39)
[2023-12-10] MEDS: multivitamin therapeutic Tablet 1 TAB PO (08:39)
[2023-12-10] MEDS: fluoxetine 20 mg Capsule PO (08:39)
[2023-12-10] MEDS: thiamine 100 mg Tablet PO (08:39)
[2023-12-10] MEDS: apixaban 5 mg Tablet PO ×2 (08:39→17:15)
[2023-12-10] MEDS: amlodipine 10 mg Tablet PO (08:39)
--- NOTE | 2023-12-10 09:00 | P.NPUPN_ITS ---
Subjective NPU 2 Subjective: Patient presented today reporting that she is feeling better. We continue to discuss importance of her having some sober living option at discharge. She reports having a court hearing on Monday but that the social media campaign manager is working with her to make sure the court is aware that she is here. Then her 21-day hold hearing would be on Monday. She is prepared to continue working with the social work team for follow-up services. She denies any side effects or medication. Mental Status Exam 2 MSE Comments: This is a overweight white [place]ian born female in hospital scrubs with limited grooming and eye contact with a rachelle complexion appearing less tremulous. No abnormal movements except for mild psychomotor retardation. She was cooperative with exam in mild distress. Speech was slightly decreased rate and volume with a subtle hint of Ethiopian accent. Mood described as better. Her affect was anxious and mood incongruent. Thought process was linear and organized. Thought content: Patient denied active suicidal or homicidal ideation, there were no delusions reported noted, she denied any auditory or visual hallucinations. Attention and concentration were intact and memory appeared mostly reliable but none were formally tested. She is alert and oriented x 3. Insight is impaired and judgment is poor. Her impulse control is poor. Vitals/I&O/Wt Last Vital Signs Temp 98.3 F 12/10/23 00:00 Pulse 66 12/10/23 04:00 Resp 18 12/10/23 04:00 BP 110/70 12/10/23 04:00 Pulse Ox 98 12/10/23 04:00 O2 Del Method Room Air 12/10/23 04:00 Weight last 48 hrs Weight 69.581 kg Data NPU 12/04/23 12:36 12/04/23 12:36 A&P Assessment and plan (1) Major depressive disorder, recurrent severe without psychotic features: (2) Alcohol withdrawal: (3) Severe alcohol dependence: (4) BETH (generalized anxiety disorder): (5) Suicidal ideation: (6) Alcohol use disorder, moderate, dependence: Plan Patient is a 33-year-old white female with a history of binge drinking admitted while intoxication reporting suicidal ideation with continued problems with mood and anxiety. Continued persistent use of alcohol despite worsening consequences physically and mentally. 1. Therapeutic observation 15-minute checks while on the unit. 2. Engage patient in individual milieu and group therapy 3. Encourage sober living treatment at the highest level of care to which the patient is willing to commit. Referral for dual diagnosis outpatient treatment. 4. Continue Prozac 20mg daily. 5. Filed 21 day hold-patient will require inpatient alcohol treatment. 6. [facility] protocol-hx of severe withdrawal symptoms noted Involuntary Hold Information 2 96 Hour Hold: 96 Hour Involuntary Admission: Yes Attestations NPU 2 Medical Necessity Statement*: Inpatient hospitalization is medically necessary and the clinically appropriate intervention at this time. We will monitor medication to make changes as indicated. The patient's likely length of stay 5-8 days. Coding Level of Care Code Acute Code for [facility] Fwd Diagnoses Major depressive disorder, recurrent severe without psychotic features F33.2 Alcohol withdrawal F10.939 Severe alcohol dependence F10.20 BETH (generalized anxiety disorder) F41.1 Suicidal ideation R45.851 Alcohol use disorder, moderate, dependence F10.20
[2023-12-10] MEDS: cloNIDine 0.1 mg Tablet PO (11:34)
[2023-12-10] MEDS: benztropine 1 mg Tablet PO (11:44)
[2023-12-10] MEDS: ondansetron 4 MG Tablet PO (18:14)
[2023-12-10] MEDS: trazodone 150 mg Tablet PO (20:01)
[2023-12-11 06:00] VITALS: BP 116/79; PULSE 74; RESP 18; TEMP 36.8; O2SAT 96
[2023-12-11] MEDS: thiamine 100 mg Tablet PO (08:01)
[2023-12-11] MEDS: folic acid 1 mg Tablet PO (08:01)
[2023-12-11] MEDS: multivitamin therapeutic Tablet 1 TAB PO (08:01)
[2023-12-11] MEDS: amlodipine 10 mg Tablet PO (08:01)
[2023-12-11] MEDS: fluoxetine 20 mg Capsule PO (08:01)
[2023-12-11] MEDS: apixaban 5 mg Tablet PO ×2 (08:01→17:17)
[2023-12-11] MEDS: ACAMPROSATE 333 MG 666 EACH PO ×3 (08:42→17:16)
--- NOTE | 2023-12-11 11:48 | W.PM.NPUPNS ---
Subjective NPU Subjective: Patient presented today reporting that she is feeling better. She reports that she is open and ready to go to [facility] and awaiting the bed date. She wanted to know if the bed date was 1 month in the future would we consider discharge. She denied any side effects to the medications. We discussed her 21-day hold hearing being tomorrow. Mental Status Exam MSE Comments: This is a overweight white [place] born female in hospital scrubs with limited grooming and eye contact with a rachelle complexion appearing less tremulous. No abnormal movements. She was cooperative with exam in mild distress. Speech was slightly decreased rate and volume with a subtle hint of [place] accent. Mood described as better. Her affect was anxious and mood incongruent. Thought process was linear and organized. Thought content: Patient denied active suicidal or homicidal ideation, there were no delusions reported noted, she denied any auditory or visual hallucinations. Attention and concentration were intact and memory appeared mostly reliable but none were formally tested. She is alert and oriented x 3. Insight is impaired and judgment is poor. Her impulse control is poor. Vitals/I&O/Wt Last Vital Signs Temp 98.3 F 12/11/23 06:00 Pulse 74 12/11/23 06:00 Resp 18 12/11/23 06:00 BP 116/79 12/11/23 06:00 Pulse Ox 96 12/11/23 06:00 O2 Del Method Room Air 12/10/23 08:00 Weight last 48 hrs Weight 69.581 kg Data NPU 12/04/23 12:36 12/04/23 12:36 A&P Assessment and plan (1) Major depressive disorder, recurrent severe without psychotic features: (2) Alcohol withdrawal: (3) Severe alcohol dependence: (4) BETH (generalized anxiety disorder): (5) Suicidal ideation: (6) Alcohol use disorder, moderate, dependence: Plan Patient is a 33-year-old white female with a history of binge drinking admitted while intoxication reporting suicidal ideation with continued problems with mood and anxiety. Continued persistent use of alcohol despite worsening consequences physically and mentally. 1. Therapeutic observation 15-minute checks while on the unit. 2. Engage patient in individual milieu and group therapy 3. Encourage sober living treatment at the highest level of care to which the patient is willing to commit. Referral for dual diagnosis outpatient treatment. 4. Continue Prozac 20mg daily. 5. Filed 21 day hold-patient will require inpatient alcohol treatment. Hearing tomorrow 12/12/2023. 6. [facility] protocol-hx of severe withdrawal symptoms noted Involuntary Hold Information 96 Hour Hold: 96 Hour Involuntary Admission: Yes Attestations NPU Medical Necessity Statement*: Inpatient hospitalization is medically necessary and the clinically appropriate intervention at this time. We will monitor medication to make changes as indicated. The patient's likely length of stay 4-7 days. Coding Level of Care Code Acute Code for [facility] Fwd Diagnoses Major depressive disorder, recurrent severe without psychotic features F33.2 Alcohol withdrawal F10.939 Severe alcohol dependence F10.20 BETH (generalized anxiety disorder) F41.1 Suicidal ideation R45.851 Alcohol use disorder, moderate, dependence F10.20
[2023-12-11 13:42] VITALS: BP 136/81; PULSE 78; RESP 16; TEMP 36.8; O2SAT 98
[2023-12-11] MEDS: blistex lip oint 7 gm Tube 1 APPLIC TOPICAL (13:47)
[2023-12-11] MEDS: hyDROXYzine 25 mg Capsule 50 MG PO (17:15)
[2023-12-11] MEDS: trazodone 150 mg Tablet PO (19:16)
[2023-12-11] MEDS: OLANZapine 5 mg ODT PO (20:17)
[2023-12-11 21:45] VITALS: BP 130/83; PULSE 75; RESP 16; TEMP 36.9; O2SAT 98
[2023-12-12 06:00] VITALS: BP 124/79; PULSE 90; RESP 16; TEMP 37; O2SAT 98
[2023-12-12] MEDS: multivitamin therapeutic Tablet 1 TAB PO (07:55)
[2023-12-12] MEDS: fluoxetine 20 mg Capsule PO (07:55)
[2023-12-12] MEDS: ACAMPROSATE 333 MG 666 EACH PO ×3 (07:55→17:09)
[2023-12-12] MEDS: folic acid 1 mg Tablet PO (07:56)
[2023-12-12] MEDS: amlodipine 10 mg Tablet PO (07:56)
[2023-12-12] MEDS: apixaban 5 mg Tablet PO ×2 (07:56→17:09)
[2023-12-12] MEDS: thiamine 100 mg Tablet PO (07:56)
[2023-12-12] MEDS: acetaminophen 325 mg Tablet 650 MG PO (09:08)
[2023-12-12] MEDS: benzocaine 20% 7 gm 1 APPLIC MUCOUS MEM ×2 (10:05→15:35)
[2023-12-12] MEDS: hyDROXYzine 25 mg Capsule 50 MG PO (11:03)
--- NOTE | 2023-12-12 11:04 | PC.NURSE ---
vistaril for anxiety 09/07
[2023-12-12] MEDS: benztropine 1 mg Tablet PO (11:47)
[2023-12-12 14:00] VITALS: BP 131/87; PULSE 88; RESP 18; TEMP 37.1; O2SAT 98
--- NOTE | 2023-12-12 16:21 | P.NPUPN_ITS ---
Subjective NPU 2 Subjective: Patient presents today reporting that she is doing fine. We discussed the 21- day hold hearing and that she was placed on a hold. We discussed the plan to discharge her to be [facility] bed date of 12/20/2023. She reported that she is fine but needs to be discharged this Monday so she can hang out with her children. We discussed that we would need to discuss that idea because we feel strongly that she needs to go from here to [facility] given her current condition and continued escalating addictive behaviors. She denied any side effects to the medication. Mental Status Exam 2 MSE Comments: This is a overweight white [place] born female in hospital scrubs with limited grooming and eye contact with a rachelle complexion. No abnormal movements. She was cooperative with exam in mild distress. Speech was slightly decreased rate and volume with a subtle hint of [place] accent. Mood described as better. Her affect was anxious. Thought process was linear and organized. Thought content: Patient denied active suicidal or homicidal ideation, there were no delusions reported noted, she denied any auditory or visual hallucinations. Attention and concentration were intact and memory appeared mostly reliable but none were formally tested. She is alert and oriented x 3. Insight is impaired and judgment is poor. Her impulse control is poor. Vitals/I&O/Wt Last Vital Signs Temp 98.8 F 12/12/23 14:00 Pulse 88 12/12/23 14:00 Resp 18 12/12/23 14:00 BP 131/87 12/12/23 14:00 Pulse Ox 98 12/12/23 14:00 O2 Del Method Room Air 12/12/23 14:00 Data NPU 12/04/23 12:36 12/04/23 12:36 A&P Assessment and plan (1) Major depressive disorder, recurrent severe without psychotic features: (2) Alcohol withdrawal: (3) Severe alcohol dependence: (4) BETH (generalized anxiety disorder): (5) Suicidal ideation: (6) Alcohol use disorder, moderate, dependence: Plan Patient is a 33-year-old white female with a history of binge drinking admitted while intoxication reporting suicidal ideation with continued problems with mood and anxiety. Continued persistent use of alcohol despite worsening consequences physically and mentally. 1. Therapeutic observation 15-minute checks while on the unit. 2. Engage patient in individual milieu and group therapy 3. Encourage sober living treatment at the highest level of care to which the patient is willing to commit. Referral for dual diagnosis outpatient treatment. 4. Continue Prozac 20mg daily. Consider increase. 5. Filed 21 day hold-patient will require inpatient alcohol treatment. Hearing was today 12/12/2023. 21-day hold granted. 6. [facility] protocol-hx of severe withdrawal symptoms noted Involuntary Hold Information 2 96 Hour Hold: 96 Hour Involuntary Admission: Yes Attestations NPU 2 Medical Necessity Statement*: Inpatient hospitalization is medically necessary and the clinically appropriate intervention at this time. We will monitor medication to make changes as indicated. The patient's likely length of stay 4-7 days. Coding Level of Care Code Acute Code for [facility] Fwd Diagnoses Major depressive disorder, recurrent severe without psychotic features F33.2 Alcohol withdrawal F10.939 Severe alcohol dependence F10.20 BETH (generalized anxiety disorder) F41.1 Suicidal ideation R45.851 Alcohol use disorder, moderate, dependence F10.20
[2023-12-12] MEDS: calcium carbonate 500 mg Chew Tablet 1000 MG PO ×2 (17:09→20:30)
[2023-12-12 19:26] VITALS: BP 125/80; PULSE 88; RESP 16; TEMP 36.9; O2SAT 97
[2023-12-12] MEDS: trazodone 150 mg Tablet PO (20:06)
[2023-12-12] MEDS: OLANZapine 5 mg ODT PO (22:00)
[2023-12-13 06:00] VITALS: BP 118/82; PULSE 98; RESP 16; TEMP 37.3; O2SAT 99
[2023-12-13] MEDS: multivitamin therapeutic Tablet 1 TAB PO (08:19)
[2023-12-13] MEDS: folic acid 1 mg Tablet PO (08:19)
[2023-12-13] MEDS: apixaban 5 mg Tablet PO ×2 (08:19→17:29)
[2023-12-13] MEDS: fluoxetine 20 mg Capsule PO (08:20)
[2023-12-13] MEDS: amlodipine 10 mg Tablet PO (08:20)
[2023-12-13] MEDS: ACAMPROSATE 333 MG 666 EACH PO ×3 (08:20→17:29)
[2023-12-13] MEDS: thiamine 100 mg Tablet PO (08:20)
[2023-12-13] MEDS: acetaminophen 325 mg Tablet 650 MG PO (09:02)
[2023-12-13] MEDS: hyDROXYzine 25 mg Capsule 50 MG PO ×2 (09:02→18:04)
[2023-12-13] MEDS: benzocaine 20% 7 gm 1 APPLIC MUCOUS MEM (11:32)
[2023-12-13 12:48] VITALS: BP 115/78; PULSE 80; RESP 16; TEMP 36.8; O2SAT 98
--- NOTE | 2023-12-13 14:06 | P.NPUPN_ITS ---
Subjective NPU 2 Subjective: Patient presented today reporting that he is doing okay. She reports that she is beginning to except that she will be here until her bed date next Monday. We discussed the importance of her doing things this way to give her the best chance for success given her poor results in her last 2 hospitalizations. She denied any side effects to medications. Mental Status Exam 2 MSE Comments: This is a overweight white [place]ag[place] born female in hospital scrubs with limited grooming and eye contact with a rachelle complexion. No abnormal movements. She was cooperative with exam in mild distress. Speech was slightly decreased rate and volume with a subtle hint of [place]ag[place] accent. Mood described as better. Her affect was anxious. Thought process was linear and organized. Thought content: Patient denied active suicidal or homicidal ideation, there were no delusions reported noted, she denied any auditory or visual hallucinations. Attention and concentration were intact and memory appeared mostly reliable but none were formally tested. She is alert and oriented x 3. Insight is impaired and judgment is poor. Her impulse control is poor. Vitals/I&O/Wt Last Vital Signs Temp 98.3 F 12/13/23 12:48 Pulse 80 12/13/23 12:48 Resp 16 12/13/23 12:48 BP 115/78 12/13/23 12:48 Pulse Ox 98 12/13/23 12:48 O2 Del Method Room Air 12/13/23 12:48 Data NPU 12/04/23 12:36 12/04/23 12:36 A&P Assessment and plan (1) Major depressive disorder, recurrent severe without psychotic features: (2) Alcohol withdrawal: (3) Severe alcohol dependence: (4) BETH (generalized anxiety disorder): (5) Suicidal ideation: (6) Alcohol use disorder, moderate, dependence: Plan Patient is a 33-year-old white female with a history of binge drinking admitted while intoxication reporting suicidal ideation with continued problems with mood and anxiety. Continued persistent use of alcohol despite worsening consequences physically and mentally. 1. Therapeutic observation 15-minute checks while on the unit. 2. Engage patient in individual milieu and group therapy 3. Encourage sober living treatment at the highest level of care to which the patient is willing to commit. Referral for dual diagnosis outpatient treatment. 4. Continue Prozac 20mg daily. Consider increase. 5. Filed 21 day hold-patient will require inpatient alcohol treatment. Hearing was today 12/12/2023. 21-day hold granted. 6. [facility] protocol-hx of severe withdrawal symptoms noted Involuntary Hold Information 2 96 Hour Hold: 96 Hour Involuntary Admission: Yes Attestations NPU 2 Medical Necessity Statement*: Inpatient hospitalization is medically necessary and the clinically appropriate intervention at this time. We will monitor medication to make changes as indicated. The patient's likely length of stay 4-7 days. Coding Level of Care Code Acute Code for [facility] Fwd Diagnoses Major depressive disorder, recurrent severe without psychotic features F33.2 Alcohol withdrawal F10.939 Severe alcohol dependence F10.20 BETH (generalized anxiety disorder) F41.1 Suicidal ideation R45.851 Alcohol use disorder, moderate, dependence F10.20
[2023-12-13] MEDS: calcium carbonate 500 mg Chew Tablet 1000 MG PO (15:28)
[2023-12-13 19:16] VITALS: BP 131/84; PULSE 113; RESP 18; TEMP 37.2; O2SAT 95
[2023-12-13] MEDS: trazodone 150 mg Tablet PO (20:04)
[2023-12-14 06:00] VITALS: BP 127/82; PULSE 96; RESP 18; TEMP 36.7; O2SAT 98
[2023-12-14] MEDS: ACAMPROSATE 333 MG 666 EACH PO ×3 (07:40→17:22)
[2023-12-14] MEDS: thiamine 100 mg Tablet PO (08:17)
[2023-12-14] MEDS: multivitamin therapeutic Tablet 1 TAB PO (08:17)
[2023-12-14] MEDS: folic acid 1 mg Tablet PO (08:17)
[2023-12-14] MEDS: fluoxetine 20 mg Capsule PO (08:17)
[2023-12-14] MEDS: apixaban 5 mg Tablet PO ×2 (08:17→17:22)
[2023-12-14] MEDS: amlodipine 10 mg Tablet PO (08:17)
[2023-12-14] MEDS: acetaminophen 325 mg Tablet 650 MG PO (08:30)
[2023-12-14] MEDS: OLANZapine 5 mg ODT PO (08:44)
[2023-12-14] MEDS: nicotine 2 mg Gum BUCCAL ×2 (09:59→16:11)
[2023-12-14] MEDS: calcium carbonate 500 mg Chew Tablet 1000 MG PO ×2 (11:25→21:10)
--- NOTE | 2023-12-14 12:07 | P.NPUPN_ITS ---
Subjective NPU 2 Subjective: Patient presented today reporting that she is doing all right but that she would be doing better she slept better. We discussed the risks, benefits and alternatives of increasing her trazodone at night. She reports that sleeping has been a big issue with her alcohol dependence. She endorses acceptance that she will be going to the inpatient rehab in 6 days. She denies any side effects rations. Mental Status Exam 2 MSE Comments: This is a overweight white [place] born female in hospital scrubs with limited grooming and eye contact with a rachelle complexion. No abnormal movements. She was cooperative with exam in mild distress. Speech was slightly decreased rate and volume with a subtle hint of [place] accent. Mood described as better. Her affect was anxious. Thought process was linear and organized. Thought content: Patient denied active suicidal or homicidal ideation, there were no delusions reported noted, she denied any auditory or visual hallucinations. Attention and concentration were intact and memory appeared mostly reliable but none were formally tested. She is alert and oriented x 3. Insight is impaired and judgment is poor. Her impulse control is poor. Vitals/I&O/Wt Last Vital Signs Temp 98.1 F 12/14/23 06:00 Pulse 96 12/14/23 06:00 Resp 18 12/14/23 06:00 BP 127/82 12/14/23 06:00 Pulse Ox 98 12/14/23 06:00 O2 Del Method Room Air 12/14/23 06:00 Data NPU 12/04/23 12:36 12/04/23 12:36 A&P Assessment and plan (1) Major depressive disorder, recurrent severe without psychotic features: (2) Alcohol withdrawal: (3) Severe alcohol dependence: (4) BETH (generalized anxiety disorder): (5) Suicidal ideation: (6) Alcohol use disorder, moderate, dependence: Plan Patient is a 33-year-old white female with a history of binge drinking admitted while intoxication reporting suicidal ideation with continued problems with mood and anxiety. Continued persistent use of alcohol despite worsening consequences physically and mentally. 1. Therapeutic observation 15-minute checks while on the unit. 2. Engage patient in individual milieu and group therapy 3. Encourage sober living treatment at the highest level of care to which the patient is willing to commit. Referral for dual diagnosis outpatient treatment. 4. Continue Prozac 20mg daily. Consider increase. Increase trazodone at night. 5. Filed 21 day hold-patient will require inpatient alcohol treatment. Hearing was today 12/12/2023. 21-day hold granted. 6. [facility] protocol-hx of severe withdrawal symptoms noted Involuntary Hold Information 2 96 Hour Hold: 96 Hour Involuntary Admission: Yes Attestations NPU 2 Medical Necessity Statement*: Inpatient hospitalization is medically necessary and the clinically appropriate intervention at this time. We will monitor medication to make changes as indicated. The patient's likely length of stay 6 days. Coding Level of Care Code Acute Code for g Fwd Diagnoses Major depressive disorder, recurrent severe without psychotic features F33.2 Alcohol withdrawal F10.939 Severe alcohol dependence F10.20 BETH (generalized anxiety disorder) F41.1 Suicidal ideation R45.851 Alcohol use disorder, moderate, dependence F10.20
[2023-12-14] MEDS: benztropine 1 mg Tablet PO (12:55)
[2023-12-14] MEDS: hyDROXYzine 25 mg Capsule 50 MG PO (12:55)
[2023-12-14 13:20] VITALS: BP 124/77; PULSE 86; RESP 16; TEMP 37; O2SAT 97
[2023-12-14] MEDS: benzocaine 20% 7 gm 1 APPLIC MUCOUS MEM (17:28)
[2023-12-14] MEDS: trazodone 150 mg Tablet PO (20:19)
[2023-12-14 20:45] VITALS: BP 119/79; PULSE 78; RESP 16; TEMP 36.8; O2SAT 97
[2023-12-14] MEDS: trazodone 100 mg Tablet PO (21:46)
[2023-12-15] MEDS: acetaminophen 325 mg Tablet 650 MG PO ×2 (04:17→08:58)
[2023-12-15] MEDS: hyDROXYzine 25 mg Capsule 50 MG PO (05:08)
[2023-12-15 06:00] VITALS: BP 127/84; PULSE 97; RESP 18; TEMP 37.1; O2SAT 97
[2023-12-15] MEDS: fluoxetine 20 mg Capsule PO (08:02)
[2023-12-15] MEDS: folic acid 1 mg Tablet PO (08:02)
[2023-12-15] MEDS: ACAMPROSATE 333 MG 666 EACH PO ×3 (08:02→17:17)
[2023-12-15] MEDS: thiamine 100 mg Tablet PO (08:02)
[2023-12-15] MEDS: amlodipine 10 mg Tablet PO (08:02)
[2023-12-15] MEDS: apixaban 5 mg Tablet PO ×2 (08:02→17:17)
[2023-12-15] MEDS: multivitamin therapeutic Tablet 1 TAB PO (08:02)
[2023-12-15] MEDS: nicotine 2 mg Gum BUCCAL ×2 (08:02→14:58)
[2023-12-15] MEDS: benztropine 1 mg Tablet PO (08:02)
[2023-12-15] MEDS: OLANZapine 5 mg ODT PO (09:33)
--- NOTE | 2023-12-15 09:34 | PC.NURSE ---
Patient anxious, ratesanxiety 11/07. administerd zyprexa 5mg ODT.
[2023-12-15] MEDS: calcium carbonate 500 mg Chew Tablet 1000 MG PO (09:36)
--- NOTE | 2023-12-15 09:59 | PC.NURSE ---
Patient reports anxiety during assessment, 11/07. Patient denies any specific cause. Patient cooperative. denies SI, HI, AVH.
--- NOTE | 2023-12-15 13:57 | P.NPUPN_ITS ---
Subjective NPU 2 Subjective: Patient presented today reporting that she is doing fine. She was once again lobbying for discharge to spend time with her kids. We discussed the fact that her not going directly to rehab was a great risk. We did discuss the possibility of having her kids come here for a visit prior to going to rehab. Otherwise she denied any other issues and reported that the increase in her trazodone at night was effective. She denied any side effects or medication. Mental Status Exam 2 MSE Comments: This is a overweight white [place] born female in hospital scrubs with limited grooming and eye contact with a rachelle complexion. No abnormal movements. She was cooperative with exam in mild distress. Speech was slightly decreased rate and volume with a subtle hint of [place] accent. Mood described as better. Her affect was anxious. Thought process was linear and organized. Thought content: Patient denied active suicidal or homicidal ideation, there were no delusions reported noted, she denied any auditory or visual hallucinations. Attention and concentration were intact and memory appeared mostly reliable but none were formally tested. She is alert and oriented x 3. Insight is impaired and judgment is poor. Her impulse control is poor. Vitals/I&O/Wt Last Vital Signs Temp 98.8 F 12/15/23 06:00 Pulse 97 12/15/23 06:00 Resp 18 12/15/23 06:00 BP 127/84 12/15/23 06:00 Pulse Ox 97 12/15/23 06:00 O2 Del Method Room Air 12/15/23 06:00 Data NPU 12/04/23 12:36 12/04/23 12:36 A&P Assessment and plan (1) Major depressive disorder, recurrent severe without psychotic features: (2) Alcohol withdrawal: (3) Severe alcohol dependence: (4) BETH (generalized anxiety disorder): (5) Suicidal ideation: (6) Alcohol use disorder, moderate, dependence: Plan Patient is a 33-year-old white female with a history of binge drinking admitted while intoxication reporting suicidal ideation with continued problems with mood and anxiety. Continued persistent use of alcohol despite worsening consequences physically and mentally. 1. Therapeutic observation 15-minute checks while on the unit. 2. Engage patient in individual milieu and group therapy 3. Encourage sober living treatment at the highest level of care to which the patient is willing to commit. Referral for dual diagnosis outpatient treatment. 4. Continue Prozac 20mg daily. Consider increase. Increased trazodone at night. 5. Filed 21 day hold-patient will require inpatient alcohol treatment. Hearing was today 12/12/2023. 21-day hold granted. 6. [facility] protocol-hx of severe withdrawal symptoms noted Involuntary Hold Information 2 96 Hour Hold: 96 Hour Involuntary Admission: Yes Attestations NPU 2 Medical Necessity Statement*: Inpatient hospitalization is medically necessary and the clinically appropriate intervention at this time. We will monitor medication to make changes as indicated. The patient's likely length of stay 5 days. Coding Level of Care Code Acute Code for Chg Fwd Diagnoses Major depressive disorder, recurrent severe without psychotic features F33.2 Alcohol withdrawal F10.939 Severe alcohol dependence F10.20 BETH (generalized anxiety disorder) F41.1 Suicidal ideation R45.851 Alcohol use disorder, moderate, dependence F10.20
[2023-12-15 14:00] VITALS: BP 122/74; PULSE 108; RESP 16; TEMP 36.6; O2SAT 97
[2023-12-15] MEDS: benzocaine 20% 7 gm 1 APPLIC MUCOUS MEM (18:25)
--- NOTE | 2023-12-15 18:26 | PC.NURSE ---
room searched by staff for contraband. nothing found
[2023-12-15] MEDS: trazodone 100 mg Tablet 250 MG PO (20:08)
[2023-12-15 21:11] VITALS: BP 125/85; PULSE 86; RESP 18; TEMP 36.8; O2SAT 99
[2023-12-16] MEDS: hyDROXYzine 25 mg Capsule 50 MG PO ×2 (02:57→14:27)
--- NOTE | 2023-12-16 02:58 | PC.NURSE ---
PATIENT CAME TO DESK REQUESTING ANXIETY MED, VISTARIL 50MG GIVEN.
--- NOTE | 2023-12-16 05:43 | P.NPUPN_ITS ---
Subjective NPU 2 Subjective: Patient presented today reporting that she is doing okay. She reports that the increased trazodone well and. We discussed continued. We discussed working with the social work team and administration on Monday to allow him to visit with her children prior to going to rehab. She reports that if she is able to do that she will feel a lot more optimistic about going to the rehab. She denies any side effects to medication. Mental Status Exam 2 MSE Comments: This is a overweight white [place] born female in hospital scrubs with limited grooming and eye contact with a rachelle complexion. No abnormal movements. She was cooperative with exam in mild distress. Speech was slightly decreased rate and volume with a subtle hint of [place] accent. Mood described as better. Her affect was anxious. Thought process was linear and organized. Thought content: Patient denied active suicidal or homicidal ideation, there were no delusions reported noted, she denied any auditory or visual hallucinations. Attention and concentration were intact and memory appeared mostly reliable but none were formally tested. She is alert and oriented x 3. Insight is impaired and judgment is poor. Her impulse control is poor. Vitals/I&O/Wt Last Vital Signs Temp 98.3 F 12/16/23 13:46 Pulse 88 12/16/23 13:46 Resp 16 12/16/23 13:46 BP 127/78 12/16/23 13:46 Pulse Ox 96 12/16/23 13:46 O2 Del Method Room Air 12/16/23 13:46 Weight last 48 hrs Weight 72.121 kg Data NPU 12/04/23 12:36 12/04/23 12:36 A&P Assessment and plan (1) Major depressive disorder, recurrent severe without psychotic features: (2) Alcohol withdrawal: (3) Severe alcohol dependence: (4) BETH (generalized anxiety disorder): (5) Suicidal ideation: (6) Alcohol use disorder, moderate, dependence: Plan Patient is a 33-year-old white female with a history of binge drinking admitted while intoxication reporting suicidal ideation with continued problems with mood and anxiety. Continued persistent use of alcohol despite worsening consequences physically and mentally. 1. Therapeutic observation 15-minute checks while on the unit. 2. Engage patient in individual milieu and group therapy 3. Encourage sober living treatment at the highest level of care to which the patient is willing to commit. Referral for dual diagnosis outpatient treatment. Bed date at [facility] 12/20/2023. 4. Continue Prozac 20mg daily. Consider increase. Increased trazodone at night. 5. Filed 21 day hold-patient will require inpatient alcohol treatment. Hearing was today 12/12/2023. 21-day hold granted. 6. [facility] protocol-hx of severe withdrawal symptoms noted Involuntary Hold Information 2 96 Hour Hold: 96 Hour Involuntary Admission: Yes Attestations NPU 2 Medical Necessity Statement*: Inpatient hospitalization is medically necessary and the clinically appropriate intervention at this time. We will monitor medication to make changes as indicated. The patient's likely length of stay 4 days. Coding Level of Care Code Acute Code for [facility] Fwd Diagnoses Major depressive disorder, recurrent severe without psychotic features F33.2 Alcohol withdrawal F10.939 Severe alcohol dependence F10.20 BETH (generalized anxiety disorder) F41.1 Suicidal ideation R45.851 Alcohol use disorder, moderate, dependence F10.20
[2023-12-16 06:00] VITALS: BP 113/73; PULSE 75; RESP 16; TEMP 36.9; O2SAT 97
[2023-12-16] MEDS: apixaban 5 mg Tablet PO ×2 (07:55→17:41)
[2023-12-16] MEDS: folic acid 1 mg Tablet PO (07:55)
[2023-12-16] MEDS: thiamine 100 mg Tablet PO (07:55)
[2023-12-16] MEDS: amlodipine 10 mg Tablet PO (07:55)
[2023-12-16] MEDS: multivitamin therapeutic Tablet 1 TAB PO (07:55)
[2023-12-16] MEDS: ACAMPROSATE 333 MG 666 EACH PO ×3 (07:55→17:41)
[2023-12-16] MEDS: fluoxetine 20 mg Capsule PO (07:55)
[2023-12-16] MEDS: nicotine 2 mg Gum BUCCAL ×2 (08:23→14:38)
[2023-12-16 13:46] VITALS: BP 127/78; PULSE 88; RESP 16; TEMP 36.8; O2SAT 96
[2023-12-16] MEDS: OLANZapine 5 mg ODT PO (16:37)
[2023-12-16] MEDS: trazodone 100 mg Tablet 250 MG PO (20:05)
[2023-12-16 20:37] VITALS: BP 118/79; PULSE 104; RESP 16; TEMP 36.6; O2SAT 96
[2023-12-17 06:00] VITALS: BP 111/70; PULSE 85; RESP 16; TEMP 36.9; O2SAT 97
[2023-12-17] MEDS: amlodipine 10 mg Tablet PO (08:05)
[2023-12-17] MEDS: fluoxetine 20 mg Capsule PO (08:05)
[2023-12-17] MEDS: thiamine 100 mg Tablet PO (08:05)
[2023-12-17] MEDS: multivitamin therapeutic Tablet 1 TAB PO (08:05)
[2023-12-17] MEDS: apixaban 5 mg Tablet PO ×2 (08:05→17:21)
[2023-12-17] MEDS: folic acid 1 mg Tablet PO (08:05)
[2023-12-17] MEDS: ACAMPROSATE 333 MG 666 EACH PO ×3 (08:06→17:21)
[2023-12-17] MEDS: hyDROXYzine 25 mg Capsule 50 MG PO ×2 (08:40→20:46)
[2023-12-17] MEDS: acetaminophen 325 mg Tablet 650 MG PO (08:46)
[2023-12-17] MEDS: nicotine 2 mg Gum BUCCAL ×2 (09:12→19:18)
[2023-12-17] MEDS: OLANZapine 5 mg ODT PO (11:17)
[2023-12-17 13:07] VITALS: BP 125/83; PULSE 102; RESP 16; TEMP 36.6; O2SAT 96
--- NOTE | 2023-12-17 13:49 | W.PM.NPUPNS ---
Subjective NPU Subjective: Patient presented today reporting that she is doing okay. We discussed having her children come by in the next couple days prior to her going to rehab. Will work with administration to accomplish this. Otherwise she reports she is doing fine on the medication and sleeping well since we increased her trazodone. She denied any side effects or medications. Mental Status Exam MSE Comments: This is a overweight white [place] born female in hospital scrubs with limited grooming and eye contact with a rachelle complexion. No abnormal movements. She was cooperative with exam in mild distress. Speech was slightly decreased rate and volume with a subtle hint of [place] accent. Mood described as better. Her affect was anxious. Thought process was linear and organized. Thought content: Patient denied active suicidal or homicidal ideation, there were no delusions reported noted, she denied any auditory or visual hallucinations. Attention and concentration were intact and memory appeared mostly reliable but none were formally tested. She is alert and oriented x 3. Insight is impaired and judgment is poor. Her impulse control is poor. Vitals/I&O/Wt Last Vital Signs Temp 98 F 12/17/23 13:07 Pulse 102 H 12/17/23 13:07 Resp 16 12/17/23 13:07 BP 125/83 12/17/23 13:07 Pulse Ox 96 12/17/23 13:07 O2 Del Method Room Air 12/17/23 13:07 Weight last 48 hrs Weight 72.121 kg Data NPU 12/04/23 12:36 12/04/23 12:36 A&P Assessment and plan (1) Major depressive disorder, recurrent severe without psychotic features: (2) Alcohol withdrawal: (3) Severe alcohol dependence: (4) BETH (generalized anxiety disorder): (5) Suicidal ideation: (6) Alcohol use disorder, moderate, dependence: Plan Patient is a 33-year-old white female with a history of binge drinking admitted while intoxication reporting suicidal ideation with continued problems with mood and anxiety. Continued persistent use of alcohol despite worsening consequences physically and mentally. 1. Therapeutic observation 15-minute checks while on the unit. 2. Engage patient in individual milieu and group therapy 3. Encourage sober living treatment at the highest level of care to which the patient is willing to commit. Referral for dual diagnosis outpatient treatment. Bed date at [facility] 12/20/2023. 4. Continue Prozac 20mg daily. Consider increase. Increased trazodone at night. 5. Filed 21 day hold-patient will require inpatient alcohol treatment. Hearing was today 12/12/2023. 21-day hold granted. 6. [facility] protocol-hx of severe withdrawal symptoms noted Involuntary Hold Information 96 Hour Hold: 96 Hour Involuntary Admission: Yes Attestations NPU Medical Necessity Statement*: Inpatient hospitalization is medically necessary and the clinically appropriate intervention at this time. We will monitor medication to make changes as indicated. The patient's likely length of stay 3 days. Coding Level of Care Code Acute Code for g Fwd Diagnoses Major depressive disorder, recurrent severe without psychotic features F33.2 Alcohol withdrawal F10.939 Severe alcohol dependence F10.20 BETH (generalized anxiety disorder) F41.1 Suicidal ideation R45.851 Alcohol use disorder, moderate, dependence F10.20
[2023-12-17] MEDS: trazodone 100 mg Tablet 250 MG PO (20:05)
[2023-12-17 20:29] VITALS: BP 118/75; PULSE 102; RESP 18; TEMP 36.8; O2SAT 98
[2023-12-18 06:00] VITALS: BP 126/80; PULSE 73; RESP 16; TEMP 36.8; O2SAT 97
[2023-12-18] MEDS: nicotine 2 mg Gum BUCCAL ×2 (07:56→10:10)
[2023-12-18] MEDS: fluoxetine 20 mg Capsule PO (07:56)
[2023-12-18] MEDS: thiamine 100 mg Tablet PO (07:57)
[2023-12-18] MEDS: multivitamin therapeutic Tablet 1 TAB PO (07:57)
[2023-12-18] MEDS: amlodipine 10 mg Tablet PO (07:57)
[2023-12-18] MEDS: apixaban 5 mg Tablet PO ×2 (07:57→17:44)
[2023-12-18] MEDS: ACAMPROSATE 333 MG 666 EACH PO ×3 (07:57→17:44)
[2023-12-18] MEDS: folic acid 1 mg Tablet PO (07:57)
[2023-12-18] MEDS: hyDROXYzine 25 mg Capsule 50 MG PO ×2 (12:57→20:02)
[2023-12-18] MEDS: acetaminophen 325 mg Tablet 650 MG PO (13:14)
[2023-12-18 13:43] VITALS: BP 119/73; PULSE 87; RESP 16; TEMP 37.1; O2SAT 96
[2023-12-18 19:09] VITALS: BP 132/85; PULSE 82; RESP 16; TEMP 37.3; O2SAT 98
[2023-12-18] MEDS: trazodone 100 mg Tablet 250 MG PO (20:00)
--- NOTE | 2023-12-18 20:41 | P.NPUPN_ITS ---
Subjective NPU 2 Subjective: Patient presented today reporting that she is gearing up to going to [facility]. We discussed her seeing her children tomorrow at some point here at the hospital. She denied any issues with her medications but does report having some back pain and we discussed some kind of pain relief cream if it is carried at the hospital. She denied any side effects to her medication and endorsed optimism about her recovery. Mental Status Exam 2 MSE Comments: This is a overweight white [place] born female in hospital scrubs with limited grooming and eye contact with a rachelle complexion. No abnormal movements. She was cooperative with exam in mild distress. Speech was slightly decreased rate and volume with a subtle hint of [place] accent. Mood described as better. Her affect was anxious. Thought process was linear and organized. Thought content: Patient denied active suicidal or homicidal ideation, there were no delusions reported noted, she denied any auditory or visual hallucinations. Attention and concentration were intact and memory appeared mostly reliable but none were formally tested. She is alert and oriented x 3. Insight is impaired and judgment is poor. Her impulse control is poor. Vitals/I&O/Wt Last Vital Signs Temp 99.2 F 12/18/23 19:09 Pulse 82 12/18/23 19:09 Resp 16 12/18/23 19:09 BP 132/85 12/18/23 19:09 Pulse Ox 98 12/18/23 19:09 O2 Del Method Room Air 12/18/23 19:09 Weight last 48 hrs Weight 72.121 kg Data NPU 12/04/23 12:36 12/04/23 12:36 A&P Assessment and plan (1) Major depressive disorder, recurrent severe without psychotic features: (2) Alcohol withdrawal: (3) Severe alcohol dependence: (4) BETH (generalized anxiety disorder): (5) Suicidal ideation: (6) Alcohol use disorder, moderate, dependence: Plan Patient is a 33-year-old white female with a history of binge drinking admitted while intoxication reporting suicidal ideation with continued problems with mood and anxiety. Continued persistent use of alcohol despite worsening consequences physically and mentally. 1. Therapeutic observation 15-minute checks while on the unit. 2. Engage patient in individual milieu and group therapy 3. Encourage sober living treatment at the highest level of care to which the patient is willing to commit. Referral for dual diagnosis outpatient treatment. Bed date at [facility] 12/20/2023. 4. Continue Prozac 20mg daily. Consider increase. Increased trazodone at night. 5. Filed 21 day hold-patient will require inpatient alcohol treatment. Hearing was today 12/12/2023. 21-day hold granted. 6. [facility] protocol-hx of severe withdrawal symptoms noted Involuntary Hold Information 2 96 Hour Hold: 96 Hour Involuntary Admission: Yes Attestations NPU 2 Medical Necessity Statement*: Inpatient hospitalization is medically necessary and the clinically appropriate intervention at this time. We will monitor medication to make changes as indicated. The patient's likely length of stay 2 days. Coding Level of Care Code Acute Code for g Fwd Diagnoses Major depressive disorder, recurrent severe without psychotic features F33.2 Alcohol withdrawal F10.939 Severe alcohol dependence F10.20 BETH (generalized anxiety disorder) F41.1 Suicidal ideation R45.851 Alcohol use disorder, moderate, dependence F10.20
[2023-12-19 06:00] VITALS: BP 124/81; PULSE 89; RESP 18; TEMP 37.2; O2SAT 96
[2023-12-19] MEDS: ACAMPROSATE 333 MG 666 EACH PO ×3 (07:43→17:59)
[2023-12-19] MEDS: amlodipine 10 mg Tablet PO (07:44)
[2023-12-19] MEDS: thiamine 100 mg Tablet PO (07:44)
[2023-12-19] MEDS: multivitamin therapeutic Tablet 1 TAB PO (07:44)
[2023-12-19] MEDS: apixaban 5 mg Tablet PO ×2 (07:44→17:59)
[2023-12-19] MEDS: folic acid 1 mg Tablet PO (07:45)
[2023-12-19] MEDS: fluoxetine 20 mg Capsule PO (07:45)
[2023-12-19] MEDS: acetaminophen 325 mg Tablet 650 MG PO (08:01)
[2023-12-19] MEDS: hyDROXYzine 25 mg Capsule 50 MG PO ×2 (08:29→15:09)
[2023-12-19] MEDS: OLANZapine 5 mg ODT PO ×2 (12:55→19:36)
[2023-12-19 14:00] VITALS: BP 118/72; PULSE 125; RESP 17; TEMP 37.3; O2SAT 97
[2023-12-19] MEDS: diclofenac 1% Topical Gel 100 gm 1 APPLIC TOPICAL ×2 (15:38→18:27)
[2023-12-19] MEDS: benzocaine 20% 7 gm 1 APPLIC MUCOUS MEM (17:59)
[2023-12-19 19:07] VITALS: BP 128/84; PULSE 87; RESP 18; TEMP 37.1; O2SAT 97
[2023-12-19] MEDS: trazodone 100 mg Tablet 250 MG PO (19:59)
--- NOTE | 2023-12-19 21:28 | P.NPUPN_ITS ---
Subjective NPU 2 Subjective: Patient presented today reporting that she is doing fine. She was very excited about her visit with her 4 children which she did only thought she might see the younger 2. She reports being ready to move forward with her treatment and continue onto [facility] for her inpatient rehab. She denied any problems with her medications and reports ready for discharge. Mental Status Exam 2 MSE Comments: This is a overweight white [place] born female in hospital scrubs with limited grooming and eye contact with a rachelle complexion. No abnormal movements. She was cooperative with exam in mild distress. Speech was slightly decreased rate and volume with a subtle hint of [place] accent. Mood described as better. Her affect was less anxious. Thought process was linear and organized. Thought content: Patient denied active suicidal or homicidal ideation, there were no delusions reported noted, she denied any auditory or visual hallucinations. Attention and concentration were intact and memory appeared mostly reliable but none were formally tested. She is alert and oriented x 3. Insight is impaired and judgment is poor. Her impulse control is poor. Vitals/I&O/Wt Last Vital Signs Temp 98.7 F 12/19/23 19:07 Pulse 87 12/19/23 19:07 Resp 18 12/19/23 19:07 BP 128/84 12/19/23 19:07 Pulse Ox 97 12/19/23 19:07 O2 Del Method Room Air 12/19/23 19:07 Data NPU 12/04/23 12:36 12/04/23 12:36 A&P Assessment and plan (1) Major depressive disorder, recurrent severe without psychotic features: (2) Alcohol withdrawal: (3) Severe alcohol dependence: (4) BETH (generalized anxiety disorder): (5) Suicidal ideation: (6) Alcohol use disorder, moderate, dependence: Plan Patient is a 33-year-old white female with a history of binge drinking admitted while intoxication reporting suicidal ideation with continued problems with mood and anxiety. Continued persistent use of alcohol despite worsening consequences physically and mentally. 1. Therapeutic observation 15-minute checks while on the unit. 2. Engage patient in individual milieu and group therapy 3. Encourage sober living treatment at the highest level of care to which the patient is willing to commit. Referral for dual diagnosis outpatient treatment. Bed date at [facility] 12/20/2023. 4. Continue Prozac 20mg daily. Consider increase. Increased trazodone at night. 5. Filed 21 day hold-patient will require inpatient alcohol treatment. Hearing was today 12/12/2023. 21-day hold granted. 6. [facility] protocol-hx of severe withdrawal symptoms noted Involuntary Hold Information 2 96 Hour Hold: 96 Hour Involuntary Admission: Yes Attestations NPU 2 Medical Necessity Statement*: Inpatient hospitalization is medically necessary and the clinically appropriate intervention at this time. We will monitor medication to make changes as indicated. The patient's likely length of stay 1 day. Coding Level of Care Code Acute Code for g Fwd Diagnoses Major depressive disorder, recurrent severe without psychotic features F33.2 Alcohol withdrawal F10.939 Severe alcohol dependence F10.20 BETH (generalized anxiety disorder) F41.1 Suicidal ideation R45.851 Alcohol use disorder, moderate, dependence F10.20
[2023-12-20] MEDS: hyDROXYzine 25 mg Capsule 50 MG PO (05:25)
[2023-12-20 06:00] VITALS: BP 111/64; PULSE 105; RESP 16; TEMP 36.8; O2SAT 96
[2023-12-20] MEDS: thiamine 100 mg Tablet PO (08:31)
[2023-12-20] MEDS: multivitamin therapeutic Tablet 1 TAB PO (08:31)
[2023-12-20] MEDS: apixaban 5 mg Tablet PO (08:31)
[2023-12-20] MEDS: folic acid 1 mg Tablet PO (08:31)
[2023-12-20] MEDS: fluoxetine 20 mg Capsule PO (08:31)
[2023-12-20] MEDS: amlodipine 10 mg Tablet PO (08:31)
[2023-12-20] MEDS: ACAMPROSATE 333 MG 666 EACH PO (08:31)
[2023-12-20] MEDS: diclofenac 1% Topical Gel 100 gm 1 APPLIC TOPICAL (08:31)
--- NOTE | 2023-12-20 09:18 | W.PM.NPUDCS ---
Diagnoses at Discharge Discharge Diagnosis (1) Major depressive disorder, recurrent severe without psychotic features: Status: Chronic (2) Alcohol withdrawal: Status: Resolved (3) Severe alcohol dependence: Status: Acute (4) BETH (generalized anxiety disorder): Status: Chronic (5) Suicidal ideation: Status: Resolved (6) Alcohol use disorder, moderate, dependence: Status: Inactive Reason for Visit Reason for Visit: si Involuntary Hold Information 96 Hour Hold: 96 Hour Involuntary Admission: Yes Mental Status Exam MSE Comments: This is a overweight white [place] born female in hospital scrubs with limited grooming and eye contact with a rachelle complexion. No abnormal movements. She was cooperative with exam in mild distress. Speech was slightly decreased rate and volume with a subtle hint of [place] accent. Mood described as better. Her affect was less anxious. Thought process was linear and organized. Thought content: Patient denied active suicidal or homicidal ideation, there were no delusions reported noted, she denied any auditory or visual hallucinations. Attention and concentration were intact and memory appeared mostly reliable but none were formally tested. She is alert and oriented x 3. Insight is impaired and judgment is poor. Her impulse control is poor. Discharge Data Studies Completed and Pending: Laboratory Results WBC 8.07 10^3/uL (3.2 9-11.43) 12/04/23 12:36 RBC 4.67 10^6/uL (3.8 5-5.65) 12/04/23 12:36 Hgb 15.30 g/dL (11.27 -16.99) 12/04/23 12:36 Hct 49.0 % (36-47) H 12/04/23 12:36 MCV 104.9 fl (85-98) H 12/04/23 12:36 MCH 32.8 pg (27-33) 12/04/23 12:36 MCHC 31.2 g/dL (30-55) 12/04/23 12:36 RDW 13.9 % (12.1-15.1 ) 12/04/23 12:36 Plt Count 347 10^3/cmm (157 -399) 12/04/23 12:36 MPV 8.9 fL (7.4-10.4) 12/04/23 12:36 Neut % (Auto) 39.3 % 12/04/23 12:36 Lymph % (Auto) 49.6 % 12/04/23 12:36 [place] % (Auto) 7.7 % 12/04/23 12:36 Eos % (Auto) 0.9 % 12/04/23 12:36 Baso % (Auto) 2.4 % 12/04/23 12:36 Neut # (Auto) 3.18 10^3/uL (1.8 -7.7) 12/04/23 12:36 Lymph # (Auto) 4.0 10^3/uL (0.8- 4.8) 12/04/23 12:36 [place] # (Auto) 0.6 10^3/uL (0.2- 0.9) 12/04/23 12:36 Eos # (Auto) 0.1 10^3/uL (0.0- 0.8) 12/04/23 12:36 Baso # (Auto) 0.2 10^3/uL (0.0- 0.1) H 12/04/23 12:36 Nucleated RBC % (a uto) 0 % 12/04/23 12:36 Nucleated RBCs # 0.0 /100WBC 12/04/23 12:36 Sodium 135 mmol/L (136-1 45) L 12/04/23 12:36 Potassium 3.2 mmol/L (3.5-5 .1) L 12/04/23 12:36 Chloride 95 mmol/L (98-107 ) L 12/04/23 12:36 Carbon Dioxide 19 mmol/L (22-29) L 12/04/23 12:36 Anion Gap 24.2 (5-19) H 12/04/23 12:36 BUN 4 mg/dL (6-20) L 12/04/23 12:36 Creatinine 0.7 mg/dL (0.5-0. 9) 12/04/23 12:36 GFR Calculation 97.6 mL/min (90-1 30) 12/04/23 12:36 Glucose 137 mg/dL (65-115 ) H 12/04/23 12:36 Calculated Osmolal ity 279 mOsm/kg (285- 295) L 12/04/23 12:36 Calcium 9.4 mg/dL (8.5-10 .5) 12/04/23 12:36 Total Bilirubin 0.5 mg/dL (0.15-1 .2) 12/04/23 12:36 AST 261 U/L (0-32) H 12/04/23 12:36 ALT 99 U/L (0-33) H 12/04/23 12:36 Alkaline Phosphata se 230 U/L (35-105) H 12/04/23 12:36 Total Protein 8.7 g/dL (6.6-8.7 ) 12/04/23 12:36 Albumin 4.7 g/dL (3.5-5.2 ) 12/04/23 12:36 Globulin 4.0 g/dL (1.3-4.6 ) 12/04/23 12:36 HCG, Qual Negative (Negati ve) 12/04/23 12:36 Salicylates < 0.3 mg/dL (3-10 ) L 12/04/23 12:36 Urine Opiates Scre en Negative ng/mL (N egative) 12/04/23 13:04 Acetaminophen < 5.0 ug/mL (10-3 0) L 12/04/23 12:36 Ur Barbiturates Sc reen Negative ng/mL (N egative) 12/04/23 13:04 Ur Phencyclidine S crn Negative ng/mL (N egative) 12/04/23 13:04 Ur Amphetamines Sc reen Negative ng/mL (N egative) 12/04/23 13:04 U Benzodiazepines Scrn Negative ng/mL (N egative) 12/04/23 13:04 Urine Cocaine Scre en Negative ng/mL (N egative) 12/04/23 13:04 U Marijuana (THC) Screen Negative ng/mL (N egative) 12/04/23 13:04 Ethyl Alcohol 339 mg/dL (0-10) H* 12/04/23 17:35 Vitals: Last Vital Signs Temp 98.2 F 12/20/23 06:00 Pulse 105 H 12/20/23 06:00 Resp 16 12/20/23 06:00 BP 111/64 12/20/23 06:00 Pulse Ox 96 12/20/23 06:00 O2 Del Method Room Air 12/20/23 06:00 Discharge Plan Discharge Patient Disposition: Home Condition: Stable Prescriptions: New trazodone 100 mg Tablet 250 mg PO BEDTIME PRN (Reason: sleep) 30 Days Qty: 75 1RF fluoxetine 20 mg Capsule 20 mg PO DAILY 30 Days Qty: 30 1RF hydroxyzine pamoate 25 mg Capsule 50 mg PO Q6H PRN (Reason: Anxiety) 30 Days Qty: 120 1RF Vitamin B-1 (mononitrate) 100 mg Tablet 100 mg PO DAILY 30 Days Qty: 30 1RF Continued amlodipine 10 mg tablet 10 mg PO DAILY 30 Days Qty: 30 1RF pantoprazole 40 mg tablet,delayed release (DR/EC) 40 mg PO DAILY 30 Days Qty: 30 1RF acamprosate 333 mg tablet,delayed release (DR/EC) 666 mg PO TIDWMEAL Qty: 180 1RF Eliquis 5 mg tablet 5 mg PO BID 30 Days Qty: 60 1RF Discontinued clonidine HCl 0.1 mg tablet 0.1 mg PO BID PRN (Reason: alcohol withdrawal/anxiety) Qty: 60 3RF trazodone 150 mg tablet 150 mg PO BEDTIME PRN (Reason: sleep) Qty: 30 3RF ondansetron 4 mg tablet,disintegrating 4 mg PO Q8H PRN (Reason: nausea and vomiting) Qty: 14 0RF sucralfate 1 gram tablet 1 g PO TID Discharge Orders: Discharge Order (Routine); Ordered 12/20/23 Ordered By: Quan Alicea Referrals: [facility] [Other] - 12/20/23 11:00 am (Admission day. ) Rafaela Bach, PMHNP [Staff Physician] - 12/21/23 11:00 am (One time hospital follow up safety appointment with Zenia Aguilar.) Nick Phillip MD [Primary Care Provider] - Discharge Diet: Regular Discharge Activity: Resume usual activity Patient Instructions: Opioid Safety Discharge Attestations NPU Time Spent in Discharge Care*: less than 30 min Specific Discharge Activities: Specific discharge activities: educating patient, discussing with manager case/social workers/dc planners, documenting/other paperwork and evaluating patient/reviewing data Coding Level of Care Code Acute Code for Chg Fwd Diagnoses Major depressive disorder, recurrent severe without psychotic features F33.2 Alcohol withdrawal F10.939 Severe alcohol dependence F10.20 BETH (generalized anxiety disorder) F41.1 Suicidal ideation R45.851 Alcohol use disorder, moderate, dependence F10.20
[2023-12-20 09:28] VITALS: BP 111/64; PULSE 105; RESP 16; TEMP 36.8; O2SAT 96
== END 2023-12-20 10:25 | disposition home or self-care (01) | DRG 897 ==
LOC: ER 15:45 → NP 16:48
PROVIDERS: Admitting Provider Psychiatry & Neurology Psychiatry; Emergency Provider Emergency Medicine; PCP Family Medicine; Visit Provider Psychiatry & Neurology Psychiatry
DX: F10.229 Alcohol dependence with intoxication, unspecified (principal); F33.2 Major depressive disorder, recurrent severe without psychotic features; R45.851 Suicidal ideations; Y90.8 Blood alcohol level of 240 mg/100 ml or more; F41.1 Generalized anxiety disorder; F17.200 Nicotine dependence, unspecified, uncomplicated; F10.239 Alcohol dependence with withdrawal, unspecified; Z63.79 Other stressful life events affecting family and household
CPT/HCPCS: 36415; 80053; 80306; 80307; 84703; 85025; 96372; 97150; 97165; 99285; J1630; J2060; J3411; Q0162

== ENCOUNTER 2025-03-26 09:44 | Emergency (ER) | payer MEDICAID, SELFPAY ==
[2025-03-26 09:47] VITALS: BP 119/59; PULSE 80; TEMP 36.8; O2SAT 100; BMI 28.3
--- NOTE | 2025-03-26 09:49 | XRR_ITS ---
PROCEDURE INFORMATION: Exam: XR Left Knee Exam date and time: 03/26/2025 10:54 AM Age: 34 years old Clinical indication: Left; Lt knee pain TECHNIQUE: Imaging protocol: Radiologic exam of the left knee. Views: 3 views. COMPARISON: No relevant prior studies available. FINDINGS: Bones/joints: Normal. Soft tissues: Normal. XR/XR knee LT 3V* [id number] IMPRESSION: No acute findings.
--- OUTSIDE RECORDS SUMMARY | 2025-03-26 09:56 | XMS_ITS | Clinical Summary ---
Author Organization [facility] Address [address] [place]: Epic Prelude ADT [place] [address] Care Team Providers Care Bond Trader Name Role Phone Eloise Powers MD Primary Care Provider [phone] Allergies No known active allergies Medications apixaban (Eliquis) 5 mg tablet Take by mouth 2 times daily. Active amLODIPine (NORVASC) 10 mg tablet Take 1 Tablet by mouth daily. 03/03/2024 Active cloNIDine HCL (CATAPRES) 0.1 mg tablet Take 1 Tablet by mouth daily. 03/10/2024 Active FLUoxetine (PROzac) 20 mg capsule Take 20 mg by mouth daily in the morning. 03/10/2024 Active hydrOXYzine pamoate (VISTARIL) 25 mg capsule TAKE 2 CAPSULES BY MOUTH EVERY 6 HOURS NEEDED FOR ANXIETY FOR 30 DAYS 02/26/2024 Active mirtazapine (REMERON) 30 mg tablet Take 30 mg by mouth daily at bedtime. 02/29/2024 Active docusate sodium (COLACE) 100 mg capsule Take 100 mg by mouth 2 times daily. 10/02/2021 Active naltrexone (DEPADE) 50 mg tablet Take 50 mg by mouth daily in the morning. 02/05/2024 Active pantoprazole (PROTONIX) 40 mg Tablet, Delayed Release (E.C.) Take 1 Tablet by mouth daily. 03/07/2024 Active thiamine (VITAMIN B-1) 100 mg tablet Take 1 Tablet by mouth daily. 02/02/2024 Active traZODone (DESYREL) 100 mg tablet TAKE 2&1/2 TABLETS (250MG) BY MOUTH AT BEDTIME NEEDED FOR SLEEP FOR 30 DAYS 02/29/2024 Active traZODone (DESYREL) 150 mg tablet take one tablet by mouth at bedtime as needed for sleep 01/03/2024 Active ursodioL (ACTIGALL) 300 mg capsule Take 300 mg by mouth 2 times daily. 10/02/2021 Active Active Problems Problem Noted Date Diagnosed Date , incidental 10/05/2021 Dichorionic diamniotic twin in first t rimester 10/05/2021 Elevated bilirubin 10/05/2021 Alcoholic hepatitis 10/05/2021 Hyperbilirubinemia Alcohol abuse Elevated LFTs Intrahepatic bile duct dilation Biliary stricture S/P ERCP Encounters Date Type Department Care Team Description 03/04/2025 External Device Data [facility] ABSTRACTION Provider, Abstract 02/26/2025 External Device Data [facility] ABSTRACTION Provider, Abstract 02/26/2025 External Device Data [facility] ABSTRACTION Provider, Abstract from Last 3 Months Immunizations Immunization Administration Dates Next Due (ADACEL/BOOSTRIX)(10 YR UP) TDAP VACCINE, 0.5ML, IM 12/02/2009 (M-M-R II/PRIORIX)(12 MO UP) MEASLES, MUMPS AND RUBELLA VIRUS VACCINE, 0.5 ML IM/SUBCUT 07/25/2005,12/02/2004 (TDVAX)(7 YRS UP) TETANUS AN D DIPHTHERIA TOXOIDS, ADSORBED (2 LF OF TETANUS TOXOID AND 2 LF OF DIPHTHERIA TOXOID), 0.5ML (PF), IM 02/01/2006,07/25/2005,12/07/2004 Hepatitis B Vaccine 02/01/2006,08/26/2005,2005 IPV/OPV 02/01/2006,07/25/2005,12/02/2004 Social History Tobacco Use Types Packs/Day Years Used Date Smoking Tobacco: Never Smokeless Tobacco: Never Alcohol Use Standard Drinks/Week Comments Not Currently 0 (1 standard drink = 0.6 oz pur e alcohol) Comments No Sex and Gender Information Value Date Recorded Sex Assigned at Not on file Legal Sex Female 2:55 AM BIODIESEL PRODUCT MANAGER Gender Identity Not on file Sexual Orientation Not on file 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 Not on file Not on file Last Filed Vital Signs Vital Sign Reading Time Taken Comments Blood Pressure 108/68 03/19/2024 11:18 AM BIODIESEL PRODUCT MANAGER Pulse 84 03/19/2024 11:18 AM BIODIESEL PRODUCT MANAGER Temperature 36.2 C (97.1 F) 03/19/2024 11:18 AM BIODIESEL PRODUCT MANAGER Respiratory Rate 16 03/19/2024 11:18 AM BIODIESEL PRODUCT MANAGER Oxygen Saturation 97% 03/19/2024 11:18 AM BIODIESEL PRODUCT MANAGER Inhaled Oxygen Concentration - - Weight 79.4 kg (175 lb) 03/19/2024 11:18 AM BIODIESEL PRODUCT MANAGER Height 160 cm (5' 3 ) 03/19/2024 11:18 AM BIODIESEL PRODUCT MANAGER Body Mass Index 31 03/19/2024 11:18 AM BIODIESEL PRODUCT MANAGER Plan of Treatment Health Maintenance Due Date Last Done Comments HPV/Cotest (21-29) 2013 HPV VACCINES (1 - 3-dose SCD M series) 10/25/2019 DTAP/TDAP/TD VACCINES (5 - T d or Tdap) 12/03/2019 12/02/2009, 02/01/2006, 07/25/2005, Additional history exists CERVICAL CANCER SCREENING 2022 HPV/Cotest (30-65) 2022 PAP SMEAR 2022 INFLUENZA VACCINE (#1) 2024 HEPATITIS B VACCINES Completed 02/01/2006, 08/26/2005, 07/25/2005 Medical Devices Implanted Type Area Office Clerk Assistant Device Identifier Shelf Expiration Date Model / Serial / Lot Stent Rx [id number] - [id number] Implanted:Qty: 1 on 10/08/2021 by Neville Low MD at [facility] Stent N/A: Bile [employer] [id number] 01/22/2023 [id number] / / [id number] [place] [address] [place] [address] [employer]AN MEDICAID Care Teams Bond Trader Relationship Specialty Start Date End Date Eloise Powers MD [address] [place] [id number] PCP - General 05/06/05
--- OUTSIDE RECORDS SUMMARY | 2025-03-26 09:56 | XMS_ITS | Data Portability ---
Author Organization [facility], [facility], [facility] Address [address] [address] [place] [address] Care Team Providers Care Warehouse Order Selector Name Role Phone RUTHY PHILLIP Primary Care Provider Unavaila ble Assessment Encounter Date Assessment Date Assessment LastModified by Organization Details LastModified Time 11/29/2023 11/29/2023 Will Start running daily. Start rehab. Start Naltrexone [email or web address] Not available 11/29/2023 11:05:31 Plan of Treatment Reminders Order Date Submit Date Provider Last Modified By Organization Details Last Modified Time Details Appointments RECHEC K 10 2025 03:40P Joanne Phillip MD Not available Not available Not available Lab CBC 2024 025 [facility], [address], [address], [place], [address], 12/04/2024 17:03:31 CMP, serum or plasma 2024 025 [employer] [facility], [address] [place] [address], [address] [place], [address], 12/06/2024 07:12:12 lipid panel, blood 2024 025 gabi [facility], [address] [place] [address], [address] [place], [address], 12/11/2024 15:31:23 Referral substa nce abuse rehabi litati on referr al 2023 024 [email or web address] Not available 02/14/2024 10:40:16 Procedures None record ed. Surgeries None record ed. Imaging None record ed. Medication Orders Eliqui s 5 mg tablet 2024 025 [id number], [address], [address], [place], [address], 12/03/2024 16:43:45 naltre xone 50 mg tablet [address] [facility], [address], [place], [address], 01/23/2024 12:35:36 Patient TargetsNo targets recorded. Patient InstructionsNo instructions recorded. Reason for Referral Substance Abuse Rehabilitati on Referral for Alcoholism Referring Physician: Ruthy Phillip, Family Medicine, Encounter Date: 11/29/2023 Results Created Date Observation Date Name Description Value Unit Range Abnormal Flag Note LastModifiedBy Organization Detail LastModifiedTime 12/05/1912/04/2024 CBC WBC 9.2 x10 4.0-10 .5 Not Available [facility] [address], [place], [address], 12/04/2024 17:03:31 12/05/1912/04/2024 CBC RBC 4.34 x10 3.50-5 .50 Not Available [facility] [address], [place], [address], 12/04/2024 17:03:31 12/05/1912/04/2024 CBC HGB 12.5 g/dL 12.0-1 6.0 Not Available [facility] [address], [place], [address], 12/04/2024 17:03:31 12/05/19 25 12/04/2024 CBC HCT 38.9 % 37.0-4 7.0 Not Available [facility] [address] [facility] 1, [place], [address], 12/04/2024 17:03:31 12/05/1912/04/2024 CBC MCV 89.6 fL 80.0-9 9.9 Not Available [facility] [address] [facility] 1, [place], [address], 12/04/2024 17:03:31 12/05/19 25 12/04/2024 CBC MCH 28.9 pg 27.0-3 2.0 Not Available [facility] [address] [facility] 1, [place], [address], 12/04/2024 17:03:31 12/05/1912/04/2024 CBC MCHC 32.2 g/dL 32.0-3 6.0 Not Available [facility] [address] [facility] 1, [place], [address], 12/04/2024 17:03:31 12/05/1912/04/2024 CBC RDW 13.4 % 11.5-1 4.5 Not Available [facility] [address] [facility] 1, [place], [address], 12/04/2024 17:03:31 12/05/1912/04/2024 CBC plt 337.1 x10 140.0- 451.0 Not Available [facility] [address] [facility] 1, [place], [address], 12/04/2024 17:03:31 12/05/1912/04/2024 CBC lymphocytes % 30.1 % 20.0-5 0.0 Not Available [facility] [address] [facility] 1, [place], [address], 12/04/2024 17:03:31 12/05/19 12/04/2024 CBC granulcytes % 61.3 % 30.0-7 0.0 Not Available [facility] [address] [address], [place], [address], 12/04/2024 17:03:31 12/05/19 25 12/04/2024 CBC monocytes % 6.2 % 2.0-16 .0 Not Available [facility] [address] [address], [place], [address], 12/04/2024 17:03:31 12/05/19 25 12/04/2024 CBC granulcytes# 5.6 x10 Not Charline ilable [facility] [address] [address], [place], [address], 12/04/2024 17:03:31 12/05/19 25 12/04/2024 CBC lymphocytes # 2.8 x10 Not Available [facility] [address] [address], [place], [address], 12/04/2024 17:03:31 12/05/1912/04/2024 CBC monocytes # 0.6 x10 Not Avai lable [facility] [address] [address], [place], [address], 12/04/2024 17:03:31 12/05/19 25 12/06/2024 LIPID PANEL , STAND MARISSA cholesterol, total 219 mg/dL <200 high Not Available [facility] [address] [place], [address], 12/06/2024 07:12:12 12/05/19 25 12/06/2024 LIPID PANEL , STAND MARISSA HDL cholesterol 72 mg/dL > or = 50 normal Not Available [facility] [address] [place], [address], 12/06/2024 07:12:12 12/05/19 25 12/06/2024 LIPID PANEL , STAND MARISSA triglyceride s 68 mg/dL <150 normal Not Available [facility] [address] [place] [address], [address], 12/06/2024 07:12:12 12/05/19 25 12/06/2024 LIPID PANEL , STAND MARISSA LDL-choleste rol 131 mg/dL _(leila c) high Refer ence range : <100 Jeanne able range <100 mg/dL for prima ry preve ntion ; <70 mg/dL for patie nts with CHD or diabe tic patie nts with > or = 2 CHD risk facto rs. LDL-C is now calcu lated using the Linda n-Hop kins calcu juma n, which is a valid ated novel metho d provi ding isaiah r accur acy than the Fried soraya equat ion in the estim ation of LDL-C . Linda moseley SS et al. RASHEEDA. 2013; 310(1 9): 2061- 2068 (http ://ed ucati on.Qu mayuriMobilisafe. WorkCast/f aq/FA Q164) Not Available [facility] [address] [place], [address], 12/06/2024 07:12:12 12/05/19 25 12/06/2024 LIPID PANEL , STAND MARISSA chol/HDLC ratio 3.0 (calc ) <5.0 normal Not Available [facility] [address] [address], [place], [address], 12/06/2024 07:12:12 12/05/19 25 12/06/2024 LIPID PANEL , STAND MARISSA non HDL cholesterol 147 mg/dL _(leila c) <130 high For patie nts with diabe mireya plus 1 major ASCVD risk facto r, treat ing to a non-H DL-C goal of <100 mg/dL (LDL- C of <70 mg/dL ) is consi dered a thera peuti c optio n. Not Available [facility] [address] [place], [address], 12/06/2024 07:12:12 12/05/19 25 12/06/2024 COMPR EHENS KORINA METAB OLIC PANEL glucose 113 mg/dL 65-99 high Fasti ng refer ence inter elroy For someo ne witho ut known diabe mireya, a gluco se value betwe en 100 and 125 mg/dL is consi stent with predi abete s and shoul d be confi rmed with a follo w-up test. Not Available [address], [address], 12/06/2024 07:12:12 12/05/19 25 12/06/2024 COMPR EHENS KORINA METAB OLIC PANEL urea nitrogen (BUN) 23 mg/dL 7-25 normal Not Available [address], [address], 12/06/2024 07:12:12 12/05/19 25 12/06/2024 COMPR EHENS KORINA METAB OLIC PANEL creatinine 1.00 mg/dL 0.50-0 .97 high Not Available [address], [address], 12/06/2024 07:12:12 12/05/19 25 12/06/2024 COMPR EHENS KORINA METAB OLIC PANEL eGFR 77 mL/mi n/1.7 3m2 > or = 60 normal Not Available [address], [address], 12/06/2024 07:12:12 12/05/19 25 12/06/2024 COMPR EHENS KORINA METAB OLIC PANEL BUN/creatini ne ratio 23 (calc ) 6-22 high Not Available [address], [address], 12/06/2024 07:12:12 12/05/19 25 12/06/2024 COMPR EHENS KORINA METAB OLIC PANEL sodium 136 mmol/ L 135-14 6 normal Not Available [address], [address], 12/06/2024 07:12:12 12/05/19 25 12/06/2024 COMPR EHENS KORINA METAB OLIC PANEL potassium 3.8 mmol/ L 3.5-5. 3 normal Not Available [address], [address], 12/06/2024 07:12:12 12/05/19 25 12/06/2024 COMPR EHENS KORINA METAB OLIC PANEL chloride 103 mmol/ L 98-110 normal Not Available [address], [address], 12/06/2024 07:12:12 12/05/19 25 12/06/2024 COMPR EHENS KORINA METAB OLIC PANEL carbon dioxide 26 mmol/ L 20-32 normal Not Available [address], [address], 12/06/2024 07:12:12 12/05/19 25 12/06/2024 COMPR EHENS KORINA METAB OLIC PANEL calcium 9.5 mg/dL 8.6-10 .2 normal Not Available [address], [address], 12/06/2024 07:12:12 12/05/19 25 12/06/2024 COMPR EHENS KORINA METAB OLIC PANEL protein, total 7.6 g/dL 6.1-8. 1 normal Not Available [address], [address], 12/06/2024 07:12:12 12/05/19 25 12/06/2024 COMPR EHENS KORINA METAB OLIC PANEL albumin 4.5 g/dL 3.6-5. 1 normal Not Available [address], [address], 12/06/2024 07:12:12 12/05/19 25 12/06/2024 COMPR EHENS KORINA METAB OLIC PANEL globulin 3.1 g/dL_ (calc ) 1.9-3. 7 normal Not Available [address], [address], 12/06/2024 07:12:12 12/05/19 25 12/06/2024 COMPR EHENS KORINA METAB OLIC PANEL albumin/glob ulin ratio 1.5 (calc ) 1.0-2. 5 normal Not Available [address], [address], 12/06/2024 07:12:12 12/05/19 25 12/06/2024 COMPR EHENS KORINA METAB OLIC PANEL bilirubin, total 0.2 mg/dL 0.2-1. 2 normal Not Available [address], [address], 12/06/2024 07:12:12 12/05/19 25 12/06/2024 COMPR EHENS KORINA METAB OLIC PANEL alkaline phosphatase 110 U/L 31-125 normal Not Available [address], [address], 12/06/2024 07:12:12 12/05/19 25 12/06/2024 COMPR EHENS KORINA METAB OLIC PANEL AST 40 U/L 10-30 high Not Available [address], [address], 12/06/2024 07:12:12 12/05/19 25 12/06/2024 COMPR EHENS KORINA METAB OLIC PANEL ALT 27 U/L 6-29 normal Not Available [address], [address], 12/06/2024 07:12:12 12/19/19 25 12/19/2024 BASIC METAB OLIC PANEL glucose 103 mg/dL 65-99 high Fasti ng refer ence inter elroy For someo ne witho ut known diabe mireya, a gluco se value betwe en 100 and 125 mg/dL is consi stent with predi abete s and shoul d be confi rmed with a follo w-up test. Not Available [address], [address], 12/19/2024 06:19:43 12/19/1912/19/2024 BASIC METAB OLIC PANEL urea nitrogen (BUN) 15 mg/dL 7-25 normal Not Available [facility] [address], [address], 12/19/2024 06:19:43 12/19/1912/19/2024 BASIC METAB OLIC PANEL creatinine 0.87 mg/dL 0.50-0 .97 normal Not Available [address], [address], 12/19/2024 06:19:43 12/19/1912/19/2024 BASIC METAB OLIC PANEL eGFR 91 mL/mi n/1.7 3m2 > or = 60 normal Not Available [address], [address], 12/19/2024 06:19:43 12/19/1912/19/2024 BASIC METAB OLIC PANEL BUN/creatini ne ratio SEE NOTE: (calc ) 6-22 Not Repor lolita: BUN and Creat inine are withi n refer ence range . Not Available [address], [address], 12/19/2024 06:19:43 12/19/1912/19/2024 BASIC METAB OLIC PANEL sodium 137 mmol/ L 135-14 6 normal Not Available [address], [address], 12/19/2024 06:19:43 12/19/1912/19/2024 BASIC METAB OLIC PANEL potassium 3.7 mmol/ L 3.5-5. 3 normal Not Available [facility] [address] [place], [address], 12/19/2024 06:19:43 12/19/1912/19/2024 BASIC METAB OLIC PANEL chloride 104 mmol/ L 98-110 normal Not Available [address] [address] [place], [address], 12/19/2024 06:19:43 12/19/1912/19/2024 BASIC METAB OLIC PANEL carbon dioxide 24 mmol/ L 20-32 normal Not Available [address] [address] [place], [address], 12/19/2024 06:19:43 12/19/19 25 12/19/2024 BASIC METAB OLIC PANEL calcium 9.2 mg/dL 8.6-10 .2 normal Not Available [address], [address], 12/19/2024 06:19:43 12/25/19 24 12/20/2023 XR, chest , 1 view No observ ation record ed. [email or web address] [facility] ([facility] [address] [place] [address], [address], 12/28/2023 18:25:56 03/25/20 24 US, duple x, venou s, [facility] mity No observ ation record ed. [email or web address] Not Available 2023 10:39:53 Result Notes None recorded. Problems Name Problem SNOMED Code Status Onset Date Resolution Date Notes Provider Name and Address Organization Details Recorded Time Hypertensiv e disorder 19205522 Active 2023 CLAUDIA steward [place] [facility] Pulmonary embolism 82862291 Active 2023 [facility] Anxiety 64452720 Active 2023 [facility] 10:02:15 Alcoholism 8382239 Active 2023 CLAUDIA RIVAS [facility], [facility] 5 10:02:12 Chest pain 27697645 Active 2023 CLAUDIA RIVAS [facility], [facility] 5 10:01:46 Tuberculosi s screening Completed 202308/27/2024 CLAUDIA RIVAS [facility], [facility] 5 10:02:10 Insomnia 324468696 Active 2023 [facility] 10:01:54 Serum creatinine above reference range 579756472 Active 2024 Ruthy Phillip MD [address] [place] [address], [address] , [facility] 15:42:59 Problem Notes None recorded. Procedures Surgical History Date Name Laterality Status Provider Name and Address Organization Details Recorded Time delivery completed VIOLA CHAPABIJANTORYDAVIN [facility] 08/15/2023 13:51:41 Imaging Results None recorded. Procedure Notes None recorded. Medical Equipment None Reported. Allergies Allergen ID Allergen Name Allergen Category Reaction Reaction Severity Criticality Documentation Date Start Date Code Code System Note Provider Name and Address Organization Details Recorded Time 11060 naltrexon e medicatio n Not available Not available Not available 08/29/2023 7243 RxNorm [facility] 13:47:21 Medications Name Sig Start Date Stop Date Status Note LastModified by Organization Details LastModified Time fluoxetin e 40 mg capsule TAKE ONE CAPSULE BY MOUTH EVERY MORNING 09/11 completed Not Available Not Available Not Available promethaz ine-DM 6.25 mg-15 mg/5 mL oral syrup Take 5 mL every 4 hours by oral route as needed. 08/14 completed Not Available Not Available Not Available clonidine HCl 0.1 mg tablet TAKE 1 TABLET BY MOUTH DAILY 08/28 completed Stopped by [facility] Not Available Not Available Not Available trazodone 50 mg tablet TAKE ONE TABLET AT BEDTIME NEEDED FOR SLEEP 11/28 completed dose increase Not Available Not Available Not Available ibuprofen 800 mg tablet TAKE 1 TABLET BY MOUTH THREE TIMES A DAY NEEDED 08/14 completed Not Available Not Available Not Available hydrocodo ne 5 mg-acetam inophen 325 mg tablet TAKE 1 TABLET BY MOUTH EVERY 6 HOURS NEEDED 08/14 completed Not Available Not Available Not Available sucralfat e 1 gram tablet TAKE 1 TABLET BY MOUTH THREE TIMES A DAY FOR 14 DAYS 01/22 completed Not Available Not Available Not Available naltrexon e 50 mg tablet TAKE 1 TABLET BY MOUTH EVERYDAY AT BEDTIME active Not Available Not Available No t Available quetiapin e 200 mg tablet TAKE 1 TABLET BY MOUTH EVERYDAY AT BEDTIME active Not Available Not Available No t Available thiamine HCl (vitamin B1) 100 mg tablet TAKE 1 TABLET BY MOUTH EVERY DAY 12/03 completed Not Available Not Available Not Available quetiapin e 100 mg tablet TAKE 1 TABLET BY MOUTH EVERYDAY AT BEDTIME 08/28 completed dose increase Not Available Not Available Not Available chlordiaz epoxide 25 mg capsule TAKE ONE CAPSULE BY MOUTH EVERY 8 HOURS FOR THREE DAYS, THEN TAKE ONE CAPSULE EVERY TWELVE HOURS FOR THREE DAYS, THEN TAKE ONE CAPSULE DAILY FOR THREE DAYS 09/11 completed Not Available Not Available Not Available trazodone 100 mg tablet TAKE 3 TABLETS BY MOUTH AT BEDTIME NEEDED FOR SLEEP FOR 30 DAYS active Not Available Not Available No t Available amlodipin e 10 mg tablet TAKE 1 TABLET BY MOUTH EVERY DAY IN THE MORNING active Not Available Not Available No t Available pantopraz ole 40 mg tablet,de layed release TAKE 1 TABLET BY MOUTH EVERY DAY active Not Available Not Available No t Available mirtazapi ne 30 mg tablet TAKE 1 TABLET BY MOUTH AT BEDTIME 08/28 completed Not Available Not Available Not Available trazodone 150 mg tablet TAKE 2 TABLET BY MOUTH AT BEDTIME NEEDED WITH 100 MG active dose decrease d Not Available Not Available Not Available ursodiol 300 mg capsule TAKE 1 CAPSULE (300 MG) BY MOUTH 2 TIMES DAILY FOR 14 DAYS. 08/14 completed Not Available Not Available Not Available fluoxetin e 10 mg capsule TAKE THREE CAPSULES BY MOUTH DAILY 08/14 completed Not Available Not Available Not Available trazodone 300 mg tablet TAKE 1 TABLET BY MOUTH AT BEDTIME NEEDED 08/28 completed Not Available Not Available Not Available docusate sodium 100 mg capsule TAKE 1 SOFTGEL BY MOUTH TWICE A DAY 08/14 completed Not Available Not Available Not Available mirtazapi ne 15 mg tablet Take 1 tablet every day by oral route at bedtime. 08/28 completed Not Available Not Available Not Available ondansetr on 4 mg disintegr ating tablet PLACE 1 TABLET ON TOP OF THE TONGUE EVERY 8 HOURS NEEDED 12/03 completed Not Available Not Available Not Available fluoxetin e 20 mg capsule TAKE 1 CAPSULE BY MOUTH IN THE MORNING active Not Available Not Available No t Available hydroxyzi ne pamoate 25 mg capsule TAKE 2 CAPSULES BY MOUTH EVERY 6 HOURS NEEDED FOR ANXIETY FOR 30 DAYS active Not Available Not Available No t Available escitalop mine 10 mg tablet TAKE 1 TABLET BY MOUTH EVERY DAY 08/14 completed Not Available Not Available Not Available acamprosa te 333 mg tablet,de layed release TAKE 2 TABLETS BY MOUTH 3 TIMES A DAY WITH MEALS 12/03 completed Not Available Not Available Not Available Vivitrol 380 mg intramusc ular suspensio n,extende d release TO be given AT [facility] 08/14 completed Not Available Not Available Not Available quetiapin e 50 mg tablet TAKE 1 TABLET BY MOUTH EVERYDAY AT BEDTIME 08/28 completed dose increase Not Available Not Available Not Available Eliquis 5 mg tablet TAKE 1 TABLET BY MOUTH TWICE A DAY active Not Available Not Available No t Available M- Plus 27 mg iron-1 mg tablet TAKE 1 TABLET BY MOUTH EVERY DAY 08/14 completed Not Available Not Available Not Available Tab-A-Vit e 400 mcg tablet TAKE ONE TABLET BY MOUTH DAILY FOR 30 DAYS 09/11 completed Not Available Not Available Not Available Vitals Date Recorded Body height Body mass index (BMI) Body weight Oxygen saturation Heart rate Respiratory rate Body temperature Systolic And Diastolic Provider Name and Address Organization Details Last Updated DateTime 5 160.02 cm 30.6 kg/m2 58911.4 8 g 99 % 83 /min 18 /min 98 [degF] 118/64 mm[Hg] VIOLA ROBLES [facility] 09:22:49 Date Recorded Body height Body weight Oxygen saturation Heart rate Respiratory rate Body temperature Systolic And Diastolic Provider Name and Address Organization Details Last Updated DateTime 4 160.02 cm 93284.6 9 g 99 % 99 /min 18 /min 99.2 [degF] 142/90 mm[Hg] VIOLA PEDRAZA [facility] 4 10:22:37 Date Recorded Body height Body mass index (BMI) Body weight Oxygen saturation Heart rate Respiratory rate Body temperature Systolic And Diastolic Provider Name and Address Organization Details Last Updated DateTime 5 160.02 cm 30 kg/m2 72080.2 1 g 99 % 90 /min 18 /min 99.1 [degF] 132/74 mm[Hg] VIOLA ROBLES [facility] 5 16:26:06 Date Recorded Body height Body mass index (BMI) Body weight Oxygen saturation Heart rate Respiratory rate Body temperature Systolic And Diastolic Provider Name and Address Organization Details Last Updated DateTime 4 160.02 cm 29.2 kg/m2 70561.7 4 g 97 % 78 /min 18 /min 98.2 [degF] 106/58 mm[Hg] CLAUDIA RIVAS [facility] 4 12:39:48 Social History Question Answer Notes LastModified by Organizat ion Details LastModified Time Tobacco Smoking Status Never Smoker VIOLA steward [facility] 08/15/2023 13:51:31 Are You Blind Or Do You Have Difficulty Seeing? No Information not available 08/28/2024 Are You Deaf Or Do You Have Serious Difficulty Hearing? No Information not available 08/28/2024 What Is Your Relationship Status? Single Information not available 08/28/2024 Do You Have Difficulty Walking Or Climbing Stairs? No Information not available 08/28/2024 Sex: Unknown Functional Status Question Answer Note LastModified by Organizat ion Details LastModified Time Do you use any illicit or recreational drugs? No Information not available 08/15/2023 What is your level of alcohol consumption? None 12/04/23 Information not available 12/03/2024 Are you currently employed? Yes [employer] Information not available 08/28/2024 Do you have difficulty doing errands alone? No Information not available 08/28/2024 Are you able to care for yourself independently? Yes Information not available 08/28/2024 Do you have difficulty dressing, bathing, grooming, or toileting? No Information not available 08/28/2024 Do you or have you ever used any nicotine-free cigarettes, vape, or chewing tobacco? Yes vapes Information not available 12/03/2024 Mental Status Question Answer Note LastModified by Organization D etails LastModified Time Do you have difficulty concentrating, remembering or making decisions? No Information no t available 08/28/2024 Family History Nothing Reported. Medical History No medical history recorded. Gynecological HistoryNo gynecological history recorded. Obstetrics History GPAL:G 0 P 0 0 0 0 Immunizations Vaccine Type Date Status Note Provider Nam e and Address Organization Details Recorded Time Tdap 8 completed Not Available [facility] 11/26/2022 02:46:02 Tdap 2 completed Not Available [facility] 11/26/2022 02:46:02 HPV9 9 completed VIOLA steward [facility] 08/15/2023 13:50:12 IPV 6 completed VIOLA steward [facility] 08/15/2023 13:50:12 IPV 6 completed TREBA NEUSCHWANDER null, [facility] 08/15/2023 13:50:12 MMR 6 completed TREBA NEUSCHWANDER null, [facility] 08/15/2023 13:50:13 MMR 5 completed TREBA NEUSCHWANDER null, [facility] 08/15/2023 13:50:13 Tdap 0 completed TREBA NEUSCHWANDER null, [facility] 08/15/2023 13:50:13 Tdap 9 completed TREBA NEUSCHWANDER null, [facility] 08/15/2023 13:50:13 Tdap 5 completed TREBA NEUSCHWANDER null, [facility] 08/15/2023 13:50:13 polio, unspecified formulation 5 completed TREBA NEUSCHWANDER null, [facility] 08/15/2023 13:50:13 HPV, quadrivalent 5 completed TREBA NEUSCHWANDER null, [facility] 08/15/2023 13:50:13 HPV, quadrivalent 5 completed TREBA NEUSCHWANDER null, [facility] 08/15/2023 13:50:13 Td (adult), 2 Lf tetanus toxoid, preservative free, adsorbed 6 completed TREBA NEUSCHWANDER null, [facility] 08/15/2023 13:50:13 Td (adult), 2 Lf tetanus toxoid, preservative free, adsorbed 5 completed TREBA NEUSCHWANDER null, [facility] 08/15/2023 13:50:13 Td (adult), 2 Lf tetanus toxoid, preservative free, adsorbed 6 completed TREBA NEUSCHWANDER null, [facility] 08/15/2023 13:50:13 Hep B, adolescent or pediatric 6 completed TREBA NEUSCHWANDER null, [facility] 08/15/2023 13:50:13 Hep B, adolescent or pediatric 6 completed TREBA NEUSCHWANDER null, [facility] 08/15/2023 13:50:13 Hep B, adolescent or pediatric 6 completed TREBA NEUSCHWANDER null, [facility] 08/15/2023 13:50:13 Hep A, ped/adol, 2 dose 1 completed TREBA NEUSCHWANDER null, [facility] 08/15/2023 13:50:13 Hep A, ped/adol, 2 dose 0 completed TREBA NEUSCHWANDER null, [facility] 08/15/2023 13:50:13 meningococcal MCV4P 1 completed TREBA NEUSCHWANDER null, [facility] 08/15/2023 13:50:13 Past Encounters Encounter ID Performer Location Encounter Start Date Encounter Closed Date Diagnosis/Indication Diagnosis SNOMED-CT Code Diagnosis ICD10 Code Diagnosis IMO Codes Diagnosis Note [id number] KARLA BLUNT NP [facility] ([facility]) [address] [place] [address] 11/10/2022 18:29:44 12/11/2022 17:38:13 Exposure to SARS-CoV-2 560863714 Z20.822 Viral uppe r respiratory tract infection [id number] J06.9 Negative COVID test in clinic today Discussed promethazi ne-dm cough syrup as prescribed as needed for coughDiscu ssed to utilize OTC allergy medicine (Claritin or Zyrtec) for post nasal and nasal drainageUs e cool mist humidifier in bedroom at nightOTC Tylenol and Ibuprofen as label directs for any fevers/dis comfortOTC cough medicine or honey at night to help with coughPush increased fluids - water, pedialyteU tilize saline nasal spraySeek follow up at the ED if- no longer drinking fluids, decreased/ no urine output, increased work of breathing. Follow up with PCP or return to walk-in clinic if worsening symptomsRe turn to clinic if any changes, any worsening, any concerns.P atient verbalized understand ing of plan [id number] Ruthy Phillip MD [facility] ([facility]) [address] [place], [place] [phone] 08/15/2023 13:32:04 08/15/2023 16:26:58 Anxiety 90474555 F41.9 [id number] Ruthy Phillip MD [facility] ([facility]) [address] [place] [phone] 08/29/2023 13:30:19 08/29/2023 14:58:23 Nausea and vomiting [id number] R11.2 [id number] Ruthy Phillip MD [facility] ([facility]) [address] [place] [phone] 09/12/2023 11:58:51 09/12/2023 12:56:14 Hypertensive disorder 93846113 I10 [id number] Ruthy Phillip MD [facility] ([facility]) [address] [place] [phone] 10/16/2023 13:15:26 10/16/2023 15:47:52 Hypertensive disorder 51638443 I10 Pulmonary embolism 65806 003 I26.99 [id number] Ruthy Phillip MD [facility] ([facility]) [address] [place] [phone] 10/17/2023 10:43:57 10/18/2023 11:08:14 [id number] Ruthy Phillip MD [facility] ([facility]) [address] [place] [phone] 11/16/2023 10:14:25 11/16/2023 14:22:07 Nausea and vomiting 27970880 R11.2 Chest pain 93819468 R07. 9 Alcoholism 1728258 F10.2 0 Anxiety 69062612 F41.9 [id number] Ruthy Phillip MD [facility] ([facility]) [address] [place], [place] [address] 11/29/2023 10:01:07 11/29/2023 11:26:27 Alcoholism 5490875 F10.20 Chest pain 41676617 R07. 9 Palpitations 78734716 R0 0.2 Insomnia 050991407 G47.0 0 [id number] Ruthy Phillip MD [facility] ([facility]) [address] [place], [place] [phone] 01/23/2024 12:21:55 01/23/2024 15:13:38 Alcoholism 5780593 F10.20 Anxiety 14939583 F41.9 Insomnia 221129120 G47.0 0 [id number] Ruthy Phillip MD [facility] ([facility]) [address] [place] [address] 5 04/04/2024 08:50:01 04/05/2024 11:50:02 [id number] Ruthy Phillip MD [facility] ([facility]) [address] [place], [place] [phone] 08/28/2024 08:59:46 08/28/2024 09:54:20 Alcoholism 3426022 F10.20 Anxiety 44528377 F41.9 Pulmonary embolism 47630 003 I26.99 [id number] Ruthy Phillip MD [facility] ([facility]) [address] [place] [address] 5 12/03/2024 16:12:11 12/03/2024 16:51:50 Hypertensive disorder 30157236 I10 Pulmonary embolism 53512 003 I26.99 Health Concerns Section Related Observation LastModified by Organization Detai ls LastModified Time None Recorded Concern Status LastModified by Organization Details LastModified Time None Recorded Advance Directives Directive None Recorded Payers Insurance Date Sequence Insurance Name Policy Number Policy Hernandez Covered Member ID Hernandez Member ID Guarantor Name 12/18/2024 [facility] (MEDICAID HMO) Milagro Brambila Daviddavin [id number] Milagro Brambila Daviddavin 12/18/2024 1 [facility] (MEDICAID HMO) Milagro Brambila Romulo [id number] Milagro Brambila Daviddavin Notes Date Note Type Note Provider Name and Address Organization Details Recorded Time 11/29/2023 text/html Pt states she was doing good until Aime got a regulatory attorney to get custody of the twins, Pt states she passed out the other day, fell and has bruising to her arms and legs, pt is still having chest pain, shortness of breath, dizziness and palpitations all the time. Pt states she did have a increase in the Trazadone and she is still not sleeping. Ruthy Phillip MD [address] [place] [address], [phone], [facility] 11/29/2023 11:06:59 01/23/2024 text/html pt has been sober since 12/03, she was in pt rehab at the [facility] and now has been released to out patient treatment. She was discharged on 01/15/24. Ruthy Phillip MD [address] [place] [address], [phone], [facility] 02/12/2024 21:24:38 08/28/2024 text/html pt has been sober since 12/03/23 she was in pt rehab at the [facility] and now has been released to out patient treatment. She was discharged on 01/15/24. Pt states she only slipped up 1 time she took a shot and it didn't taste good so she didn't have anymore she states she is doing good she is working at [employer]. Pt would like to talk about her Eliquis and how long she needs to take it. Ruthy Phillip MD [address] [place] [address], [phone], [facility] 08/28/2024 09:53:15 12/03/2024 text/html Hypertension F/UReported by PatientHPIFor associated symptoms, patient reportsshortness of breath,palpitations, andheadachebut reportsno dizziness,no lightheadedness,no chest pain, andno edema. For medications, patient reportstaking medications as directed. Pt states she is 1 year sober today and she has not even craving alcoholPt states she occ checks her Bp and has not had any high readings Ruthy Phillip MD [address] [place] [address], [phone], [place] [facility] 12/03/2024 16:47:07 OBGyn Episode No OBEpisode recorded.
--- NOTE | 2025-03-26 10:42 | W.ED.EXTPRO ---
HPI - Extremity Problem General: Chief complaint: Extremity Injury, Lower Stated complaint: left knee pain Time Seen by Provider: 03/26/25 10:30 Source: patient Mode of arrival: ambulatory Limitations: no limitations History of Present Illness: 34-year-old female states that she was riding a skateboard yesterday at [facility] and fell. She states that she heard a crack in her left knee and has been having some pain left knee since then. She is ambulating here with no difficulty she rates her pain a 6 out of 10 is worse with movement improved with rest. Denies any other injuries. Related Data Home Medications ?Medication ?Instructions ?Recorded ?Confirmed apixaban 5 mg tablet (Eliquis) 5 mg PO BID 05/03/24 03/26/25 fluoxetine 20 mg capsule 20 mg PO DAILY 03/26/25 03/26/25 Previous Rx's ?Medication ?Instructions ?Recorded quetiapine 200 mg tablet (Seroquel) 200 mg PO .8 pm #30 tabs 02/25/25 trazodone 100 mg tablet 300 mg (3 x 100 mg) PO BEDTIME PRN 02/25/25 sleep 30 days #90 tabs naproxen 500 mg tablet (Naprosyn) 500 mg PO BID PRN pain #20 tabs 03/26/25 Allergies Allergy/AdvReac Type Severity Reaction Status Date / Time No Known Allergies Allergy Verified 03/26/25 09:53 Review of Systems Musc: Reports: extremity pain [facility] PFSH: Medical History Alcohol use disorder, severe, in early remission, dependence Last use end of June 2024 Nicotine dependence due to vaping tobacco product Severe alcohol dependence Chronic post-traumatic stress disorder BETH (generalized anxiety disorder) Major depressive disorder, recurrent severe without psychotic features Psychiatric care IUP (intrauterine ), incidental Intrahepatic bile duct dilation Abnormal magnetic resonance cholangiopancreatography (MRCP) Surgical History History of tubal ligation Social History Smoking and tobacco/nicotine status: current every day tobacco/nicotine user Alcohol intake: current Substance/Drug Use: never Physical Exam Const: COMMON NORMALS: no acute distress, patient oriented x3 and healthy appearing HENMT: COMMON NORMALS: normocephalic and atraumatic HEAD & SCALP: normocephalic and atraumatic Chest: COMMONS NORMALS: normal inspection of the chest Resp: COMMON NORMALS: normal respiratory effort Cardio: COMMON NORMALS: regular rate RATE: regular rate Extremity: NARRATIVE EXTREMITY EXAM: Slight tenderness to left knee no obvious deformities. Neuro: COMMON NORMALS: patient oriented x3, moves all extremities and no focal motor deficits Psych: COMMON NORMALS: mental status grossly normal, Normal thought process present and cooperative THOUGHT PROCESS: Normal thought process present Skin: COMMON NORMALS: no rashes or lesions noted and no wounds GENERAL SKIN EXAM: no rashes or lesions noted Course Vital Signs: Vital signs: Vital Signs Temperature 98.2 F 03/26/25 09:47 Pulse Rate 80 03/26/25 09:47 Blood Pressure 119/59 03/26/25 09:47 Pulse Oximetry 100 03/26/25 09:47 Oxygen Delivery Me thod Room Air 03/26/25 09:47 MDM - Extremity (Nontraumatic) Medical Decision Making Patient presents for left knee injury differential includes knee sprain, fracture. Did get an x-ray of her left knee that I interpreted myself showed no signs of fracture. Exam she has no warmth no swelling she is ambulatory without any difficulty. Will Miguel wrap she is to rest and ice we will prescribe her Naprosyn she is to follow-up with PCP in 3 to 5 days she understands agrees to plan she is return if worsening Medical Records I reviewed the patient's medical records. XR interpretation done by ED provider, pending radiology final review ED provider radiology interpretation(s): xr l knee: no acute abnormality Discharge Plan Discharge Patient Disposition: Home Clinical Impression: Left knee sprain Condition: Stable Prescriptions: New naproxen [Naprosyn] 500 mg tablet 500 mg PO BID PRN (Reason: pain) Qty: 20 0RF No Action Eliquis 5 mg tablet 5 mg PO BID trazodone 100 mg tablet 300 mg PO BEDTIME PRN (Reason: sleep) 30 Days Qty: 90 4RF quetiapine [Seroquel] 200 mg tablet 200 mg PO .8 pm Qty: 30 4RF fluoxetine 20 mg capsule 20 mg PO DAILY Discharge Orders: Discharge ED (Routine); Ordered 03/26/25 Ordered By: Karmen Márquez Referrals: Nick Phillip MD [Primary Care Provider, [facility]] - 4-7 days Discharge Diet: Advance as tolerated Discharge Activity: Resume usual activity Patient Instructions: Knee Sprain (ED) Print Language: Romansh Coding Level of Care Code ED M[employer] for Ivy Bryan
--- NOTE | 2025-03-26 10:56 | PC.PHAR ---
Pt no longer taking Hydroxyzine Pamoate 25mg-2q6h prn anxiety last fill 01/28/25 30ds or Naltrexone 50mg qam last fill 01/07/25 30ds.
[2025-03-26 11:18] VITALS: BP 112/79; PULSE 76; RESP 17; O2SAT 98
== END 2025-03-26 11:19 | disposition home or self-care (01) ==
PROVIDERS: Emergency Provider Emergency Medicine; PCP Family Medicine
DX: S83.92XA Sprain of unspecified site of left knee, initial encounter (principal); Z79.01 Long term (current) use of anticoagulants; Z72.0 Tobacco use; V00.131A Fall from skateboard, initial encounter
CPT/HCPCS: 73562; 99283